=== PATIENT | female | born 1960 | race Two or more races ===

== ENCOUNTER → 2020-07-05 09:44 | Outpatient (BNVA) | payer OTHER, SELFPAY | PROVIDERS: PCP Internal Medicine; Referring Provider Internal Medicine; Visit Provider Physician Assistant | DX: Z76.89 Persons encountering health services in other specified circumstances (principal) ==

== ENCOUNTER 2020-07-11 12:25 | Outpatient (REF) | payer OTHER, SELFPAY ==
--- NOTE | 2020-07-11 | MM_ITS ---
EXAMINATION: MM SCREENING DIGITAL BREAST TOMOSYNTHESIS, BILATERAL CLINICAL INFORMATION: Screening. Asymptomatic. The lifetime risk of breast cancer based on the Tyrer-Cuzick Model is 5%. COMPARISON: Mammography: 07/06/2019, 06/22/2018, 11/20/2016 TECHNIQUE: Digital breast tomosynthesis is performed in both the craniocaudal and mediolateral oblique views along with computer-aided detection (CAD). Synthesized 2D images are generated from the tomosynthesis. FINDINGS: There are scattered areas of fibroglandular density (ACR BI-RADS breast composition Category b). There are no significant masses, abnormal calcifications, or other abnormalities. Parenchymal pattern is similar to prior studies. There is no developing density. The axilla and skin contours are unremarkable. MM/MM tomosynthesis screening BI IMPRESSION: No mammographic evidence of malignancy. ASSESSMENT: BI-RADS 1: Negative RECOMMENDATION: Routine annual mammography screening. This patient's information was entered into a reminder system with a target due date for their next mammogram.
== END 2020-07-11 12:26 | disposition home or self-care (01) ==
LOC: HO.MAMMO 12:25
PROVIDERS: PCP Internal Medicine; Visit Provider Internal Medicine
DX: Z12.31 Encounter for screening mammogram for malignant neoplasm of breast (principal)
CPT/HCPCS: 77063; 77067

== ENCOUNTER 2020-07-31 13:29 | Outpatient (REF) | payer OTHER, SELFPAY | END 2020-07-31 13:30 | disposition home or self-care (01) | LOC: HO.LAB 13:29 | PROVIDERS: PCP Internal Medicine; Visit Provider Internal Medicine | DX: Z20.828 Contact with and (suspected) exposure to other viral communicable diseases (principal) | CPT/HCPCS: C9803; U0003 ==

== ENCOUNTER 2020-09-18 15:49 | Emergency (ER) | payer OTHER, SELFPAY ==
[2020-09-18 17:25] VITALS: BP 134/63; PULSE 68; RESP 16; TEMP 36.4; O2SAT 98; BMI 28.0
[2020-09-18 18:18] VITALS: BP 148/81; PULSE 78; RESP 16; TEMP 37.1; O2SAT 100
--- NOTE | 2020-09-18 18:47 | XR_ITS ---
EXAMINATION: LEFT HAND CLINICAL INFORMATION: Pain in left middle finger COMPARISON: None TECHNIQUE: 3 views FINDINGS: No fracture. No dislocation. Bone and joint are normal. There is no soft tissue abnormality. XR/XR hand wrist LT IMPRESSION: No acute abnormality of the left hand.
--- NOTE | 2020-09-18 19:06 | ED_ITS ---
HPI - Extremity Problem General Chief complaint: Extremity Injury, Upper Stated complaint: Left hand numbness Time Seen by Provider: 09/18/20 18:18 Source: patient Mode of arrival: ambulatory Limitations: no limitations History of Present Illness HPI Narrative: Patient presents to ED for left middle finger pain and also numbness and tingling and dorsal aspect of hand. Patient states symptoms started since yesterday. Patient denies any recent trauma to the hand. Patient states no chest pain or shortness of breath. Patient denies any swelling or coldness sensation of hand. MD Complaint: extremity pain Related Data Home Medications Medication Instructions Recorded Confirmed alcohol swabs pad TOPICAL 08/22/20 08/22/20 blood sugar diagnostic #10 ea 08/22/20 08/22/20 Previous Rx's Medication Instructions Recorded bisacodyl 5 mg tablet,delayed 5 mg PO ONCE 1 Days #2 tab 07/05/20 release miralax See Rx Instructions PO ONCE #238 g 07/05/20 colloidal oatmeal 1 packet TOPICAL DAILY 8 Days #8 ea 07/18/20 clotrimazole-betamethasone 1 1 appl TOPICAL BID 14 Days #15 g 08/22/20 %-0.05 % topical cream hydroxyzine HCl 25 mg tablet 25 mg PO TID PRN 30 Days #90 tab 08/22/20 meclizine 25 mg tablet 25 mg PO DAILY PRN 30 Days #30 tab 08/22/20 metformin 1,000 mg tablet 1,000 mg PO BID #60 tab 08/22/20 trazodone 50 mg tablet 50 mg PO BEDTIME PRN 90 Days #90 08/22/20 tab Allergies Allergy/AdvReac Type Severity Reaction Status Date / Time atorvastatin Allergy Unknown stomach Verified 09/01/20 09:40 upset Review of Systems Constitutional: Constitutional: Reports as per HPI and Reports no additional constitutional complaints Eyes: Eyes: Reports as per HPI and Reports no additional eye complaints ENT: Reports system reviewed and no additional complaints, except as documented and Reports as per HPI Cardiovascular: Cardiovascular: Reports as per HPI and Reports no additional cardiovascular complaints Respiratory: Respiratory: Reports as per HPI and Reports no additional respiratory complaints Gastrointestinal: Gastrointestinal: Reports as per HPI and Reports no additional gastrointestinal complaints Genitourinary: Genitourinary: Reports no additional female genitourinary complaints and Reports as per HPI Musculoskeletal: Musculoskeletal: Reports no additional musculoskeletal complaints and Reports as per HPI Comments: Left middle finger pain and dorsal aspect of hand numbness/tingling Neurologic: Reports system reviewed and no additional complaints, except as documented and Reports as per HPI Psychiatric: Psychiatric: Reports no additional psychiatric complaints and Reports as per HPI [facility] Past Medical History Medical History (Updated 09/18/20 @ 21:00 by OSCAR Rucker) Diabetes High cholesterol Rash and nonspecific skin eruption Surgical History History of colonoscopy History of hysterectomy Family History Family History Father No problems noted. Mother History of diabetes mellitus, type I Social History Social History Alcohol intake: never Smoking Status: Never smoker Smoked in Last 30 Days: No Any prior treatment program specific to substance use: No Advance Directives: No Advance Directives Information Provided: Yes Physical Exam Vital Signs: Vital Signs: Last Vital Signs Temp 98.7 F 09/18/20 18:18 Pulse 78 09/18/20 18:18 Resp 16 09/18/20 18:18 BP 148/81 H 09/18/20 18:18 Pulse Ox 100 09/18/20 18:18 Body Mass Index 28.0 Const: General: cooperative, healthy appearing, comfortable, no acute distress, well developed, alert, awake and Physically active Orientation/consciousness: patient oriented x3 HENMT: Head: Yes normal to inspection, Yes No palpable skull fracture present, Yes normocephalic, Yes atraumatic, No abrasion, No Babin's sign, No contusion, No cranial bruits, No hematoma, No laceration, No occipital foramen tenderness, No palpable skull fracture, No raccoon eyes, No scalp tenderness, No Temporal artery tenderness present and No periorbital ecchymosis Eyes: General: appearance normal, both eyes and all related structures Neck: Neck: Yes normal visual inspection, Yes full ROM, Yes no lymphadenopathy, Yes no meningeal signs, Yes trachea midline, Yes supple and No tender Chest: Chest palpation & inspection: normal inspection of the chest and normal palpation of entire chest wall Resp: Effort & Inspection: normal respiratory effort and able to speak in complete sentences Auscultation: clear to auscultation bilaterally Cardio: Jugular venous distension: no JVD Heart sounds: S1 normal heart sound present and S2 normal heart sound present GI: Inspection: Yes normal to inspection Palpation (GI): Soft to palpation, not firm, nontender, no guarding and not rigid : General: No CVA tenderness and Yes no CVA tenderness Back/Spine/Pelvis: Back: no CVA tenderness, No CVA tenderness and No back tenderness Skin: General skin exam: no rashes or lesions noted and elasticity normal Neuro: Other: Negative for facial droop. Negative slurred speech. Negative pronator drift. All extremities strength are equal and intact. Normal gait. General: patient oriented x3, no meningeal signs and CN's II-XI intact bilaterally Cranial nerves: Yes Bilaterally intact EOM present Extrem: Other: Patient had sensation in both hands and all fingers. Both hands brachial pulses are intact. Left mid finger negative for any swelling or deformity. Refill of all fingers on both hands are normal. Both upper extremity negative for any swelling, redness, blue discoloration of fingers. General: Yes normal to inspection and Yes full ROM Psych: Appearance: grossly normal, well kempt and not disheveled Course Course Course Narrative: Patient have hand x-ray to rule out any arthritis or fracture. Due to patient stating left hand numbness since yesterday in age of 59 will do a DEC EKG 1 troponin make sure it is not cardiac event. Due to numbness patient will have head CT scan although very unlikely patient is having stroke. Negati ve for any neuro deficit Reevaluation(s) Reevaluation #1: Patient troponin negative. Patient EKG negative STEMI. Hand x-ray negative for any arthritis or fracture. Head CT negative for stroke. Electrolytes are normal in. Patient will follow-up with PCP for paresthesia Time: 20:53 MDM - Extremity (Nontraumatic) MDM Narrative Medical decision making narrative: Paresthesia Lab Data Result diagrams: 09/18/20 19:56 09/18/20 19:56 Labs: Lab Results 09/18/20 09/18/20 09/18/20 Range/Units 19:56 19:56 19:56 WBC 8.6 (4.8-10.8) X10*3/uL RBC 4.04 L (4.20-5.50) X10*6/uL Hgb 12.6 (12.0-16.0) g/dl Hct 37.5 (37-47) % MCV 92.8 (80-98) fL MCH 31.2 (27.0-33.0) pg MCHC 33.6 (31.0-35.0) g/dl RDW 12.6 (11.0-16.0) % Plt Count 281 (160-400) X10*3/uL MPV 9.3 L (9.4-12.3) fL Immature Gran % (Auto) 0.2 (0.0-0.4) % Neut % (Auto) 58.5 (45-73) % Lymph % (Auto) 31.9 (20-40) % Ogle % (Auto) 7.5 (2-11) % Eos % (Auto) 1.5 (0-4) % Baso % (Auto) 0.4 (0-2) % Lymph # (Auto) 2.7 (1.2-4.9) X10*3/uL Ogle # (Auto) 0.6 (0.1-1.2) X10*3/uL Eos # (Auto) 0.1 (0.0-0.4) X10*3/uL Baso # (Auto) 0.0 (0.0-0.2) X10*3/uL Abs Immat Gran (auto) 0.02 (0.00-0.03) X10*3/uL Absolute Neuts (auto) 5.0 (2.0-8.3) X10*3/uL Absolute Nucleated RBC 0.000 (0.0-0.012) X10*3/uL Nucleated RBC % (auto) 0.0 (0.0-0.2) /100WBC PT 12.0 (10.8-13.0) SEC INR 1.0 (0.9-1.1) APTT 35.6 (24.1-38.0) SEC Sodium 139 (135-145) mmol/L Potassium 3.9 (3.3-5.1) mmol/L Chloride 103 (96-108) mmol/L Carbon Dioxide 26 (22-29) mmol/L Anion Gap 14 (12-20) BUN 13 (9-16) mg/dL Creatinine 0.77 (0.5-1.4) mg/dL Estim Creat Clear Calc 71.7 Estimated GFR > 60 Random Glucose 118 H (60-115) mg/dL Calcium 8.9 (8.4-10.2) mg/dL Magnesium 1.9 (1.6-2.6) mg/dL Total Bilirubin 0.4 (0.0-1.0) mg/dL AST 15 (5-31) U/L ALT 10 (0-31) U/L Alkaline Phosphatase 77 (39-117) U/L Troponin I High Sens (<3.5-17.0) ng/L Total Protein 7.6 (6.5-8.0) g/dL Albumin 4.6 (3.5-5.0) g/dL 09/18/20 Range/Units 19:56 WBC (4.8-10.8) X10*3/uL RBC (4.20-5.50) X10*6/uL Hgb (12.0-16.0) g/dl Hct (37-47) % MCV (80-98) fL MCH (27.0-33.0) pg MCHC (31.0-35.0) g/dl RDW (11.0-16.0) % Plt Count (160-400) X10*3/uL MPV (9.4-12.3) fL Immature Gran % (Auto) (0.0-0.4) % Neut % (Auto) (45-73) % Lymph % (Auto) (20-40) % Ogle % (Auto) (2-11) % Eos % (Auto) (0-4) % Baso % (Auto) (0-2) % Lymph # (Auto) (1.2-4.9) X10*3/uL Ogle # (Auto) (0.1-1.2) X10*3/uL Eos # (Auto) (0.0-0.4) X10*3/uL Baso # (Auto) (0.0-0.2) X10*3/uL Abs Immat Gran (auto) (0.00-0.03) X10*3/uL Absolute Neuts (auto) (2.0-8.3) X10*3/uL Absolute Nucleated RBC (0.0-0.012) X10*3/uL Nucleated RBC % (auto) (0.0-0.2) /100WBC PT (10.8-13.0) SEC INR (0.9-1.1) APTT (24.1-38.0) SEC Sodium (135-145) mmol/L Potassium (3.3-5.1) mmol/L Chloride (96-108) mmol/L Carbon Dioxide (22-29) mmol/L Anion Gap (12-20) BUN (9-16) mg/dL Creatinine (0.5-1.4) mg/dL Estim Creat Clear Calc Estimated GFR Random Glucose (60-115) mg/dL Calcium (8.4-10.2) mg/dL Magnesium (1.6-2.6) mg/dL Total Bilirubin (0.0-1.0) mg/dL AST (5-31) U/L ALT (0-31) U/L Alkaline Phosphatase (39-117) U/L Troponin I High Sens < 3.5 (<3.5-17.0) ng/L Total Protein (6.5-8.0) g/dL Albumin (3.5-5.0) g/dL ECG Data Interpretation: Normal sinus rhythm. Ventricular rate 73. Pr interval 128. QTC 445. Negative STEMI Discharge Plan Discharge Clinical Impression: Paresthesia Patient Disposition: Home, Self-Care Instructions: Paresthesia (ED) Additional Instructions: Return to the ED immediately for paralysis of extremities, slurred speech, loss of vision, headache, dizziness, fever, chills, or any other concerning symptoms Prescriptions: No Action alcohol swabs Pads, Medicated topical RF: 0 (DME) FreeStyle Lite Strips Strip See Rx Instructions ea Not Applicable BID Qty: 10 RF: 0 metformin 1,000 mg tablet 1,000 mg PO BID Qty: 60 RF: 0 meclizine 25 mg tablet 25 mg PO DAILY PRN (Reason: dizziness) 30 Days Qty: 30 RF: 3 trazodone 50 mg tablet 50 mg PO BEDTIME PRN (Reason: insomnia) 90 Days Qty: 90 RF: 1 clotrimazole-betamethasone 1-0.05 % cream 1 appl topical BID 14 Days Qty: 15 RF: 3 hydroxyzine HCl 25 mg tablet 25 mg PO TID PRN (Reason: itching) 30 Days Qty: 90 RF: 3 Aveeno Soothing Bath Packet 1 packet topical DAILY 8 Days Qty: 8 RF: 0 bisacodyl [Dulcolax (bisacodyl)] 5 mg tablet,delayed release (DR/EC) 5 mg PO ONCE 1 Days Qty: 2 RF: 0 miralax See Rx Instructions PO ONCE Qty: 238 RF: 0 Referrals: Ai Garrett MD [Physician] - 2 days (Paresthesia of left hand) Delores Franco MD [Primary Care Provider] - 2 days (Left upper extremity paresthesia. Head CT scan came back negative for stroke. EKG negative for STEMI. Troponin negative. Hand x-ray negative for fracture.) Interventions: ED Discharge Assessment Last Done: 09/18/20 21:10 Discharge Date/Time: 09/18/20 21:11 Print Language: [place]ese
--- NOTE | 2020-09-18 19:08 | CT_ITS ---
EXAMINATION: CT HEAD WITHOUT CONTRAST CLINICAL INFORMATION: Hand numbness. COMPARISON: CT head 09/14/2015 TECHNIQUE: Contiguous axial imaging was performed from the skull base to vertex without intravenous administration of contrast. This CT examination was performed using dose optimization techniques as appropriate, variously including the following: *Automated exposure control *Adjustment of mA and/or kV according to patient size (this includes techniques or standardized protocols for targeted exams where dose is matched to indication/reason for exam; i.e. extremities or head) *Use of iterative reconstruction technique DLP: 618 mGy-cm FINDINGS: There is no evidence of acute intracranial hemorrhage or territorial infarction. No abnormal mass effect or midline shift is seen. Hudson to white matter differentiation is well preserved. No extra-axial fluid collections are identified. The ventricles are normal in size. There is no abnormal attenuation within the brain parenchyma. The osseous structures and soft tissues are normal. The mastoid air cells and visualized portions of the paranasal sinuses are well aerated. CT/CT head/brain wo con IMPRESSION: No acute intracranial pathology.
--- NOTE | 2020-09-18 19:08 | ECG_ITS ---
Test Reason : NUMBNESS Blood Pressure : / mmHG Vent. Rate : 073 BPM Atrial Rate : 073 BPM P-R Int : 128 ms QRS Dur : 084 ms QT Int : 408 ms P-R-T Axes : 031 018 022 degrees QTc Int : 449 ms Normal sinus rhythm Junctional ST depression, probably normal Borderline ECG When compared with ECG of 02-APR-2019 19:15, No significant change was found Referred By: Kalyan España Electronically Signed By:CEDRIC MOROCHO MD
[2020-09-18 20:01] LABS: Basophils Percent Auto 0.4 % (0-2); Eosinophils Absolute Auto 0.1 X10*3/uL (0.0-0.4); Eosinophils Percent Auto 1.5 % (0-4); Hematocrit 37.5 % (37-47); Hemoglobin 12.6 g/dl (12.0-16.0); Imm Gran Abs Auto 0.02 X10*3/uL (0.00-0.03); Imm Gran Pct Auto 0.2 % (0.0-0.4); Lymphocytes Absolute Auto 2.7 X10*3/uL (1.2-4.9); Lymphocytes Percent Auto 31.9 % (20-40); MANUAL DIFF FLAG NO; Mean Corpuscular HGB Conc 33.6 g/dl (31.0-35.0); Mean Corpuscular Hemoglobin 31.2 pg (27.0-33.0); Mean Corpuscular Volume 92.8 fL (80-98); Mean Platelet Volume 9.3 fL (9.4-12.3); Monocytes Absolute Auto 0.6 X10*3/uL (0.1-1.2); Monocytes Percent Auto 7.5 % (2-11); Neutrophils Percent Auto 58.5 % (45-73); Platelet Count 281 X10*3/uL (160-400); Red Blood Count 4.04 X10*6/uL (4.20-5.50); Red Cell Distribution Width 12.6 % (11.0-16.0); White Blood Count 8.6 X10*3/uL (4.8-10.8)
[2020-09-18 20:10] LABS: Partial Thromboplastin Time 35.6 SEC (24.1-38.0)
[2020-09-18 20:29] LABS: Alanine Aminotransferase 10 U/L (0-31); Albumin Level 4.6 g/dL (3.5-5.0); Alkaline Phosphatase 77 U/L (39-117); Anion Gap 14 (12-20); Aspartate Amino Transferase 15 U/L (5-31); Bilirubin Total 0.4 mg/dL (0.0-1.0); Blood Urea Nitrogen 13 mg/dL (9-16); Calcium 8.9 mg/dL (8.4-10.2); Carbon Dioxide 26 mmol/L (22-29); Chloride 103 mmol/L (96-108); Creatinine Clr Calc Pharmacy 71.7; Estimated Glomerular Filt Rate > 60; Glucose Random 118 mg/dL (60-115); Magnesium 1.9 mg/dL (1.6-2.6); Potassium 3.9 mmol/L (3.3-5.1); Sodium 139 mmol/L (135-145); Total Protein 7.6 g/dL (6.5-8.0)
[2020-09-18 20:34] LABS: Troponin-I High Sensitivity < 3.5 ng/L (<3.5-17.0)
== END 2020-09-18 21:11 | disposition home or self-care (01) ==
PROVIDERS: Physician Assistant; Emergency Provider Emergency Medicine Emergency Medical Services; PCP Internal Medicine
DX: R20.2 Paresthesia of skin (principal); E11.9 Type 2 diabetes mellitus without complications; E78.00 Pure hypercholesterolemia, unspecified; Z79.84 Long term (current) use of oral hypoglycemic drugs; Z79.899 Other long term (current) drug therapy
CPT/HCPCS: 36415; 70450; 73110; 73130; 80053; 83735; 84484; 85025; 85610; 85730; 93005; 99284

== ENCOUNTER 2020-10-16 08:51 | Outpatient (REF) | payer OTHER, SELFPAY | END 2020-10-16 08:52 | disposition home or self-care (01) | LOC: HO.LAB 08:51 | PROVIDERS: Visit Provider Internal Medicine | DX: Z20.822 Contact with and (suspected) exposure to COVID-19 (principal) | CPT/HCPCS: 36415; C9803; U0003; U0005 ==

== ENCOUNTER 2020-10-29 19:38 | Emergency (ER) | payer OTHER, SELFPAY ==
--- NOTE | ~2020-10-29 | XR_ITS ---
EXAMINATION: XR CHEST CLINICAL INFORMATION: Chest pain COMPARISON: Chest x-ray 04/02/2019 TECHNIQUE: Frontal view of the chest was obtained. 9:18 PM FINDINGS: No significant abnormality is noted involving the heart, lungs, mediastinum, bony thorax or soft tissues. XR/XR chest 1V IMPRESSION: Unremarkable examination.
--- NOTE | 2020-10-29 07:36 | ECG_ITS ---
Test Reason : CHEST PRESSURE Blood Pressure : / mmHG Vent. Rate : 094 BPM Atrial Rate : 094 BPM P-R Int : 166 ms QRS Dur : 086 ms QT Int : 364 ms P-R-T Axes : 051 035 037 degrees QTc Int : 455 ms Normal sinus rhythm Nonspecific ST and T wave abnormality Abnormal ECG When compared with ECG of 18-SEP-2020 20:02, No significant change was found Referred By: Kiah Jeff Electronically Signed By:CEDRIC MOROCHO MD
[2020-10-29 19:44] VITALS: BP 156/80; PULSE 91; RESP 20; TEMP 36.8; O2SAT 98; BMI 30.5
--- NOTE | 2020-10-29 21:04 | ECG_ITS ---
Test Reason : CHEST PAIN Blood Pressure : / mmHG Vent. Rate : 076 BPM Atrial Rate : 076 BPM P-R Int : 154 ms QRS Dur : 088 ms QT Int : 384 ms P-R-T Axes : 054 043 039 degrees QTc Int : 432 ms Normal sinus rhythm Nonspecific T wave abnormality Abnormal ECG When compared with ECG of 29-OCT-2020 18:45, No significant change was found Referred By: Kiah Jeff Electronically Signed By:CEDRIC MOROCHO MD
[2020-10-29 21:51] LABS: MANUAL DIFF FLAG NO
[2020-10-29 21:52] LABS: Basophils Percent Auto 0.5 % (0-2); Eosinophils Absolute Auto 0.5 X10*3/uL (0.0-0.4); Eosinophils Percent Auto 5.9 % (0-4); Hematocrit 36.3 % (37-47); Hemoglobin 12.2 g/dl (12.0-16.0); Imm Gran Abs Auto 0.02 X10*3/uL (0.00-0.03); Imm Gran Pct Auto 0.2 % (0.0-0.4); Lymphocytes Absolute Auto 2.7 X10*3/uL (1.2-4.9); Lymphocytes Percent Auto 30.8 % (20-40); Mean Corpuscular HGB Conc 33.6 g/dl (31.0-35.0); Mean Corpuscular Hemoglobin 31.4 pg (27.0-33.0); Mean Corpuscular Volume 93.3 fL (80-98); Mean Platelet Volume 9.4 fL (9.4-12.3); Monocytes Absolute Auto 0.9 X10*3/uL (0.1-1.2); Monocytes Percent Auto 9.6 % (2-11); Neutrophils Absolute Auto 4.7 X10*3/uL (2.0-8.3); Platelet Count 284 X10*3/uL (160-400); Red Blood Count 3.89 X10*6/uL (4.20-5.50); Red Cell Distribution Width 13.1 % (11.0-16.0); White Blood Count 8.8 X10*3/uL (4.8-10.8)
--- NOTE | 2020-10-29 21:52 | ED_ITS ---
HPI - General Adult General Chief complaint: Chest Pain Stated complaint: Chest pain Time Seen by Provider: 10/29/20 21:04 Source: patient Mode of arrival: ambulatory History of Present Illness HPI narrative: This is a 60-year-old female with history of diabetes who presents with 1 month of dry cough and has not followed up with a primary care provider and denies any associated fevers, chills, nausea, vomiting, diarrhea, urinary pain/burning/frequency. Patient states that when she coughs her chest wall hurts, but otherwise denies shortness of breath her cardiac like chest pain. Recent COVID-19 testing 2 weeks ago and denies any recent travel, recent visitors, or known COVID-19 exposure. Related Data Home Medications Medication Instructions Recorded Confirmed alcohol swabs pad TOPICAL 08/22/20 10/25/20 blood sugar diagnostic #10 ea 08/22/20 10/25/20 Previous Rx's Medication Instructions Recorded bisacodyl 5 mg tablet,delayed 5 mg PO ONCE 1 Days #2 tab 07/05/20 release miralax See Rx Instructions PO ONCE #238 g 07/05/20 colloidal oatmeal 1 packet TOPICAL DAILY 8 Days #8 ea 07/18/20 clotrimazole-betamethasone 1 1 appl TOPICAL BID 14 Days #15 g 08/22/20 %-0.05 % topical cream hydroxyzine HCl 25 mg tablet 25 mg PO TID PRN 30 Days #90 tab 08/22/20 meclizine 25 mg tablet 25 mg PO DAILY PRN 30 Days #30 tab 08/22/20 trazodone 50 mg tablet 50 mg PO BEDTIME PRN 90 Days #90 08/22/20 tab metformin 1,000 mg tablet 1,000 mg PO BID #60 tab 10/18/20 Allergies Allergy/AdvReac Type Severity Reaction Status Date / Time atorvastatin Allergy Mild stomach Verified 10/25/20 14:38 upset Review of Systems Review of Systems: Pertinent positives and negatives as stated in HPI 10 point review of systems is otherwise negative. [facility] Past Medical History Source: nursing notes reviewed Medical History Diabetes Hand numbness High cholesterol Left hand pain Rash and nonspecific skin eruption Thoracic spine pain Surgical History History of colonoscopy History of hysterectomy Family History Family History Father No problems noted. Mother History of diabetes mellitus, type I Social History Social History Alcohol intake: never Smoking Status: Never smoker Advance Directives: No Advance Directives Information Provided: No Physical Exam Vital Signs: Vital Signs: Last Vital Signs Temp 98.3 F 10/29/20 19:44 Pulse 91 10/29/20 19:44 Resp 20 10/29/20 19:44 BP 156/80 H 10/29/20 19:44 Pulse Ox 98 10/29/20 19:44 Body Mass Index 30.5 VITAL SIGNS: Reviewed. GENERAL: Well developed, well nourished, in no acute distress. HEAD: Normocephalic/atraumatic EYES: PERRLA, EOMI OROPHARYNX: no oral lesions noted, posterior pharynx clear, moist mucosa NECK: Supple, no adenopathy LUNGS: Normal breath sounds. No adventitious sounds or accessory muscle use. SpO2<98> CARDIOVASCULAR: Regular rate and rhythm without noted murmurs ABDOMEN: Soft, non-tender, non-distended with bowel sounds. NEUROLOGIC: Alert and oriented x 4. Course Course Course Narrative: This is a 60-year-old female with history and clinical pr esentation most consistent with pleurisy secondary to consistent cough but will rule out evidence of pneumonia the this is felt to be less likely as patient has had no fevers or chills or shortness of breath. In addition, will repeat COVID- 19 testing although patient is neither tachypneic nor hypoxic. Review of all investigation negative for any acute findings. Patient's history and presentation most consistent with pleurisy/costochondritis secondary to constant coughing. She will be discharged home with a prescription for Tessalon and encouraged to keep her appointment with her primary care provider on 11/02. Medical Decision Making Lab Data Result diagrams: 10/29/20 21:37 10/29/20 21:37 Labs: Lab Results 10/29/20 10/29/20 10/29/20 Range/Units 21:37 21:37 21:37 WBC 8.8 (4.8-10.8) X10*3/uL RBC 3.89 L (4.20-5.50) X10*6/uL Hgb 12.2 (12.0-16.0) g/dl Hct 36.3 L (37-47) % MCV 93.3 (80-98) fL MCH 31.4 (27.0-33.0) pg MCHC 33.6 (31.0-35.0) g/dl RDW 13.1 (11.0-16.0) % Plt Count 284 (160-400) X10*3/uL MPV 9.4 (9.4-12.3) fL Immature Gran % (Auto) 0.2 (0.0-0.4) % Neut % (Auto) 53.0 (45-73) % Lymph % (Auto) 30.8 (20-40) % [place] % (Auto) 9.6 (2-11) % Eos % (Auto) 5.9 H (0-4) % Baso % (Auto) 0.5 (0-2) % Lymph # (Auto) 2.7 (1.2-4.9) X10*3/uL [place] # (Auto) 0.9 (0.1-1.2) X10*3/uL Eos # (Auto) 0.5 H (0.0-0.4) X10*3/uL Baso # (Auto) 0.0 (0.0-0.2) X10*3/uL Abs Immat Gran (auto) 0.02 (0.00-0.03) X10*3/uL Absolute Neuts (auto) 4.7 (2.0-8.3) X10*3/uL Absolute Nucleated RBC 0.000 (0.0-0.012) X10*3/uL Nucleated RBC % (auto) 0.0 (0.0-0.2) /100WBC Sodium 140 (135-145) mmol/L Potassium 4.1 (3.3-5.1) mmol/L Chloride 105 (96-108) mmol/L Carbon Dioxide 26 (22-29) mmol/L Anion Gap 13 (12-20) BUN 15 (9-16) mg/dL Creatinine 0.81 (0.5-1.4) mg/dL Estim Creat Clear Calc 70.3 Estimated GFR > 60 Random Glucose 192 H D (60-115) mg/dL Calcium 8.9 (8.4-10.2) mg/dL Total Bilirubin 0.5 (0.0-1.0) mg/dL AST 19 (5-31) U/L ALT 19 (0-31) U/L Alkaline Phosphatase 80 (39-117) U/L Troponin I High Sens < 3.5 (<3.5-17.0) ng/L Total Protein 7.6 (6.5-8.0) g/dL Albumin 4.5 (3.5-5.0) g/dL Lipase (8-78) U/L Urine Color Urine Appearance Urine pH (5.0-8.0) Ur Specific [place] (1.005-1.025) Urine Protein (NEG-TRACE) MG/DL Urine Glucose (UA) (NEG) MG/DL Urine Ketones (NEG) MG/DL Urine Blood (NEG) Urine Nitrite (NEG) Ur Leukocyte Esterase (NEG) Urine RBC (0) /HPF Urine WBC (0-4) /HPF Ur Squamous Epith Cells /LPF Urine Bacteria /LPF Urine Mucus /LPF 10/29/20 10/29/20 Range/Units 21:37 22:50 WBC (4.8-10.8) X10*3/uL RBC (4.20-5.50) X10*6/uL Hgb (12.0-16.0) g/dl Hct (37-47) % MCV (80-98) fL MCH (27.0-33.0) pg MCHC (31.0-35.0) g/dl RDW (11.0-16.0) % Plt Count (160-400) X10*3/uL MPV (9.4-12.3) fL Immature Gran % (Auto) (0.0-0.4) % Neut % (Auto) (45-73) % Lymph % (Auto) (20-40) % [place] % (Auto) (2-11) % Eos % (Auto) (0-4) % Baso % (Auto) (0-2) % Lymph # (Auto) (1.2-4.9) X10*3/uL [place] # (Auto) (0.1-1.2) X10*3/uL Eos # (Auto) (0.0-0.4) X10*3/uL Baso # (Auto) (0.0-0.2) X10*3/uL Abs Immat Gran (auto) (0.00-0.03) X10*3/uL Absolute Neuts (auto) (2.0-8.3) X10*3/uL Absolute Nucleated RBC (0.0-0.012) X10*3/uL Nucleated RBC % (auto) (0.0-0.2) /100WBC Sodium (135-145) mmol/L Potassium (3.3-5.1) mmol/L Chloride (96-108) mmol/L Carbon Dioxide (22-29) mmol/L Anion Gap (12-20) BUN (9-16) mg/dL Creatinine (0.5-1.4) mg/dL Estim Creat Clear Calc Estimated GFR Random Glucose (60-115) mg/dL Calcium (8.4-10.2) mg/dL Total Bilirubin (0.0-1.0) mg/dL AST (5-31) U/L ALT (0-31) U/L Alkaline Phosphatase (39-117) U/L Troponin I High Sens (<3.5-17.0) ng/L Total Protein (6.5-8.0) g/dL Albumin (3.5-5.0) g/dL Lipase 22 (8-78) U/L Urine Color YELLOW Urine Appearance CLEAR Urine pH 5.5 (5.0-8.0) Ur Specific [place] >= 1.030 H (1.005-1.025) Urine Protein NEG (NEG-TRACE) MG/DL Urine Glucose (UA) NEG (NEG) MG/DL Urine Ketones NEG (NEG) MG/DL Urine Blood 2+ H (NEG) Urine Nitrite NEG (NEG) Ur Leukocyte Esterase NEG (NEG) Urine RBC 1-4 (0) /HPF Urine WBC 0 (0-4) /HPF Ur Squamous Epith Cells 1+ /LPF Urine Bacteria NONE /LPF Urine Mucus 2+ /LPF ECG Data Attestation: I personally reviewed and interpreted this ECG as follows: Prior ECG tracings: available for review (09/18/2020 no acute changes on comparison) Interpretation: Normal sinus rhythm, HR-76, no evidence of acute ischemia, WI/QRS/QTC are within normal limits. Discharge Plan Discharge Clinical Impression: Cough, Atypical chest pain Patient Disposition: Home, Self-Care Instructions: Benzonatate (By mouth), Chest Pain (ED), Chest Wall Pain (ED) Additional Instructions: 1. Recomiende el uso de Tylenol / ibuprofeno de venta isidra para el dolor julian se indica en el empaque exterior. 2. Nilam un seguimiento con milton proveedor de atenci?n primaria seg?n lo programado el . No dude en volver al servicio de urgencias por cualquier empeoramiento ana de eddie s?ntomas. Prescriptions: No Action metformin 1,000 mg tablet 1,000 mg PO BID Qty: 60 RF: 6 alcohol swabs Pads, Medicated topical RF: 0 (DME) FreeStyle Lite Strips Strip See Rx Instructions ea Not Applicable BID Qty: 10 RF: 0 meclizine 25 mg tablet 25 mg PO DAILY PRN (Reason: dizziness) 30 Days Qty: 30 RF: 3 trazodone 50 mg tablet 50 mg PO BEDTIME PRN (Reason: insomnia) 90 Days Qty: 90 RF: 1 clotrimazole-betamethasone 1-0.05 % cream 1 appl topical BID 14 Days Qty: 15 RF: 3 hydroxyzine HCl 25 mg tablet 25 mg PO TID PRN (Reason: itching) 30 Days Qty: 90 RF: 3 Aveeno Soothing Bath Packet 1 packet topical DAILY 8 Days Qty: 8 RF: 0 bisacodyl [Dulcolax (bisacodyl)] 5 mg tablet,delayed release (DR/EC) 5 mg PO ONCE 1 Days Qty: 2 RF: 0 miralax See Rx Instructions PO ONCE Qty: 238 RF: 0 Referrals: Delores Franco MD [Primary Care Provider] - 2 days (Re-evaluation and management for atypical chest pain most associated with cough.) Print Language: French
[2020-10-29 22:00] VITALS: RESP 16
[2020-10-29] MEDS: Benzonatate 100 MG CAPSULE 200 MG PO (22:13)
[2020-10-29 22:18] LABS: Lipase 22 U/L (8-78)
[2020-10-29 22:19] LABS: Alanine Aminotransferase 19 U/L (0-31); Albumin Level 4.5 g/dL (3.5-5.0); Alkaline Phosphatase 80 U/L (39-117); Anion Gap 13 (12-20); Aspartate Amino Transferase 19 U/L (5-31); Bilirubin Total 0.5 mg/dL (0.0-1.0); Blood Urea Nitrogen 15 mg/dL (9-16); Calcium 8.9 mg/dL (8.4-10.2); Carbon Dioxide 26 mmol/L (22-29); Chloride 105 mmol/L (96-108); Creatinine Clr Calc Pharmacy 70.3; Estimated Glomerular Filt Rate > 60; Glucose Random 192 mg/dL (60-115); Potassium 4.1 mmol/L (3.3-5.1); Sodium 140 mmol/L (135-145); Total Protein 7.6 g/dL (6.5-8.0)
[2020-10-29 22:22] LABS: Troponin-I High Sensitivity < 3.5 ng/L (<3.5-17.0)
[2020-10-29 23:04] LABS: Glucose Urine UA NEG (NEG); Leukocyte Esterase Urine NEG (NEG); Nitrite Urine NEG (NEG); PH 5.5 (5.0-8.0); Specific Gravity - Urine >= 1.030 (1.005-1.025); Urine Blood 2+ (NEG); Urine Ketones NEG (NEG); Urine Protein NEG (NEG-TRACE)
[2020-10-29 23:06] LABS: Appearance Urine CLEAR; Color Urine YELLOW
[2020-10-29 23:12] LABS: Mucus Urine 2+ /LPF; Squamous Epithelial Cell Urine 1+ /LPF; WBC Urine 0 /HPF (0-4)
== END 2020-10-29 23:57 | disposition home or self-care (01) ==
PROVIDERS: Emergency Provider Student in an Organized Health Care Education/Training Program; PCP Internal Medicine
DX: R07.89 Other chest pain (principal); R05 Cough; E11.9 Type 2 diabetes mellitus without complications
CPT/HCPCS: 36415; 71045; 80053; 81001; 81003; 83690; 84484; 85025; 93005; 99283; 99284

== ENCOUNTER 2020-11-01 08:58 | Outpatient (REF) | payer OTHER, SELFPAY ==
--- NOTE | ~2020-11-01 | XR_ITS ---
EXAMINATION: XR THORACOLUMBAR SPINE CLINICAL INFORMATION: Thoracic spine pain. COMPARISON: None. TECHNIQUE: 2 views. FINDINGS: There is maintained thoracic kyphosis. The vertebral heights, alignment and disc heights are normal. No visible acute fracture, dislocation seen. There is mild ventral spondylosis mid dorsal spine. The paravertebral soft tissues are normal. XR/XR thoracic spine 2V IMPRESSION: Mild spondylosis. No visible acute fracture or dislocation.
[2020-11-01 10:25] LABS: Alanine Aminotransferase 14 U/L (0-31); Albumin Level 4.5 g/dL (3.5-5.0); Alkaline Phosphatase 76 U/L (39-117); Anion Gap 12 (12-20); Aspartate Amino Transferase 15 U/L (5-31); Bilirubin Total 0.7 mg/dL (0.0-1.0); Blood Urea Nitrogen 16 mg/dL (9-16); Calcium 9.2 mg/dL (8.4-10.2); Carbon Dioxide 29 mmol/L (22-29); Chloride 103 mmol/L (96-108); Cholesterol 195 mg/dL; Estimated Glomerular Filt Rate > 60; Glucose Fasting 164 mg/dL (60-99); HDL Cholesterol 46 mg/dL; LDL Cholesterol Calculated 123 mg/dl; Potassium 4.2 mmol/L (3.3-5.1); Sodium 140 mmol/L (135-145); Total Protein 7.4 g/dL (6.5-8.0); Triglycerides 131 mg/dL
[2020-11-04 09:02] LABS: Vitamin D 25-OH, D2 <4 ng/mL; Vitamin D 25-OH, D3 32 ng/mL; Vitamin D 25-OH, Total 32 ng/mL (30-100)
== END 2020-11-01 08:59 | disposition home or self-care (01) ==
LOC: HO.LAB 08:58
PROVIDERS: PCP Internal Medicine; Visit Provider Internal Medicine
DX: M54.6 Pain in thoracic spine (principal); E11.9 Type 2 diabetes mellitus without complications; E78.5 Hyperlipidemia, unspecified; E55.9 Vitamin D deficiency, unspecified
CPT/HCPCS: 36415; 72070; 80053; 80061; 82306

== ENCOUNTER → 2020-11-14 12:15 | Outpatient (BNVA) | payer OTHER, SELFPAY | PROVIDERS: PCP Internal Medicine; Visit Provider Orthopaedic Surgery | DX: M65.341 Trigger finger, right ring finger (principal); R20.0 Anesthesia of skin; R20.2 Paresthesia of skin | CPT/HCPCS: 20550; 99202; J1100 ==

== ENCOUNTER 2020-11-30 12:42 | Outpatient (REF) | payer OTHER, SELFPAY ==
[2020-11-30 13:03] LABS: COVID-19 Test Negative (Negative); IDNOW Serial# 55D5AD1C
== END 2020-11-30 12:43 | disposition home or self-care (01) ==
LOC: HO.LAB 12:42
PROVIDERS: Visit Provider Internal Medicine
DX: Z20.822 Contact with and (suspected) exposure to COVID-19 (principal)
CPT/HCPCS: 36415; 87635; C9803

== ENCOUNTER 2020-12-13 09:56 | Outpatient (REF) | payer OTHER, SELFPAY ==
--- NOTE | 2020-12-13 10:00 | EMG_ITS ---
This is a 60-year-old woman with a 2-month history of tingling in the left hand. PHYSICAL EXAMINATION: On examination, she is alert and oriented with normal intellectual functions. Cranial nerves II through XII are normal. Muscle tone and strength are normal in all 4 extremities. No Tinel or Phalen sign. IMPRESSION: Rule out carpal tunnel syndrome. Rule out ulnar nerve entrapment. Nerve conduction EMG report attached. MD KELLI Honeycutt/DARIAN / [id number]
== END 2020-12-13 09:57 | disposition home or self-care (01) ==
LOC: HO.NEURO 09:56
PROVIDERS: Visit Provider Internal Medicine
DX: R20.0 Anesthesia of skin (principal)
CPT/HCPCS: 95885; 95910

== ENCOUNTER → 2021-01-09 15:33 | Outpatient (BNVA) | payer OTHER, SELFPAY | PROVIDERS: PCP Internal Medicine; Visit Provider Internal Medicine Pulmonary Disease | DX: R05 Cough (principal) | CPT/HCPCS: 99202 ==

== ENCOUNTER 2021-02-23 13:52 | Outpatient (REF) | payer OTHER, SELFPAY ==
--- NOTE | 2021-02-23 17:11 | PFT_ITS ---
INDICATION: Cough. SPIROMETRY: The FEV1 to FVC 86% with an FEV1 of 2.13 L, which is 91% predicted, and an FVC of 2.48 L, which is 84% predicted. No significant response to bronchodilators noted. Maximum voluntary ventilation 96% predicted. LUNG VOLUMES: Total lung capacity 63% predicted with expiratory reserve volume of 72% predicted. DIFFUSION CAPACITY: DLCO 82% predicted. COMPARISONS: None. INTERPRETATION: No obstructive ventilatory defect. No significant response to bronchodilators noted. No significant change in the maximum voluntary ventilation. Although, the patient does have a moderate restrictive ventilatory defect of an unclear etiology. interstitial lung conditions or neuromuscular conditions to be considered. Diffusing capacity is within normal limits. Clinical correlation warranted. Additionally, the patient could consider a pulmonary consultation. MD DES Hudson/DARIAN / [phone]
== END 2021-02-23 13:53 | disposition home or self-care (01) ==
LOC: HO.RESP 13:52
PROVIDERS: PCP Internal Medicine; Visit Provider Internal Medicine Pulmonary Disease
DX: R05 Cough (principal)
CPT/HCPCS: 94060; 94727; 94729

== ENCOUNTER 2021-06-16 11:54 | Emergency (ER) | payer OTHER, SELFPAY ==
--- NOTE | ~2021-06-16 | XR_ITS ---
EXAMINATION: XR LUMBOSACRAL SPINE CLINICAL INFORMATION: Pain COMPARISON: Previous x-ray February 2019 TECHNIQUE: Three views of the lumbosacral spine. FINDINGS: There is mild anterior subluxation of L4 with respect L5 measuring 2 to 3 mm. Bone alignment is otherwise normal. No fracture or dislocation is seen. There is degenerative disc disease at L4-L5 and L5-S1. There is lower lumbar spine facet arthritis. XR/XR lumbar spine 2-3V IMPRESSION: Degenerative changes.
[2021-06-16 12:22] VITALS: BP 108/75; PULSE 71; RESP 16; TEMP 36.9; O2SAT 97; BMI 34.0
--- NOTE | 2021-06-16 13:57 | ED.BACK ---
HPI - Back Pain/Injury General Chief Complaint: Back Pain/Injury Stated Complaint: BACK PAIN Time Seen by Provider: 06/16/21 13:56 Source: patient Mode of arrival: ambulatory Limitations: no limitations History of Present Illness MD elicited complaint: back pain Onset (ago): day(s) (2) Timing: constant Severity: moderate Similar Symptoms Previously: No Quality: aching Location: lumbar spine and right flank Radiation: right upper leg Exacerbating factors: movement and lifting Relieving factors: none Context: unknown Associated symptoms: denies other symptoms Work related injury: No Related Data Home Medications Medication Instructions Recorded Confirmed hydroxyzine HCl 25 mg tablet 25 mg PO TID PRN 12/22/20 Previous Rx's Medication Instructions Recorded bisacodyl 5 mg tablet,delayed 5 mg PO ONCE 1 Days #2 tab 07/05/20 release (Dulcolax (bisacodyl)) miralax See Rx Instructions PO ONCE #238 g 07/05/20 metformin 1,000 mg tablet 1,000 mg PO BID #60 tab 10/18/20 alcohol swabs 1 pad TOPICAL .once a day 90 Days 01/20/21 #100 ea blood sugar diagnostic (FreeStyle 1 strip MISCELLANEOUS BID 90 Days 01/20/21 Lite Strips) #100 strip meclizine 25 mg tablet 25 mg PO DAILY PRN 30 Days #30 tab 02/28/21 atorvastatin 10 mg tablet 10 mg PO BEDTIME 90 Days #90 tab 03/13/21 trazodone 50 mg tablet 50 mg PO BEDTIME PRN 90 Days #90 05/26/21 tab cyclobenzaprine 10 mg tablet 10 mg PO TID PRN #14 tab 06/16/21 lidocaine 5 % topical patch 1 patch TOPICAL DAILY PRN #15 ea 06/16/21 nitrofurantoin 100 mg PO BID 7 Days #14 cap 06/16/21 monohydrate/macrocrystals 100 mg capsule (Macrobid) ondansetron 4 mg disintegrating 4 mg PO Q8H PRN #20 tab 06/16/21 tablet Allergies Allergy/AdvReac Type Severity Reaction Status Date / Time atorvastatin Allergy Mild stomach Verified 01/09/21 15:38 upset Review of Systems Review of Systems: Constitutional : No Weight loss, No Fever, No Chills, ENT/Mouth : No Hearing loss, No Ear Pain, No Nasal Congestion, No Sinus Pain, No Hoarseness, No sore throat, No Rhinorrhea, No Swallowing Difficulty Cardiovascular : No Chest Pain, No SOB Respiratory : No Cough, No Dyspnea Gastrointestinal : No Nausea, No Vomiting, No Diarrhea, No abdominal Pain, No Hematochezia, No Melena Genitourinary : No Dysuria, No Urinary Frequency, No Hematuria, No Urinary Incontinence, Musculoskeletal : positive back pain Skin : No Skin Lesions, No rash Neuro : No Weakness, No Numbness, No Paresthesias, no loss of bowel or bladder incontinence, no saddle anesthesia [facility] Past Medical History Attestation statement: The following information was validated with the patient. Medical History Chronic cough Diabetes Dyslipidemia Hand numbness Insomnia Left hand pain Rash and nonspecific skin eruption Thoracic spine pain Surgical History History of colonoscopy History of hysterectomy Family History Family History Father No problems noted. Mother History of diabetes mellitus, type I Social History Social History Alcohol intake: current Alcohol intake frequency: holidays/special occasions only Alcohol type: beer Advance Directives: No Advance Directives Information Provided: No Patient : No Current occupational status: disabled Current occupation: rt handed Physical Exam Vital Signs: Vital Signs: Last Vital Signs Temp 98.4 F 06/16/21 12:22 Pulse 71 06/16/21 12:22 Resp 16 06/16/21 12:22 BP 108/75 06/16/21 12:22 Pulse Ox 97 06/16/21 12:22 Body Mass Index 34.0 Appearance: Alert. Oriented X3. No acute distress. Eyes: Pupils equal, round and reactive to light. ENT: Pharynx normal. Neck: Normal inspection. Neck supple. CVS: Normal heart rate and rhythm. Pulses normal. Respiratory: No respiratory distress. Breath sounds normal. Abdomen: Soft and nontender. Back: ttp along R lower lumbar area which reproduces pain Skin: Skin warm and dry. Normal skin color. Normal skin turgor. Extremities: No lower extremity edema. No calf ttp Neuro: Oriented X 3. No motor deficit. No sensory deficit. Course Course Course Narrative: arthritis and UA + for UTI but no clinical signs for pyelo MDM - Back Pain/Injury MDM Narrative Medical decision making narrative: 60 yo female with hx of HLD, DM, thoracic back pain comes in with lower R lumbar pain - no IVDA< no AC therapy, no b/b incontinence, no saddle anesthesia pain is reproduceable to palpation and movement seems mostly MSK in nature, xrays of lumbar spine and UA ordered. Lab Data Labs: Lab Results 06/16/21 Range/Units 14:13 Urine Color YELLOW Urine Appearance CLEAR Urine pH 7.0 (5.0-8.0) Ur Specific [place] 1.020 (1.005-1.025) Urine Protein NEG (NEG-TRACE) MG/DL Urine Glucose (UA) NEG (NEG) MG/DL Urine Ketones NEG (NEG) MG/DL Urine Blood TRACE (NEG) Urine Nitrite NEG (NEG) Ur Leukocyte Esterase 2+ H (NEG) Urine RBC 0-2 (0) /HPF Urine WBC 5-9 H (0-4) /HPF Ur Squamous Epith Cells 2+ /LPF Urine Bacteria 1+ /LPF Discharge Plan Discharge Clinical Impression: Lumbar strain Qualifiers: Encounter type: initial encounter Qualified Code(s): S39.012A - Strain of muscle, fascia and tendon of lower back, initial encounter UTI (urinary tract infection) Qualifiers: Urinary tract infection type: acute cystitis Hematuria presence: without hematuria Qualified Code(s): N30.00 - Acute cystitis without hematuria Patient Disposition: Home, Self-Care Instructions: Urinary Tract Infection in Women (ED), Acute Low Back Pain (ED) Additional Instructions: return to ED for any worsening symptoms or concerns Prescriptions: New ondansetron 4 mg tablet,disintegrating 4 mg PO Q8H PRN (Reason: nausea and vomiting) Qty: 20 RF: 0 cyclobenzaprine 10 mg tablet 10 mg PO TID PRN (Reason: muscle spasm) Qty: 14 RF: 0 lidocaine 5 % adhesive patch,medicated 1 patch topical DAILY PRN (Reason: pain) Qty: 15 RF: 0 nitrofurantoin monohyd/m-cryst [Macrobid] 100 mg capsule 100 mg PO BID 7 Days Qty: 14 RF: 0 No Action metformin 1,000 mg tablet 1,000 mg PO BID Qty: 60 RF: 6 hydroxyzine HCl 25 mg tablet 25 mg PO TID PRNRF: 0 blood sugar diagnostic [FreeStyle Lite Strips] Strip 1 strip miscellaneous BID 90 Days Qty: 100 RF: 3 alcohol swabs Pads, Medicated 1 pad topical .once a day 90 Days Qty: 100 RF: 3 meclizine 25 mg tablet 25 mg PO DAILY PRN (Reason: dizziness) 30 Days Qty: 30 RF: 3 atorvastatin 10 mg tablet 10 mg PO BEDTIME 90 Days Qty: 90 RF: 2 trazodone 50 mg tablet 50 mg PO BEDTIME PRN (Reason: insomnia) 90 Days Qty: 90 RF: 1 bisacodyl [Dulcolax (bisacodyl)] 5 mg tablet,delayed release (DR/EC) 5 mg PO ONCE 1 Days Qty: 2 RF: 0 miralax See Rx Instructions PO ONCE Qty: 238 RF: 0 Referrals: Delores Franco MD [Primary Care Provider] - 2 days (if not better) Stand Alone Forms: Work/School Release Print Language: Macedonian
[2021-06-16 14:22] LABS: Appearance Urine CLEAR; Color Urine YELLOW; Glucose Urine UA NEG (NEG); Leukocyte Esterase Urine 2+ (NEG); Nitrite Urine NEG (NEG); UACC Culture Trigger YES; Urine Blood TRACE (NEG); Urine Ketones NEG (NEG); Urine Protein NEG (NEG-TRACE)
[2021-06-16 14:35] LABS: Bacteria Urine 1+ /LPF; RBC Urine 0-2 /HPF (0); Squamous Epithelial Cell Urine 2+ /LPF
== END 2021-06-16 15:39 | disposition home or self-care (01) ==
PROVIDERS: Emergency Provider Emergency Medicine; PCP Internal Medicine
DX: M54.50 Low back pain, unspecified (principal); N30.00 Acute cystitis without hematuria; Z79.899 Other long term (current) drug therapy
CPT/HCPCS: 72100; 81001; 87086; 99283; 99284

== ENCOUNTER 2021-08-15 11:48 | Outpatient (REF) | payer OTHER, SELFPAY ==
[2021-08-15 15:00] LABS: COVID-19 Test Negative (Negative); IDNOW Serial# 16C4AD1C
== END 2021-08-15 11:49 | disposition home or self-care (01) ==
LOC: HO.LAB 11:48
PROVIDERS: Visit Provider Internal Medicine
DX: Z20.822 Contact with and (suspected) exposure to COVID-19 (principal)
CPT/HCPCS: 36415; 87635; C9803

== ENCOUNTER 2022-04-14 11:34 | Emergency (ER) | payer OTHER, SELFPAY ==
--- NOTE | ~2022-04-14 | XR_ITS ---
EXAMINATION: XR LUMBAR SPINE CLINICAL INFORMATION: Reason for Exam back pain COMPARISON: None TECHNIQUE: Frontal lateral and coned-down L5-S1 frontal lateral FINDINGS: Five [id number] lumbar vertebrae were identified maintaining normal height and alignments. Narrowing of intervertebral disc spaces suggest underlying degenerative disc disease. Paravertebral soft tissues are unremarkable. There are radiolucencies, most likely superimposed bowel gas.. No radiographic evidence of osteolytic or osteoblastic lesions. XR/XR lumbar spine 2-3V IMPRESSION: No fracture. Narrowing of intervertebral disc spaces suggest underlying degenerative disc disease.
--- NOTE | ~2022-04-14 | CT_ITS ---
EXAMINATION: CT ABDOMEN AND PELVIS WITHOUT CONTRAST CLINICAL INFORMATION: Severe right flank pain COMPARISON: Abdomen and pelvis CT 09/29/2015 TECHNIQUE: Multidetector volumetric imaging was performed from the superior aspect of the liver through the pubic symphysis. Sagittal and coronal reformatted images were obtained on the technologist's workstation. This CT examination was performed using dose optimization techniques as appropriate, variously including the following: *Automated exposure control *Adjustment of mA and/or kV according to patient size (this includes techniques or standardized protocols for targeted exams where dose is matched to indication/reason for exam; i.e. extremities or head) *Use of iterative reconstruction technique DLP: 622 mGy-cm FINDINGS: LUNG BASES: The visualized lung bases are unremarkable. LIVER, GALLBLADDER, AND BILIARY TREE: The liver is normal in size, shape, and attenuation. No focal hepatic lesion or biliary ductal dilatation is present. The gallbladder is unremarkable with no evidence of radiopaque gallstones, gallbladder wall thickening, or obvious pericholecystic inflammatory changes. PANCREAS: Pancreatic body and tail are absent, unchanged. No pancreatic lesion or peripancreatic inflammatory change. SPLEEN: Unremarkable. ADRENAL GLANDS: Unremarkable. KIDNEYS AND URETERS: No radiodense urinary tract calculi or hydronephrosis. There are multiple bilateral parapelvic renal cysts, slightly larger than on prior. A small 0.1 cm right upper pole exophytic renal cyst is also noted. No perinephric BLADDER: Stranding or collections. GASTROINTESTINAL TRACT: Sigmoid and descending colonic diverticulosis. No dilated bowel loops. No bowel wall thickening. The appendix is unremarkable. ABDOMINAL WALL: No significant hernia is appreciated. LYMPH NODES: No lymphadenopathy. VASCULAR: Normal caliber abdominal aorta. PELVIC VISCERA: Status post hysterectomy. No free pelvic fluid. OSSEOUS STRUCTURES: No acute fracture or suspicious osseous lesion. Minimal grade 1 anterolisthesis at L4-L5 secondary facet arthrosis. Mild multilevel degenerative disc disease. CT/CT abdomen pelvis wo con IMPRESSION: 1. No radiodense urinary tract calculi. No hydronephrosis. 2. Small bilateral parapelvic renal cysts, increase in size since prior and small right upper pole simple renal cyst. No further follow-up required. 3. No acute intra-abdominal process. 4. Mild descending and sigmoid colonic diverticulosis.
[2022-04-14 11:36] VITALS: BP 143/60; PULSE 70; RESP 15; TEMP 36.6; O2SAT 98; BMI 34.0
--- NOTE | 2022-04-14 13:43 | ED.BACK ---
HPI - Back Pain/Injury General Chief Complaint: Back Pain/Injury Stated Complaint: Back pain Time Seen by Provider: 04/14/22 13:28 Source: patient Mode of arrival: ambulatory Limitations: no limitations History of Present Illness HPI Narrative: Patient presents emergency department for evaluation of reported back pain. Pain was of sudden onset today while driving, described as severe and sharp. Patient points to her right flank as the most localized area of pain stating that the pain radiates down words and diffusely across her lower back. Denies pain to the midline middle or upper back. Denies any precipitating injury. States that the pain is made worse with movement, and she has some relief while resting. She denies any associated fevers, chills, abdominal pain, nausea, vomiting, urinary frequency/urgency/hesitancy, dysuria, hematuria, pelvic pain, abnormal vaginal discharge. Related Data Home Medications Medication Instructions Recorded Confirmed hydroxyzine HCl 25 mg tablet 25 mg PO TID PRN 12/22/20 07/04/21 Previous Rx's Medication Instructions Recorded bisacodyl 5 mg tablet,delayed 5 mg PO ONCE colonoscopy prep 1 07/05/20 release (Dulcolax (bisacodyl)) day #2 tabs miralax See Rx Instructions PO ONCE #238 07/05/20 grams alcohol swabs 1 pad topical .once a day 90 days 01/20/21 #100 ea blood sugar diagnostic (FreeStyle 1 strip miscellaneous BID 90 days 01/20/21 Lite Strips) #100 strips atorvastatin 10 mg tablet 10 mg PO BEDTIME 90 days #90 tabs 03/13/21 cyclobenzaprine 10 mg tablet 10 mg PO TID PRN muscle spasm #14 06/16/21 tabs lidocaine 5 % topical patch 1 patch topical DAILY PRN pain #15 06/16/21 ea meclizine 25 mg tablet 25 mg PO DAILY PRN dizziness 30 07/05/21 days #30 tabs trazodone 50 mg tablet 50 mg PO BEDTIME PRN insomnia 90 11/25/21 days #90 tabs metformin 1,000 mg tablet 1,000 mg PO BID #60 tabs 12/25/21 Allergies Allergy/AdvReac Type Severity Reaction Status Date / Time atorvastatin Allergy Mild stomach Verified 07/04/21 17:12 upset Review of Systems Review of Systems: Constitutional: No weight loss. No fever. No chills. No weakness. No fatigue. Skin: No rash. No itching. Cardiovascular: No chest pain. No chest pressure. No palpitations. No pedal edema. Respiratory: No shortness of breath. No cough. No sputum production. Gastrointestinal: No anorexia. No nausea. No vomiting. No diarrhea. No abdominal pain. No blood in stool. Genitourinary: No burning micturition. No urinary frequency. No incontinence. Neurologic: No headache. No dizziness. No numbness. No tingling. No change in bowel or bladder control. Musculoskeletal: No muscle pain. Positive back pain. No joint pain. No stiffness. Hematologic: No bleeding. No bruising. Lymphatics: No enlarged lymph nodes. Psychiatric:No depression. No anxiety. Endocrine: No polyuria. No polydipsia. Yes all other systems are reviewed and are negative PMFSH Past Medical History Attestation statement: The following information was validated with the patient. Source: old records reviewed Medical History Chronic cough Class 1 obesity with body mass index (BMI) of 33.0 to 33.9 in adult Diabetes Dyslipidemia Hand numbness Insomnia Left hand pain Rash and nonspecific skin eruption Thoracic spine pain Vertigo Surgical History History of colonoscopy History of hysterectomy Family History Family History Father No problems noted. Mother History of diabetes mellitus, type I Social History Social History Housing: Apartment Alcohol intake: current Alcohol intake frequency: holidays/special occasions only Alcohol type: beer Patient Tobacco Use Status: Never used Tobacco e-Cigarette/Vaping Use: Never Used Second Hand Smoke Exposure: No Advance Directives: No Advance Directives Information Provided: Yes service: No Current occupational status: unemployed and disabled Current occupation: rt handed Physical Exam Vital Signs: Vital Signs: Last Vital Signs Temp 98 F 04/14/22 11:36 Pulse 70 04/14/22 11:36 Resp 15 04/14/22 11:36 BP 143/60 H 04/14/22 11:36 Pulse Ox 98 04/14/22 11:36 O2 Del Method 04/14/22 11:36 BMI result Body Mass Index 34.0 Appearance: Alert.?Oriented to person, place and time. No acute distress.?Normal affect. Eyes: Pupils equal, round and reactive to light.? ENT: Pharynx normal.?? Neck: Normal inspection.? Neck supple.?? CVS: Heart sounds normal. Normal heart rate and rhythm.? Pulses normal.?? Respiratory: No respiratory distress.? Lung sounds clear to auscultation bilaterally?? Abdomen: Soft and non-tender. Normoactive bowel sounds. No pulsatile mass.??No CVA tenderness Back: No midline thoracic or lumbar spine tenderness, step-offs, deformities. No palpable paraspinal muscle tenderness Skin: Skin warm and dry.? Normal skin color.? Extremities: No lower extremity edema.? No calf ttp? Neuro: Moves all extremities spontaneously. Sensation intact bilaterally. No motor deficits Ambulates with normal steady gait. Course Course Course Narrative: Patient is a 61-year-old female with a past medical history of obesity, dyslipidemia, type 1 diabetes who presents emergency department for evaluation of back/right flank pain of sudden onset while driving a car today. She is overall well-appearing though does seem uncomfortable, vital signs are stable afebrile no tachycardia tachypnea or hypoxia. Pain is reproducible to movement. No overt CVA tenderness. No genitourinary symptoms. Discussed plan of care with patient, Will obtain CBC to evaluate for leukocytosis/ anemia, CMP to evaluate for abnormal electrolytes /abnormal renal function/ abnormal hepatic function, CT of the abdomen pelvis to exclude renal calculi, hydronephrosis, AAA, or additional intra-abdominal pathology, and Urinalysis. Reevaluation(s) Reevaluation #1: CBC and CMP are unremarkable. Urinalysis with small amount of leukocyte esterase, otherwise unremarkable for bacterial infection, and patient is without any genitourinary symptoms. Urinalysis also reveals presence of RBCs. The CT of the abdomen and pelvis reveals no calculi, no hydronephrosis, small bilateral parapelvic renal cysts, present and prior imaging, otherwise no acute intra-abdominal process. X-ray of the lumbar spine reveals no acute fracture subluxation, there is however narrowing of the intervertebral disc spaces suggestive of degenerative disc disease. At this time Pain is most consistent with muscular pain, although cannot completely exclude herniated disc. On neurological exam there are no deficits. Not consistent with spinal infection, epidural abscess, AAA, or dissection. No high risk past medical history including incontinence, fever, immunosuppression, recent surgery or lumbar puncture, coagulopathy, significant trauma, recent unintentional weight loss, pulsatile mass, history of cancer, history of TB, history of IV drug use that would warrant MRI or CT. Not consistent with ectopic , pyelonephritis, urinary tract infection, renal calculi, pelvic infection, appendicitis, diverticulitis. On exam no concern for cauda equina syndrome. Discussed all these findings with patient reviewed Plan for discharge home with instruction for gentle back stretches and exercise, new prescription for topical Lidoderm patch, and cyclobenzaprine, and advised outpatient follow-up with primary care provider for further evaluation and treatment, reviewed worrisome signs and symptoms to return back to the emergency department for, and patient agreed with plan. She is discharged home in stable condition, ambulatory out of the emergency department steady gait. Time: 15:28 MDM - Back Pain/Injury Medical Records Attestation: I reviewed the patient's medical records. Lab Data Attestation: I reviewed the patient's lab results. Result diagrams: 04/14/22 14:22 04/14/22 14:22 Labs: Lab Results 04/14/22 04/14/22 04/14/22 Range/Units 14:15 14:22 14:22 WBC 8.7 (4.8-10.8) X10*3/uL RBC 4.13 L (4.20-5.50) X10*6/uL Hgb 13.0 (12.0-16.0) g/dl Hct 37.5 (37.0-47.0) % MCV 90.8 (80.0-98.0) fL MCH 31.5 (27.0-33.0) pg MCHC 34.7 (31.0-35.0) g/dl RDW 12.7 (11.0-16.0) % Plt Count 277 (160-400) X10*3/uL MPV 9.5 (9.4-12.3) fL Immature Gran % (Auto) 0.2 (0.0-0.4) % Neut % (Auto) 65.3 (45-73) % Lymph % (Auto) 25.7 (20-40) % [place] % (Auto) 6.7 (2-11) % Eos % (Auto) 1.6 (0-4) % Baso % (Auto) 0.5 (0-2) % Lymph # (Auto) 2.2 (1.2-4.9) X10*3/uL [place] # (Auto) 0.6 (0.1-1.2) X10*3/uL Eos # (Auto) 0.1 (0.0-0.4) X10*3/uL Baso # (Auto) 0.0 (0.0-0.2) X10*3/uL Abs Immat Gran (auto) 0.02 (0.00-0.03) X10*3/uL Absolute Neuts (auto) 5.7 (2.0-8.3) x10*3/uL Absolute Nucleated RBC 0.000 (0.0-0.012) X10*3/uL Nucleated RBC % (auto) 0.0 (0.0-0.2) /100WBC Sodium 139 (135-145) mmol/L Potassium 4.4 (3.3-5.1) mmol/L Chloride 103 (96-108) mmol/L Carbon Dioxide 24 (22-29) mmol/L Anion Gap 16 (12-20) BUN 14 (9-16) mg/dL Creatinine 0.80 (0.5-1.4) mg/dL Estim Creat Clear Calc 74.4 Estimated GFR > 60 Random Glucose 157 H (60-115) mg/dL Calcium 9.0 (8.4-10.2) mg/dL Total Bilirubin 0.4 (0.0-1.0) mg/dL AST 17 (5-31) U/L ALT 13 (0-31) U/L Alkaline Phosphatase 90 (39-117) U/L Total Protein 7.6 (6.5-8.0) g/dL Albumin 4.2 (3.5-5.0) g/dL Urine Color Yellow Urine Appearance Clear Urine pH 8.5 H (5.0-8.0) Ur Specific [place] 1.015 (1.005-1.025) Urine Protein Negative (Neg-Trace) mg/dL Urine Glucose (UA) Negative (Negative) mg/dL Urine Ketones Negative (Negative) mg/dL Urine Blood Negative (Negative) Urine Nitrite Negative (Negative) Ur Leukocyte Esterase Small (1+) H (Negative) Urine RBC 3-5 H (0-2) /HPF Urine WBC 0-5 (0-5) /HPF Ur Squamous Epith Cells 0-2 (0-2) /HPF Urine Bacteria None Seen (None Seen) Hyaline Casts 0-2 (0-2) /LPF Imaging Data XR lumbar: Radiologist's impression: XR/XR lumbar spine 2-3V IMPRESSION: No fracture. ? Narrowing of intervertebral disc spaces suggest underlying degenerative disc disease.? CT scan - abdomen: Radiologist's impression: CT/CT abdomen pelvis wo con IMPRESSION: ? 1. No radiodense urinary tract calculi. No hydronephrosis. 2. Small bilateral parapelvic renal cysts, increase in size since prior and small right upper pole simple renal cyst. No further follow-up required. 3. No acute intra-abdominal process. 4. Mild descending and sigmoid colonic diverticulosis. Discharge Plan Discharge Clinical Impression: Lumbar strain Patient Disposition: Home, Self-Care Instructions: Low Back Strain (ED), Acute Low Back Pain (ED), Lower Back Exercises (ED) Additional Instructions: Please be sure to rest, apply ice or heat to this area, you have been given a new prescription for a Lidoderm patch to place to the area of most pain, in addition to a prescription for cyclobenzaprine. Cyclobenzaprine as a muscle relaxant, it may make you drowsy, he should not drive, go to work, operate machinery, or drink alcohol while taking this medication. Please contact your primary care provider to arrange for a follow-up visit for further evaluation and treatment. You may return to emergency department with any new or worsening symptoms or concerns. Prescriptions: No Action hydroxyzine HCl 25 mg tablet 25 mg PO TID PRN blood sugar diagnostic [FreeStyle Lite Strips] Strip 1 strip miscellaneous BID 90 Days Qty: 100 3RF alcohol swabs Pads, Medicated 1 pad topical .once a day 90 Days Qty: 100 3RF atorvastatin 10 mg tablet 10 mg PO BEDTIME 90 Days Qty: 90 2RF meclizine 25 mg tablet 25 mg PO DAILY PRN (Reason: dizziness) 30 Days Qty: 30 3RF trazodone 50 mg tablet 50 mg PO BEDTIME PRN (Reason: insomnia) 90 Days Qty: 90 1RF metformin 1,000 mg tablet 1,000 mg PO BID Qty: 60 6RF cyclobenzaprine 10 mg tablet 10 mg PO TID PRN (Reason: muscle spasm) Qty: 14 0RF lidocaine 5 % adhesive patch,medicated 1 patch topical DAILY PRN (Reason: pain) Qty: 15 0RF Rx Instructions: leave on most painful area for up to 12 hrs bisacodyl [Dulcolax (bisacodyl)] 5 mg tablet,delayed release (DR/EC) 5 mg PO ONCE 1 Days Qty: 2 0RF miralax See Rx Instructions PO ONCE Qty: 238 0RF Rx Instructions: 238 grams PO once; mixed with 64 oz gatorade or crystal light Print Language: [place]
[2022-04-14] MEDS: Ketorolac Tromethamine 30 MG/ML VIAL IM (14:00)
[2022-04-14 14:32] LABS: MANUAL DIFF FLAG NO
[2022-04-14 14:38] LABS: Basophils Percent Auto 0.5 % (0-2); Eosinophils Absolute Auto 0.1 X10*3/uL (0.0-0.4); Eosinophils Percent Auto 1.6 % (0-4); Hematocrit 37.5 % (37.0-47.0); Imm Gran Abs Auto 0.02 X10*3/uL (0.00-0.03); Imm Gran Pct Auto 0.2 % (0.0-0.4); Lymphocytes Absolute Auto 2.2 X10*3/uL (1.2-4.9); Lymphocytes Percent Auto 25.7 % (20-40); Mean Corpuscular HGB Conc 34.7 g/dl (31.0-35.0); Mean Corpuscular Hemoglobin 31.5 pg (27.0-33.0); Mean Corpuscular Volume 90.8 fL (80.0-98.0); Mean Platelet Volume 9.5 fL (9.4-12.3); Monocytes Absolute Auto 0.6 X10*3/uL (0.1-1.2); Monocytes Percent Auto 6.7 % (2-11); Neutrophils Absolute Auto 5.7 x10*3/uL (2.0-8.3); Neutrophils Percent Auto 65.3 % (45-73); Platelet Count 277 X10*3/uL (160-400); Red Blood Count 4.13 X10*6/uL (4.20-5.50); Red Cell Distribution Width 12.7 % (11.0-16.0); White Blood Count 8.7 X10*3/uL (4.8-10.8)
[2022-04-14 14:38] LABS: Appearance Urine Clear; Color Urine Yellow; Glucose Urine UA Negative (Negative); Leukocyte Esterase Urine Small (1+) (Negative); Nitrite Urine Negative (Negative); PH 8.5 (5.0-8.0); Specific Gravity - Urine 1.015 (1.005-1.025); Urine Blood Negative (Negative); Urine Ketones Negative (Negative); Urine Protein Negative (Neg-Trace)
[2022-04-14 14:51] LABS: Bacteria Urine None Seen (None Seen); Hyaline Casts Urine 0-2 /LPF (0-2); Squamous Epithelial Cell Urine 0-2 /HPF (0-2); UACC Culture Trigger YES; WBC Urine 0-5 /HPF (0-5)
[2022-04-14 14:54] LABS: Alanine Aminotransferase 13 U/L (0-31); Albumin Level 4.2 g/dL (3.5-5.0); Alkaline Phosphatase 90 U/L (39-117); Anion Gap 16 (12-20); Aspartate Amino Transferase 17 U/L (5-31); Bilirubin Total 0.4 mg/dL (0.0-1.0); Blood Urea Nitrogen 14 mg/dL (9-16); Carbon Dioxide 24 mmol/L (22-29); Chloride 103 mmol/L (96-108); Creatinine Clr Calc Pharmacy 74.4; Estimated Glomerular Filt Rate > 60; Glucose Random 157 mg/dL (60-115); Potassium 4.4 mmol/L (3.3-5.1); Sodium 139 mmol/L (135-145); Total Protein 7.6 g/dL (6.5-8.0)
== END 2022-04-14 15:47 | disposition home or self-care (01) ==
PROVIDERS: Nurse Practitioner Family; Emergency Provider Emergency Medicine; PCP Internal Medicine
DX: M54.50 Low back pain, unspecified (principal); E10.9 Type 1 diabetes mellitus without complications; R10.2 Pelvic and perineal pain; Z79.899 Other long term (current) drug therapy; Z79.84 Long term (current) use of oral hypoglycemic drugs
CPT/HCPCS: 36415; 72100; 74176; 80053; 81001; 85025; 87086; 96372; 99284; J1885

== ENCOUNTER 2022-10-24 13:28 | Outpatient (REF) | payer OTHER, SELFPAY ==
--- NOTE | ~2022-10-24 | MM_ITS ---
EXAMINATION: MM SCREENING DIGITAL BREAST TOMOSYNTHESIS, BILATERAL CLINICAL INFORMATION: Screening. Asymptomatic. The lifetime risk of breast cancer based on the Tyrer-Cuzick Model is 4%. COMPARISON: Mammography: 07/11/2020, 07/06/2019, 06/22/2018, outside exam 11/20/2016 ([facility]) TECHNIQUE: Digital breast tomosynthesis is performed in both the craniocaudal and mediolateral oblique views along with computer-aided detection (CAD). Synthesized 2D images are generated from the tomosynthesis. FINDINGS: There are scattered areas of fibroglandular density (ACR BI-RADS breast composition Category b). There are no significant masses, abnormal calcifications, or other abnormalities. Parenchymal pattern is similar to prior studies. There is no developing density or architectural abnormality. The axilla and skin contours are unremarkable. No significant changes. MM/MM tomosynthesis screening BI IMPRESSION: No mammographic evidence of malignancy. ASSESSMENT: BI-RADS 1: Negative RECOMMENDATION: Routine annual mammography screening. This patient's information was entered into a reminder system with a target due date for their next mammogram.
== END 2022-10-24 13:29 | disposition home or self-care (01) ==
LOC: HO.MAMMO 13:28
PROVIDERS: Visit Provider Internal Medicine
DX: Z12.31 Encounter for screening mammogram for malignant neoplasm of breast (principal)
CPT/HCPCS: 77063; 77067

== ENCOUNTER 2022-11-20 08:42 | Outpatient (REF) | payer OTHER, SELFPAY ==
[2022-11-20 10:28] LABS: Creatinine Urine 118.48 mg/dL; Microalbum/Creatinine Ratio Ur 9.2 ug/mg cr
[2022-11-20 10:42] LABS: Alanine Aminotransferase 9 U/L (0-31); Albumin Level 4.1 g/dL (3.5-5.0); Alkaline Phosphatase 67 U/L (39-117); Anion Gap 12 (12-20); Aspartate Amino Transferase 14 U/L (5-31); Bilirubin Total 0.7 mg/dL (0.0-1.0); Blood Urea Nitrogen 14 mg/dL (9-16); Carbon Dioxide 26 mmol/L (22-29); Chloride 106 mmol/L (96-108); Cholesterol 181 mg/dL; Estimated Glomerular Filt Rate > 60; Glucose Random 119 mg/dL (60-115); HDL Cholesterol 44 mg/dL; LDL Cholesterol Calculated 121 mg/dl; Potassium 4.2 mmol/L (3.3-5.1); Sodium 140 mmol/L (135-145); Total Protein 6.7 g/dL (6.5-8.0); Triglycerides 81 mg/dL
[2022-11-20 10:59] LABS: Folate 13.5 ng/mL (> or = 4.0); Vitamin B12 575 pg/mL (200-900); Vitamin D 25-OH Total 16.7 ng/mL (>30)
== END 2022-11-20 08:43 | disposition home or self-care (01) ==
LOC: HO.LAB 08:42
PROVIDERS: PCP Internal Medicine; Visit Provider Internal Medicine
DX: E66.9 Obesity, unspecified (principal); Z68.33 Body mass index [BMI] 33.0-33.9, adult; E55.9 Vitamin D deficiency, unspecified; E11.9 Type 2 diabetes mellitus without complications; E53.8 Deficiency of other specified B group vitamins; E78.5 Hyperlipidemia, unspecified
CPT/HCPCS: 36415; 80053; 80061; 82043; 82306; 82607; 82746; 84443

== ENCOUNTER → 2022-12-18 09:44 | Outpatient (BNVA) | payer OTHER, SELFPAY | PROVIDERS: PCP Internal Medicine; Visit Provider Orthopaedic Surgery | DX: Z01.818 Encounter for other preprocedural examination (principal); G56.02 Carpal tunnel syndrome, left upper limb; M65.332 Trigger finger, left middle finger | CPT/HCPCS: 99212 ==

== ENCOUNTER → 2023-01-17 09:26 | Outpatient (BNVA) | payer OTHER, SELFPAY | PROVIDERS: PCP Internal Medicine; Visit Provider Nurse Practitioner Family | DX: M47.816 Spondylosis without myelopathy or radiculopathy, lumbar region (principal); M51.36 Other intervertebral disc degeneration, lumbar region; M62.830 Muscle spasm of back; G56.02 Carpal tunnel syndrome, left upper limb | CPT/HCPCS: 99202 ==

== ENCOUNTER 2023-03-17 10:53 | Outpatient (AMB) | payer OTHER, SELFPAY ==
--- NOTE | 2023-03-17 11:00 | A.OFFVIS_ITS ---
Intake Vital Signs 03/17/23 11:04 Height 5 ft 2 in Weight 185 lb BMI 33.8 BP 122/78 Blood Pressure Location Rt brachial Position Sitting Pulse 82 Pulse Source Pulse Oximeter Pulse Oximetry (%) 98 Oxygen Delivery Method Room Air Intake Visit Reasons: NPV-Cognitive and Awareness Intake Note: Patient presents for equine dentist evaluation of cognitive awareness. Patient states when Im at the stores I forget where I am. Allergies atorvastatin Allergy (Mild, Verified 03/17/23 11:07) stomach upset Medication List - Last Reconciled 03/17/23 by Fátima Villalta MD acetaminophen ER (Mapap Arthritis Pain) 1,300 mg (2 x 650 mg) PO Q8H PRN 30 days dicyclomine 20 mg PO TID 30 days gabapentin 300 mg PO BEDTIME 30 days Grab bar As directed hydroxyzine HCl 25 mg PO TID PRN meclizine 25 mg PO DAILY PRN 30 days metformin 1,000 mg PO BID trazodone 50 mg PO BEDTIME PRN 90 days HPI HPI Comments History of Present Illness Details 62y/o female comes here for evaluation of memory issues. She started noticing memory issues for 1 year. For example she forgets where she parked her car in the parking lot, repeats questions, forgets conversations, misplaces things, when she is driving forgets directions etc. she also has issue sin the kitchen forgetting to turn off the stove.No issues with microwave , using the remote etc. No family h/o dementia, no h/o head injury etc. she has depression that is well controlled she has trouble falling asleep and staying asleep.she has loud snoring. she reports gasping arousals , excessive daytime fatigue sleepiness. she reports leg and hand discomfort at night. Usually moving or rubbing her feet helps . No leg jerks Education level-graduated [employer] in [place] - she went to school in [employer] since age 13 - was in Special Education - she does not speak Swedish , cannot read or write. [facility] Medical History (Updated 03/17/23 @ 11:58 by Fátima Villalta MD) Chronic cough Class 1 obesity with body mass index (BMI) of 33.0 to 33.9 in adult Diabetes Dyslipidemia Hand numbness Hypersomnia Insomnia Left hand pain Rash and nonspecific skin eruption Snoring Thoracic spine pain Vertigo Surgical History History of colonoscopy History of hysterectomy Family History Father No problems noted. Mother History of diabetes mellitus, type I Social History Housing: Apartment Alcohol intake: current Alcohol intake frequency: holidays/special occasions only Alcohol type: beer Patient Tobacco Use Status: Never used Tobacco e-Cigarette/Vaping Use: Never Used Second Hand Smoke Exposure: No service: No Current occupational status: unemployed and disabled Current occupation: rt handed Cognitive needs: No Hearing needs: No Vision needs: Yes Review of Systems Const All systems reviewed & are unremarkable except as noted in HPI and below Physical Exam Vital Signs: Last Vital Signs Pulse 82 03/17/23 11:04 BP 122/78 03/17/23 11:04 Pulse Ox 98 03/17/23 11:04 Oxygen Delivery Method Room Air 03/17/23 11:04 BMI result Body Mass Index 33.8 Const General: cooperative and healthy appearing Nutritional Appearance: overweight Orientation/consciousness: patient oriented x3 Neuro General: patient oriented x3, tone normal, moves all extremities and no focal motor deficits Cranial nerves: Yes Facial sensation intact/muscles of mastication intact, No Bilaterally intact EOM present, Yes Nystagmus not present, Yes Normal facial strength present, Yes Midline tongue present and Yes Symmetric palate elevation present Cognition (Neuro): normal cognition Gait exam (Neuro): Antalgic gait present Motor exam (neuro): 5/5 motor strength present throughout and Normal motor m uscle tone present throughout Deep tendon reflexes (DTR's): Right triceps reflex intensity grade: 1+, Left triceps reflex intensity grade: 1+, Rt Biceps (C5, C6): 1+, Left biceps reflex intensity grade: 1+, Right brachioradialis reflex intensity grade: 1+, Left brachioradialis reflex intensity grade: 1+, Right patellar reflex intensity grade: 1+ and Left patellar reflex intensity grade: 1+ Coordination: [id number] test normal Psych Appearance: grossly normal Orientation What is the (year) (season) (date) (day) (month)?: year, season and day Where are we (state) (county) (town or city) (hospital) (floor)?: state, town or city, hospital/clinic and floor Registration Name of 3 unrelated objects clearly and slowly, then ask patient to repeat all 3 of them. (1st repeat determines score. Make sure they can repeat all three): object 1, object 2 and object 3 Attention & Calculation (CHOOSE ONE) Spell WORLD backwards (DLROW): 5 letters Recall Ask patient to repeat the 3 items from question #3.: object 1, object 2 and object 3 Language Show patient a wristwatch & ask what it is. Repeat for pencil.: watch and pencil Ask the patient to repeat the phrase 'No ifs, ands, or buts' after you.: correct Ask the patient to 'take a piece of paper with their right hand' 'fold paper in half' 'place paper on floor': take paper in right hand and fold paper in half Print the sentence 'CLOSE YOUR EYES' on a piece. If patient actually closes eyes then score.: followed written direction Ask patient to copy figure of intersecting pentagons exactly. Score if all 10 angles & 2 intersects are included.: all 10 angles present & 2 are intersected Score Score: 25 Assessment & Plan Assessment & Plan (1) Cognitive impairment: Comment: Mild cognitive impairment ? sleep apnea Code(s): R41.89 - Other symptoms and signs involving cognitive functions and awareness (2) Snoring: Code(s): R06.83 - Snoring (3) Hypersomnia: Code(s): G47.10 - Hypersomnia, unspecified Plan I will evaluate her with MRI brain, Labs Vit B 12 TSH Vit D folic acid ESR SLeep study to r/o sleep apnea. Orders: Orders RT home sleep study Today G47.10 - Hypersomnia, unspecified, R06.83 - Snoring Vitamin B12 and Folate Today R41.89 - Other symptoms and signs involving cognitive functions and awareness TSH reflex Free T4 Today R41.89 - Other symptoms and signs involving cognitive functions and awareness Vitamin D 25-OH (D2 and D3) Today R41.89 - Other symptoms and signs involving cognitive functions and awareness Erythrocyte Sedimentation Rate Today R41.89 - Other symptoms and signs involving cognitive functions and awareness MR head/brain wo con Today R41.89 - Other symptoms and signs involving cognitive functions and awareness Coding Level of Care Code New Pt Level 4 (22048) Diagnoses Cognitive impairment R41.89 Snoring R06.83 Hypersomnia G47.10
[2023-03-17 11:04] VITALS: BP 122/78; PULSE 82; O2SAT 98; BMI 33.8
== END 2023-03-17 11:47 | disposition home or self-care (01) ==
PROVIDERS: Visit Provider Psychiatry & Neurology Neurology
DX: R41.89 Other symptoms and signs involving cognitive functions and awareness (principal); R06.83 Snoring; G47.10 Hypersomnia, unspecified
CPT/HCPCS: 99204

== ENCOUNTER → 2023-03-17 10:53 | Outpatient (BNVA) | payer OTHER, SELFPAY | PROVIDERS: Visit Provider Psychiatry & Neurology Neurology | DX: R41.89 Other symptoms and signs involving cognitive functions and awareness (principal); R06.83 Snoring; G47.10 Hypersomnia, unspecified | CPT/HCPCS: 99202 ==

== ENCOUNTER 2023-03-18 11:05 | Outpatient (REF) | payer OTHER, SELFPAY ==
[2023-03-18 12:28] LABS: Erythrocyte Sedimentation Rate 8 MM/HR (0-20)
[2023-03-18 12:54] LABS: TSH reflex Free T4 2.09 uIU/mL (0.32-4.0)
[2023-03-18 13:08] LABS: Folate 15.1 ng/mL (> or = 4.0); Vitamin B12 608 pg/mL (200-900)
[2023-03-22 14:19] LABS: Vitamin D 25-OH, D2 <4 ng/mL; Vitamin D 25-OH, D3 27 ng/mL; Vitamin D 25-OH, Total 27 ng/mL (30-100)
== END 2023-03-18 11:06 | disposition home or self-care (01) ==
LOC: HO.LAB 11:05
PROVIDERS: PCP Internal Medicine; Visit Provider Psychiatry & Neurology Neurology
DX: R41.89 Other symptoms and signs involving cognitive functions and awareness (principal)
CPT/HCPCS: 36415; 82306; 82607; 82746; 84443; 85652

== ENCOUNTER 2023-03-23 01:07 | Emergency (ER) | payer OTHER, SELFPAY ==
--- NOTE | ~2023-03-23 | CT_ITS ---
EXAMINATION: CT abdomen pelvis w IV con CLINICAL INFORMATION: Reason for Exam R flank pain, leukocytosis, uti COMPARISON: No prior CT available for comparison. TECHNIQUE: Multidetector volumetric imaging was performed from the superior aspect of the liver through the pubic symphysis 85 mL of Omnipaque 350 injected Sagittal and coronal reformatted images were obtained on the technologist's workstation. This CT examination was performed using dose optimization techniques as appropriate, variously including the following: *Automated exposure control *Adjustment of mA and/or kV according to patient size (this includes techniques or standardized protocols for targeted exams where dose is matched to indication/reason for exam; i.e. extremities or head) *Use of iterative reconstruction technique DLP: 597 mGy-cm FINDINGS: LOWER THORAX: Included lung bases are clear. HEPATOBILIARY: No focal hepatic lesions. No biliary ductal dilatation. GALLBLADDER: Gallbladder unremarkable. SPLEEN: Spleen is normal in size. PANCREAS: Pancreatic body and tail not visualized again. Pancreatic head is homogeneous. STOMACH AND GASTROINTESTINAL TRACT: Stomach is grossly unremarkable. There is no bowel distention or thickening. Diverticulosis of the sigmoid colon without evidence of diverticulitis. Appendix is unremarkable. ADRENALS: No adrenal nodules. KIDNEYS/URETERS: Redemonstration of bilateral peripelvic renal cysts. No kidney stones or hydronephrosis. Tiny hypodensities in the renal cortices too small to characterize commonly found to be evolving cysts, there is a simple cyst middle pole right kidney 1.5 cm, this is Bosniak class I almost certainly benign no follow-up required. URINARY BLADDER: Partially decompressed. PELVIC VISCERA: Excess amount of stool in the rectum. PERITONEUM: No free air or fluid. LYMPH NODES: No lymphadenopathy. VASCULAR:Abdominal aorta normal in size, no aneurysm found. BONES, ABDOMINAL WALL AND SOFT TISSUES: Age-appropriate changes of the spine and skeletal system, no destructive osteolytic or osteosclerotic bone lesion found CT/CT abdomen pelvis w IV con IMPRESSION: * No CT evidence of acute intra-abdominal process to explain patient's pain symptoms. * Diverticulosis without evidence of acute diverticulitis. * Excess amount of stool in the rectum. * Redemonstration of bilateral renal parapelvic cysts without evidence of kidney stones.
--- NOTE | ~2023-03-23 | XR_ITS ---
EXAMINATION: XR LUMBOSACRAL SPINE CLINICAL INFORMATION: Right lower back pain. COMPARISON: 04/06/[address] scan of the abdomen and pelvis dated 04/06/2022. TECHNIQUE: Three views of the lumbosacral spine. FINDINGS: Mild degenerative disc disease is seen at L4-L5 with mild grade 1 anterolisthesis. Mild bilateral facet arthropathy at L4-L5 and L5-S1. There is no acute fracture. The soft tissues are unremarkable. The soft tissues are unremarkable. XR/XR lumbar spine 2-3V IMPRESSION: 1. L4-L5 mild degenerative disc disease and grade 1 anterolisthesis without significant change. No acute abnormality.
[2023-03-23 01:59] VITALS: BP 143/80; PULSE 84; RESP 18; TEMP 36.3; O2SAT 96; BMI 35.1
[2023-03-23 06:56] VITALS: BP 140/71; PULSE 88; RESP 22; TEMP 36.4; O2SAT 98
[2023-03-23 07:38] LABS: MANUAL DIFF FLAG NO
[2023-03-23 07:40] LABS: Basophils Percent Auto 0.3 % (0-2); Eosinophils Percent Auto 0.2 % (0-4); Hematocrit 36.9 % (37.0-47.0); Hemoglobin 12.4 g/dl (12.0-16.0); Imm Gran Abs Auto 0.05 X10*3/uL (0.00-0.03); Imm Gran Pct Auto 0.4 % (0.0-0.4); Lymphocytes Absolute Auto 1.3 X10*3/uL (1.2-4.9); Lymphocytes Percent Auto 9.9 % (20-40); Mean Corpuscular HGB Conc 33.6 g/dl (31.0-35.0); Mean Corpuscular Hemoglobin 30.8 pg (27.0-33.0); Mean Corpuscular Volume 91.8 fL (80.0-98.0); Mean Platelet Volume 9.4 fL (9.4-12.3); Neutrophils Absolute Auto 10.4 x10*3/uL (2.0-8.3); Neutrophils Percent Auto 81.2 % (45-73); Platelet Count 249 X10*3/uL (160-400); Red Blood Count 4.02 X10*6/uL (4.20-5.50); Red Cell Distribution Width 13.2 % (11.0-16.0); White Blood Count 12.9 X10*3/uL (4.8-10.8)
[2023-03-23 07:52] LABS: Alanine Aminotransferase 14 U/L (0-31); Albumin Level 4.5 g/dL (3.5-5.0); Alkaline Phosphatase 86 U/L (39-117); Anion Gap 16 (12-20); Aspartate Amino Transferase 15 U/L (5-31); Bilirubin Total 0.5 mg/dL (0.0-1.0); Blood Urea Nitrogen 13 mg/dL (9-16); Calcium 9.3 mg/dL (8.4-10.2); Carbon Dioxide 20 mmol/L (22-29); Chloride 106 mmol/L (96-108); Creatinine Clr Calc Pharmacy 73.7; Estimated Glomerular Filt Rate > 60; Glucose Random 184 mg/dL (60-115); Sodium 138 mmol/L (135-145); Total Protein 7.9 g/dL (6.5-8.0)
[2023-03-23 08:02] VITALS: BP 136/66; PULSE 74; RESP 18; TEMP 36.4; O2SAT 100
--- NOTE | 2023-03-23 08:36 | ED_ITS ---
HPI - Back Pain/Injury General Chief Complaint: Back Pain/Injury Stated Complaint: Right flank pain Time Seen by Provider: 03/23/23 08:00 Source: patient Mode of arrival: ambulatory Limitations: no limitations History of Present Illness HPI Narrative: This is a 62-year-old female presenting to the emergency department with complaints of right lower back pain with some radiation into the right hip, she reports that yesterday evening she turned the wrong way and since then has been having right lower back pain, she tells me she was not lifting anything when she twisted the wrong way. Patient has taken Tylenol with little to no relief. She reports pain 8/10 constant in nature, worse with movement better at rest. Patient tells me she has had back pain before, feels similar however pain is worse. Denies blunt trauma to the area, numbness, tingling, urinary/bowel incontinence/retention, fevers, chills, history of IV drug abuse, history of malignancy, nausea, vomiting, abdominal pain, saddle paresthesias. Patient ambulatory into room without difficulty, slow steady gait Related Data Home Medications Medication Instructions Recorded Confirmed hydroxyzine HCl 25 mg tablet 25 mg PO TID PRN 12/22/20 03/17/23 Previous Rx's Medication Instructions Recorded dicyclomine 20 mg tablet 20 mg PO TID 30 days #90 tabs 05/23/22 meclizine 25 mg tablet 25 mg PO DAILY PRN dizziness 30 07/28/22 days #30 tabs acetaminophen 650 mg 1,300 mg PO Q8H PRN fever or pain 11/19/22 tablet,extended release (Mapap 30 days #180 tabs Arthritis Pain) trazodone 50 mg tablet 50 mg PO BEDTIME PRN insomnia 90 11/28/22 days #90 tabs Grab bar #1 ea 12/13/22 gabapentin 300 mg capsule 300 mg PO BEDTIME pain 30 days #30 01/17/23 caps metformin 1,000 mg tablet 1,000 mg PO BID #60 tabs 01/22/23 cefuroxime axetil 250 mg tablet 250 mg PO BID 7 days #14 tabs 03/23/23 docusate sodium 100 mg capsule 100 mg PO BID #20 caps 03/23/23 (Colace) ketorolac 10 mg tablet 10 mg PO TID PRN pain 5 days #15 03/23/23 tabs lidocaine 5 % topical patch 1 patch topical DAILY PRN pain #15 03/23/23 ea sennosides 8.6 mg tablet (senna) 8.6 mg PO BEDTIME #14 tabs 03/23/23 Allergies Allergy/AdvReac Type Severity Reaction Status Date / Time atorvastatin Allergy Mild stomach Verified 03/17/23 11:07 upset Review of Systems Review of Systems: Constitutional : No Weight loss, No Fever, No Chills, ENT/Mouth : No Hearing loss, No Ear Pain, No Nasal Congestion, No Sinus Pain, No Hoarseness, No sore throat, No Rhinorrhea, No Swallowing Difficulty Cardiovascular : No Chest Pain, No SOB Respiratory : No Cough, No Dyspnea Gastrointestinal : No Nausea, No Vomiting, No Diarrhea, No abdominal Pain, No Hematochezia, No Melena Genitourinary : No Dysuria, No Urinary Frequency, No Hematuria, No Urinary Incontinence, Musculoskeletal : positive back pain Skin : No Skin Lesions, No rash Neuro : No Weakness, No Numbness, No Paresthesias, no loss of bowel or bladder incontinence, no saddle anesthesia Yes all other systems are reviewed and are negative [facility] Past Medical History Attestation statement: The following information was validated with the patient. Source: old records reviewed and nursing notes reviewed Medical History Chronic cough Class 1 obesity with body mass index (BMI) of 33.0 to 33.9 in adult Diabetes Dyslipidemia Hand numbness Hypersomnia Insomnia Left hand pain Rash and nonspecific skin eruption Snoring Thoracic spine pain Vertigo Surgical History History of colonoscopy History of hysterectomy Family History Family History Father No problems noted. Mother History of diabetes mellitus, type I Social History Social History Housing: Apartment Alcohol intake: current Alcohol intake frequency: does not drink Alcohol type: beer Patient Tobacco Use Status: Never used Tobacco Smoked in Last 30 Days: No e-Cigarette/Vaping Use: Never Used Second Hand Smoke Exposure: No Use of substances other than those prescribed or required for medical reasons: No Advance Directives: No Advance Directives Information Provided: Yes service: No Current occupational status: unemployed and disabled Current occupation: rt handed Cognitive needs: No Hearing needs: No Vision needs: Yes Physical Exam Vital Signs: Vital Signs: Last Vital Signs Temp 98.5 F 03/23/23 10:31 Pulse 69 03/23/23 10:31 Resp 16 03/23/23 10:31 BP 117/62 03/23/23 10:31 Pulse Ox 99 03/23/23 10:31 O2 Del Method Room Air 03/23/23 10:31 BMI result Body Mass Index 35.1 Vital signs stable Appearance: Alert.? Oriented X3.? No acute distress.? Head: Normocephalic, atraumatic, no step-offs or deformities Eyes: Pupils equal, round and reactive to light.? CVS: Normal heart rate and rhythm.? Pulses normal.? Respiratory: No respiratory distress.? Breath sounds normal.? Abdomen: Soft and nontender.? Skin: Skin warm and dry.? Normal skin color.? Normal skin turgor.? Extremities: No lower extremity edema.? No calf ttp. 5/5 strength to bilateral upper and lower extremities Back: No midline tenderness, no C-spine tenderness, full range of motion, no CVA tenderness bilaterally + right-sided lumbar paraspinous muscle tenderness throughout, and in to right glue. No midline tenderness. No saddle paresthesias. Neuro: Oriented X 3.? No motor deficit.? No sensory deficit. CN 2-12 intact . Ambulating with steady gait normal coordination Course Reevaluation(s) Reevaluation #1: Patient's CBC with slight leukocytosis 12.9, I do not suspect acute infection at this time. Chemistry unremarkable. Urine pending, x-ray pending. Will re- evaluate patient at a later time. Time: 08:41 Reevaluation #2: Patient with elevated white blood cell count, urine with infection, CT abdomen pelvis with contrast will be obtained to rule out pyelonephritis as patient does have significant pain and discomfort. Time: 09:12 Reevaluation #3: CT abdomen and pelvis with no acute findings in the abdomen, diverticulosis without diverticulitis, excessive amount of stool in the rectum. Will give st ool softeners for home. Bilateral renal parapelvic cysts without evidence of kidney stones. Will discharge with Ceftin, Toradol, Lidoderm patches. Educated patient on diagnosis and treatment plan, answered all question, patient verbalizes understanding. At this time patient will be discharged home, advised to return with new or worsening symptoms. Educated on worrisome signs and symptoms and when to return. At this time I feel comfortable discharge home. At time of discharge patient states she is feeling much better Time: 12:17 Medications Administered Discontinued Medications Generic Name Dose Route Start Last Admin Trade Name Celso PRN Reason Stop Dose Admin Iohexol 85 ml 03/23/23 11:02 03/23/23 11:02 Iohexol 350 Mg/Ml 100 Ml Infus..Btl IV 03/23/23 11:03 85 ml ONCE ONE Administration Ketorolac Tromethamine 30 mg 03/23/23 08:35 03/23/23 08:45 Ketorolac Tromethamine 15 Mg/Ml Vial IM 03/23/23 08:36 30 mg ONCE ONE Administration Lidocaine 1 patch 03/23/23 08:35 03/23/23 08:45 Lidocaine 4 % Patch Adh..Patch TRANSDERMA 03/23/23 08:36 1 patch ONCE ONE Administration Protocol Medical Decision Making Medical Decision Making [facility] Narrative: 0830 62-year-old female presents with right-sided back pain status post twisting yesterday. No urinary symptoms. Physical exam significant for right-sided lumbar paraspinous muscle tenderness throughout, and in to right glue. No midline tenderness. No saddle paresthesias. This is likely lumbar radiculopathy versus sciatic versus lumbar paraspinous spasm. Unlikely fracture, dislocation, cauda equina, cord compression, epidural abscess. No urinary symptoms unlikely pyelo, obstructing uropathy, UTI or cystitis Plan x-ray and pain control Differential Diagnosis Differential Diagnoses: The differential diagnosis associated with the presentation includes This is likely lumbar radiculopathy versus sciatic versus lumbar paraspinous spasm. Unlikely fracture, dislocation, cauda equina, cord compression, epidural abscess. No urinary symptoms unlikely pyelo, obstructing uropathy, UTI or cystitis Admission/Observation Consideration of admission/observation: Escalation of care including admission/observation considered Unlikely Lab Data [facility] Lab Attestation statement: I reviewed the patient's lab results. 03/23/23 07:34 03/23/23 07:34 Labs: Lab Results 03/23/23 03/23/23 03/23/23 Range/Units 07:34 07:34 08:51 WBC 12.9 H (4.8-10.8) X10*3/uL RBC 4.02 L (4.20-5.50) X10*6/uL Hgb 12.4 (12.0-16.0) g/dl Hct 36.9 L (37.0-47.0) % MCV 91.8 (80.0-98.0) fL MCH 30.8 (27.0-33.0) pg MCHC 33.6 (31.0-35.0) g/dl RDW 13.2 (11.0-16.0) % Plt Count 249 (160-400) X10*3/uL MPV 9.4 (9.4-12.3) fL Immature Gran % (Auto) 0.4 (0.0-0.4) % Neut % (Auto) 81.2 H (45-73) % Lymph % (Auto) 9.9 L (20-40) % [place] % (Auto) 8.0 (2-11) % Eos % (Auto) 0.2 (0-4) % Baso % (Auto) 0.3 (0-2) % Lymph # (Auto) 1.3 (1.2-4.9) X10*3/uL [place] # (Auto) 1.0 (0.1-1.2) X10*3/uL Eos # (Auto) 0.0 (0.0-0.4) X10*3/uL Baso # (Auto) 0.0 (0.0-0.2) X10*3/uL Abs Immat Gran (auto) 0.05 H (0.00-0.03) X10*3/uL Absolute Neuts (auto) 10.4 H (2.0-8.3) x10*3/uL Absolute Nucleated RBC 0.000 (0.0-0.012) X10*3/uL Nucleated RBC % (auto) 0.0 (0.0-0.2) /100WBC Sodium 138 (135-145) mmol/L Potassium 4.0 (3.3-5.1) mmol/L Chloride 106 (96-108) mmol/L Carbon Dioxide 20 L (22-29) mmol/L Anion Gap 16 (12-20) BUN 13 (9-16) mg/dL Creatinine 0.78 (0.5-1.4) mg/dL Estim Creat Clear Calc 73.7 Estimated GFR > 60 Random Glucose 184 H (60-115) mg/dL Lactic Acid (0.5-2.0) mmol/L Calcium 9.3 (8.4-10.2) mg/dL Total Bilirubin 0.5 (0.0-1.0) mg/dL AST 15 (5-31) U/L ALT 14 (0-31) U/L Alkaline Phosphatase 86 (39-117) U/L Total Protein 7.9 (6.5-8.0) g/dL Albumin 4.5 (3.5-5.0) g/dL Urine Color Yellow Urine Appearance Clear Urine pH 5.5 (5.0-9.0) Ur Specific [place] 1.020 (1.005-1.025) Urine Protein Negative (Neg-Trace) mg/dL Urine Glucose (UA) 100 H (Negative) mg/dL Urine Ketones Negative (Negative) mg/dL Urine Blood Moderate (2+) H (Negative) Urine Nitrite Positive H (Negative) Ur Leukocyte Esterase Small (1+) H (Negative) Urine RBC 0-2 (0-2) /HPF Urine WBC 11-20 H (0-5) /HPF Ur Squamous Epith Cells 0-2 (0-2) /HPF Urine Bacteria 4+ (None Seen) Hyaline Casts 0-2 (0-2) /LPF Urine Test (NEGATIVE) 03/23/23 03/23/23 Range/Units 08:51 09:39 WBC (4.8-10.8) X10*3/uL RBC (4.20-5.50) X10*6/uL Hgb (12.0-16.0) g/dl Hct (37.0-47.0) % MCV (80.0-98.0) fL MCH (27.0-33.0) pg MCHC (31.0-35.0) g/dl RDW (11.0-16.0) % Plt Count (160-400) X10*3/uL MPV (9.4-12.3) fL Immature Gran % (Auto) (0.0-0.4) % Neut % (Auto) (45-73) % Lymph % (Auto) (20-40) % [place] % (Auto) (2-11) % Eos % (Auto) (0-4) % Baso % (Auto) (0-2) % Lymph # (Auto) (1.2-4.9) X10*3/uL [place] # (Auto) (0.1-1.2) X10*3/uL Eos # (Auto) (0.0-0.4) X10*3/uL Baso # (Auto) (0.0-0.2) X10*3/uL Abs Immat Gran (auto) (0.00-0.03) X10*3/uL Absolute Neuts (auto) (2.0-8.3) x10*3/uL Absolute Nucleated RBC (0.0-0.012) X10*3/uL Nucleated RBC % (auto) (0.0-0.2) /100WBC Sodium (135-145) mmol/L Potassium (3.3-5.1) mmol/L Chloride (96-108) mmol/L Carbon Dioxide (22-29) mmol/L Anion Gap (12-20) BUN (9-16) mg/dL Creatinine (0.5-1.4) mg/dL Estim Creat Clear Calc Estimated GFR Random Glucose (60-115) mg/dL Lactic Acid 2.0 (0.5-2.0) mmol/L Calcium (8.4-10.2) mg/dL Total Bilirubin (0.0-1.0) mg/dL AST (5-31) U/L ALT (0-31) U/L Alkaline Phosphatase (39-117) U/L Total Protein (6.5-8.0) g/dL Albumin (3.5-5.0) g/dL Urine Color Urine Appearance Urine pH (5.0-9.0) Ur Specific [place] (1.005-1.025) Urine Protein (Neg-Trace) mg/dL Urine Glucose (UA) (Negative) mg/dL Urine Ketones (Negative) mg/dL Urine Blood (Negative) Urine Nitrite (Negative) Ur Leukocyte Esterase (Negative) Urine RBC (0-2) /HPF Urine WBC (0-5) /HPF Ur Squamous Epith Cells (0-2) /HPF Urine Bacteria (None Seen) Hyaline Casts (0-2) /LPF Urine Test NEGATIVE (NEGATIVE) Independent Interpretation I performed an independent interpretation of an: Plain X-Ray (XR/XR lumbar spine 2-3V IMPRESSION: 1. L4-L5 mild degenerative disc disease and grade 1 anterolisthesis without significant change. No acute abnormality.) and CT Scan (CT/CT abdomen pelvis w IV con IMPRESSION: * No CT evidence of acute intra- abdominal process to explain patient's pain symptoms. * Diverticulosis without evidence of acute diverticulitis. * Excess amount of stool in the rectum. * Redemonstration of bilateral renal parapelvic cysts without) Radiology Impression Discussion of test interpretation with radiology: I have reviewed the radiologist's reading. Core Measures AMI core measures followed: Yes Measure exclusions: not indicated Critical Care Time Critical Care Time Critical Care Time: No Discharge Plan Discharge Clinical Impression: Acute lumbar back pain, UTI (urinary tract infection), Arthritis, lumbar spine, Constipation Patient Disposition: Home, Self-Care Instructions: Urinary Tract Infection in Women (DC), Acute Low Back Pain (ED), Back Pain (ED) Additional Instructions: Take your medications as prescribed. If you were prescribed antibiotics today, it is important that you take your medication to their entirety, do not skip any doses, do not finish them early. Follow-up with your primary care provider this week. Follow-up with [facility] if needed Return to the emergency department with new or worsening symptoms. Such as fevers, chills, chest pain, shortness of breath, nausea, vomiting, dizziness, headache, vision changes, lethargy In case of emergency call 911 Toradol has been sent to your pharmacy, you tolerated this well in the department. Please take this as prescribed do not take this with ibuprofen, or other NSAIDs, do not mix this with alcohol. Side effects of this medication including increased risk for bleeding and possible kidney injury. XR/XR lumbar spine 2-3V IMPRESSION: ? L4-L5 mild degenerative disc disease and grade 1 anterolisthesis without significant change. No acute abnormality. ?CT/CT abdomen pelvis w IV con IMPRESSION: ? *? No CT evidence of acute intra-abdominal process to explain patient's pain symptoms. ? *? Diverticulosis without evidence of acute diverticulitis. ? *? Excess amount of stool in the rectum. ? *? Redemonstration of bilateral renal parapelvic cysts without evidence of kidney stones. ? Prescriptions: New cefuroxime axetil 250 mg tablet 250 mg PO BID 7 Days Qty: 14 0RF ketorolac 10 mg tablet 10 mg PO TID PRN (Reason: pain) 5 Days Qty: 15 0RF lidocaine 5 % adhesive patch,medicated 1 patch topical DAILY PRN (Reason: pain) Qty: 15 0RF Rx Instructions: leave on most painful area for up to 12 hrs sennosides [senna] 8.6 mg tablet 8.6 mg PO BEDTIME Qty: 14 0RF docusate sodium [Colace] 100 mg capsule 100 mg PO BID Qty: 20 0RF No Action hydroxyzine HCl 25 mg tablet 25 mg PO TID PRN meclizine 25 mg tablet 25 mg PO DAILY PRN (Reason: dizziness) 30 Days Qty: 30 3RF trazodone 50 mg tablet 50 mg PO BEDTIME PRN (Reason: insomnia) 90 Days Qty: 90 1RF (DME) Grab [facility] See Rx Instructions .Route Qty: 1 0RF Rx Instructions: As directed metformin 1,000 mg tablet 1,000 mg PO BID Qty: 60 6RF dicyclomine 20 mg tablet 20 mg PO TID 30 Days Qty: 90 0RF acetaminophen [Mapap Arthritis Pain] 650 mg tablet extended release 1,300 mg PO Q8H PRN (Reason: fever or pain) 30 Days Qty: 180 1RF gabapentin 300 mg capsule 300 mg PO BEDTIME 30 Days Qty: 30 0RF Referrals: [facility] [place]Provider Group] - 1 day [facility] [Provider Group] - 2 days Delores Franco MD [Primary Care Provider] - 1 week Interventions: ED Discharge Assessment Last Done: 03/23/23 12:25 Discharge Date/Time: 03/23/23 12:25
[2023-03-23] MEDS: Ketorolac Tromethamine 15 MG/ML VIAL 30 MG IM (08:45)
[2023-03-23] MEDS: Lidocaine 4 % Patch ADH..PATCH 1 PATCH TRANSDERMA (08:45)
[2023-03-23 09:02] LABS: Appearance Urine Clear; Color Urine Yellow; Glucose Urine UA 100 mg/dL (Negative); Leukocyte Esterase Urine Small (1+) (Negative); Nitrite Urine Positive (Negative); PH 5.5 (5.0-9.0); UMIC TRIGGER UACC YES; Urine Blood Moderate (2+) (Negative); Urine Ketones Negative (Negative); Urine Protein Negative (Neg-Trace)
[2023-03-23 09:11] LABS: Bacteria Urine 4+ (None Seen); Hyaline Casts Urine 0-2 /LPF (0-2); RBC Urine 0-2 /HPF (0-2); Squamous Epithelial Cell Urine 0-2 /HPF (0-2); UACC Culture Trigger YES
[2023-03-23 09:21] LABS: UPreg QC Valid YES; Urine Pregnancy NEGATIVE (NEGATIVE)
[2023-03-23 10:31] VITALS: BP 117/62; PULSE 69; RESP 16; TEMP 36.9; O2SAT 99
[2023-03-23] MEDS: iohexoL 350 MG/ML 100 ML INFUS..BTL 85 ML IV (11:02)
== END 2023-03-23 12:25 | disposition home or self-care (01) ==
PROVIDERS: Physician Assistant; Emergency Provider Emergency Medicine; PCP Internal Medicine
DX: M54.50 Low back pain, unspecified (principal); N39.0 Urinary tract infection, site not specified; K59.00 Constipation, unspecified; Z79.899 Other long term (current) drug therapy
CPT/HCPCS: 36415; 72100; 74177; 80053; 81001; 81003; 81025; 83605; 85025; 87040; 87086; 87088; 87186; 96372; 99284; J1885; Q9967

== ENCOUNTER 2023-03-25 16:14 | Outpatient (AMB) | payer OTHER, SELFPAY ==
[2023-03-25 16:15] VITALS: BP 130/86; PULSE 66; O2SAT 99; BMI 34.8
--- NOTE | 2023-03-25 16:15 | MHC.PC.OV ---
Vital Signs 03/25/23 16:15 Height 5 ft 1 in Weight 184 lb BMI 34.8 BP 130/86 Blood Pressure Location Lt brachial Position Sitting Pulse 66 Pulse Source Pulse Oximeter Temp Source Skin Pulse Oximetry (%) 99 Oxygen Delivery Method Room Air Intake Visit Reasons: [facility], Right flank pain, 03/24 Intake Note: Patient is here to follow-up after a visit the emergency department at [facility] on 03/24/23 for right flank pain Executive Steward Required: No Allergies atorvastatin Allergy (Mild, Verified 03/25/23 16:42) stomach upset Medication List - Last Reconciled 03/25/23 by EUGENIA Norton acetaminophen ER (Mapap Arthritis Pain) 1,300 mg (2 x 650 mg) PO Q8H PRN 30 days cefuroxime axetil 250 mg PO BID 7 days dicyclomine 20 mg PO TID 30 days docusate sodium (Colace) 100 mg PO BID gabapentin 300 mg PO BEDTIME 30 days Grab bar As directed hydroxyzine HCl 25 mg PO TID PRN ketorolac 10 mg PO TID PRN 5 days lidocaine 5% 1 patch topical DAILY PRN meclizine 25 mg PO DAILY PRN 30 days metformin 1,000 mg PO BID saxagliptin 5 mg PO DAILY sennosides (senna) 8.6 mg PO BEDTIME trazodone 50 mg PO BEDTIME PRN 90 days Tobacco use date assessed: 03/25/23 Dental Screening Dental Screen Date: 03/25/23 Did you have a dental visit in the last 12 months?: Yes Did you have a dental problem in the last 6 months where you did not have access to dental care?: No HPI [facility], Right flank pain, 03/24 HPI Details Patient is a 62-year-old female who presents today to follow-up after [facility] visit 03/23/2023 due to back pain. Patient of Dr. Ku. Per ED notes: This is a 62-year-old female presenting to the emergency department with complaints of right lower back pain with some radiation into the right hip, she reports that yesterday evening she turned the wrong way and since then has been having right lower back pain, she tells me she was not lifting anything when she twisted the wrong way. Patient has taken Tylenol with little to no relief. She reports pain 8/10 constant in nature, worse with movement better at rest. Patient tells me she has had back pain before, feels similar however pain is worse. Denies blunt trauma to the area, numbness, tingling, urinary/bowel incontinence/retention, fevers, chills, history of IV drug abuse, history of malignancy, nausea, vomiting, abdominal pain, saddle paresthesias. Patient's CBC with slight leukocytosis 12.9, I do not suspect acute infection at this time. Chemistry unremarkable. Urine pending, x-ray pending. Will re-evaluate patient at a later time. Time: 08:41 Reevaluation #2: Patient with elevated white blood cell count, urine with infection, CT abdomen pelvis with contrast will be obtained to rule out pyelonephritis as patient does have significant pain and discomfort. Time: 09:12 Reevaluation #3: CT abdomen and pelvis with no acute findings in the abdomen, diverticulosis without diverticulitis, excessive amount of stool in the rectum. Will give stool softeners for home. Bilateral renal parapelvic cysts without evidence of kidney stones. Will discharge with Ceftin, Toradol, Lidoderm patches. Educated patient on diagnosis and treatment plan, answered all question, patient verbalizes understanding. At this time patient will be discharged home, advised to return with new or worsening symptoms. Educated on worrisome signs and symptoms and when to return. At this time I feel comfortable discharge home. At time of discharge patient states she is feeling much better. XR/XR lumbar spine 2-3V IMPRESSION: L4-L5 mild degenerative disc disease and grade 1 anterolisthesis without significant change. No acute abnormality. CT/CT abdomen pelvis w IV con IMPRESSION: * No CT evidence of acute intra-abdominal process to explain patient's pain symptoms. * Diverticulosis without evidence of acute diverticulitis. * Excess amount of stool in the rectum. * Redemonstration of bilateral renal parapelvic cysts without evidence of kidney stones. Today, patient reports that she takes all of her medications as prescribed. She reports that her back pain is better today. She reports pain is worse with activity and better with rest. Patient also is followed by pain management and she has a referral to physical therapy for her back pain, will follow-up on PT. patient reports normal bowel movement this morning. She denies any urinary symptoms. Patient is a Slovak-speaking and her daughter was helping with interpretation. [facility] Medical History Chronic cough Class 1 obesity with body mass index (BMI) of 33.0 to 33.9 in adult Diabetes Dyslipidemia Hand numbness Hypersomnia Insomnia Left hand pain Rash and nonspecific skin eruption Snoring Thoracic spine pain Vertigo Surgical History History of colonoscopy History of hysterectomy Family History Father No problems noted. Mother History of diabetes mellitus, type I Social History Housing: Apartment Alcohol intake: current Alcohol intake frequency: does not drink Alcohol type: beer Patient Tobacco Use Status: Never used Tobacco e-Cigarette/Vaping Use: Never Used Second Hand Smoke Exposure: No service: No Current occupational status: unemployed and disabled Current occupation: rt handed Cognitive needs: No Hearing needs: No Vision needs: Yes Questionnaire Thrive Questionnaire Date Thrive assessed: 10/16/22 AUDIT C Alcohol Use Questionnaire (AUDIT-C) 1. How often do you have a drink containing alcohol?: Monthly or less 2. How many drinks containing alcohol do you have on a typical day when you are drinking?: 1 or 2 3. How often do you have six or more drinks on one occasion?: Never Total Score: 1 Score Reviewed/Action Taken: No CHAVA-7 AMB Questionnaire CHAVA-7 Date CHAVA - 7 assessed: 10/16/22 Source: Developed by Drs. Jamie Zuniga, Kaylee Donahue, Chung Hirsch and colleagues, with an educational kavon from [email or web address]. Review of Systems Const Denies body aches, Denies chills, Denies fever(s) and Denies headache(s) Eyes Denies change in vision ENT Denies dizziness, Denies otalgia, Denies headache(s), Denies nasal discharge, Denies sinus pain and Denies sore throat Card Denies chest pain, Denies edema, Denies lightheadedness and Denies dyspnea Resp Denies cough, Denies dyspnea and Denies wheezing GI Denies abdominal pain, Denies constipation, Denies diarrhea, Denies nausea and Denies vomiting Denies hematuria, Denies dysuria and Denies flank pain Musc Reports back pain and Denies myalgias Skin/Breast Denies rash Neuro Denies dizziness and Denies headache(s) Aller/Immun Denies wheezing Physical exam (Primary Care) Vital Signs: Last Vital Signs Pulse 66 03/25/23 16:15 BP 130/86 03/25/23 16:15 Pulse Ox 99 03/25/23 16:15 Oxygen Delivery Method Room Air 03/25/23 16:15 BMI result Body Mass Index 34.8 Tobacco/Smoking Status: Tobacco use Status Tobacco use date assessed 03/25/23 03/25/23 16:17 Patient Tobacco Use Status Never used Tobacco 03/25/23 16:17 e-Cigarette/Vaping Use Never Used 03/25/23 16:17 Thrive Assessment: Date of Thrive Assessment Date Thrive assessed 10/16/22 03/25/23 16:17 Const General: cooperative and no acute distress Orientation/consciousness: patient oriented x3 HENMT Head: Yes normocephalic and Yes atraumatic Face and sinus: Yes sinuses nontender Mouth: oropharynx normal and moist mucous membranes Throat: Yes posterior oropharynx normal Eyes General: appearance normal, both eyes and all related structures Neck Neck: Yes normal visual inspection, Yes full ROM and Yes no lymphadenopathy Resp Effort & Inspection: normal respiratory effort and able to speak in complete sentences Auscultation: clear to auscultation bilaterally, no crackles, no rales, no rhonchi and no wheezes Cardio Rate: regular rate Rhythm: regular rhythm Heart sounds: S1 normal heart sound present and S2 normal heart sound present GI Palpation (GI): Soft to palpation, not firm, nontender, no guarding, not rigid and no hepatosplenomegaly Auscultation: normal bowel sounds General: No CVA tenderness Back/Spine/Pelvis Back: No CVA tenderness Thoracic/Lumbar Spine: thoracic and lumbar spine normal to inspection, pain with thoraco-lumbar ROM, No paraspinal muscle tenderness, No thoracic spinal tenderness and No lumbar spinal tenderness Skin General skin exam: no rashes or lesions noted Neuro General: patient oriented x3 Gait exam (Neuro): Normal gait present Extrem General: Yes full ROM and No edema Assessment and Plan Assessment & Plan (1) Bilateral renal cysts: Code(s): N28.1 - Cyst of kidney, acquired Plan: Will refer to Urology for an evaluation and treatment (2) UTI (urinary tract infection): Code(s): N39.0 - Urinary tract infection, site not specified Qualifiers: Hematuria presence: without hematuria Urinary tract infection type: acute cystitis Qualified Code(s): N30.00 - Acute cystitis without hematuria Plan: Finish full course of antibiotic as prescribed Increase water consumption Signs and symptoms reviewed when to notify provider go to the emergency department (3) Lumbar degenerative disc disease: Code(s): M51.36 - Other intervertebral disc degeneration, lumbar region Plan: Continue current treatment Patient reports that back pain is better today, she takes Toradol and lidocaine patch Will follow-up on PT referral Continue to follow-up with [facility] Orders: Referrals Urology Referral N28.1 - Cyst of kidney, acquired Coding Level of Care Code Est Pt Level 3 (33259) Diagnoses Bilateral renal cysts N28.1 UTI (urinary tract infection) N30.00 Hematuria presence: without hematuria Urinary tract infection type: acute cystitis Lumbar degenerative disc disease M51.36
== END 2023-03-25 17:07 | disposition home or self-care (01) ==
LOC: HO.HMGH 16:14
PROVIDERS: PCP Internal Medicine; Visit Provider Nurse Practitioner Family
DX: N28.1 Cyst of kidney, acquired (principal); N30.00 Acute cystitis without hematuria; M51.36 Other intervertebral disc degeneration, lumbar region
CPT/HCPCS: 99213

== ENCOUNTER → 2023-04-28 14:56 | Outpatient (REF) | payer OTHER, SELFPAY | LOC: HO.SL 14:56 | PROVIDERS: PCP Internal Medicine; Visit Provider Psychiatry & Neurology Neurology | DX: R06.83 Snoring (principal); G47.10 Hypersomnia, unspecified | CPT/HCPCS: 95806 ==

== ENCOUNTER → 2023-04-28 15:20 | Outpatient (BNV) | payer OTHER, SELFPAY | PROVIDERS: PCP Internal Medicine; Visit Provider Psychiatry & Neurology Neurology | DX: G47.33 Obstructive sleep apnea (adult) (pediatric) (principal) | CPT/HCPCS: 95806 ==

== ENCOUNTER 2023-05-08 13:53 | Outpatient (AMB) | payer OTHER, SELFPAY ==
--- NOTE | 2023-05-08 14:01 | A.OFFVIS_ITS ---
Intake Intake Visit Reasons: Cyst of kidney Intake Note: New Patient presents for initial visit cyst of kidney (imaging 03/23/23) Urology Medications: none Blood Thinner: none Watershed Tender Required: Yes Accompanied by: Daughter Allergies atorvastatin Allergy (Mild, Verified 05/08/23 14:52) stomach upset Medication List - Last Reconciled 05/08/23 by ISAÍAS Velez acetaminophen ER (Mapap Arthritis Pain) 1,300 mg (2 x 650 mg) PO Q8H PRN 30 days cholecalciferol (vitamin D3) 125 mcg PO DAILY dicyclomine 20 mg PO TID 30 days docusate sodium (Colace) 100 mg PO BID gabapentin 300 mg PO BEDTIME 30 days Grab bar As directed hydroxyzine HCl 25 mg PO TID PRN ketorolac 10 mg PO TID PRN 5 days lidocaine 5% 1 patch topical DAILY PRN meclizine 25 mg PO DAILY PRN 30 days metformin 1,000 mg PO BID saxagliptin (Onglyza) 5 mg PO DAILY 90 days sennosides (senna) 8.6 mg PO BEDTIME trazodone 50 mg PO BEDTIME PRN 90 days HPI HPI Comments History of Present Illness Details Amira is a very pleasant 62-year-old Hungarian-speaking female patient of Dr. Kings Mcgee who was accompanied by her daughter at today's visit. She has a past medical history of hypersomnia, vertigo, insomnia, dyslipidemia, and diabetes. She presents to the office today as a new patient for renal cyst. In discussion with the patient today she reports having gone to [facility] for back pain and right-sided flank pain at which time a CT was ordered and patient noted to have bilateral renal cysts. CT imaging results reviewed with the patient and her daughter today. Redemonstration of bilateral peripelvic renal cysts. No kidney stones or hydronephrosis. Tiny hypodensities in the renal cortices too small to characterize commonly found to be evolving cysts, there is a simple cyst middle pole right kidney 1.5 cm, this is Bosniak class I almost certainly benign no follow-up required per radiology report. When asked patient denies any bothersome urinary issues or concerns at this time. She reports back pain and right-sided flank pain she had been experiencing has since subsided. I n office urinalysis results reviewed with the patient today. When asked she denies urinary urgency, urinary frequency, incontinence, nocturia, hematuria, dysuria, foul smelling urine, changes to urinary stream, flank pain, fever, and or chills. She is happy with her current voiding parameters. [facility] Medical History Hypersomnia Snoring Vertigo Class 1 obesity with body mass index (BMI) of 33.0 to 33.9 in adult Insomnia Dyslipidemia Chronic cough Thoracic spine pain Hand numbness Left hand pain Rash and nonspecific skin eruption Diabetes Surgical History History of hysterectomy History of colonoscopy Family History Father No problems noted. Mother History of diabetes mellitus, type I Social History Housing: Apartment Alcohol intake: current Alcohol intake frequency: does not drink Alcohol type: beer Patient Tobacco Use Status: Never used Tobacco e-Cigarette/Vaping Use: Never Used Second Hand Smoke Exposure: No service: No Current occupational status: unemployed and disabled Current occupation: rt handed Cognitive needs: No Hearing needs: No Vision needs: Yes Review of Systems Const Reports as per HPI Eyes Reports no additional complaints ENT Reports as per HPI Card Reports no additional complaints Resp Reports no additional complaints GI Reports no additional complaints Reports as per HPI Musc Reports no additional complaints Neuro Reports no additional complaints Psych Reports no additional complaints Endo Reports no additional complaints Juan/Lymph Reports no additional complaints Aller/Immun Reports no additional complaints Physical Exam Const General: cooperative, healthy appearing, comfortable, no acute distress, well developed, alert and awake Orientation/consciousness: patient oriented x3 Limitations: no limitations HEENT Head: Yes normal to inspection, Yes normocephalic and Yes atraumatic Ears: hearing grossly normal bilaterally Eyes General: appearance normal, both eyes and all related structures Neck Neck: Yes normal visual inspection and Yes trachea midline Chest Chest palpation & inspection: normal inspection of the chest Resp Effort & Inspection: normal respiratory effort and able to speak in complete sentences Cardio Rate: regular rate GI Inspection: Yes normal to inspection General: Yes no CVA tenderness Back/Spine/Pelvis Back: no CVA tenderness Skin General skin exam: no rashes or lesions noted Neuro General: patient oriented x3 Extrem General: Yes normal to inspection Psych Appearance: grossly normal and well kempt Mental Status: mental status grossly normal Speech and movement: Normal speech and movement present and Clear speech present Affect: normal affect Attitude: cooperative Thought process: Normal thought process present Thought content: Normal thought content present Insight: Fair insight present (Psych) Judgement: Fair judgement present (Psych) Results AMB Urinalysis, Automated UA Leukoctes 0 Malka/uL Last Edit by Kulara Water on 05/08/23 14:43 UA Nitrite Positive Last Edit by Kulara Water on 05/08/23 14:43 UA Urobilinogen 0.2 mg/dL Last Edit by Kulara Water on 05/08/23 14:43 UA Protein 0 mg/dL Last Edit by Kulara Water on 05/08/23 14:43 UA pH 5.5 Last Edit by Kulara Water on 05/08/23 14:43 UA Blood 80 Mehul/uL Last Edit by Kulara Water on 05/08/23 14:43 UA Specific Polk 1.030 Last Edit by Kulara Water on 05/08/23 14:43 UA Ketone Negative Last Edit by Kulara Water on 05/08/23 14:43 UA Bilirubin 0 mg/dL Last Edit by Kulara Water on 05/08/23 14:43 UA Glucose 0 mg/dL Last Edit by Kulara Water on 05/08/23 14:43 Results Reviewed Results Reviewed: Laboratory Last Values Urine pH (Auto) 5.5 05/08/23 14:03 Specific Polk (Auto) 1.030 05/08/23 14:03 Urine Protein (Auto) 0 mg/dL 05/08/23 14:03 Glucose (UA)(Auto) 0 mg/dL 05/08/23 14:03 Urine Ketones (Auto) Negative 05/08/23 14:03 Urine Blood (Auto) 80 Mehul/uL 05/08/23 14:03 Urine Nitrite (Auto) Positive 05/08/23 14:03 Urine Bilirubin (Auto) 0 mg/dL 05/08/23 14:03 Urine Urobilinogen (Auto) 0.2 mg/dL 05/08/23 14:03 Leukocyte Esterase (Auto) 0 Malka/uL 05/08/23 14:03 Date of Service: 03/23/23 Procedure(s): CT abdomen pelvis w IV con FINDINGS: LOWER THORAX: Included lung bases are clear. HEPATOBILIARY: No focal hepatic lesions. No biliary ductal dilatation. GALLBLADDER: Gallbladder unremarkable. SPLEEN: Spleen is normal in size. PANCREAS: Pancreatic body and tail not visualized again. Pancreatic head is homogeneous. STOMACH AND GASTROINTESTINAL TRACT: Stomach is grossly unremarkable. There is no bowel distention or thickening. Diverticulosis of the sigmoid colon without evidence of diverticulitis. Appendix is unremarkable. ADRENALS: No adrenal nodules. KIDNEYS/URETERS: Redemonstration of bilateral peripelvic renal cysts. No kidney stones or hydronephrosis. Tiny hypodensities in the renal cortices too small to characterize commonly found to be evolving cysts, there is a simple cyst middle pole right kidney 1.5 cm, this is Bosniak class I almost certainly benign no follow-up required. URINARY BLADDER: Partially decompressed. PELVIC VISCERA: Excess amount of stool in the rectum. PERITONEUM: No free air or fluid. LYMPH NODES: No lymphadenopathy. VASCULAR:Abdominal aorta normal in size, no aneurysm found. BONES, ABDOMINAL WALL AND SOFT TISSUES: Age-appropriate changes of the spine and skeletal system, no destructive osteolytic or osteosclerotic bone lesion found IMPRESSION: * No CT evidence of acute intra-abdominal process to explain patient's pain symptoms. * Diverticulosis without evidence of acute diverticulitis. * Excess amount of stool in the rectum. * Redemonstration of bilateral renal parapelvic cysts without evidence of kidney stones. Assessment & Plan Assessment & Plan (1) Bilateral renal cysts: Code(s): N28.1 - Cyst of kidney, acquired Plan In office urinalysis results reviewed with the patient today; as noted above. Recent CT imaging results reviewed with the patient today; as noted above. Discussed at length potential causes for renal cysts. Discussed surveillance monitoring Patient denies any bothersome urinary issues or concerns at this time. She reports to be happy with current voiding parameters. Discussed, educated, encouraged on the importance of drinking plenty of water daily. Will obtain renal ultrasound in 6 months. Follow-up in 6 months with imaging to be completed prior; or sooner with any issues, concerns, and or questions. Orders: Orders US renal BI 6 Months N20.0 - Calculus of kidney AMB Urinalysis Automated Today Z13.9 - Encounter for screening, unspecified Patient Instructions: The patient had an opportunity to ask questions regarding the treatment plan. All questions were answered. Physical exam, labs, and imaging were discussed and reviewed in detail. As well as risks, benefits, and discussion of treatment choices. No major barriers to understanding were identified. The patient expressed understanding and agreement with the above treatment plan. The patient was made aware they should contact our office by phone for worsening of their current condition, the appearance of new symptoms, or with any quest ions or concerns. Compliance is encouraged with any medications and follow up testing that is ordered. It is a privilege to be allowed the opportunity to participate in? your urological care.? Again, if you have any questions or concerns If you have any questions or concerns please do not hesitate to contact me. The office is [phone]. This note is constructed using voice recognition software. While every effort has been made to ensure accuracy generation technician errors may have been included. Yours sincerely, ISAÍAS Velez Coding Level of Care Code New Pt Level 3 (05333) Diagnoses Bilateral renal cysts N28.1
== END 2023-05-08 14:52 | disposition home or self-care (01) ==
PROVIDERS: PCP Internal Medicine; Visit Provider Nurse Practitioner Family
DX: N28.1 Cyst of kidney, acquired (principal)
CPT/HCPCS: 99203

== ENCOUNTER → 2023-05-08 13:53 | Outpatient (BNVA) | payer OTHER, SELFPAY | PROVIDERS: PCP Internal Medicine; Visit Provider Nurse Practitioner Family | DX: N28.1 Cyst of kidney, acquired (principal) | CPT/HCPCS: 81003; 99202 ==

== ENCOUNTER 2023-06-11 09:37 | Outpatient (AMB) | payer OTHER, SELFPAY ==
--- NOTE | 2023-06-11 09:52 | A.OFFVIS_ITS ---
Intake Vital Signs 06/11/23 09:53 Height 5 ft 1 in Weight 184 lb BMI 34.8 Intake Visit Reasons: OV-Bilateral Hand Pain Intake Note: Amira 62 yr old female presents today for her follow up visit to sign surgery consent for her Left middle trigger finger release & Left carpal tunnel release. Allergies atorvastatin Allergy (Mild, Verified 06/11/23 09:53) stomach upset HPI OV-Bilateral Hand Pain HPI Details Amira is a 62 year old right hand dominant woman who returns to discuss treatment for her left middle trigger finger & carpal tunnel syndrome. It sounds like she canceled her surgery last time because she was scared. She is seen today with her daughter who reports that she is continuing to complain of numbness in of locking of the left middle finger. She complains of painful locking & catching of the left middle finger. She has left carpal tunnel syndrome. Her symptoms are intermittent, but daily, and tingling at night. She complains today primarily of numbness in her middle finger, less in her thumb and index fingers. She has a Hx of right ring trigger finger injection on 01/14/21, and she has no complaints of her finger locking today. She says she has a Hx of right carpal tunnel release in ~2010, at an outside location. She reports good sensation in her right hand and no issues with numbness or tingling. [facility] Medical History Hypersomnia Snoring Vertigo Class 1 obesity with body mass index (BMI) of 33.0 to 33.9 in adult Insomnia Dyslipidemia Chronic cough Thoracic spine pain Hand numbness Left hand pain Rash and nonspecific skin eruption Diabetes Surgical History History of hysterectomy History of colonoscopy Family History Father No problems noted. Mother History of diabetes mellitus, type I Social History Housing: Apartment Alcohol intake: current Alcohol intake frequency: does not drink Alcohol type: beer Patient Tobacco Use Status: Never used Tobacco e-Cigarette/Vaping Use: Never Used Second Hand Smoke Exposure: No service: No Current occupational status: unemployed and disabled Current occupation: rt handed Cognitive needs: No Hearing needs: No Vision needs: Yes Review of Systems Const All systems reviewed & are unremarkable except as noted in HPI and below Physical Exam Vital Signs: BMI result Body Mass Index 34.8 Const General: cooperative, healthy appearing and no acute distress Orientation/consciousness: patient oriented x3 HEENT Head: Yes normocephalic and Yes atraumatic Eyes EOM: EOMs intact bilaterally Resp Effort & Inspection: normal respiratory effort and able to speak in complete sentences Cardio Jugular venous distension: no JVD Skin General skin exam: turgor normal Rashes: no rashes Neuro General: patient oriented x3 Extrem Other: Evaluation of Left Upper Extremity: The patient is alert, oriented, and in no acute distress Neuro: Median, Ulnar, Radial nerves motor and sensory intact , with no complaints of numbness today No thenar or intrinsic wasting Good APB muscle belly firing and good finger cross Vascular: Cap refill brisk ROM: She can make a fist and extend all her digits Visible and palpable locking and catching of the left middle finger Tender over the A1 demond of the middle finger Nerve Conduction Study of left side: IMPRESSION Moderate-severe left carpal tunnel syndrome Dr. Barr 12/13/20 Psych Appearance: grossly normal Affect: normal affect Attitude: cooperative Assessment & Plan Assessment & Plan (1) Carpal tunnel syndrome of left wrist: Code(s): G56.02 - Carpal tunnel syndrome, left upper limb (2) Trigger finger, left middle finger: Code(s): M65.332 - Trigger finger, left middle finger Plan Assessment & Plan: 1. Left middle trigger finger 2. Left Carpal tunnel syndrome, moderate-severe Symptoms intermittent, but daily, worse at night I educated her about these conditions I discussed treatment options I recommend surgery, and she is in agreement The risks and benefits of operative treatment were discussed with the patient and the patient wishes to proceed with surgery. These risks include, but are not limited to risk of damage to blood vessels, nerves, tendons, infection, recurrence, incomplete relief of preoperative symptoms, persistent pain, possible need for further surgery and the risks associated with regional blocks and anesthesia. The plan is to take the patient to the operating room sometime in the next few weeks for the following procedures: 1. Left middle trigger finger release, under local 2. Left carpal tunnel release, under local All of the preoperative paperwork including the consent was filled out today. All the patient's questions were answered. The patient understands that they will be contacted by our [facility] soon to schedule this procedure. She is travelling from [place], and will need surgery after she returns. She denies blood thinners, asthma, heart, lung, kidney issues She is a Diabetic, her most recent Hemoglobin A1c was 7.7% on 10/16/22 3. Right Carpal tunnel syndrome, S/P release DOS: ~2010, at an outside clinic With good resolution of her symptoms 4. Right ring trigger finger, S/P injection Date of injection: 01/14/21 With good resolution of her symptoms Scribed for Laurita Dawson MD by Silver Abrams, medical staff services coordinator, on 12/18/22 at 11:00 AM, EST. I, Laurita Dawson MD, have personally reviewed and agreed with the information entered by the medical staff services coordinator. Coding Level of Care Code Est Pt Level 4 (54668) Diagnoses Carpal tunnel syndrome of left wrist G56.02 Trigger finger, left middle finger M65.332
[2023-06-11 09:53] VITALS: BMI 34.8
== END 2023-06-11 10:20 | disposition home or self-care (01) ==
PROVIDERS: PCP Internal Medicine; Visit Provider Orthopaedic Surgery
DX: G56.02 Carpal tunnel syndrome, left upper limb (principal); M65.332 Trigger finger, left middle finger
CPT/HCPCS: 99214

== ENCOUNTER → 2023-06-11 09:37 | Outpatient (BNVA) | payer OTHER, SELFPAY | PROVIDERS: PCP Internal Medicine; Visit Provider Orthopaedic Surgery | DX: G56.02 Carpal tunnel syndrome, left upper limb (principal); M65.332 Trigger finger, left middle finger | CPT/HCPCS: 99212 ==

== ENCOUNTER 2023-06-26 11:00 | Outpatient (REF) | payer OTHER, SELFPAY | END 2023-06-26 11:01 | disposition home or self-care (01) | LOC: HO.MRI 11:00 | PROVIDERS: PCP Internal Medicine; Visit Provider Psychiatry & Neurology Neurology | DX: Z13.89 Encounter for screening for other disorder (principal) ==

== ENCOUNTER 2023-09-19 08:08 | Inpatient (IN) | payer OTHER, SELFPAY ==
--- NOTE | ~2023-09-19 | CT_ITS ---
EXAMINATION: CT ABDOMEN AND PELVIS WITH CONTRAST CLINICAL INFORMATION: Lower abdominal pain. COMPARISON: 03/23/2023 TECHNIQUE: Multidetector volumetric images were obtained from the superior aspect of the liver through the pubic symphysis following administration 85 mL of Omnipaque 350 intravenous contrast. Sagittal and coronal reformatted images were obtained on the technologist's workstation. Oral contrast: No This CT examination was performed using dose optimization techniques as appropriate, variously including the following: *Automated exposure control *Adjustment of mA and/or kV according to patient size (this includes techniques or standardized protocols for targeted exams where dose is matched to indication/reason for exam; i.e. extremities or head) *Use of iterative reconstruction technique DLP: 838 mGy-cm FINDINGS: LUNG BASES: Small hiatal hernia. LIVER, GALLBLADDER, AND BILIARY TREE: The liver is normal in size and contour. No suspicious hepatic lesion or biliary ductal dilatation is present. The gallbladder is unremarkable with no evidence of radiopaque gallstones, gallbladder wall thickening, or obvious pericholecystic inflammatory changes. PANCREAS: Truncated. Possible fatty replacement of the body and tail. No ductal dilatation. SPLEEN: Not enlarged. ADRENAL GLANDS: No adrenal mass. KIDNEYS AND URETERS: The kidneys are symmetric in size and enhancement. 1.5 cm cyst upper to midpole right kidney. Bilateral parapelvic cysts. No further routine follow-up is needed. No perinephric stranding. No hydronephrosis. Delayed images demonstrate intact renal function. BLADDER: Underdistended. GASTROINTESTINAL TRACT: Wall thickening of the proximal sigmoid colon surrounding and inflamed diverticulum. There is pericolonic stranding. There is an intramural abscess measuring 4.2 x 1.9 x 0.9 cm. No extraluminal gas. No small bowel obstruction. Appendix is within normal limits. ABDOMINAL WALL: No significant hernia is appreciated. LYMPH NODES: No bulky abdominal or pelvic lymphadenopathy. VASCULAR: Normal caliber abdominal aorta. PELVIC VISCERA: Uterus is surgically absent. OSSEOUS STRUCTURES: No destructive bone lesions. CT/CT abdomen pelvis w IV con IMPRESSION: Acute diverticulitis of the sigmoid colon with intramural abscess measuring 4.2 x 1.9 x 0.9 cm. No extraluminal gas. Follow-up imaging after treatment is advised.
[2023-09-19 08:11] VITALS: BP 122/66; RESP 16; TEMP 36.6; O2SAT 97; BMI 32.6
--- NOTE | 2023-09-19 08:55 | ED_ITS ---
HPI - Abdominal Pain General Chief Complaint: Abdominal Pain Stated Complaint: abd pain Time Seen by Provider: 09/19/23 08:24 Source: patient, RN notes reviewed and old records reviewed Mode of arrival: ambulatory History of Present Illness HPI narrative: 62-year-old female with a past medical history of vertigo, obesity, HLD, diabetes, presenting to the ED complaining of left lower quadrant abdominal pain since yesterday with associated urinary frequency. Denies fever/chills, nausea/vomiting, diarrhea, dysuria, hematuria, vaginal bleeding/discharge. MD elicited complaint: abdominal pain Related Data Home Medications Medication Instructions Recorded Confirmed hydroxyzine HCl 25 mg tablet 25 mg PO TID PRN 12/22/20 03/25/23 Previous Rx's Medication Instructions Recorded dicyclomine 20 mg tablet 20 mg PO TID 30 days #90 tabs 05/23/22 meclizine 25 mg tablet 25 mg PO DAILY PRN dizziness 30 07/28/22 days #30 tabs acetaminophen 650 mg 1,300 mg (2 x 650 mg) PO Q8H PRN 11/19/22 tablet,extended release (Mapap fever or pain 30 days #180 tabs Arthritis Pain) trazodone 50 mg tablet 50 mg PO BEDTIME PRN insomnia 90 11/28/22 days #90 tabs Grab bar #1 ea 12/13/22 gabapentin 300 mg capsule 300 mg PO BEDTIME pain 30 days #30 01/17/23 caps docusate sodium 100 mg capsule 100 mg PO BID #20 caps 03/23/23 (Colace) ketorolac 10 mg tablet 10 mg PO TID PRN pain 5 days #15 03/23/23 tabs lidocaine 5 % topical patch 1 patch topical DAILY PRN pain #15 03/23/23 ea sennosides 8.6 mg tablet (senna) 8.6 mg PO BEDTIME #14 tabs 03/23/23 metformin 1,000 mg tablet 1,000 mg PO BID #60 tabs 04/16/23 saxagliptin 5 mg tablet (Onglyza) 5 mg PO DAILY 90 days #90 tabs 07/16/23 cholecalciferol (vitamin D3) 125 125 mcg PO DAILY #30 caps 08/29/23 mcg (5,000 unit) capsule Allergies Allergy/AdvReac Type Severity Reaction Status Date / Time atorvastatin Allergy Mild stomach Verified 06/11/23 09:53 upset Review of Systems Review of Systems Constitutional: No Fever, No Chills ENT/Mouth: No Ear Pain, No Nasal Congestion, No Sinus Pain, No Hoarseness, No sore throat, No Rhinorrhea, No Swallowing Difficulty Cardiovascular: No Chest Pain, No SOB Respiratory: No Cough, No Sputum, No Wheezing Gastrointestinal: No Nausea, No Vomiting, No Diarrhea, No Constipation, +Abdominal pain Genitourinary: No Dysuria, +Urinary Frequency, No Hematuria, No Urinary Incontinence/retention, No Urgency, No Flank Pain Musculoskeletal: No joint pain, No Myalgias, No Joint Swelling Skin: No Skin Lesions, No rash Neuro: No Weakness Yes all other systems are reviewed and are negative Constitutional: Reports as per [facility] Past Medical History Attestation statement: The following information was validated with the patient. Source: old records reviewed Medical History Hypersomnia Snoring Vertigo Class 1 obesity with body mass index (BMI) of 33.0 to 33.9 in adult Insomnia Dyslipidemia Chronic cough Thoracic spine pain Hand numbness Left hand pain Rash and nonspecific skin eruption Diabetes Surgical History History of hysterectomy History of colonoscopy Family History Family History Father No problems noted. Mother History of diabetes mellitus, type I Social History Social History Housing: Apartment Alcohol intake: current Alcohol intake frequency: does not drink Alcohol type: beer Patient Tobacco Use Status: Never used Tobacco e-Cigarette/Vaping Use: Never Used Second Hand Smoke Exposure: No Advance Directives: No service: No Current occupational status: unemployed and disabled Current occupation: rt handed Cognitive needs: No Hearing needs: No Vision needs: Yes Physical Exam ED Vital Signs: Vital Signs - 24 hr 09/19/23 08:11 Temperature 98 F Respiratory Rate 16 Blood Pressure 122/66 Pulse Oximetry 97 Oxygen Delivery Method Room Air BMI result Body Mass Index 32.6 Const General: cooperative, healthy appearing and no acute distress Orientation/consciousness: patient oriented x3 Limitations: no limitations HENMT Head: Yes normal to inspection and Yes atraumatic Ears: hearing grossly normal bilaterally General nose exam: Normal external nose present Face and sinus: Yes normal facial exam Eyes General: appearance normal, both eyes and all related structures EOM: EOMs intact bilaterally Neck Neck: Yes normal visual inspection and Yes no meningeal signs Resp Effort & Inspection: normal respiratory effort and no respiratory distress Auscultation: clear to auscultation bilaterally Cardio Rate: regular rate Heart sounds: S1 normal heart sound present and S2 normal heart sound present GI Inspection: Yes normal to inspection Palpation (GI): Soft to palpation, Tenderness to palpation present (GI) in the LLQ, in the RLQ and suprapubicly, no guarding and not rigid General: Yes no CVA tenderness Back/Spine/Pelvis Back: no CVA tenderness Skin Rashes: no rashes Wounds: no wounds Neuro General: patient oriented x3, tone normal and no meningeal signs Cranial nerves: Yes CN's II-XII intact bilaterally Gait exam (Neuro): Normal gait present Extrem General: Yes normal to inspection Course Course Course Narrative: -1109--leukocytosis of 11.8. Labs otherwise reassuring. UA with 6-10 wbc's, trace leuk esterase and blood CT abdomen pelvis w IV con IMPRESSION: Acute diverticulitis of the sigmoid colon with intramural abscess measuring 4.2 x 1.9 x 0.9 cm. No extraluminal gas. Follow-up imaging after treatment is advised. > will obtain lactic/blood cultures, give empiric Zosyn and consult General surgery Dr. Lin. Plan will be for admission >> Dr. Lin will admit Medical Decision Making Medical Decision Making MDM Narrative: 62-year-old female with a past medical history of vertigo, obesity, HLD, diabetes, presenting to the ED complaining of left lower quadrant abdominal pain since yesterday with associated urinary frequency. On exam vital signs stable, NAD, nontoxic appearing, physical exam as noted above with lower abdominal tenderness, no rebound or guarding, no CVAT. Concern for diverticulitis vs colitis vs appendicitis vs renal stone. Lower suspicion for ovarian torsion/cyst however on differential. Unlikely TOA, pancreatitis, cholecystitis/lithiasis Plan: Labs, UA, CT AP, IVF, pain control, re-evaluate Please refer to course for remaining clinical decision making, interpretation of labs/imaging results, and discussions with consultants and/or family members. Differential Diagnosis Differential Diagnoses: The differential diagnosis associated with the presentation includes As above Admission/Observation Consideration of admission/observation: Escalation of care including admission/observation considered Consult Healthcare Provider Management of the patient was discussed with: Grounds Supervisor (General surgery, Dr. Lin) Lab Data MDM Lab Attestation statement: I reviewed the patient's lab results. 09/19/23 08:57 09/19/23 08:57 Labs: Lab Results 09/19/23 09/19/23 09/19/23 Range/Units 08:57 08:58 08:58 WBC 11.8 H (4.8-10.8) X10*3/uL RBC 4.17 L (4.20-5.50) X10*6/uL Hgb 12.7 (12.0-16.0) g/dl Hct 37.6 (37.0-47.0) % MCV 90.2 (80.0-98.0) fL MCH 30.5 (27.0-33.0) pg MCHC 33.8 (31.0-35.0) g/dl RDW 12.7 (11.0-16.0) % Plt Count 253 (160-400) X10*3/uL MPV 9.5 (9.4-12.3) fL Immature Gran % (Auto) 0.3 (0.0-0.4) % Neut % (Auto) 79.5 H (45-73) % Lymph % (Auto) 10.9 L (20-40) % [place] % (Auto) 8.3 (2-11) % Eos % (Auto) 0.7 (0-4) % Baso % (Auto) 0.3 (0-2) % Lymph # (Auto) 1.3 (1.2-4.9) X10*3/uL [place] # (Auto) 1.0 (0.1-1.2) X10*3/uL Eos # (Auto) 0.1 (0.0-0.4) X10*3/uL Baso # (Auto) 0.0 (0.0-0.2) X10*3/uL Abs Immat Gran (auto) 0.03 (0.00-0.03) X10*3/uL Absolute Neuts (auto) 9.4 H (2.0-8.3) x10*3/uL Absolute Nucleated RBC 0.000 (0.0-0.012) X10*3/uL Nucleated RBC % (auto) 0.0 (0.0-0.2) /100WBC Sodium 138 (135-145) mmol/L Potassium 4.0 (3.3-5.1) mmol/L Chloride 103 (96-108) mmol/L Carbon Dioxide 25 (22-29) mmol/L Anion Gap 14 (12-20) BUN 10 (9-16) mg/dL Creatinine 0.72 (0.5-1.4) mg/dL Estim Creat Clear Calc 79.7 Estimated GFR > 60 Random Glucose 133 H (60-115) mg/dL Calcium 9.4 (8.4-10.2) mg/dL Magnesium 1.8 (1.6-2.6) mg/dL Total Bilirubin 0.8 (0.0-1.0) mg/dL Direct Bilirubin 0.3 (0.0-0.5) mg/dL AST 12 (5-31) U/L ALT 10 (0-31) U/L Alkaline Phosphatase 84 (39-117) U/L Total Protein 7.5 (6.5-8.0) g/dL Albumin 4.3 (3.5-5.0) g/dL Lipase 18 (8-78) U/L Urine Color Yellow Cancelled Urine Appearance Clear Urine pH (5.0-9.0) Ur Specific [place] (1.005-1.025) Urine Protein (Neg-Trace) mg/dL Urine Glucose (UA) (Negative) mg/dL Urine Ketones (Negative) mg/dL Urine Blood (Negative) Urine Nitrite (Negative) Ur Leukocyte Esterase (Negative) Urine RBC (0-2) /HPF Urine WBC (0-5) /HPF Urine WBC Clumps Ur Squamous Epith Cells (0-2) /HPF Ur Transition Epith Cell Ur Renal Epithelial Cell Calcium Oxalate Crystal Leucine Crystals Cystine Crystals Tyrosine Crystals Other Crystals Urine Bacteria (None Seen) Urine Parasites Bilirubin Casts Epithelial Casts Fatty Casts Hyaline Casts (0-2) /LPF Granular Casts Waxy Casts Broad Casts RBC Casts WBC Casts Other Casts Urine Trichomonas Urine Yeast 09/19/23 09/19/2309/19/24 Range/Units 08:58 08:58 08:58 WBC (4.8-10.8) X10*3/uL RBC (4.20-5.50) X10*6/uL Hgb (12.0-16.0) g/dl Hct (37.0-47.0) % MCV (80.0-98.0) fL MCH (27.0-33.0) pg MCHC (31.0-35.0) g/dl RDW (11.0-16.0) % Plt Count (160-400) X10*3/uL MPV (9.4-12.3) fL Immature Gran % (Auto) (0.0-0.4) % Neut % (Auto) (45-73) % Lymph % (Auto) (20-40) % [place] % (Auto) (2-11) % Eos % (Auto) (0-4) % Baso % (Auto) (0-2) % Lymph # (Auto) (1.2-4.9) X10*3/uL [place] # (Auto) (0.1-1.2) X10*3/uL Eos # (Auto) (0.0-0.4) X10*3/uL Baso # (Auto) (0.0-0.2) X10*3/uL Abs Immat Gran (auto) (0.00-0.03) X10*3/uL Absolute Neuts (auto) (2.0-8.3) x10*3/uL Absolute Nucleated RBC (0.0-0.012) X10*3/uL Nucleated RBC % (auto) (0.0-0.2) /100WBC Sodium (135-145) mmol/L Potassium (3.3-5.1) mmol/L Chloride (96-108) mmol/L Carbon Dioxide (22-29) mmol/L Anion Gap (12-20) BUN (9-16) mg/dL Creatinine (0.5-1.4) mg/dL Estim Creat Clear Calc Estimated GFR Random Glucose (60-115) mg/dL Calcium (8.4-10.2) mg/dL Magnesium (1.6-2.6) mg/dL Total Bilirubin (0.0-1.0) mg/dL Direct Bilirubin (0.0-0.5) mg/dL AST (5-31) U/L ALT (0-31) U/L Alkaline Phosphatase (39-117) U/L Total Protein (6.5-8.0) g/dL Albumin (3.5-5.0) g/dL Lipase (8-78) U/L Urine Color Urine Appearance Cancelled Urine pH 6.5 Cancelled (5.0-9.0) Ur Specific [place] 1.015 Cancelled (1.005-1.025) Urine Protein Negative (Neg-Trace) mg/dL Urine Glucose (UA) (Negative) mg/dL Urine Ketones (Negative) mg/dL Urine Blood (Negative) Urine Nitrite (Negative) Ur Leukocyte Esterase (Negative) Urine RBC (0-2) /HPF Urine WBC (0-5) /HPF Urine WBC Clumps Ur Squamous Epith Cells (0-2) /HPF Ur Transition Epith Cell Ur Renal Epithelial Cell Calcium Oxalate Crystal Leucine Crystals Cystine Crystals Tyrosine Crystals Other Crystals Urine Bacteria (None Seen) Urine Parasites Bilirubin Casts Epithelial Casts Fatty Casts Hyaline Casts (0-2) /LPF Granular Casts Waxy Casts Broad Casts RBC Casts WBC Casts Other Casts Urine Trichomonas Urine Yeast 09/19/23 09/19/23 09/19/23 Range/Units 08:58 08:58 08:58 WBC (4.8-10.8) X10*3/uL RBC (4.20-5.50) X10*6/uL Hgb (12.0-16.0) g/dl Hct (37.0-47.0) % MCV (80.0-98.0) fL MCH (27.0-33.0) pg MCHC (31.0-35.0) g/dl RDW (11.0-16.0) % Plt Count (160-400) X10*3/uL MPV (9.4-12.3) fL Immature Gran % (Auto) (0.0-0.4) % Neut % (Auto) (45-73) % Lymph % (Auto) (20-40) % [place] % (Auto) (2-11) % Eos % (Auto) (0-4) % Baso % (Auto) (0-2) % Lymph # (Auto) (1.2-4.9) X10*3/uL [place] # (Auto) (0.1-1.2) X10*3/uL Eos # (Auto) (0.0-0.4) X10*3/uL Baso # (Auto) (0.0-0.2) X10*3/uL Abs Immat Gran (auto) (0.00-0.03) X10*3/uL Absolute Neuts (auto) (2.0-8.3) x10*3/uL Absolute Nucleated RBC (0.0-0.012) X10*3/uL Nucleated RBC % (auto) (0.0-0.2) /100WBC Sodium (135-145) mmol/L Potassium (3.3-5.1) mmol/L Chloride (96-108) mmol/L Carbon Dioxide (22-29) mmol/L Anion Gap (12-20) BUN (9-16) mg/dL Creatinine (0.5-1.4) mg/dL Estim Creat Clear Calc Estimated GFR Random Glucose (60-115) mg/dL Calcium (8.4-10.2) mg/dL Magnesium (1.6-2.6) mg/dL Total Bilirubin (0.0-1.0) mg/dL Direct Bilirubin (0.0-0.5) mg/dL AST (5-31) U/L ALT (0-31) U/L Alkaline Phosphatase (39-117) U/L Total Protein (6.5-8.0) g/dL Albumin (3.5-5.0) g/dL Lipase (8-78) U/L Urine Color Urine Appearance Urine pH (5.0-9.0) Ur Specific [place] (1.005-1.025) Urine Protein Cancelled (Neg-Trace) mg/dL Urine Glucose (UA) Negative Cancelled (Negative) mg/dL Urine Ketones Negative Cancelled (Negative) mg/dL Urine Blood Trace H (Negative) Urine Nitrite (Negative) Ur Leukocyte Esterase (Negative) Urine RBC (0-2) /HPF Urine WBC (0-5) /HPF Urine WBC Clumps Ur Squamous Epith Cells (0-2) /HPF Ur Transition Epith Cell Ur Renal Epithelial Cell Calcium Oxalate Crystal Leucine Crystals Cystine Crystals Tyrosine Crystals Other Crystals Urine Bacteria (None Seen) Urine Parasites Bilirubin Casts Epithelial Casts Fatty Casts Hyaline Casts (0-2) /LPF Granular Casts Waxy Casts Broad Casts RBC Casts WBC Casts Other Casts Urine Trichomonas Urine Yeast 09/19/23 09/19/23 09/19/23 Range/Units 08:58 08:58 08:58 WBC (4.8-10.8) X10*3/uL RBC (4.20-5.50) X10*6/uL Hgb (12.0-16.0) g/dl Hct (37.0-47.0) % MCV (80.0-98.0) fL MCH (27.0-33.0) pg MCHC (31.0-35.0) g/dl RDW (11.0-16.0) % Plt Count (160-400) X10*3/uL MPV (9.4-12.3) fL Immature Gran % (Auto) (0.0-0.4) % Neut % (Auto) (45-73) % Lymph % (Auto) (20-40) % [place] % (Auto) (2-11) % Eos % (Auto) (0-4) % Baso % (Auto) (0-2) % Lymph # (Auto) (1.2-4.9) X10*3/uL [place] # (Auto) (0.1-1.2) X10*3/uL Eos # (Auto) (0.0-0.4) X10*3/uL Baso # (Auto) (0.0-0.2) X10*3/uL Abs Immat Gran (auto) (0.00-0.03) X10*3/uL Absolute Neuts (auto) (2.0-8.3) x10*3/uL Absolute Nucleated RBC (0.0-0.012) X10*3/uL Nucleated RBC % (auto) (0.0-0.2) /100WBC Sodium (135-145) mmol/L Potassium (3.3-5.1) mmol/L Chloride (96-108) mmol/L Carbon Dioxide (22-29) mmol/L Anion Gap (12-20) BUN (9-16) mg/dL Creatinine (0.5-1.4) mg/dL Estim Creat Clear Calc Estimated GFR Random Glucose (60-115) mg/dL Calcium (8.4-10.2) mg/dL Magnesium (1.6-2.6) mg/dL Total Bilirubin (0.0-1.0) mg/dL Direct Bilirubin (0.0-0.5) mg/dL AST (5-31) U/L ALT (0-31) U/L Alkaline Phosphatase (39-117) U/L Total Protein (6.5-8.0) g/dL Albumin (3.5-5.0) g/dL Lipase (8-78) U/L Urine Color Urine Appearance Urine pH (5.0-9.0) Ur Specific [place] (1.005-1.025) Urine Protein (Neg-Trace) mg/dL Urine Glucose (UA) (Negative) mg/dL Urine Ketones (Negative) mg/dL Urine Blood Cancelled (Negative) Urine Nitrite Negative Cancelled (Negative) Ur Leukocyte Esterase Trace H Cancelled (Negative) Urine RBC 0-2 (0-2) /HPF Urine WBC (0-5) /HPF Urine WBC Clumps Ur Squamous Epith Cells (0-2) /HPF Ur Transition Epith Cell Ur Renal Epithelial Cell Calcium Oxalate Crystal Leucine Crystals Cystine Crystals Tyrosine Crystals Other Crystals Urine Bacteria (None Seen) Urine Parasites Bilirubin Casts Epithelial Casts Fatty Casts Hyaline Casts (0-2) /LPF Granular Casts Waxy Casts Broad Casts RBC Casts WBC Casts Other Casts Urine Trichomonas Urine Yeast 09/19/23 09/19/23 09/19/23 Range/Units 08:58 08:58 08:58 WBC (4.8-10.8) X10*3/uL RBC (4.20-5.50) X10*6/uL Hgb (12.0-16.0) g/dl Hct (37.0-47.0) % MCV (80.0-98.0) fL MCH (27.0-33.0) pg MCHC (31.0-35.0) g/dl RDW (11.0-16.0) % Plt Count (160-400) X10*3/uL MPV (9.4-12.3) fL Immature Gran % (Auto) (0.0-0.4) % Neut % (Auto) (45-73) % Lymph % (Auto) (20-40) % [place] % (Auto) (2-11) % Eos % (Auto) (0-4) % Baso % (Auto) (0-2) % Lymph # (Auto) (1.2-4.9) X10*3/uL [place] # (Auto) (0.1-1.2) X10*3/uL Eos # (Auto) (0.0-0.4) X10*3/uL Baso # (Auto) (0.0-0.2) X10*3/uL Abs Immat Gran (auto) (0.00-0.03) X10*3/uL Absolute Neuts (auto) (2.0-8.3) x10*3/uL Absolute Nucleated RBC (0.0-0.012) X10*3/uL Nucleated RBC % (auto) (0.0-0.2) /100WBC Sodium (135-145) mmol/L Potassium (3.3-5.1) mmol/L Chloride (96-108) mmol/L Carbon Dioxide (22-29) mmol/L Anion Gap (12-20) BUN (9-16) mg/dL Creatinine (0.5-1.4) mg/dL Estim Creat Clear Calc Estimated GFR Random Glucose (60-115) mg/dL Calcium (8.4-10.2) mg/dL Magnesium (1.6-2.6) mg/dL Total Bilirubin (0.0-1.0) mg/dL Direct Bilirubin (0.0-0.5) mg/dL AST (5-31) U/L ALT (0-31) U/L Alkaline Phosphatase (39-117) U/L Total Protein (6.5-8.0) g/dL Albumin (3.5-5.0) g/dL Lipase (8-78) U/L Urine Color Urine Appearance Urine pH (5.0-9.0) Ur Specific [place] (1.005-1.025) Urine Protein (Neg-Trace) mg/dL Urine Glucose (UA) (Negative) mg/dL Urine Ketones (Negative) mg/dL Urine Blood (Negative) Urine Nitrite (Negative) Ur Leukocyte Esterase (Negative) Urine RBC Cancelled (0-2) /HPF Urine WBC 6-10 H Cancelled (0-5) /HPF Urine WBC Clumps Cancelled Ur Squamous Epith Cells 0-2 Cancelled (0-2) /HPF Ur Transition Epith Cell Cancelled Ur Renal Epithelial Cell Cancelled Calcium Oxalate Crystal Cancelled Leucine Crystals Cancelled Cystine Crystals Cancelled Tyrosine Crystals Cancelled Other Crystals Cancelled Urine Bacteria 1+ (None Seen) Urine Parasites Bilirubin Casts Epithelial Casts Fatty Casts Hyaline Casts (0-2) /LPF Granular Casts Waxy Casts Broad Casts RBC Casts WBC Casts Other Casts Urine Trichomonas Urine Yeast 09/19/23 09/19/23 Range/Units 08:58 08:58 WBC (4.8-10.8) X10*3/uL RBC (4.20-5.50) X10*6/uL Hgb (12.0-16.0) g/dl Hct (37.0-47.0) % MCV (80.0-98.0) fL MCH (27.0-33.0) pg MCHC (31.0-35.0) g/dl RDW (11.0-16.0) % Plt Count (160-400) X10*3/uL MPV (9.4-12.3) fL Immature Gran % (Auto) (0.0-0.4) % Neut % (Auto) (45-73) % Lymph % (Auto) (20-40) % [place] % (Auto) (2-11) % Eos % (Auto) (0-4) % Baso % (Auto) (0-2) % Lymph # (Auto) (1.2-4.9) X10*3/uL [place] # (Auto) (0.1-1.2) X10*3/uL Eos # (Auto) (0.0-0.4) X10*3/uL Baso # (Auto) (0.0-0.2) X10*3/uL Abs Immat Gran (auto) (0.00-0.03) X10*3/uL Absolute Neuts (auto) (2.0-8.3) x10*3/uL Absolute Nucleated RBC (0.0-0.012) X10*3/uL Nucleated RBC % (auto) (0.0-0.2) /100WBC Sodium (135-145) mmol/L Potassium (3.3-5.1) mmol/L Chloride (96-108) mmol/L Carbon Dioxide (22-29) mmol/L Anion Gap (12-20) BUN (9-16) mg/dL Creatinine (0.5-1.4) mg/dL Estim Creat Clear Calc Estimated GFR Random Glucose (60-115) mg/dL Calcium (8.4-10.2) mg/dL Magnesium (1.6-2.6) mg/dL Total Bilirubin (0.0-1.0) mg/dL Direct Bilirubin (0.0-0.5) mg/dL AST (5-31) U/L ALT (0-31) U/L Alkaline Phosphatase (39-117) U/L Total Protein (6.5-8.0) g/dL Albumin (3.5-5.0) g/dL Lipase (8-78) U/L Urine Color Urine Appearance Urine pH (5.0-9.0) Ur Specific [place] (1.005-1.025) Urine Protein (Neg-Trace) mg/dL Urine Glucose (UA) (Negative) mg/dL Urine Ketones (Negative) mg/dL Urine Blood (Negative) Urine Nitrite (Negative) Ur Leukocyte Esterase (Negative) Urine RBC (0-2) /HPF Urine WBC (0-5) /HPF Urine WBC Clumps Ur Squamous Epith Cells (0-2) /HPF Ur Transition Epith Cell Ur Renal Epithelial Cell Calcium Oxalate Crystal Leucine Crystals Cystine Crystals Tyrosine Crystals Other Crystals Urine Bacteria Cancelled (None Seen) Urine Parasites Cancelled Bilirubin Casts Cancelled Epithelial Casts Cancelled Fatty Casts Cancelled Hyaline Casts 0-2 Cancelled (0-2) /LPF Granular Casts Cancelled Waxy Casts Cancelled Broad Casts Cancelled RBC Casts Cancelled WBC Casts Cancelled Other Casts Cancelled Urine Trichomonas Cancelled Urine Yeast Cancelled Independent Interpretation I performed an independent interpretation of an: CT Scan Radiology Impression Discussion of test interpretation with radiology: I have reviewed the radiologist's reading. External Record Review External record reviewed: Inpatient record, Office record, Outpatient record, Prior outpatient labs, Prior outpatient radiology, Primary care record and Outside ED record Tests considered The following testing was considered but not selected: As above Prescription Management I considered prescription management with: Pain Medication Medications Administered Discontinued Medications Generic Name Dose Route Start Last Admin Trade Name Celso PRN Reason Stop Dose Admin Sodium Chloride 1,000 mls @ 999 mls/hr 09/19/23 08:45 09/19/23 10:18 Ns IV 09/19/23 09:45 Infused .Q1H1M MARCO Infusion Iohexol 100 ml 09/19/23 10:04 09/19/23 10:04 Iohexol 350 Mg/Ml 100 Ml Infus..Btl IV 09/19/23 10:05 85 ml ONCE ONE Administration Ketorolac Tromethamine 15 mg 09/19/23 08:40 09/19/23 09:13 Ketorolac Tromethamine 15 Mg/Ml Vial IVPUSH 09/19/23 08:41 15 mg ONCE ONE Administration Critical Care Time Critical Care Time Critical Care Time: Yes Total Critical Care Time: 35 Attestation: I have personally provided critical care time exclusive of time spent on separately billable procedures. Time includes review of lab data, radiology results, discussion with consultants, and monitoring for potential decompensation. Intervention performed as documented. Discharge Plan Discharge Clinical Impression: Diverticulitis of intestine with abscess Patient Disposition: Admitted As Inpatient
[2023-09-19 09:01] LABS: MANUAL DIFF FLAG NO
[2023-09-19 09:03] LABS: Basophils Percent Auto 0.3 % (0-2); Eosinophils Absolute Auto 0.1 X10*3/uL (0.0-0.4); Eosinophils Percent Auto 0.7 % (0-4); Hematocrit 37.6 % (37.0-47.0); Hemoglobin 12.7 g/dl (12.0-16.0); Imm Gran Abs Auto 0.03 X10*3/uL (0.00-0.03); Imm Gran Pct Auto 0.3 % (0.0-0.4); Lymphocytes Absolute Auto 1.3 X10*3/uL (1.2-4.9); Lymphocytes Percent Auto 10.9 % (20-40); Mean Corpuscular HGB Conc 33.8 g/dl (31.0-35.0); Mean Corpuscular Hemoglobin 30.5 pg (27.0-33.0); Mean Corpuscular Volume 90.2 fL (80.0-98.0); Mean Platelet Volume 9.5 fL (9.4-12.3); Monocytes Percent Auto 8.3 % (2-11); Neutrophils Absolute Auto 9.4 x10*3/uL (2.0-8.3); Neutrophils Percent Auto 79.5 % (45-73); Platelet Count 253 X10*3/uL (160-400); Red Blood Count 4.17 X10*6/uL (4.20-5.50); Red Cell Distribution Width 12.7 % (11.0-16.0); White Blood Count 11.8 X10*3/uL (4.8-10.8)
[2023-09-19 09:07] LABS: Appearance Urine Clear; Color Urine Yellow; Glucose Urine UA Negative (Negative); Leukocyte Esterase Urine Trace (Negative); Nitrite Urine Negative (Negative); PH 6.5 (5.0-9.0); Specific Gravity - Urine 1.015 (1.005-1.025); UMIC TRIGGER UACC YES; Urine Blood Trace (Negative); Urine Ketones Negative (Negative); Urine Protein Negative (Neg-Trace)
[2023-09-19 09:10] LABS: Bacteria Urine 1+ (None Seen); Hyaline Casts Urine 0-2 /LPF (0-2); RBC Urine 0-2 /HPF (0-2); Squamous Epithelial Cell Urine 0-2 /HPF (0-2); UACC Culture Trigger YES
[2023-09-19] MEDS: Ketorolac Tromethamine 15 MG/ML VIAL IVPUSH (09:13)
[2023-09-19] MEDS: 0.9 % Sodium Chloride 1,000 ML 999 ML IV (09:13)
[2023-09-19 09:20] LABS: Alanine Aminotransferase 10 U/L (0-31); Albumin Level 4.3 g/dL (3.5-5.0); Alkaline Phosphatase 84 U/L (39-117); Anion Gap 14 (12-20); Aspartate Amino Transferase 12 U/L (5-31); Bilirubin Direct 0.3 mg/dL (0.0-0.5); Bilirubin Total 0.8 mg/dL (0.0-1.0); Blood Urea Nitrogen 10 mg/dL (9-16); Calcium 9.4 mg/dL (8.4-10.2); Carbon Dioxide 25 mmol/L (22-29); Chloride 103 mmol/L (96-108); Creatinine Clr Calc Pharmacy 79.7; Estimated Glomerular Filt Rate > 60; Glucose Random 133 mg/dL (60-115); Lipase 18 U/L (8-78); Magnesium 1.8 mg/dL (1.6-2.6); Sodium 138 mmol/L (135-145); Total Protein 7.5 g/dL (6.5-8.0)
[2023-09-19] MEDS: iohexoL 350 MG/ML 100 ML INFUS..BTL IV (10:04)
[2023-09-19 11:37] LABS: Lactic Acid 1.3 mmol/L (0.5-2.0)
[2023-09-19] MEDS: Piperacillin Sodium/Tazobactam 3.375 GM in 0.9 % Sodium Chloride 50 ML IV ×2 (12:02→17:49)
--- NOTE | 2023-09-19 12:21 | PM.HPGS ---
History of Present Illness History of Present Illness Date of Service: 09/19/23 Chief complaint: abd pain Narrative: Amira Mccray is a 62 year old female presenting with a 24 hour history of abdominal pain located mainly in the left lower quadrant. She denies a previous history of similar pain. The pain was associated with nausea, anorexia, and constipation. She denies fever or chills. She presented to the emergency department for further evaluation was noted to be tender in the left lower quadrant. Laboratories revealed an elevated WBC and CT abdomen and pelvis revealed sigmoid diverticulitis with intramural abscess. She is admitted to the surgical service for further management of this acute sigmoid diverticulitis. Review of Systems Review of Systems: Yes all other systems are reviewed and are negative Constitutional: Constitutional: Denies chills, Denies fever(s), Denies headache(s), Reports poor appetite and Denies weakness ENT: Denies headache(s) Cardiovascular: Cardiovascular: Denies chest pain, Denies irregular heart rhythm, Denies palpitations and Denies dyspnea Respiratory: Respiratory: Denies cough, Denies excessive phlegm production and Denies dyspnea Gastrointestinal: Gastrointestinal: Reports abdominal pain, Reports bloating, Reports change in bowel habits, Reports constipation, Denies heartburn, Denies diarrhea, Reports nausea and Denies vomiting Genitourinary: Genitourinary: Denies urinary frequency Musculoskeletal: Musculoskeletal: Denies back pain, Denies muscle weakness and Denies numbness Integumentary/Breasts: Skin/Breast: Denies changing lesions and Denies unusual bruising Neurologic: Denies headache(s), Denies numbness, Denies paresthesias and Denies weakness Psychiatric: Psychiatric: Denies anxiety and Denies depression Endocrine: Endocrine: Denies palpitations Hematologic/Lymphatic: Hematologic/Lymphatic: Denies lymphadenopathy [facility] Past Medical History Medical History Hypersomnia Snoring Vertigo Class 1 obesity with body mass index (BMI) of 33.0 to 33.9 in adult Insomnia Dyslipidemia Chronic cough Thoracic spine pain Hand numbness Left hand pain Rash and nonspecific skin eruption Diabetes Family History Family History Father No problems noted. Mother History of diabetes mellitus, type I Surgical History Surgical History History of hysterectomy History of colonoscopy Social History Social History Housing: Apartment Alcohol intake: current Alcohol intake frequency: does not drink Alcohol type: beer Patient Tobacco Use Status: Never used Tobacco e-Cigarette/Vaping Use: Never Used Second Hand Smoke Exposure: No Advance Directives: No service: No Current occupational status: unemployed and disabled Current occupation: rt handed Cognitive needs: No Hearing needs: No Vision needs: Yes Meds Allergies Allergy/AdvReac Type Severity Reaction Status Date / Time atorvastatin Allergy Mild stomach Verified 06/11/23 09:53 upset Active Medications: Current Medications Dextrose (Dextrose 50 % 25 Gm/50 Ml Syringe) 25 gm IVPUSH Q15M PRN; Protocol PRN Reason: per Hypoglycemia Standing Ord. Enoxaparin Sodium (Enoxaparin Sodium 40 Mg/0.4 Ml Syringe) 40 mg SUBCUT Q24H [facility] Glucose (Glucose Gel 15 Gm Gel..Gram.) 15 gm PO Q15M PRN; Protocol PRN Reason: per Hypoglycemia Standing Ord. Hydromorphone HCl (Hydromorphone Hcl 0.5 Mg/0.5 Ml Syringe) 0.5 mg IVPUSH Q3H PRN; Protocol PRN Reason: Pain, Severe (Pain Scale 7-10) Acetaminophen (Ofirmev) 1,000 mg in 100 mls @ 400 mls/hr IV Q6H [facility] Stop: 09/20/23 06:29 Dextrose/Lactated Ringer's (D5lr) 1,000 mls @ 125 mls/hr IVCONT .Q8H [facility] Piperacillin Sod/Tazobactam (Sod 3.375 gm/ Sodium Chloride) 50 mls @ 100 mls/hr IV Q6H [facility] Insulin Human Lispro (Insulin Lispro 100 Unit/Ml 3 Ml Vial) 0 unit SUBCUT QIDACHS [facility]; Protocol Stop: 09/20/23 12:18 Ondansetron HCl (Ondansetron Hcl 4 Mg/2 Ml Vial) 4 mg IVPUSH QID PRN PRN Reason: Nausea Oxycodone HCl (Oxycodone Hcl Immed Release 5 Mg Tablet) 5 mg PO Q6H PRN PRN Reason: Pain, Moderate(Pain Scale 4-6) Sodium Chloride (0.9 % Sodium Chloride Flush 3 Ml Syringe) 3 ml IVFLUSH QSHIFT [facility] Zolpidem Tartrate (Zolpidem Tartrate 5 Mg Tablet) 5 mg PO BEDTIME PRN PRN Reason: Insomnia Home Medications Medication Instructions Recorded Confirmed Last Taken Type hydroxyzine HCl 25 mg tablet 25 mg PO TID PRN 12/22/20 03/25/23 Unknown History Physical Exam Vital Signs: Vital Signs: Last Vital Signs Temp 98 F 09/19/23 08:11 Resp 16 09/19/23 08:11 BP 122/66 09/19/23 08:11 Pulse Ox 97 09/19/23 08:11 O2 Del Method Room Air 09/19/23 08:11 BMI result Body Mass Index 32.6 Const: General: cooperative and no acute distress Nutritional Appearance: well nourished Orientation/consciousness: patient oriented x3 Limitations: no limitations HEENT: Head: Yes normocephalic and Yes atraumatic Ears: hearing grossly normal bilaterally Resp: Effort & Inspection: normal respiratory effort, no audible wheezes, no cough and no respiratory distress Cardio: Jugular venous distension: no JVD GI: Inspection: Yes normal to inspection Palpation (GI): Soft to palpation, Tenderness to palpation present (GI) in the LLQ; with no rebound tenderness, no guarding, not rigid and No hepatosplenomegaly present Percussion: Yes normal to percussion Auscultation: normal bowel sounds Rectal Exam - Female: deferred Skin: Other: Warm, dry, no rash Neuro: General: patient oriented x3 Extrem: General: Yes no clubbing, cyanosis or edema Results Results Labs: Short CBC 09/19/23 Range/Units 08:57 WBC 11.8 H (4.8-10.8) X10*3/uL Hgb 12.7 (12.0-16.0) g/dl Hct 37.6 (37.0-47.0) % Plt Count 253 (160-400) X10*3/uL BMP 09/19/23 08:57 Sodium 138 Potassium 4.0 Chloride 103 Carbon Dioxide 25 BUN 10 Creatinine 0.72 Calcium 9.4 Liver Function 09/19/23 Range/Units 08:57 Total Bilirubin 0.8 (0.0-1.0) mg/dL Direct Bilirubin 0.3 (0.0-0.5) mg/dL AST 12 (5-31) U/L ALT 10 (0-31) U/L Alkaline Phosphatase 84 (39-117) U/L Albumin 4.3 (3.5-5.0) g/dL Urine 09/19/23 09/19/23 09/19/23 Range/Units 08:58 08:58 08:58 Urine Color Yellow Cancelled Urine Appearance Clear Cancelled Urine pH 6.5 (5.0-9.0) Ur Specific [place] (1.005-1.025) Urine Protein (Neg-Trace) mg/dL Urine Glucose (UA) (Negative) mg/dL 09/19/23 09/19/23 09/19/23 Range/Units 08:58 08:58 08:58 Urine Color Urine Appearance Urine pH Cancelled (5.0-9.0) Ur Specific [place] 1.015 Cancelled (1.005-1.025) Urine Protein Negative Cancelled (Neg-Trace) mg/dL Urine Glucose (UA) Negative (Negative) mg/dL 09/19/23 Range/Units 08:58 Urine Color Urine Appearance Urine pH (5.0-9.0) Ur Specific [place] (1.005-1.025) Urine Protein (Neg-Trace) mg/dL Urine Glucose (UA) Cancelled (Negative) mg/dL Assessment and Plan (1) Diverticulitis of intestine with abscess: Qualifiers: Diverticulitis site: large intestine Diverticulitis bleeding: without bleeding Qualified Code(s): K57.20 - Diverticulitis of large intestine with perforation and abscess without bleeding Status: Acute Plan 62-year-old female patient presenting with a 1st episode of sigmoid diverticulitis with an intramural abscess. On examination the patient is tender in the left lower quadrant. Laboratories revealed a mildly elevated WBC. CT abdomen and pelvis confirms sigmoid diverticulitis with an intramural abscess. She will be admitted to the surgical service with hospitalist consultation. She will be started on Zosyn and may require 1-2 days of IV antibiotics before conversion to oral antibiotics. The patient breast understanding and agrees with the plan. Quality Stroke Does the patient have a stroke diagnosis?: No VTE Prior VTE?: No VTE Risk Level:: Surgical - moderate VTE Device Contraindication: N/A - Device Ordered VTE Drug Contraindication: N/A - Med Ordered Procedures Date of Service Date of Service: 09/19/23
--- NOTE | 2023-09-19 12:38 | PHA.MEDREC ---
Pharmacy Consult ? Medication Reconciliation Pharmacy has completed the medication reconciliation. Spoke to patient and confirmed medication list.
--- NOTE | 2023-09-19 13:13 | P.CONHOSP_ITS ---
History of Present Illness Data of Consult Service Date: 09/19/23 Primary Care Provider: Delores Mcgee MD [facility] Reason for consult: Medical management Patient is a 62-year-old female with a PMH significant for non-insulin dependent diabetes type 2 who was admitted to the hospital under General Surgery for sigmoid diverticulitis with intramural abscess. Patient currently is NPO and being managed with IV antibiotics. Medical consult for routine medical management. Patient complains of intermittent lower left abdominal pain. Denies any other acute medical complaint at this time. No fever, chills, nausea, vomiting. Denies chest pain/pressure, palpitations. No shortness of breath. Denies headache. Pt denies any other chronic medical condition than diabetes. Review of Systems 2 Review of Systems: Intermittent left lower abdominal pain No fever, chills, nausea vomiting Denies shortness of breath No chest pain/pressure, palpitations PMFSH Medical History Hypersomnia Snoring Vertigo Class 1 obesity with body mass index (BMI) of 33.0 to 33.9 in adult Insomnia Dyslipidemia Chronic cough Thoracic spine pain Hand numbness Left hand pain Rash and nonspecific skin eruption Diabetes Family History Father No problems noted. Mother History of diabetes mellitus, type I Surgical History History of hysterectomy History of colonoscopy Social History Housing: Apartment Alcohol intake: current Alcohol intake frequency: does not drink Alcohol type: beer Patient Tobacco Use Status: Never used Tobacco e-Cigarette/Vaping Use: Never Used Second Hand Smoke Exposure: No Advance Directives: No Nutrition Risks: No Nutritional Risk service: No Current occupational status: unemployed and disabled Current occupation: rt handed Cognitive needs: No Hearing needs: No Vision needs: Yes Meds Allergies Allergy/AdvReac Type Severity Reaction Status Date / Time atorvastatin Allergy Mild stomach Verified 06/11/23 09:53 upset Active Medications: Current Medications Dextrose (Dextrose 50 % 25 Gm/50 Ml Syringe) 25 gm IVPUSH Q15M PRN; Protocol PRN Reason: per Hypoglycemia Standing Ord. Enoxaparin Sodium (Enoxaparin Sodium 40 Mg/0.4 Ml Syringe) 40 mg SUBCUT Q24H [facility] Glucose (Glucose Gel 15 Gm Gel..Gram.) 15 gm PO Q15M PRN; Protocol PRN Reason: per Hypoglycemia Standing Ord. Hydromorphone HCl (Hydromorphone Hcl 0.5 Mg/0.5 Ml Syringe) 0.5 mg IVPUSH Q3H PRN; Protocol PRN Reason: Pain, Severe (Pain Scale 7-10) Acetaminophen (Ofirmev) 1,000 mg in 100 mls @ 400 mls/hr IV Q6H [facility] Stop: 09/20/23 06:29 Dextrose/Lactated Ringer's (D5lr) 1,000 mls @ 125 mls/hr IVCONT .Q8H [facility] Piperacillin Sod/Tazobactam (Sod 3.375 gm/ Sodium Chloride) 50 mls @ 100 mls/hr IV Q6H [facility] Insulin Human Lispro (Insulin Lispro 100 Unit/Ml 3 Ml Vial) 0 unit SUBCUT QIDACHS [facility]; Protocol Stop: 09/20/23 12:18 Ondansetron HCl (Ondansetron Hcl 4 Mg/2 Ml Vial) 4 mg IVPUSH QID PRN PRN Reason: Nausea Oxycodone HCl (Oxycodone Hcl Immed Release 5 Mg Tablet) 5 mg PO Q6H PRN PRN Reason: Pain, Moderate(Pain Scale 4-6) Sodium Chloride (0.9 % Sodium Chloride Flush 3 Ml Syringe) 3 ml IVFLUSH QSHIFT [facility] Trazodone HCl (Trazodone Hcl 50 Mg Tablet) 50 mg PO BEDTIME PRN PRN Reason: insomnia Zolpidem Tartrate (Zolpidem Tartrate 5 Mg Tablet) 5 mg PO BEDTIME PRN PRN Reason: Insomnia Physical Exam 2 Vital Signs and Narrative: Vital Signs: Last Vital Signs Temp 98 F 09/19/23 08:11 Resp 16 09/19/23 08:11 BP 122/66 09/19/23 08:11 Pulse Ox 97 09/19/23 08:11 O2 Del Method Room Air 09/19/23 08:11 BMI result Body Mass Index 32.6 General: AOx3, no acute distress Resp: CTA bilaterally CVS: S1, S2, RRR GI: +BS, no distention, tenderness primarily in left lower quadrant Skin: Warm, dry Neuro: Cranial nerves II-XII grossly intact bilaterally. Motor grossly intact bilaterally Extremities: No edema Psych: Appropriate affect Results Labs 09/19/23 08:57 09/19/23 08:57 Labs: Laboratory Results - last 24 hr 09/19/23 09/19/23 09/19/23 08:57 08:58 08:58 MCV 90.2 MCH 30.5 MCHC 33.8 RDW 12.7 Plt Count 253 MPV 9.5 Immature Gran % (Auto) 0.3 Neut % (Auto) 79.5 H Lymph % (Auto) 10.9 L [place] % (Auto) 8.3 Eos % (Auto) 0.7 Baso % (Auto) 0.3 Lymph # (Auto) 1.3 [place] # (Auto) 1.0 Eos # (Auto) 0.1 Baso # (Auto) 0.0 Abs Immat Gran (auto) 0.03 Absolute Neuts (auto) 9.4 H Absolute Nucleated RBC 0.000 Nucleated RBC % (auto) 0.0 Anion Gap 14 Estim Creat Clear Calc 79.7 Estimated GFR > 60 Random Glucose 133 H Lactic Acid Calcium 9.4 Magnesium 1.8 Total Bilirubin 0.8 Direct Bilirubin 0.3 AST 12 ALT 10 Alkaline Phosphatase 84 Total Protein 7.5 Albumin 4.3 Lipase 18 Urine Color Yellow Cancelled Urine Appearance Clear Urine pH Ur Specific [place] Urine Protein Urine Glucose (UA) Urine Ketones Urine Blood Urine Nitrite Ur Leukocyte Esterase Urine RBC Urine WBC Urine WBC Clumps Ur Squamous Epith Cells Ur Transition Epith Cell Ur Renal Epithelial Cell Calcium Oxalate Crystal Leucine Crystals Cystine Crystals Tyrosine Crystals Other Crystals Urine Bacteria Urine Parasites Bilirubin Casts Epithelial Casts Fatty Casts Hyaline Casts Granular Casts Waxy Casts Broad Casts RBC Casts WBC Casts Other Casts Urine Trichomonas Urine Yeast 09/19/23 09/19/23 09/19/23 08:58 08:58 08:58 MCV MCH MCHC RDW Plt Count MPV Immature Gran % (Auto) Neut % (Auto) Lymph % (Auto) [place] % (Auto) Eos % (Auto) Baso % (Auto) Lymph # (Auto) [place] # (Auto) Eos # (Auto) Baso # (Auto) Abs Immat Gran (auto) Absolute Neuts (auto) Absolute Nucleated RBC Nucleated RBC % (auto) Anion Gap Estim Creat Clear Calc Estimated GFR Random Glucose Lactic Acid Calcium Magnesium Total Bilirubin Direct Bilirubin AST ALT Alkaline Phosphatase Total Protein Albumin Lipase Urine Color Urine Appearance Cancelled Urine pH 6.5 Cancelled Ur Specific [place] 1.015 Cancelled Urine Protein Negative Urine Glucose (UA) Urine Ketones Urine Blood Urine Nitrite Ur Leukocyte Esterase Urine RBC Urine WBC Urine WBC Clumps Ur Squamous Epith Cells Ur Transition Epith Cell Ur Renal Epithelial Cell Calcium Oxalate Crystal Leucine Crystals Cystine Crystals Tyrosine Crystals Other Crystals Urine Bacteria Urine Parasites Bilirubin Casts Epithelial Casts Fatty Casts Hyaline Casts Granular Casts Waxy Casts Broad Casts RBC Casts WBC Casts Other Casts Urine Trichomonas Urine Yeast 09/19/23 09/19/23 09/19/23 08:58 08:58 08:58 MCV MCH MCHC RDW Plt Count MPV Immature Gran % (Auto) Neut % (Auto) Lymph % (Auto) [place] % (Auto) Eos % (Auto) Baso % (Auto) Lymph # (Auto) [place] # (Auto) Eos # (Auto) Baso # (Auto) Abs Immat Gran (auto) Absolute Neuts (auto) Absolute Nucleated RBC Nucleated RBC % (auto) Anion Gap Estim Creat Clear Calc Estimated GFR Random Glucose Lactic Acid Calcium Magnesium Total Bilirubin Direct Bilirubin AST ALT Alkaline Phosphatase Total Protein Albumin Lipase Urine Color Urine Appearance Urine pH Ur Specific [place] Urine Protein Cancelled Urine Glucose (UA) Negative Cancelled Urine Ketones Negative Cancelled Urine Blood Trace H Urine Nitrite Ur Leukocyte Esterase Urine RBC Urine WBC Urine WBC Clumps Ur Squamous Epith Cells Ur Transition Epith Cell Ur Renal Epithelial Cell Calcium Oxalate Crystal Leucine Crystals Cystine Crystals Tyrosine Crystals Other Crystals Urine Bacteria Urine Parasites Bilirubin Casts Epithelial Casts Fatty Casts Hyaline Casts Granular Casts Waxy Casts Broad Casts RBC Casts WBC Casts Other Casts Urine Trichomonas Urine Yeast 09/19/23 09/19/23 09/19/23 08:58 08:58 08:58 MCV MCH MCHC RDW Plt Count MPV Immature Gran % (Auto) Neut % (Auto) Lymph % (Auto) [place] % (Auto) Eos % (Auto) Baso % (Auto) Lymph # (Auto) [place] # (Auto) Eos # (Auto) Baso # (Auto) Abs Immat Gran (auto) Absolute Neuts (auto) Absolute Nucleated RBC Nucleated RBC % (auto) Anion Gap Estim Creat Clear Calc Estimated GFR Random Glucose Lactic Acid Calcium Magnesium Total Bilirubin Direct Bilirubin AST ALT Alkaline Phosphatase Total Protein Albumin Lipase Urine Color Urine Appearance Urine pH Ur Specific [place] Urine Protein Urine Glucose (UA) Urine Ketones Urine Blood Cancelled Urine Nitrite Negative Cancelled Ur Leukocyte Esterase Trace H Cancelled Urine RBC 0-2 Urine WBC Urine WBC Clumps Ur Squamous Epith Cells Ur Transition Epith Cell Ur Renal Epithelial Cell Calcium Oxalate Crystal Leucine Crystals Cystine Crystals Tyrosine Crystals Other Crystals Urine Bacteria Urine Parasites Bilirubin Casts Epithelial Casts Fatty Casts Hyaline Casts Granular Casts Waxy Casts Broad Casts RBC Casts WBC Casts Other Casts Urine Trichomonas Urine Yeast 09/19/23 09/19/23 09/19/23 08:58 08:58 08:58 MCV MCH MCHC RDW Plt Count MPV Immature Gran % (Auto) Neut % (Auto) Lymph % (Auto) [place] % (Auto) Eos % (Auto) Baso % (Auto) Lymph # (Auto) [place] # (Auto) Eos # (Auto) Baso # (Auto) Abs Immat Gran (auto) Absolute Neuts (auto) Absolute Nucleated RBC Nucleated RBC % (auto) Anion Gap Estim Creat Clear Calc Estimated GFR Random Glucose Lactic Acid Calcium Magnesium Total Bilirubin Direct Bilirubin AST ALT Alkaline Phosphatase Total Protein Albumin Lipase Urine Color Urine Appearance Urine pH Ur Specific [place] Urine Protein Urine Glucose (UA) Urine Ketones Urine Blood Urine Nitrite Ur Leukocyte Esterase Urine RBC Cancelled Urine WBC 6-10 H Cancelled Urine WBC Clumps Cancelled Ur Squamous Epith Cells 0-2 Cancelled Ur Transition Epith Cell Cancelled Ur Renal Epithelial Cell Cancelled Calcium Oxalate Crystal Cancelled Leucine Crystals Cancelled Cystine Crystals Cancelled Tyrosine Crystals Cancelled Other Crystals Cancelled Urine Bacteria 1+ Urine Parasites Bilirubin Casts Epithelial Casts Fatty Casts Hyaline Casts Granular Casts Waxy Casts Broad Casts RBC Casts WBC Casts Other Casts Urine Trichomonas Urine Yeast 09/19/23 09/19/23 09/19/23 08:58 08:58 11:23 MCV MCH MCHC RDW Plt Count MPV Immature Gran % (Auto) Neut % (Auto) Lymph % (Auto) [place] % (Auto) Eos % (Auto) Baso % (Auto) Lymph # (Auto) [place] # (Auto) Eos # (Auto) Baso # (Auto) Abs Immat Gran (auto) Absolute Neuts (auto) Absolute Nucleated RBC Nucleated RBC % (auto) Anion Gap Estim Creat Clear Calc Estimated GFR Random Glucose Lactic Acid 1.3 Calcium Magnesium Total Bilirubin Direct Bilirubin AST ALT Alkaline Phosphatase Total Protein Albumin Lipase Urine Color Urine Appearance Urine pH Ur Specific [place] Urine Protein Urine Glucose (UA) Urine Ketones Urine Blood Urine Nitrite Ur Leukocyte Esterase Urine RBC Urine WBC Urine WBC Clumps Ur Squamous Epith Cells Ur Transition Epith Cell Ur Renal Epithelial Cell Calcium Oxalate Crystal Leucine Crystals Cystine Crystals Tyrosine Crystals Other Crystals Urine Bacteria Cancelled Urine Parasites Cancelled Bilirubin Casts Cancelled Epithelial Casts Cancelled Fatty Casts Cancelled Hyaline Casts 0-2 Cancelled Granular Casts Cancelled Waxy Casts Cancelled Broad Casts Cancelled RBC Casts Cancelled WBC Casts Cancelled Other Casts Cancelled Urine Trichomonas Cancelled Urine Yeast Cancelled Imaging Radiologist's Impressions: Impressions Abdomen/Pelvis CT 09/19/23 10:02 IMPRESSION: Acute diverticulitis of the sigmoid colon with intramural abscess measuring 4.2 x 1.9 x 0.9 cm. No extraluminal gas. Follow-up imaging after treatment is advised. Assessment and Plan (1) Diverticulitis of intestine with abscess: Qualifiers: Diverticulitis bleeding: without bleeding Diverticulitis site: large intestine Qualified Code(s): K57.20 - Diverticulitis of large intestine with perforation and abscess without bleeding Status: Acute Plan Patient is a 62-year-old female with a PMH significant for non-insulin dependent diabetes type 2 who was admitted to the hospital under General Surgery for sigmoid diverticulitis with intramural abscess. Patient currently is NPO and being managed with IV antibiotics. Medical consult for routine medical management. Sigmoid diverticulitis with intramural abscess Plan as per General surgery [id number] diabetes type 2 Will hold metformin, saxagliptin Place on sliding scale insulin Currently NPO, place on diabetic diet when advanced Insomnia Continue trazodone prn Thank you for allowing us to participate in the care of this patient. Pt appears stable clinically and without significant comorbidities. Signing off at this time. Please re-consult if any acute complaints or issues arise.
[2023-09-19] MEDS: Acetaminophen 1,000 MG/100 ML PIGGYBACK 400 MG IV ×2 (13:37→18:20)
[2023-09-19] MEDS: Dextrose 5 % and Lactated Ring 1,000 ML 125 ML IVCONT ×2 (13:45→21:25)
[2023-09-19 13:50] VITALS: BP 136/65; PULSE 77; RESP 18; TEMP 36.9; O2SAT 99
[2023-09-19] MEDS: 0.9 % Sodium Chloride Flush 3 ML SYRINGE IVFLUSH (16:08)
--- NOTE | 2023-09-19 17:50 | PC.NURSE ---
2 lines inserted, 20g right and left ac. second dose of zosyn infusing per MAR.
[2023-09-19 19:00] VITALS: BP 137/74; PULSE 67; RESP 16; TEMP 36.8; O2SAT 98
[2023-09-19 19:08] LABS: Glucose, Whole Blood 151 mg/dL (60-115)
--- NOTE | 2023-09-19 19:34 | PC.NURSE ---
assumed care of pt at 1900 - pt ambulates to and from bathroom with a steady gait, pt offers no current complaints, pain down to 2/10. ED admission report complete, pt to go to room 364 pending transport. D5/LR running at 125ml/hr.
[2023-09-19 20:21] VITALS: BP 153/77; PULSE 70; RESP 18; TEMP 36.6; O2SAT 97
[2023-09-19 20:35] VITALS: BMI 33.3
[2023-09-19] MEDS: oxyCODONE HCl Immed Release 5 MG TABLET PO (20:40)
[2023-09-19 20:50] LABS: Glucose, Whole Blood 138 mg/dL (60-115)
[2023-09-20] MEDS: Acetaminophen 1,000 MG/100 ML PIGGYBACK 400 MG IV ×2 (00:25→06:00)
[2023-09-20] MEDS: Piperacillin Sodium/Tazobactam 3.375 GM in 0.9 % Sodium Chloride 50 ML IV ×4 (00:25→17:25)
[2023-09-20 02:59] VITALS: BP 125/58; PULSE 76; RESP 18; TEMP 36.4; O2SAT 97
[2023-09-20] MEDS: Dextrose 5 % and Lactated Ring 1,000 ML 125 ML IVCONT (05:59)
[2023-09-20 06:27] LABS: MANUAL DIFF FLAG NO
[2023-09-20 06:48] LABS: Anion Gap 11 (12-20); Blood Urea Nitrogen 7 mg/dL (9-16); Calcium 8.9 mg/dL (8.4-10.2); Carbon Dioxide 26 mmol/L (22-29); Chloride 107 mmol/L (96-108); Creatinine Clr Calc Pharmacy 82.9; Estimated Glomerular Filt Rate > 60; Glucose Random 148 mg/dL (60-115); Potassium 3.7 mmol/L (3.3-5.1); Sodium 140 mmol/L (135-145)
[2023-09-20 07:01] LABS: Basophils Percent Auto 0.5 % (0-2); Eosinophils Absolute Auto 0.2 X10*3/uL (0.0-0.4); Eosinophils Percent Auto 2.2 % (0-4); Hematocrit 34.8 % (37.0-47.0); Hemoglobin 11.8 g/dl (12.0-16.0); Imm Gran Abs Auto 0.01 X10*3/uL (0.00-0.03); Imm Gran Pct Auto 0.1 % (0.0-0.4); Lymphocytes Absolute Auto 1.9 X10*3/uL (1.2-4.9); Lymphocytes Percent Auto 25.9 % (20-40); Mean Corpuscular HGB Conc 33.9 g/dl (31.0-35.0); Mean Corpuscular Volume 91.3 fL (80.0-98.0); Monocytes Absolute Auto 0.8 X10*3/uL (0.1-1.2); Monocytes Percent Auto 10.3 % (2-11); Neutrophils Absolute Auto 4.5 x10*3/uL (2.0-8.3); Platelet Count 241 X10*3/uL (160-400); Red Blood Count 3.81 X10*6/uL (4.20-5.50); Red Cell Distribution Width 12.7 % (11.0-16.0); White Blood Count 7.4 X10*3/uL (4.8-10.8)
[2023-09-20 07:43] LABS: Glucose, Whole Blood 153 mg/dL (60-115)
[2023-09-20 08:00] VITALS: BP 125/63; PULSE 73; RESP 17; TEMP 36.2; O2SAT 96
--- NOTE | 2023-09-20 08:49 | P.PNGS_ITS ---
Subjective Subjective Date of Service: 09/20/23 Interval history: Patient feels markedly improved today with a dramatic decrease in the abdominal pain in the left lower quadrant. She denies any fever or chills. She reports being hungry. Physical Exam 2 Vital Signs: Vital Signs: Last Vital Signs Temp 97.1 F 09/20/23 08:00 Pulse 73 09/20/23 08:00 Resp 17 09/20/23 08:00 BP 125/63 09/20/23 08:00 Pulse Ox 96 09/20/23 08:00 O2 Del Method Room Air 09/20/23 08:00 BMI result Body Mass Index 33.3 Const: General: comfortable Nutritional Appearance: well nourished O rientation/consciousness: patient oriented x3 Limitations: no limitations Resp: Other: Breathing comfortably on room air, no respiratory distress GI: Other: Soft, nondistended, minimally tender in the left lower quadrant without rebound, guarding or rigidity. No masses appreciated. Skin: Other: Warm, dry, no rash Neuro: General: patient oriented x3 Extrem: Other: No edema Objective Data Active Medications Dextrose (Dextrose 50 % 25 Gm/50 Ml Syringe) 25 gm IVPUSH Q15M PRN; Protocol PRN Reason: per Hypoglycemia Standing Ord. Enoxaparin Sodium (Enoxaparin Sodium 40 Mg/0.4 Ml Syringe) 40 mg SUBCUT Q24H [place] Glucose (Glucose Gel 15 Gm Gel..Gram.) 15 gm PO Q15M PRN; Protocol PRN Reason: per Hypoglycemia Standing Ord. Hydromorphone HCl (Hydromorphone Hcl 0.5 Mg/0.5 Ml Syringe) 0.5 mg IVPUSH Q3H PRN; Protocol PRN Reason: Pain, Severe (Pain Scale 7-10) Dextrose/Lactated Ringer's (D5lr) 1,000 mls @ 125 mls/hr IVCONT .Q8H [facility] Last Admin: 09/20/23 05:59 Dose: 125 mls/hr Documented By: KINGS Piperacillin Sod/Tazobactam (Sod 3.375 gm/ Sodium Chloride) 50 mls @ 100 mls/hr IV Q6H [facility] Last Infusion: 09/20/23 06:49 Dose: Infused Documented By: KINGS Insulin Human Lispro (Insulin Lispro 100 Unit/Ml 3 Ml Vial) 0 unit SUBCUT QIDACHS [facility]; Protocol Stop: 09/20/23 12:18 Last Admin: 09/20/23 07:22 Dose: Not Given Documented By: WENCESLAO Non-Admin Reason: NPO Ondansetron HCl (Ondansetron Hcl 4 Mg/2 Ml Vial) 4 mg IVPUSH QID PRN PRN Reason: Nausea Oxycodone HCl (Oxycodone Hcl Immed Release 5 Mg Tablet) 5 mg PO Q6H PRN PRN Reason: Pain, Moderate(Pain Scale 4-6) Last Admin: 09/19/23 20:40 Dose: 5 mg Documented By: KATHY Sodium Chloride (0.9 % Sodium Chloride Flush 3 Ml Syringe) 3 ml IVFLUSH [facility] Last Admin: 09/20/23 07:23 Dose: Not Given Documented By: WENCESLAO Non-Admin Reason: IV Running Trazodone HCl (Trazodone Hcl 50 Mg Tablet) 50 mg PO BEDTIME PRN PRN Reason: insomnia Zolpidem Tartrate (Zolpidem Tartrate 5 Mg Tablet) 5 mg PO BEDTIME PRN PRN Reason: Insomnia Labs 09/20/23 05:53 09/20/23 05:53 Labs: Laboratory Results - last 24 hr 09/19/23 09/19/23 09/19/23 08:57 08:58 08:58 MCV 90.2 MCH 30.5 MCHC 33.8 RDW 12.7 Plt Count 253 MPV 9.5 Immature Gran % (Auto) 0.3 Neut % (Auto) 79.5 H Lymph % (Auto) 10.9 L [place] % (Auto) 8.3 Eos % (Auto) 0.7 Baso % (Auto) 0.3 Lymph # (Auto) 1.3 [place] # (Auto) 1.0 Eos # (Auto) 0.1 Baso # (Auto) 0.0 Abs Immat Gran (auto) 0.03 Absolute Neuts (auto) 9.4 H Absolute Nucleated RBC 0.000 Nucleated RBC % (auto) 0.0 Anion Gap 14 Estim Creat Clear Calc 79.7 Estimated GFR > 60 POC Glucose Random Glucose 133 H Lactic Acid Calcium 9.4 Magnesium 1.8 Total Bilirubin 0.8 Direct Bilirubin 0.3 AST 12 ALT 10 Alkaline Phosphatase 84 Total Protein 7.5 Albumin 4.3 Lipase 18 Urine Color Yellow Cancelled Urine Appearance Clear Urine pH Ur Specific [place] Urine Protein Urine Glucose (UA) Urine Ketones Urine Blood Urine Nitrite Ur Leukocyte Esterase Urine RBC Urine WBC Urine WBC Clumps Ur Squamous Epith Cells Ur Transition Epith Cell Ur Renal Epithelial Cell Calcium Oxalate Crystal Leucine Crystals Cystine Crystals Tyrosine Crystals Other Crystals Urine Bacteria Urine Parasites Bilirubin Casts Epithelial Casts Fatty Casts Hyaline Casts Granular Casts Waxy Casts Broad Casts RBC Casts WBC Casts Other Casts Urine Trichomonas Urine Yeast 09/19/23 09/19/23 09/19/23 08:58 08:58 08:58 MCV MCH MCHC RDW Plt Count MPV Immature Gran % (Auto) Neut % (Auto) Lymph % (Auto) [place] % (Auto) Eos % (Auto) Baso % (Auto) Lymph # (Auto) [place] # (Auto) Eos # (Auto) Baso # (Auto) Abs Immat Gran (auto) Absolute Neuts (auto) Absolute Nucleated RBC Nucleated RBC % (auto) Anion Gap Estim Creat Clear Calc Estimated GFR POC Glucose Random Glucose Lactic Acid Calcium Magnesium Total Bilirubin Direct Bilirubin AST ALT Alkaline Phosphatase Total Protein Albumin Lipase Urine Color Urine Appearance Cancelled Urine pH 6.5 Cancelled Ur Specific [place] 1.015 Cancelled Urine Protein Negative Urine Glucose (UA) Urine Ketones Urine Blood Urine Nitrite Ur Leukocyte Esterase Urine RBC Urine WBC Urine WBC Clumps Ur Squamous Epith Cells Ur Transition Epith Cell Ur Renal Epithelial Cell Calcium Oxalate Crystal Leucine Crystals Cystine Crystals Tyrosine Crystals Other Crystals Urine Bacteria Urine Parasites Bilirubin Casts Epithelial Casts Fatty Casts Hyaline Casts Granular Casts Waxy Casts Broad Casts RBC Casts WBC Casts Other Casts Urine Trichomonas Urine Yeast 09/19/23 09/19/23 09/19/23 08:58 08:58 08:58 MCV MCH MCHC RDW Plt Count MPV Immature Gran % (Auto) Neut % (Auto) Lymph % (Auto) [place] % (Auto) Eos % (Auto) Baso % (Auto) Lymph # (Auto) [place] # (Auto) Eos # (Auto) Baso # (Auto) Abs Immat Gran (auto) Absolute Neuts (auto) Absolute Nucleated RBC Nucleated RBC % (auto) Anion Gap Estim Creat Clear Calc Estimated GFR POC Glucose Random Glucose Lactic Acid Calcium Magnesium Total Bilirubin Direct Bilirubin AST ALT Alkaline Phosphatase Total Protein Albumin Lipase Urine Color Urine Appearance Urine pH Ur Specific [place] Urine Protein Cancelled Urine Glucose (UA) Negative Cancelled Urine Ketones Negative Cancelled Urine Blood Trace H Urine Nitrite Ur Leukocyte Esterase Urine RBC Urine WBC Urine WBC Clumps Ur Squamous Epith Cells Ur Transition Epith Cell Ur Renal Epithelial Cell Calcium Oxalate Crystal Leucine Crystals Cystine Crystals Tyrosine Crystals Other Crystals Urine Bacteria Urine Parasites Bilirubin Casts Epithelial Casts Fatty Casts Hyaline Casts Granular Casts Waxy Casts Broad Casts RBC Casts WBC Casts Other Casts Urine Trichomonas Urine Yeast 09/19/23 09/19/23 09/19/23 08:58 08:58 08:58 MCV MCH MCHC RDW Plt Count MPV Immature Gran % (Auto) Neut % (Auto) Lymph % (Auto) [place] % (Auto) Eos % (Auto) Baso % (Auto) Lymph # (Auto) [place] # (Auto) Eos # (Auto) Baso # (Auto) Abs Immat Gran (auto) Absolute Neuts (auto) Absolute Nucleated RBC Nucleated RBC % (auto) Anion Gap Estim Creat Clear Calc Estimated GFR POC Glucose Random Glucose Lactic Acid Calcium Magnesium Total Bilirubin Direct Bilirubin AST ALT Alkaline Phosphatase Total Protein Albumin Lipase Urine Color Urine Appearance Urine pH Ur Specific [place] Urine Protein Urine Glucose (UA) Urine Ketones Urine Blood Cancelled Urine Nitrite Negative Cancelled Ur Leukocyte Esterase Trace H Cancelled Urine RBC 0-2 Urine WBC Urine WBC Clumps Ur Squamous Epith Cells Ur Transition Epith Cell Ur Renal Epithelial Cell Calcium Oxalate Crystal Leucine Crystals Cystine Crystals Tyrosine Crystals Other Crystals Urine Bacteria Urine Parasites Bilirubin Casts Epithelial Casts Fatty Casts Hyaline Casts Granular Casts Waxy Casts Broad Casts RBC Casts WBC Casts Other Casts Urine Trichomonas Urine Yeast 09/19/23 09/19/23 09/19/23 08:58 08:58 08:58 MCV MCH MCHC RDW Plt Count MPV Immature Gran % (Auto) Neut % (Auto) Lymph % (Auto) [place] % (Auto) Eos % (Auto) Baso % (Auto) Lymph # (Auto) [place] # (Auto) Eos # (Auto) Baso # (Auto) Abs Immat Gran (auto) Absolute Neuts (auto) Absolute Nucleated RBC Nucleated RBC % (auto) Anion Gap Estim Creat Clear Calc Estimated GFR POC Glucose Random Glucose Lactic Acid Calcium Magnesium Total Bilirubin Direct Bilirubin AST ALT Alkaline Phosphatase Total Protein Albumin Lipase Urine Color Urine Appearance Urine pH Ur Specific [place] Urine Protein Urine Glucose (UA) Urine Ketones Urine Blood Urine Nitrite Ur Leukocyte Esterase Urine RBC Cancelled Urine WBC 6-10 H Cancelled Urine WBC Clumps Cancelled Ur Squamous Epith Cells 0-2 Cancelled Ur Transition Epith Cell Cancelled Ur Renal Epithelial Cell Cancelled Calcium Oxalate Crystal Cancelled Leucine Crystals Cancelled Cystine Crystals Cancelled Tyrosine Crystals Cancelled Other Crystals Cancelled Urine Bacteria 1+ Urine Parasites Bilirubin Casts Epithelial Casts Fatty Casts Hyaline Casts Granular Casts Waxy Casts Broad Casts RBC Casts WBC Casts Other Casts Urine Trichomonas Urine Yeast 09/19/23 09/19/23 09/19/23 08:58 08:58 11:23 MCV MCH MCHC RDW Plt Count MPV Immature Gran % (Auto) Neut % (Auto) Lymph % (Auto) [place] % (Auto) Eos % (Auto) Baso % (Auto) Lymph # (Auto) [place] # (Auto) Eos # (Auto) Baso # (Auto) Abs Immat Gran (auto) Absolute Neuts (auto) Absolute Nucleated RBC Nucleated RBC % (auto) Anion Gap Estim Creat Clear Calc Estimated GFR POC Glucose Random Glucose Lactic Acid 1.3 Calcium Magnesium Total Bilirubin Direct Bilirubin AST ALT Alkaline Phosphatase Total Protein Albumin Lipase Urine Color Urine Appearance Urine pH Ur Specific [place] Urine Protein Urine Glucose (UA) Urine Ketones Urine Blood Urine Nitrite Ur Leukocyte Esterase Urine RBC Urine WBC Urine WBC Clumps Ur Squamous Epith Cells Ur Transition Epith Cell Ur Renal Epithelial Cell Calcium Oxalate Crystal Leucine Crystals Cystine Crystals Tyrosine Crystals Other Crystals Urine Bacteria Cancelled Urine Parasites Cancelled Bilirubin Casts Cancelled Epithelial Casts Cancelled Fatty Casts Cancelled Hyaline Casts 0-2 Cancelled Granular Casts Cancelled Waxy Casts Cancelled Broad Casts Cancelled RBC Casts Cancelled WBC Casts Cancelled Other Casts Cancelled Urine Trichomonas Cancelled Urine Yeast Cancelled 09/19/23 09/19/23 09/20/23 19:03 20:44 05:53 MCV 91.3 MCH 31.0 MCHC 33.9 RDW 12.7 Plt Count 241 MPV 10.0 Immature Gran % (Auto) 0.1 Neut % (Auto) 61.0 Lymph % (Auto) 25.9 [place] % (Auto) 10.3 Eos % (Auto) 2.2 Baso % (Auto) 0.5 Lymph # (Auto) 1.9 [place] # (Auto) 0.8 Eos # (Auto) 0.2 Baso # (Auto) 0.0 Abs Immat Gran (auto) 0.01 Absolute Neuts (auto) 4.5 Absolute Nucleated RBC 0.000 Nucleated RBC % (auto) 0.0 Anion Gap 11 L Estim Creat Clear Calc 82.9 Estimated GFR > 60 POC Glucose 151 H 138 H Random Glucose 148 H Lactic Acid Calcium 8.9 Magnesium Total Bilirubin Direct Bilirubin AST ALT Alkaline Phosphatase Total Protein Albumin Lipase Urine Color Urine Appearance Urine pH Ur Specific [place] Urine Protein Urine Glucose (UA) Urine Ketones Urine Blood Urine Nitrite Ur Leukocyte Esterase Urine RBC Urine WBC Urine WBC Clumps Ur Squamous Epith Cells Ur Transition Epith Cell Ur Renal Epithelial Cell Calcium Oxalate Crystal Leucine Crystals Cystine Crystals Tyrosine Crystals Other Crystals Urine Bacteria Urine Parasites Bilirubin Casts Epithelial Casts Fatty Casts Hyaline Casts Granular Casts Waxy Casts Broad Casts RBC Casts WBC Casts Other Casts Urine Trichomonas Urine Yeast 09/20/23 07:38 MCV MCH MCHC RDW Plt Count MPV Immature Gran % (Auto) Neut % (Auto) Lymph % (Auto) [place] % (Auto) Eos % (Auto) Baso % (Auto) Lymph # (Auto) [place] # (Auto) Eos # (Auto) Baso # (Auto) Abs Immat Gran (auto) Absolute Neuts (auto) Absolute Nucleated RBC Nucleated RBC % (auto) Anion Gap Estim Creat Clear Calc Estimated GFR POC Glucose 153 H Random Glucose Lactic Acid Calcium Magnesium Total Bilirubin Direct Bilirubin AST ALT Alkaline Phosphatase Total Protein Albumin Lipase Urine Color Urine Appearance Urine pH Ur Specific [place] Urine Protein Urine Glucose (UA) Urine Ketones Urine Blood Urine Nitrite Ur Leukocyte Esterase Urine RBC Urine WBC Urine WBC Clumps Ur Squamous Epith Cells Ur Transition Epith Cell Ur Renal Epithelial Cell Calcium Oxalate Crystal Leucine Crystals Cystine Crystals Tyrosine Crystals Other Crystals Urine Bacteria Urine Parasites Bilirubin Casts Epithelial Casts Fatty Casts Hyaline Casts Granular Casts Waxy Casts Broad Casts RBC Casts WBC Casts Other Casts Urine Trichomonas Urine Yeast Procedures Date of Service Date of Service: 09/20/23 Progress Note: A&P Assessment and plan (1) Diverticulitis of intestine with abscess: Status: Acute Plan 62-year-old female patient admitted on 09/19/2023 with complaints of abdominal pain in the left lower quadrant found to have an elevated WBC and CT findings consistent with sigmoid diverticulitis with a mural abscess. She was admitted for IV antibiotics in this morning markedly improved. Laboratories reveal a returned to normal WBC. Examination reveals minimal tenderness in the left lower quadrant to deep palpation. I recommended the patient continue with IV antibiotics for another 24 hours after which she will be converted to oral antibiotics if her symptoms continue to improve. She will be started on a regular diet today in anticipation of discharge for tomorrow. She expressed understanding and agrees with the plan. Time Spent With Patient Time: Total time managing care of this patient today ____ minutes. Quality Stroke Does the patient have a stroke diagnosis?: No VTE Prior VTE?: No VTE Risk Level:: Surgical - moderate VTE Device Contraindication: N/A - Device Ordered VTE Drug Contraindication: N/A - Med Ordered
[2023-09-20 11:40] LABS: Glucose, Whole Blood 169 mg/dL (60-115)
[2023-09-20] MEDS: Enoxaparin Sodium 40 MG/0.4 ML SYRINGE SUBCUT (12:36)
[2023-09-20] MEDS: Insulin Lispro 100 UNIT/ML 3 ML VIAL SUBCUT (12:36)
[2023-09-20] MEDS: oxyCODONE HCl Immed Release 5 MG TABLET PO (12:37)
[2023-09-20 15:26] VITALS: BP 129/75; PULSE 74; RESP 18; TEMP 36.8; O2SAT 97
[2023-09-20 16:20] LABS: Glucose, Whole Blood 116 mg/dL (60-115)
[2023-09-20] MEDS: 0.9 % Sodium Chloride Flush 3 ML SYRINGE IVFLUSH (17:25)
[2023-09-20 19:04] VITALS: BP 132/62; PULSE 83; RESP 18; TEMP 36.9; O2SAT 96
[2023-09-20 20:35] LABS: Glucose, Whole Blood 177 mg/dL (60-115)
[2023-09-21] MEDS: Piperacillin Sodium/Tazobactam 3.375 GM in 0.9 % Sodium Chloride 50 ML IV ×2 (00:32→06:54)
[2023-09-21] MEDS: Acetaminophen 325 MG TABLET 650 MG PO (00:52)
[2023-09-21] MEDS: 0.9 % Sodium Chloride Flush 3 ML SYRINGE IVFLUSH (00:55)
[2023-09-21 03:13] VITALS: BP 116/58; PULSE 62; RESP 18; TEMP 36.4; O2SAT 96
--- NOTE | 2023-09-21 06:57 | P.PNGS_ITS ---
Subjective Subjective Date of Service: 09/21/23 Interval history: Patient feels much improved with no further abdominal pain. She tolerated the regular diet without nausea or vomiting. She is passing flatus but no bowel movement yet. She feels ready for discharge to home. Physical Exam 2 Vital Signs: Vital Signs: Last Vital Signs Temp 97.5 F 09/21/23 03:13 Pulse 62 09/21/23 03:13 Resp 18 09/21/23 03:13 BP 116/58 L 09/21/23 03:13 Pulse Ox 96 09/21/23 03:13 O2 Del Method Room Air 09/21/23 03:13 BMI result Body Mass Index 33.3 Const: General: no acute distress Nutritional Appearance: well nourished Orientation/consciousness: patient oriented x3 Limitations: no limitations Resp: Effort & Inspection: normal respiratory effort, no audible wheezes, no cough and no respiratory distress GI: Inspection: Yes normal to inspection Palpation (GI): Soft to palpation, nontender, no guarding, not rigid and no masses Percussion: Yes normal to percussion Auscultation: normal bowel sounds Neuro: General: patient oriented x3 Extrem: General: No edema Objective Data Active Medications Acetaminophen (Acetaminophen 325 Mg Tablet) 650 mg PO Q4H PRN PRN Reason: Pain, Mild (Pain Scale 1-3) Last Admin: 09/21/23 00:52 Dose: 650 mg Documented By: SKYLER Dextrose (Dextrose 50 % 25 Gm/50 Ml Syringe) 25 gm IVPUSH Q15M PRN; Protocol PRN Reason: per Hypoglycemia Standing Ord. Enoxaparin Sodium (Enoxaparin Sodium 40 Mg/0.4 Ml Syringe) 40 mg SUBCUT Q24H [facility] Last Admin: 09/20/23 12:36 Dose: 40 mg Documented By: WENCESLAO Glucose (Glucose Gel 15 Gm Gel..Gram.) 15 gm PO Q15M PRN; Protocol PRN Reason: per Hypoglycemia Standing Ord. Hydromorphone HCl (Hydromorphone Hcl 0.5 Mg/0.5 Ml Syringe) 0.5 mg IVPUSH Q3H PRN; Protocol PRN Reason: Pain, Severe (Pain Scale 7-10) Piperacillin Sod/Tazobactam (Sod 3.375 gm/ Sodium Chloride) 50 mls @ 100 mls/hr IV Q6H [facility] Last Admin: 09/21/23 06:54 Dose: 100 mls/hr Documented By: SKYLER Ondansetron HCl (Ondansetron Hcl 4 Mg/2 Ml Vial) 4 mg IVPUSH QID PRN PRN Reason: Nausea Oxycodone HCl (Oxycodone Hcl Immed Release 5 Mg Tablet) 5 mg PO Q6H PRN PRN Reason: Pain, Moderate(Pain Scale 4-6) Last Admin: 09/20/23 12:37 Dose: 5 mg Documented By: WENCESLAO Sodium Chloride (0.9 % Sodium Chloride Flush 3 Ml Syringe) 3 ml IVFLUSH QSHIFT [facility] Last Admin: 09/21/23 00:55 Dose: 3 ml Documented By: SKYLER Trazodone HCl (Trazodone Hcl 50 Mg Tablet) 50 mg PO BEDTIME PRN PRN Reason: insomnia Zolpidem Tartrate (Zolpidem Tartrate 5 Mg Tablet) 5 mg PO BEDTIME PRN PRN Reason: Insomnia Labs 09/20/23 05:53 09/20/23 05:53 Labs: Laboratory Results - last 24 hr 09/20/23 09/20/23 09/20/23 05:53 07:38 11:20 MCV 91.3 MCH 31.0 MCHC 33.9 RDW 12.7 Plt Count 241 MPV 10.0 Immature Gran % (Auto) 0.1 Neut % (Auto) 61.0 Lymph % (Auto) 25.9 [place] % (Auto) 10.3 Eos % (Auto) 2.2 Baso % (Auto) 0.5 Lymph # (Auto) 1.9 [place] # (Auto) 0.8 Eos # (Auto) 0.2 Baso # (Auto) 0.0 Abs Immat Gran (auto) 0.01 Absolute Neuts (auto) 4.5 Absolute Nucleated RBC 0.000 Nucleated RBC % (auto) 0.0 POC Glucose 153 H 169 H 09/20/23 09/20/23 16:17 20:30 MCV MCH MCHC RDW Plt Count MPV Immature Gran % (Auto) Neut % (Auto) Lymph % (Auto) [place] % (Auto) Eos % (Auto) Baso % (Auto) Lymph # (Auto) [place] # (Auto) Eos # (Auto) Baso # (Auto) Abs Immat Gran (auto) Absolute Neuts (auto) Absolute Nucleated RBC Nucleated RBC % (auto) POC Glucose 116 H 177 H Microbiology Microbiology Results: Microbiology 09/19/23 11:36 Blood Culture - Preliminary Blood - Venous No growth after 24 hours. 09/19/23 11:34 Blood Culture - Preliminary Blood - Venous No growth after 24 hours. 09/19/23 Unknown Urine Culture - Preliminary Urine clean catch - Urine garcia top Gram negative vernon Procedures Date of Service Date of Service: 09/21/23 Progress Note: A&P Assessment and plan (1) Diverticulitis of intestine with abscess: Status: Acute Plan 62-year-old female patient admitted on 09/19/2023 with complaints of abdominal pain in the left lower quadrant found to have an elevated WBC and CT findings consistent with sigmoid diverticulitis with a mural abscess. She was admitted for IV antibiotics. Her WBC returned to normal. She feels much improved with no further abdominal pain. She is tolerating regular diet without increased abdominal pain. She will be discharged to home on oral antibiotics for the next 10 days. She should follow up in our office in approximately 1 week. She is welcome to call sooner for any new concerns. Time Spent With Patient Time: Total time managing care of this patient today ____ minutes. Quality Stroke Does the patient have a stroke diagnosis?: No VTE Prior VTE?: No VTE Risk Level:: Surgical - moderate VTE Device Contraindication: N/A - Device Ordered VTE Drug Contraindication: N/A - Med Ordered
[2023-09-21 07:38] LABS: Glucose, Whole Blood 135 mg/dL (60-115)
--- NOTE | 2023-09-23 11:58 | PM.DS ---
DS: Providers Provider Date of Service: 09/21/23 Date of admission: 09/19/23 12:17 Date of discharge: 09/21/23 Primary care physician: Delores Mcgee MD Attending physician on admission: Rahul Lin Consults: 09/19/23 12:16 Consult to Hospitalist Routine Comment: Consulting Provider: Hospitalist Reason For Exam: Sigmoid diverticulitis, diabetes, med management Attending physician on discharge: Rahul Lin DS: Diagnosis Discharge Diagnosis (1) Diverticulitis of intestine with abscess: Status: Acute DS: Summary Hospital Course Hospital Course: HPI AT ADMISSION: Amira Mccray is a 62 year old female presenting with a 24 hour history of abdominal pain located mainly in the left lower quadrant. She denies a previous history of similar pain. The pain was associated with nausea, anorexia, and constipation. She denies fever or chills. She presented to the emergency department for further evaluation was noted to be tender in the left lower quadrant. Laboratories revealed an elevated WBC and CT abdomen and pelvis revealed sigmoid diverticulitis with intramural abscess. HOSPITAL COURSE: She was admitted to the surgical service with hospitalist consultation. Nonoperative measures were recommended. She was started on Zosyn. She had an uncomplicated hospital course. She had significant improvement in her abdominal pain and tenderness and was advanced to clear liquids and then low residue diet. Her WBC count downtrended and normalized. On HD #3, she was tolerating a solid diet without any abdominal pain, nausea or vomiting. Her abdomen was benign without any tenderness. She felt ready for discharge to home. She was discharged to home on 09/21/23 in stable condition. She was discharged on a course of PO Augmentin. She is to follow up in the office in 1 week. Status at Discharge Functional status at discharge: independent ambulation Overall status at discharge: patient is back to baseline Time Attestation Discharge coordination time: Less than 30 minutes Quality: Safe Use of Opioids Does Pt have an Active Cancer Diagnosis on the Problem List?: No Quality: Stroke Does the patient have a stroke diagnosis?: No Physical Exam Vital Signs: Vital Signs: Last Vital Signs Temp 97.5 F 09/21/23 03:13 Pulse 62 09/21/23 03:13 Resp 18 09/21/23 03:13 BP 116/58 L 09/21/23 03:13 Pulse Ox 96 09/21/23 03:13 O2 Del Method Room Air 09/21/23 03:13 BMI result Body Mass Index 33.3 Const: General: comfortable, no acute distress and alert GI: Inspection: No distended Palpation (GI): Soft to palpation and nontender Skin: General skin exam: no rashes or lesions noted DS: Data Data Completed and Pending Labs on day of discharge: Preliminary micro results at discharge 09/19/23 11:36 Blood Culture - Preliminary Blood - Venous No growth after 48 hours. 09/19/23 11:34 Blood Culture - Preliminary Blood - Venous No growth after 48 hours. Discharge Plan Discharge Anticipated Discharge Date/Time: 09/21/23 07:13 Patient Disposition: Home, Self-Care Discharge Diagnosis: Sigmoid diverticulitis Referrals: Rahul Lin MD [Physician] - 1 Week Delores Franco MD [Primary Care Provider] - 1 Week Discharge Medications: New amoxicillin-pot clavulanate [Augmentin] 500-125 mg tablet 1 tab PO Q8H Qty: 30 0RF Continued trazodone 50 mg tablet 50 mg PO BEDTIME PRN (Reason: insomnia) 90 Days Qty: 90 1RF (DME) Grab bar Misc See Rx Instructions .Route Qty: 1 0RF Rx Instructions: As directed metformin 1,000 mg tablet 1,000 mg PO BID Qty: 60 6RF Onglyza 5 mg tablet 5 mg PO DAILY 90 Days Qty: 90 1RF cholecalciferol (vitamin D3) 125 mcg (5,000 unit) capsule 125 mcg PO DAILY Qty: 30 3RF Discharge Orders: Discharge Order (Routine); Ordered 09/21/23 Ordered By: Rahul Lin Diet: Low fiber diet Activity on Discharge: As tolerated Stand Alone Forms: Patient Portal Discharge page Print Language: [place] Islander Activity Restrictions/Additional Instructions: Call Your Doctor If: -Your temperature exceeds 101.5? F -You experience excessive pain or swelling -You have an unexpected reaction to medication -You have excessive bleeding -You experience continued vomiting/nausea Care Plan Goals: Return to normal diet and activity Health Concerns: Abdominal pain in the left lower abdomen Plan of Treatment: Antibiotic treatment of diverticulitis Assessment: Acute sigmoid diverticulitis Patient Instructions: Diverticulitis (GEN), Diverticulitis Diet (GEN) Discharge Date/Time: 09/21/23 08:14
== END 2023-09-21 08:14 | disposition home or self-care (01) | DRG 244 ==
LOC: HO.ED 11:11 → HO.EDOVER 12:38 → HO.S3 19:07
PROVIDERS: Physician Assistant; Admitting Provider Surgery; Emergency Provider Emergency Medicine Emergency Medical Services; PCP Internal Medicine; Visit Provider Surgery
DX: K57.20 Diverticulitis of large intestine with perforation and abscess without bleeding (principal); E11.9 Type 2 diabetes mellitus without complications; G47.00 Insomnia, unspecified; Z79.84 Long term (current) use of oral hypoglycemic drugs; Z79.899 Other long term (current) drug therapy
CPT/HCPCS: 36415; 74177; 80048; 80076; 81001; 82947; 83605; 83690; 83735; 85025; 87040; 87086; 87088; 87186; 99285; J0131; J1650; J1885; J2543; Q9967

== ENCOUNTER → 2023-09-19 08:24 | Outpatient (BNV) | payer OTHER, SELFPAY | PROVIDERS: Emergency Provider Emergency Medicine Emergency Medical Services; PCP Internal Medicine; Visit Provider Surgery | DX: K57.20 Diverticulitis of large intestine with perforation and abscess without bleeding (principal) | CPT/HCPCS: 99024; 99222; 99232 ==

== ENCOUNTER → 2023-09-19 12:17 | Outpatient (BNV) | payer OTHER, SELFPAY | PROVIDERS: Admitting Provider Surgery; Emergency Provider Emergency Medicine Emergency Medical Services; PCP Internal Medicine; Visit Provider Student in an Organized Health Care Education/Training Program | DX: K57.20 Diverticulitis of large intestine with perforation and abscess without bleeding (principal) | CPT/HCPCS: 99222 ==

== ENCOUNTER 2023-10-07 10:16 | Outpatient (AMB) | payer OTHER, SELFPAY ==
--- NOTE | 2023-10-07 10:26 | A.OFFVIS_ITS ---
Intake Vital Signs 10/07/23 10:34 Weight 180 lb BP 138/62 Blood Pressure Location Rt brachial Position Sitting Pulse 62 Intake Visit Reasons: Acute diverticulitis with intramural abscess Intake Note: This patient presents for [facility] [place] department for acute diverticulitis with intramural abscess. Patient c/o; reports no abdominal pain or cramping, reports no bowel habit changes,reports no loss of appetite. 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 She was admitted on 09/19/2023 and discharged on 09/21/2023 on oral antibiotics. She denies a previous history of diverticulitis. She completed her oral antibiotics and today feels much improved with no abdominal pain, nausea, vomiting, diarrhea or constipation. She is eating well without increased pain. She is scheduled to see GI tomorrow for colonoscopy evaluation. [facility] Medical History Hypersomnia Snoring Vertigo Class 1 obesity with body mass index (BMI) of 33.0 to 33.9 in adult Insomnia Dyslipidemia Chronic cough Thoracic spine pain Hand numbness Left hand pain Rash and nonspecific skin eruption Diabetes Surgical History History of hysterectomy History of colonoscopy Family History Father No problems noted. Mother History of diabetes mellitus, type I Social History Household Members: None Housing: Apartment Do you presently have visiting nurse or other home services: Yes Alcohol intake: current Alcohol intake frequency: does not drink Alcohol type: beer Patient Tobacco Use Status: Never used Tobacco e-Cigarette/Vaping Use: Never Used Second Hand Smoke Exposure: No service: No Current occupational status: unemployed and disabled Current occupation: rt handed Cognitive needs: No Hearing needs: No Vision needs: Yes Review of Systems Const All systems reviewed & are unremarkable except as noted in HPI and below Physical Exam Vital Signs: Last Vital Signs Temp 97.5 F 02/04/24 03:13 Pulse 62 09/21/23 03:13 Resp 18 09/21/23 03:13 BP 116/58 L 09/21/23 03:13 Pulse Ox 96 09/21/23 03:13 O2 Del Method Room Air 09/21/23 03:13 BMI result Body Mass Index 33.3 Const General: no acute distress Nutritional Appearance: well nourished Orientation/consciousness: patient oriented x3 Limitations: no limitations Resp Effort & Inspection: normal respiratory effort, no audible wheezes, no cough and no respiratory distress GI Inspection: Yes normal to inspection Palpation (GI): Soft to palpation, nontender, no guarding, not rigid and no masses Percussion: Yes normal to percussion Neuro General: patient oriented x3 Extrem General: No edema Assessment & Plan Assessment & Plan (1) Diverticulitis of intestine with abscess: Code(s): K57.80 - Diverticulitis of intestine, part unspecified, with perforation and abscess without bleeding Qualifiers: Diverticulitis bleeding: without bleeding Diverticulitis site: large intestine Qualified Code(s): K57.20 - Diverticulitis of large intestine with perforation and abscess without bleeding Plan 63-year-old female patient with a recent history of sigmoid diverticulitis with a mural abscess. Her symptoms have now resolved and she is completed her antibiotic treatment. She should follow up as needed. I encouraged her to call should her symptoms return to restart antibiotics. She will be seeing TERRY desai to discuss colonoscopy. Coding Level of Care Code Est Pt Level 3 (36291) Diagnoses Diverticulitis of large intestine with abscess without bleeding K57.20 Diverticulitis bleeding: without bleeding Diverticulitis site: large intestine
[2023-10-07 10:34] VITALS: BP 138/62; PULSE 62
== END 2023-10-07 10:36 | disposition home or self-care (01) ==
PROVIDERS: PCP Internal Medicine; Visit Provider Surgery
DX: K57.20 Diverticulitis of large intestine with perforation and abscess without bleeding (principal)
CPT/HCPCS: 99213

== ENCOUNTER → 2023-10-07 10:16 | Outpatient (BNVA) | payer OTHER, SELFPAY | PROVIDERS: PCP Internal Medicine; Visit Provider Surgery | DX: K57.20 Diverticulitis of large intestine with perforation and abscess without bleeding (principal) | CPT/HCPCS: 99212 ==

== ENCOUNTER 2023-10-08 14:17 | Outpatient (AMB) | payer OTHER, SELFPAY ==
--- NOTE | 2023-10-08 14:23 | MHC.OFFVIS ---
Intake Vital Signs 10/08/23 14:25 Height 5 ft 2 in Weight 180 lb BMI 32.9 BP 132/63 Blood Pressure Location Lt brachial Position Sitting Pulse 70 Intake Visit Reasons: pre colonoscopy screening Intake Note: Patient new consult for pre colonoscopy screening. Patient denies any GI issues. Airline Pilot Required: No Accompanied by: Daughter Allergies atorvastatin Allergy (Mild, Verified 10/08/23 14:22) stomach upset Medication List - Last Reconciled 10/08/23 by Milena Griffin PA-C cholecalciferol (vitamin D3) 125 mcg PO DAILY Grab bar As directed metformin 1,000 mg PO BID saxagliptin (Onglyza) 5 mg PO DAILY 90 days trazodone 50 mg PO BEDTIME PRN 90 days HPI HPI Comments History of Present Illness Details 63-year-old female recent history of sigmoid diverticulitis with a mural abscess. Symptoms have now resolved and she is completed her antibiotic treatment. She was evaluated by surgery, she was encouraged to call should her symptoms return to restart antibiotics. She is here today to discuss colonoscopy. She was last seen by us in 2019 in which time she was scheduled for screening colonoscopy-however she has not follow through. She did have a colonoscopy about 10 years ago at [facility] She feels well- Appetite very good-she has been advancing without any issues Bowels are normal-no abdominal pain no rectal bleeding no nausea, vomiting fever or chills NEHEMIAS- she does not use CPAP-she denies any issues Her adult daughter is present, interprets for her very supportive [facility]LY [facility] Medical History Hypersomnia Snoring Vertigo Class 1 obesity with body mass index (BMI) of 33.0 to 33.9 in adult Insomnia Dyslipidemia Chronic cough Thoracic spine pain Hand numbness Left hand pain Rash and nonspecific skin eruption Diabetes Surgical History History of hysterectomy History of colonoscopy Family History Father No problems noted. Mother History of diabetes mellitus, type I Social History Household Members: None Housing: Apartment Do you presently have visiting nurse or other home services: Yes Alcohol intake: current Alcohol intake frequency: does not drink Alcohol type: beer Patient Tobacco Use Status: Never used Tobacco e-Cigarette/Vaping Use: Never Used Second Hand Smoke Exposure: No service: No Current occupational status: unemployed and disabled Current occupation: rt handed Cognitive needs: No Hearing needs: No Vision needs: Yes Review of Systems Const All systems reviewed & are unremarkable except as noted in HPI and below Denies chills, Denies fever(s) and Denies night sweats Card Denies chest pain and Denies dyspnea Resp Denies dyspnea GI Denies abdominal pain, Denies hematochezia, Denies change in bowel habits, Denies constipation, Denies heartburn, Denies diarrhea, Denies nausea and Denies vomiting Physical Exam Vital Signs: Last Vital Signs Pulse 70 10/08/23 14:25 BP 132/63 10/08/23 14:25 BMI result Body Mass Index 32.9 Const General: cooperative, healthy appearing, comfortable and no acute distress Orientation/consciousness: patient oriented x3 Limitations: language barrier Eyes Sclerae: sclerae normal Resp Effort & Inspection: normal respiratory effort and able to speak in complete sentences Auscultation: clear to auscultation bilaterally, no rales, no rhonchi and no wheezes Cardio Rate: regular rate Rhythm: regular rhythm Heart sounds: S1 normal heart sound present and S2 normal heart sound present GI Palpation (GI): Soft to palpation, nontender and no guarding Auscultation: normal bowel sounds Skin General skin exam: no rashes or lesions noted Neuro General: patient oriented x3 Extrem General: Yes full ROM Psych Appearance: grossly normal and well kempt Mental Status: mental status grossly normal Speech and movement: Normal speech and movement present and Clear speech present Affect: normal affect Attitude: cooperative Thought process: Normal thought process present Thought content: Normal thought content present Insight: Good insight present (Psych) Judgement: Good judgement present (Psych) Results Reviewed Results Reviewed: 09/19/23 CT/CT abdomen pelvis w IV con IMPRESSION: Acute diverticulitis of the sigmoid colon with intramural abscess measuring 4.2 x 1.9 x 0.9 cm. No extraluminal gas. Follow-up imaging after treatment is advised. Assessment & Plan Assessment & Plan (1) Diverticulitis of intestine with abscess: Comment: Admitted 09/19/2023-IV antibiotics, discharge p.o. antibiotics-completed course-symptoms completely resolved Code(s): K57.80 - Diverticulitis of intestine, part unspecified, with perforation and abscess without bleeding Qualifiers: Diverticulitis bleeding: without bleeding Diverticulitis site: large intestine Qualified Code(s): K57.20 - Diverticulitis of large intestine with perforation and abscess without bleeding Plan: colonoscopy (2) Screen for colon cancer: Code(s): Z12.11 - Encounter for screening for malignant neoplasm of colon Plan: Screening colonoscopy-must be scheduled -appropriately at least 6 weeks out MiraLax Gatorade prep Orders: Orders Colonoscopy - GI Use Only Today K57.80 - Diverticulitis of intestine, part unspecified, with perforation and abscess without bleeding, Z12.11 - Encounter for screening for malignant neoplasm of colon Medications: New bisacodyl (Dulcolax (bisacodyl)) Day before procedure @ 12 noon Take 4 tablets by mouth followed by large glass of water 20 mg (4 x 5 mg) PO ONCE 1 day PRN 4 tabs 0RF colonoscopy prep Z12.11 - Encounter for screening for malignant neoplasm of colon polyethylene glycol 3350 (Miralax) Take as directed by mouth the day before your procedure. 238 grams PO ONCE 1 day PRN 238 grams 0RF laxative effect Patient Instructions: Very pleasant 63-year-old female follows up after 1st episode of diverticulitis Discussed diverticulosis/diverticulitis ER protocol Once diet is advanced fully, maintain high-fiber diet avoid constipation She will be scheduled for screening colonoscopy, we discussed the importance of follow through. Discussed procedure, rare risks need for escorted due to anesthesia MiraLax Gatorade prep, reviewed-literature Encouraged to call questions or concerns Coding Level of Care Code New Pt Level 3 (67014) Diagnoses Diverticulitis of large intestine with abscess without bleeding K57.20 Diverticulitis bleeding: without bleeding Diverticulitis site: large intestine Screen for colon cancer Z12.11 Time Spent (min) 25
[2023-10-08 14:25] VITALS: BP 132/63; PULSE 70; BMI 32.9
== END 2023-10-08 14:47 | disposition home or self-care (01) ==
PROVIDERS: PCP Internal Medicine; Visit Provider Physician Assistant
DX: K57.20 Diverticulitis of large intestine with perforation and abscess without bleeding (principal); Z12.11 Encounter for screening for malignant neoplasm of colon
CPT/HCPCS: 99203

== ENCOUNTER → 2023-10-08 14:17 | Outpatient (BNVA) | payer OTHER, SELFPAY | PROVIDERS: PCP Internal Medicine; Visit Provider Physician Assistant | DX: Z12.11 Encounter for screening for malignant neoplasm of colon (principal); K57.20 Diverticulitis of large intestine with perforation and abscess without bleeding | CPT/HCPCS: 99202 ==

== ENCOUNTER 2023-10-22 12:41 | Outpatient (AMB) | payer OTHER, SELFPAY ==
--- NOTE | 2023-10-22 12:54 | MHC.PC.OV ---
Vital Signs 10/22/23 12:56 Height 5 ft 2 in Weight 175 lb BMI 32.0 BP 130/70 Blood Pressure Location Lt brachial Position Sitting Intake Visit Reasons: PE Intake Note: Patient here for a physical exam Receiving Associate Required: No Accompanied by: Daughter Allergies atorvastatin Allergy (Mild, Verified 10/22/23 13:11) stomach upset Medication List - Last Reconciled 10/22/23 by Delores Mcgee MD bisacodyl (Dulcolax (bisacodyl)) 20 mg (4 x 5 mg) PO ONCE PRN 1 day cholecalciferol (vitamin D3) 125 mcg PO DAILY Grab bar As directed metformin 1,000 mg PO BID polyethylene glycol 3350 (Miralax) 238 grams PO ONCE PRN 1 day saxagliptin (Onglyza) 5 mg PO DAILY 90 days trazodone 50 mg PO BEDTIME PRN 90 days Tobacco use date assessed: 10/22/23 Dental Screening Dental Screen Date: 10/22/23 Did you have a dental visit in the last 12 months?: No Did you have a dental problem in the last 6 months where you did not have access to dental care?: No Was dental information given to patient?: Patient has dentist HPI HPI Comments History of Present Illness Details This is a 63-year-old female with diabetes mellitus type 2 that comes accompanied by daughter for her physical exam. A1c within goal. Mammogram scheduled for next week. Colonoscopy scheduled for next month. No need for Pap smear due to hysterectomy. No chest pain or shortness of breath. [facility]LY [facility] Medical History Hypersomnia Snoring Vertigo Class 1 obesity with body mass index (BMI) of 33.0 to 33.9 in adult Insomnia Dyslipidemia Chronic cough Thoracic spine pain Hand numbness Left hand pain Rash and nonspecific skin eruption Diabetes Surgical History History of hysterectomy History of colonoscopy Family History Father No problems noted. Mother History of diabetes mellitus, type I Social History (Updated 10/22/23 @ 13:15 by Delores Mcgee MD) Household Members: None Housing: Apartment Do you presently have visiting nurse or other home services: Yes Alcohol intake: current Alcohol intake frequency: does not drink Alcohol type: beer Patient Tobacco Use Status: Never used Tobacco e-Cigarette/Vaping Use: Never Used Second Hand Smoke Exposure: No service: No Current occupational status: unemployed and disabled Current occupation: rt handed Cognitive needs: No Hearing needs: No Vision needs: Yes Questionnaire PHQ-9 Over the last 2 weeks, how often have you been bothered by any of the following problems? 1. Little interest or pleasure in doing things: not at all 2. Feeling down, depressed, or hopeless: not at all 3. Trouble falling or staying asleep, or sleeping too much: not at all 4. Feeling tired or having little energy: not at all 5. Poor appetite or overeating: not at all 6. Feeling bad about yourself - or that you are a failure or have let yourself or your family down: not at all 7. Trouble concentrating on things, such as reading the newspaper or watching television: not at all 8. Moving or speaking so slowly that other people could have noticed. Or the opposite - being so fidgety or restless that you have been moving around a lot more than usual: not at all 9. Thoughts that you would be better off or of hurting yourself in some way: not at all Total score: 0 Depression Screening Interpretation: Negative Depression Screening Done: Yes 71452 - PHQ-9 Billing: Yes Source: Developed by Drs. Jamie Zuniga, Kaylee Donahue, Chung Hirsch and colleagues, with an educational kavon from [employer]. Thrive Questionnaire Date Thrive assessed: 10/22/23 I am a: Patient What is your living situation today?: I have a steady place to live Within the past 12 months, did the food you bought not last and you didn't have the money to get more?: Never true Within the past 12 months, did you worry whether your food would run out before you got money to buy more?: Never true Do you have trouble paying for medicines?: No Do you have trouble getting transportation to medical appointments?: No Do you have trouble paying your heating and electricity bill?: No Do you have trouble taking care of your child, family member or friend?: No Do you have trouble with day-to-day activities such as bathing, preparing meals, shopping, managing finances, etc.?: No Are you currently unemployed and looking for a job?: No Are you interested in more education?: No Please select the resources that you would like help with: None Currently or been in a relationship where the following occur: no concerns reported THRIVE Score: 0 AUDIT C Alcohol Use Questionnaire (AUDIT-C) 1. How often do you have a drink containing alcohol?: Monthly or less 2. How many drinks containing alcohol do you have on a typical day when you are drinking?: 1 or 2 3. How often do you have six or more drinks on one occasion?: Never Total Score: 1 Score Reviewed/Action Taken: No CHAVA-7 AMB Questionnaire CHAVA-7 Date CHAVA - 7 assessed: 10/22/23 Feeling nervous, anxious, or on edge: 0 = Not at all Not being able to stop or control worryin = Not at all Worrying too much about different things: 0 = Not at all Trouble relaxin = Not at all Being so restless that it is hard to sit still: 0 = Not at all Becoming easily annoyed or irritable: 0 = Not at all Feeling afraid as if something awful might happen: 0 = Not at all Total CHAVA-7 score (0-4 normal; 5-9 mild; 10-14 moderate; 15-21 severe): 0 Source: Developed by Drs. Jamie Zuniga, Kaylee Donahue, Chung Hirsch and colleagues, with an educational kavon from [employer]. CHAVA-7 Assessment Billing CHAVA-7 Assessment Tool: CHAVA-7 Assessment 41015 Review of Systems Const All systems reviewed & are unremarkable except as noted in HPI and below Eyes Reports no additional complaints, Denies change in vision and Denies other visual disturbances Card Denies chest pain at rest, Denies chest pain with activity, Denies edema, Denies irregular heart rhythm, Denies claudication, Denies dyspnea, Denies dyspnea on exertion, Denies orthopnea, Denies paroxysmal nocturnal dyspnea and Denies slow heart rate Resp Denies cough, Denies dyspnea and Denies dyspnea on exertion GI Denies abdominal pain, Denies change in bowel habits, Denies excessive flatus, Denies nausea and Denies vomiting Denies urinary incontinence, Denies urinary hesitancy and Denies urinary urgency Musc Denies abnormal gait, Denies atrophy, Denies deformity and Denies limited range of motion Skin/Breast Denies bleeding lesions, Denies changing lesions and Denies rash Neuro Denies abnormal gait and Denies lack of coordination Physical exam (Primary Care) Vital Signs: Last Vital Signs BP 130/70 10/22/23 12:56 BMI result Body Mass Index 32.0 Tobacco/Smoking Status: Tobacco use Status Tobacco use date assessed 10/22/23 10/22/23 13:01 Patient Tobacco Use Status Never used Tobacco 10/22/23 12:55 e-Cigarette/Vaping Use Never Used 10/22/23 12:55 PHQ-9: PHQ-9 Score PHQ-9: Total score 0 10/22/23 13:01 Depression Screening Interpretation: Negative Thrive Assessment: Date of Thrive Assessment Date Thrive assessed 10/22/23 10/22/23 13:01 Currently or been in a relationship where the following occur: no concerns reported Const Orientation/consciousness: patient oriented x3 HENMN Head: Yes normal to inspection, Yes normocephalic and Yes atraumatic Ears: external ears normal Eyes General: appearance normal, both eyes and all related structures Eyelids: Yes eyelids normal Conjunctivae: conjunctivae normal Neck Neck: Yes normal visual inspection and Yes supple Resp Effort & Inspection: normal respiratory effort Auscultation: clear to auscultation bilaterally Cardio Jugular venous distension: no JVD Rate: regular rate Rhythm: regular rhythm Heart sounds: S1 normal heart sound present and S2 normal heart sound present GI Inspection: Yes normal to inspection Palpation (GI): Soft to palpation and nontender Auscultation: normal bowel sounds Skin General skin exam: no rashes or lesions noted Neuro General: patient oriented x3 and no focal motor deficits Extrem General: Yes full ROM Psych Appearance: grossly normal Results AMB Hemoglobin A1c AMB Hemoglobin A1c 7.0 % Last Edit by SALLY Cintron on 10/22/23 13:03 Results Reviewed Results Reviewed: Laboratory Last Values Hgb A1c (Clinic) 7.0 % (4.0-6.0) H 10/22/23 13:01 Assessment and Plan Assessment & Plan (1) Physical exam: Code(s): Z00.00 - Encounter for general adult medical examination without abnormal findings Plan: Repeat in a year. (2) Diabetes: Comment: NIDDM Code(s): E11.9 - Type 2 diabetes mellitus without complications Qualifiers: Diabetes mellitus type: type 2 Diabetes mellitus senior living insulin use: without senior living use Diabetes mellitus complication status: without complication Qualified Code(s): E11.9 - Type 2 diabetes mellitus without complications Plan: Continue metformin and Onglyza. A1c goal is equal or less than 7%. Orders: Orders Lipid Panel 4 Months E78.5 - Hyperlipidemia, unspecified Microalbumin, Random (w Creat) 4 Months E11.9 - Type 2 diabetes mellitus without complications IRON PROFILE 4 Months D64.9 - Anemia, unspecified Vitamin D 25-OH Total 4 Months E55.9 - Vitamin D deficiency, unspecified Comprehensive [place]. Panel Fast 4 Months E11.9 - Type 2 diabetes mellitus without complications AMB Hemoglobin A1c Today E11.9 - Type 2 diabetes mellitus without complications Complete Blood Count Auto Diff 4 Months D64.9 - Anemia, unspecified Coding Level of Care Code Est Pt Prev Care 40-64y(94875) Diagnoses Physical exam Z00.00 Type 2 diabetes mellitus without complication, without long-term current use of insulin E11.9 Diabetes mellitus type: type 2 Diabetes mellitus senior living insulin use: without senior living use Diabetes mellitus complication status: without complication Additional Codes CHAVA-7 Assessment Billing - CHAVA-7 Assessment Tool: CHAVA-7 Assessment [id number] ([id number]) Time Spent (min) 33
[2023-10-22 12:56] VITALS: BP 130/70; BMI 32.0
== END 2023-10-22 13:22 | disposition home or self-care (01) ==
PROVIDERS: Visit Provider Internal Medicine
DX: Z00.00 Encounter for general adult medical examination without abnormal findings (principal); E11.9 Type 2 diabetes mellitus without complications
CPT/HCPCS: 83036; 99396

== ENCOUNTER 2023-10-28 09:13 | Outpatient (REF) | payer OTHER, SELFPAY ==
--- NOTE | ~2023-10-28 | US_ITS ---
EXAMINATION: US RETROPERITONEAL LIMITED (RENAL ONLY) CLINICAL INFORMATION: Calculus of kidney. COMPARISON: CT abdomen and pelvis 09/19/2023. Ultrasound abdomen 05/20/2013. TECHNIQUE: Real-time imaging of the kidneys. FINDINGS: RIGHT KIDNEY: 11.3 x 5.3 x 4.5 cm (SAG x AP x TRV). The kidney is normal in size, contour, and echogenicity. Renal cortical thickness is normal. No renal calculi or hydronephrosis. Multiple right renal cystic foci are noted the largest in the lower pole measuring up to 2.3 cm, simple appearing, not requiring follow-up. Right extrarenal pelvis. LEFT KIDNEY: 11.1 x 5.7 x 4.3 cm (SAG x AP x TRV). The kidney is normal in size, contour, and echogenicity. Renal cortical thickness is normal. No renal calculi or hydronephrosis. Multiple left renal cystic foci are noted the largest in the lower pole measuring 2.0 cm, simple appearing, not requiring follow-up. Left extrarenal pelvis. US/US renal BI IMPRESSION: 1. No nephrolithiasis or hydronephrosis. 2. Bilateral simple appearing renal cystic foci the largest measuring up to 2.3 cm, which do not require follow-up.
== END 2023-10-28 09:14 | disposition home or self-care (01) ==
LOC: HO.US 09:13
PROVIDERS: PCP Internal Medicine; Visit Provider Nurse Practitioner Family
DX: N20.0 Calculus of kidney (principal)
CPT/HCPCS: 76775

== ENCOUNTER 2023-10-30 12:42 | Outpatient (REF) | payer OTHER, SELFPAY ==
--- NOTE | ~2023-10-30 | MM_ITS ---
EXAMINATION: MM SCREENING DIGITAL BREAST TOMOSYNTHESIS, BILATERAL CLINICAL INFORMATION: Screening. Asymptomatic. COMPARISON: Mammography: 10/24/2022, 07/11/2020, 07/06/2019, 06/22/2018, outside exam 11/20/2016 ([facility]) TECHNIQUE: Digital breast tomosynthesis is performed in both the craniocaudal and mediolateral oblique views along with computer-aided detection (CAD). Synthesized 2D images are generated from the tomosynthesis. An added MLO view was provided. FINDINGS: There are scattered areas of fibroglandular density (ACR BI-RADS breast composition Category b). Breast tissue borders on heterogeneously dense. There are no suspicious masses, suspicious grouped calcifications, or areas of architectural distortion in either breast. Stable intramammary lymph nodes in the low axillary regions bilaterally. The parenchymal pattern is stable from prior exams. MM/MM tomosynthesis screening BI IMPRESSION: No mammographic evidence of malignancy. ASSESSMENT: BI-RADS BI-RADS 2 - Benign Findings RECOMMENDATION: Routine annual mammography screening. 1 year F/U This examination should not preclude the clinical evaluation of a suspicious palpable abnormality. This patient's information was entered into a reminder system with a target due date for their next mammogram.
== END 2023-10-30 12:43 | disposition home or self-care (01) ==
LOC: HO.MAMMO 12:42
PROVIDERS: PCP Internal Medicine; Visit Provider Internal Medicine
DX: Z12.31 Encounter for screening mammogram for malignant neoplasm of breast (principal)
CPT/HCPCS: 77063; 77067

== ENCOUNTER → 2023-10-30 13:00 | Outpatient (BNV) | payer OTHER, SELFPAY | PROVIDERS: PCP Internal Medicine; Visit Provider Radiology Diagnostic Radiology | DX: Z12.31 Encounter for screening mammogram for malignant neoplasm of breast (principal) | CPT/HCPCS: 77063; 77067 ==

== ENCOUNTER → 2023-11-05 08:38 | Outpatient (BNVA) | payer OTHER, SELFPAY | PROVIDERS: PCP Internal Medicine; Visit Provider Nurse Practitioner Family ==

== ENCOUNTER 2023-12-26 08:11 | Emergency (ER) | payer OTHER, SELFPAY ==
--- NOTE | ~2023-12-26 | XR_ITS ---
EXAMINATION: XR LUMBOSACRAL SPINE CLINICAL INFORMATION: Pain. COMPARISON: CT abdomen/pelvis 09/19/2023. TECHNIQUE: Three views of the lumbosacral spine. FINDINGS: Stable grade 1 anterolisthesis of L4 on L5. No evidence of acute compression deformity or traumatic subluxation. Moderate intervertebral disc height loss from L3 through S1. Moderate to severe facet arthropathy from L4 through S1 leading to neural foraminal encroachment. Symmetric SI joints. No significant paraspinal soft tissue abnormality. XR/XR lumbar spine 2-3V IMPRESSION: 1. No acute compression deformity or traumatic subluxation. 2. Moderate to severe lumbar spondylosis, more prominent in the lower lumbar spine as above.
[2023-12-26 08:16] VITALS: BP 135/82; PULSE 76; RESP 16; TEMP 36.9; O2SAT 98; BMI 33.3
--- NOTE | 2023-12-26 09:08 | ED.BACK ---
HPI - Back Pain/Injury General Chief Complaint: Back Pain/Injury Stated Complaint: back pain Time Seen by Provider: 12/26/23 09:08 Source: patient Mode of arrival: ambulatory Limitations: no limitations History of Present Illness HPI Narrative: Patient is a 63-year-old female who presents emergency department for evaluation of bilateral lower back pain. Reports onset 4 days ago. Has a history of similar pain in the past. States she has been seen here for this, at times has had a urinary infection, other times she states it is too to her muscles. She does admit to having urinary frequency but denies dysuria, hematuria. currently she has Lidoderm patches in place which have provided minimal improvement. She trialed ibuprofen once yesterday morning without improvement. Denies any additional pain management medications. Denies recent precipitating injury, fevers, chills, bladder or bowel dysfunction, numbness or tingling of the perineum or bilateral legs. Denies any recent surgical procedures, any known immune compromising conditions, personal history of cancer, or IV drug usage. MD elicited complaint: back pain Related Data Previous Rx's ?Medication ?Instructions ?Recorded Grab bar #1 ea 12/13/22 bisacodyl 5 mg tablet,delayed 20 mg (4 x 5 mg) PO ONCE PRN 10/08/23 release (Dulcolax (bisacodyl)) colonoscopy prep 1 day #4 tabs polyethylene glycol 3350 17 238 g PO ONCE PRN laxative effect 10/08/23 gram/dose oral powder (Miralax) 1 day #238 grams omeprazole 20 mg capsule,delayed 20 mg PO DAILY PRN heartburn 90 10/22/23 release days #90 caps cholecalciferol (vitamin D3) 125 125 mcg PO DAILY #30 caps 11/27/23 mcg (5,000 unit) capsule metformin 1,000 mg tablet 1,000 mg PO BID 90 days #180 tabs 12/05/23 glimepiride 2 mg tablet 2 mg PO DAILY 90 days #90 tabs 12/08/23 trazodone 50 mg tablet 50 mg PO BEDTIME PRN sleep 30 days 12/09/23 #30 tabs cyclobenzaprine 5 mg tablet 5 mg PO TID PRN muscle spasm #20 12/26/23 tabs Allergies Allergy/AdvReac Type Severity Reaction Status Date / Time atorvastatin Allergy Mild stomach Verified 12/26/23 08:19 upset Review of Systems Review of Systems: Yes all other systems are reviewed and are negative [facility] Past Medical History Attestation statement: The following information was validated with the patient. Source: old records reviewed Medical History Hypersomnia Snoring Vertigo Class 1 obesity with body mass index (BMI) of 33.0 to 33.9 in adult Insomnia Dyslipidemia Chronic cough Thoracic spine pain Hand numbness Left hand pain Rash and nonspecific skin eruption Diabetes Surgical History History of hysterectomy History of colonoscopy Family History Family History Father No problems noted. Mother History of diabetes mellitus, type I Social History Social History (Updated 10/22/23 @ 13:15 by Delores Mcgee MD) Household Members: None Housing: Apartment Do you presently have visiting nurse or other home services: Yes Alcohol intake: current Alcohol intake frequency: does not drink Alcohol type: beer Patient Tobacco Use Status: Never used Tobacco Smoked in Last 30 Days: No e-Cigarette/Vaping Use: Never Used Second Hand Smoke Exposure: No Use of substances other than those prescribed or required for medical reasons: No Advance Directives: No Advance Directives Information Provided: No Patient : No service: No Current occupational status: unemployed and disabled Current occupation: rt handed Cognitive needs: No Hearing needs: No Vision needs: Yes Physical Exam Vital Signs: Vital Signs: Last Vital Signs Temp 98.5 F 12/26/23 08:16 Pulse 76 12/26/23 08:16 Resp 16 12/26/23 08:16 BP 135/82 12/26/23 08:16 Pulse Ox 98 12/26/23 08:16 O2 Del Method Room Air 12/26/23 08:16 BMI result Body Mass Index 33.3 Appearance: Alert.?Oriented to person, place and time. No acute distress.?Normal affect. Eyes: Pupils equal, round and reactive to light.? ENT: Pharynx normal.?? Neck: Normal inspection.? Neck supple.?? CVS: Heart sounds normal. Normal heart rate and rhythm.? Pulses normal; bilateral radial pulses 2+, bilateral posterior tibial/dorsalis pedis pulses 2+.? Respiratory: No respiratory distress.? Lung sounds clear to auscultation bilaterally?? Abdomen: Soft and non-tender. Normoactive bowel sounds. No pulsatile mass.?? Skin: Skin warm and dry.? Normal skin color.? Normal skin turgor.?? Extremities: No lower extremity edema.? No calf ttp? Back: + Moderate bilateralparaspinal muscular tenderness from lumbar region to coccyx. No CVA tenderness. No midline spinal tenderness, step-off's, or deformity. Full ROM intact in bilateral lower extremities. Straight leg test positive on right; Straight leg test positive on left. No rashes, lesions, areas of induration or fluctuance, or signs of infection noted., Neuro: Moves all extremities spontaneously. 5/5 strength in hip extension/flexion, abduction, adduction. Sensation to light touch intact bilaterally. Patellar and Achilles reflex 2+ bilaterally. No ataxia, gait normal and steady.. No focal neuro deficits. Medications Administered Discontinued Medications Generic Name Dose Route Start Last Admin Trade Name Freq PRN Reason Stop Dose Admin Cyclobenzaprine HCl 5 mg 12/26/23 09:15 12/26/23 09:29 Cyclobenzaprine Hcl 5 Mg Tablet PO 12/26/23 09:16 5 mg ONCE ONE Administration Ketorolac Tromethamine 30 mg 12/26/23 09:15 12/26/23 09:28 Ketorolac Tromethamine 30 Mg/Ml Vial IM 12/26/23 09:16 30 mg ONCE ONE Administration Medical Decision Making Medical Decision Making MDM Narrative: patient is a 63-year-old female who presents emergency department for evaluation of lower back pain with history of similar pain in the past. history and physical examination suggest pain is most consistent with muscular pain, although cannot completely exclude herniated disc. On neurological exam there are no deficits. Not consistent with spinal fracture, spinal infection, epidural abscess, AAA, epidural abscess, or dissection. No high risk past medical history including incontinence, fever, immunosuppression, recent surgery or lumbar puncture, coagulopathy, significant trauma, recent unintentional weight loss, pulsatile mass, history of cancer, history of TB, history of IV drug use that would warrant MRI or CT. Not consistent with pyelonephritis, urinary tract infection, renal calculi, pelvic infection, appendicitis, diverticulitis. On exam no concern for cauda equina syndrome. urinalysis without evidence of infection , has trace microscopic hematuria, exam at this time is less consistent with renal colic, lower suspicion for ureteral calculi.. XR of the lumbar spine reveals DJD and facet arthropathy. No additional imaging is currently indicated at this time. Plan for discharge home with prescription for cyclobenzaprine, provided with referral to spinal neurosurgeon; Dr. Mosqueda, and follow-up with primary care provider, and patient agreed with plan. Differential Diagnosis Differential Diagnoses: The differential diagnosis associated with the presentation includes ( see narrative above) Admission/Observation Consideration of admission/observation: Escalation of care including admission/observation considered ( see narrative above) Lab Data MDM Lab Attestation statement: I reviewed the patient's lab results. ( see narrative above) Labs: Lab Results 12/26/23 Range/Units 09:32 Urine Color Yellow Urine Appearance Clear Urine pH 5.5 (5.0-9.0) Ur Specific [place] 1.020 (1.005-1.025) Urine Protein Negative (Neg-Trace) mg/dL Urine Glucose (UA) Negative (Negative) mg/dL Urine Ketones Negative (Negative) mg/dL Urine Blood Trace H (Negative) Urine Nitrite Negative (Negative) Ur Leukocyte Esterase Small (1+) H (Negative) Urine RBC 0-2 (0-2) /HPF Urine WBC 0-5 (0-5) /HPF Ur Squamous Epith Cells 0-2 (0-2) /HPF Urine Bacteria None Seen (None Seen) Hyaline Casts 0-2 (0-2) /LPF Independent Interpretation I performed an independent interpretation of an: Plain X-Ray ( no acute fracture/ subluxation) Radiology Impression Discussion of test interpretation with radiology: I have reviewed the radiologist's reading. Radiologist Impression: FINDINGS: Stable grade 1 anterolisthesis of L4 on L5. No evidence of acute compression deformity or traumatic subluxation. Moderate intervertebral disc height loss from L3 through S1. Moderate to severe facet arthropathy from L4 through S1 leading to neural foraminal encroachment. Symmetric SI joints. No significant paraspinal soft tissue abnormality. External Record Review External record reviewed: Outpatient record Tests considered The following testing was considered but not selected: see narrative above Prescription Management I considered prescription management with: Pain Medication Discharge Plan Discharge Clinical Impression: Arthropathy of lumbar facet joint Instructions: Degenerative Disc Disease (ED), Lower Back Exercises (ED) Additional Instructions: You can take ibuprofen 200 mg, 3 tablets (600mg) every 6-8 hours as needed for pain, in addition to Tylenol 500 mg, 2 tablets (1,000mg) every 4-6 hours as needed for pain, but not to exceed 3 doses daily (3,000mg).? prescription for the muscle relaxer; cyclobenzaprine / Flexeril was sent to your pharmacy to use for pain unrelieved by acetaminophen / ibuprofen. Please contact your primary care provider to arrange for a follow-up visit. I have also provided contact information for the care specialist associated with our hospital, you may contact them at your discretion for further evaluation And treatment. Your x-ray today does show degenerative disc disease and facet arthropathy, this is a painful arthritis condition. Prescriptions: New cyclobenzaprine 5 mg tablet 5 mg PO TID PRN (Reason: muscle spasm) Qty: 20 0RF No Action (DME) Grab bar Misc See Rx Instructions .Route Qty: 1 0RF Rx Instructions: As directed cholecalciferol (vitamin D3) 125 mcg (5,000 unit) capsule 125 mcg PO DAILY Qty: 30 1RF metformin 1,000 mg tablet 1,000 mg PO BID 90 Days Qty: 180 1RF glimepiride 2 mg tablet 2 mg PO DAILY 90 Days Qty: 90 1RF trazodone 50 mg tablet 50 mg PO BEDTIME PRN (Reason: sleep) 30 Days Qty: 30 0RF omeprazole 20 mg capsule,delayed release(DR/EC) 20 mg PO DAILY PRN (Reason: heartburn) 90 Days Qty: 90 1RF bisacodyl [Dulcolax (bisacodyl)] 5 mg tablet,delayed release (DR/EC) 20 mg PO ONCE PRN (Reason: colonoscopy prep) 1 Days Qty: 4 0RF Rx Instructions: Day before procedure @ 12 noon Take 4 tablets by mouth followed by large glass of water polyethylene glycol 3350 [Miralax] 17 gram/dose powder 238 g PO ONCE PRN (Reason: laxative effect) 1 Days Qty: 238 0RF Rx Instructions: Take as directed by mouth the day before your procedure. Referrals: Cortes Leigh MD, PhD [Physician] - Delores Franco MD [Primary Care Provider] - Print Language: Chadian
[2023-12-26] MEDS: Ketorolac Tromethamine 30 MG/ML VIAL IM (09:28)
[2023-12-26] MEDS: Cyclobenzaprine HCl 5 MG TABLET PO (09:29)
[2023-12-26 09:39] LABS: Appearance Urine Clear; Color Urine Yellow; Glucose Urine UA Negative (Negative); Leukocyte Esterase Urine Small (1+) (Negative); Nitrite Urine Negative (Negative); PH 5.5 (5.0-9.0); UMIC TRIGGER UACC YES; Urine Blood Trace (Negative); Urine Ketones Negative (Negative); Urine Protein Negative (Neg-Trace)
[2023-12-26 09:54] LABS: Bacteria Urine None Seen (None Seen); Hyaline Casts Urine 0-2 /LPF (0-2); RBC Urine 0-2 /HPF (0-2); Squamous Epithelial Cell Urine 0-2 /HPF (0-2); UACC Culture Trigger YES; WBC Urine 0-5 /HPF (0-5)
--- NOTE | 2023-12-26 10:10 | PC.NURSE ---
Pt eval by PA, medicated per MAR for lower back pain, pt reports positive relief. Urine sample obtained, pending results. Awaiting results and MD reeval, aware of plan of care.
[2023-12-26 11:13] VITALS: BP 135/82; PULSE 76; RESP 18; TEMP 36.9; O2SAT 98
== END 2023-12-26 11:14 | disposition home or self-care (01) ==
PROVIDERS: Nurse Practitioner Family; Emergency Provider Student in an Organized Health Care Education/Training Program; PCP Internal Medicine
DX: M47.816 Spondylosis without myelopathy or radiculopathy, lumbar region (principal); M54.50 Low back pain, unspecified; Z79.899 Other long term (current) drug therapy
CPT/HCPCS: 72100; 81001; 87086; 96372; 99284; J1885

== ENCOUNTER 2024-01-05 10:40 | Outpatient (AMB) | payer OTHER, SELFPAY ==
--- NOTE | 2024-01-05 10:40 | A.OFFVIS_ITS ---
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 Accompanied by: Daughter Allergies atorvastatin Allergy (Mild, Verified 01/05/24 11:07) stomach upset Medication List - Last Reconciled 01/05/24 by ISAÍAS Velez bisacodyl (Dulcolax (bisacodyl)) 20 mg (4 x 5 mg) PO ONCE PRN 1 day cholecalciferol (vitamin D3) 125 mcg PO DAILY cyclobenzaprine 5 mg PO TID PRN glimepiride 2 mg PO DAILY 90 days Grab bar As directed metformin 1,000 mg PO BID 90 days omeprazole 20 mg PO DAILY PRN 90 days polyethylene glycol 3350 (Miralax) 238 grams PO ONCE PRN 1 day trazodone 50 mg PO BEDTIME PRN 30 days HPI Comments Details: Amira is a very pleasant 63-year-old Bahraini-speaking female patient of Dr. Kings Mcgee who was accompanied by her daughter at today's telehealth visit. She has a past medical history of hypersomnia, vertigo, insomnia, dyslipidemia, and diabetes. She is being followed up on today for her bilateral renal cysts. Most recent renal imaging results reviewed with the patient and her daughter today. Bilateral kidneys with no nephrolithiasis or hydronephrosis. Bilateral benign simple appearing renal cysts. No follow-up imaging recommended per radiology report. In discussion with the patient today she reports to be doing and feeling well. She reports at times noting herself to have concentrated urine and feels it smells however denies a foul odor. She otherwise denies urinary urgency, urinary frequency, incontinence, nocturia, hematuria, dysuria, foul smelling urine, changes to urinary stream, flank pain, fever, and or chills. She is happy with her current voiding parameters. She otherwise offers no other issues or concerns at this time. [facility] Medical History Hypersomnia Snoring Vertigo Class 1 obesity with body mass index (BMI) of 33.0 to 33.9 in adult Insomnia Dyslipidemia Chronic cough Thoracic spine pain Hand numbness Left hand pain Rash and nonspecific skin eruption Diabetes Surgical History History of hysterectomy History of colonoscopy Family History Father No problems noted. Mother History of diabetes mellitus, type I Social History Household Members: None Housing: Apartment Do you presently have visiting nurse or other home services: Yes Alcohol intake: current Alcohol intake frequency: does not drink Alcohol type: beer Patient Tobacco Use Status: Never used Tobacco e-Cigarette/Vaping Use: Never Used Second Hand Smoke Exposure: No service: No Current occupational status: unemployed and disabled Current occupation: rt handed Cognitive needs: No Hearing needs: No Vision needs: Yes Review of Systems Const Reports as per HPI Eyes Reports no additional complaints ENT Reports as per HPI Card Reports no additional complaints Resp Reports no additional complaints GI Reports no additional complaints Reports as per HPI Musc Reports no additional complaints Neuro Reports no additional complaints Psych Reports no additional complaints Endo Reports no additional complaints Juan/Lymph Reports no additional complaints Aller/Immun Reports no additional complaints Physical Exam Const General: cooperative, healthy appearing, comfortable, no acute distress, well developed, alert and awake Orientation/consciousness: patient oriented x3 Resp Effort & Inspection: normal respiratory effort and able to speak in complete sentences Neuro General: patient oriented x3 Psych Appearance: grossly normal and well kempt Mental Status: mental status grossly normal Speech and movement: Normal speech and movement present and Clear speech present Affect: normal affect Attitude: cooperative Thought process: Normal thought process present Thought content: Normal thought content present Insight: Fair insight present (Psych) Judgement: Fair judgement present (Psych) Telehealth Telehealth Telehealth Platform: [facility] Location of provider rendering services: practice address Location of patient: address on file Patient Identification confirmed using: Name, : Yes Telehealth method: video Patient verbally consented to treatment: Yes Patient verbally consented to billing insurance company: Yes Patient informed of any privacy concerns related to visit: Yes Minutes spent on Phone/Video with Pt.: 15 Results Reviewed Results Reviewed: Date of Service: 10/28/23 Procedure(s): US renal BI FINDINGS: RIGHT KIDNEY: 11.3 x 5.3 x 4.5 cm (SAG x AP x TRV). The kidney is normal in size, contour, and echogenicity. Renal cortical thickness is normal. No renal calculi or hydronephrosis. Multiple right renal cystic foci are noted the largest in the lower pole measuring up to 2.3 cm, simple appearing, not requiring follow-up. Right extrarenal pelvis. LEFT KIDNEY: 11.1 x 5.7 x 4.3 cm (SAG x AP x TRV). The kidney is normal in size, contour, and echogenicity. Renal cortical thickness is normal. No renal calculi or hydronephrosis. Multiple left renal cystic foci are noted the largest in the lower pole measuring 2.0 cm, simple appearing, not requiring follow-up. Left extrarenal pelvis. IMPRESSION: 1. No nephrolithiasis or hydronephrosis. 2. Bilateral simple appearing renal cystic foci the largest measuring up to 2.3 cm, which do not require follow-up. Assessment & Plan Assessment & Plan (1) Bilateral renal cysts: Code(s): N28.1 - Cyst of kidney, acquired Category: Medical Plan Recent renal imaging results reviewed with the patient today; as noted above. Discussed, stressed, and educated on the importance of drinking plenty of water daily. Discussed potential causes of renal cysts and further treatment options; will continue with surveillance monitoring at this time. Discussed and stressed the importance of managing diabetes for overall health and well-being. Follow-up in 3 months with [facility]; or sooner with any issues, concerns, and or questions. Patient Instructions: The patient had an opportunity to ask questions regarding the treatment plan. All questions were answered. Physical exam, labs, and imaging were discussed and reviewed in detail. As well as risks, benefits, and discussion of treatment choices. No major barriers to understanding were identified. The patient expressed understanding and agreement with the above treatment plan. The patient was made aware they should contact our office by phone for worsening of their current condition, the appearance of new symptoms, or with any questions or concerns. Compliance is encouraged with any medications and follow up testing that is ordered. It is a privilege to be allowed the opportunity to participate in? your urological care.? Again, if you have any questions or concerns If you have any questions or concerns please do not hesitate to contact me. The office is [phone]. This note is constructed using voice recognition software. While every effort has been made to ensure accuracy tactical debriefer officer errors may have been included. Yours sincerely, Arabella Levine, [employer] Coding Level of Care Code Tele Est Pt Level 3 (73165) Diagnoses Bilateral renal cysts N28.1
== END 2024-01-05 11:10 | disposition home or self-care (01) ==
LOC: HO.HUSH 10:40
PROVIDERS: PCP Internal Medicine; Visit Provider Nurse Practitioner Family
DX: N28.1 Cyst of kidney, acquired (principal)
CPT/HCPCS: 99213

== ENCOUNTER → 2024-01-05 10:40 | Outpatient (BNVA) | payer OTHER, SELFPAY | PROVIDERS: PCP Internal Medicine; Visit Provider Nurse Practitioner Family ==

== ENCOUNTER 2024-02-18 09:22 | Outpatient (REF) | payer OTHER, SELFPAY ==
[2024-02-18 09:46] LABS: MANUAL DIFF FLAG NO
[2024-02-18 10:40] LABS: Basophils Absolute Auto 0.1 X10*3/uL (0.0-0.2); Basophils Percent Auto 0.9 % (0-2); Eosinophils Absolute Auto 0.2 X10*3/uL (0.0-0.4); Eosinophils Percent Auto 3.3 % (0-4); Hematocrit 37.9 % (37.0-47.0); Hemoglobin 12.7 g/dl (12.0-16.0); Imm Gran Abs Auto 0.02 X10*3/uL (0.00-0.03); Imm Gran Pct Auto 0.4 % (0.0-0.4); Lymphocytes Absolute Auto 1.5 X10*3/uL (1.2-4.9); Lymphocytes Percent Auto 27.3 % (20-40); Mean Corpuscular HGB Conc 33.5 g/dl (31.0-35.0); Mean Corpuscular Hemoglobin 30.8 pg (27.0-33.0); Mean Platelet Volume 9.9 fL (9.4-12.3); Monocytes Absolute Auto 0.6 X10*3/uL (0.1-1.2); Monocytes Percent Auto 10.4 % (2-11); Neutrophils Absolute Auto 3.2 x10*3/uL (2.0-8.3); Neutrophils Percent Auto 57.7 % (45-73); Platelet Count 266 X10*3/uL (160-400); Red Blood Count 4.12 X10*6/uL (4.20-5.50); Red Cell Distribution Width 13.1 % (11.0-16.0); White Blood Count 5.5 X10*3/uL (4.8-10.8)
[2024-02-18 11:13] LABS: Alanine Aminotransferase 11 U/L (0-31); Alkaline Phosphatase 76 U/L (39-117); Anion Gap 12 (12-20); Aspartate Amino Transferase 18 U/L (5-31); Bilirubin Total 0.5 mg/dL (0.0-1.0); Blood Urea Nitrogen 14 mg/dL (9-16); Calcium 9.4 mg/dL (8.4-10.2); Carbon Dioxide 24 mmol/L (22-29); Chloride 107 mmol/L (96-108); Cholesterol 195 mg/dL (<200); Estimated Glomerular Filt Rate > 60; Glucose Fasting 131 mg/dL (60-99); HDL Cholesterol 44 mg/dL (>40); Iron 118 mcg/dL (30-160); LDL Cholesterol Calculated 127 mg/dL (<100); Percent Iron Saturation 46 % (15-50); Potassium 4.4 mmol/L (3.3-5.1); Sodium 139 mmol/L (135-145); Total Iron Binding Capacity 259 mcg/dL (228-428); Total Protein 7.3 g/dL (6.5-8.0); Triglycerides 120 mg/dL (<150); Unsaturated Iron Binding 141 ug/dL
[2024-02-18 11:17] LABS: Vitamin D 25-OH Total 55.1 ng/mL (>30)
[2024-02-18 11:18] LABS: Creatinine Urine 135.14 mg/dL
== END 2024-02-18 09:23 | disposition home or self-care (01) ==
LOC: HO.LAB 09:22
PROVIDERS: PCP Internal Medicine; Visit Provider Internal Medicine
DX: E78.5 Hyperlipidemia, unspecified (principal); E11.9 Type 2 diabetes mellitus without complications; E55.9 Vitamin D deficiency, unspecified; D64.9 Anemia, unspecified
CPT/HCPCS: 36415; 80053; 80061; 82043; 82306; 82570; 83540; 85025

== ENCOUNTER 2024-02-26 09:42 | Outpatient (AMB) | payer OTHER, SELFPAY ==
--- NOTE | 2024-02-26 09:51 | MHC.PC.OV ---
Vital Signs 02/26/24 09:57 Height 5 ft 2 in Weight 179 lb 2 oz BMI 32.8 BP 118/70 Blood Pressure Location Lt brachial Position Sitting Pulse 66 Pulse Source Pulse Oximeter Pulse Oximetry (%) 96 Oxygen Delivery Method Room Air Intake Visit Reasons: dm Logistics Administrator Required: No Accompanied by: Self / Same As Patient Allergies atorvastatin Allergy (Mild, Verified 02/26/24 09:58) stomach upset Medication List - Last Reconciled 02/26/24 by Delores Mcgee MD bisacodyl (Dulcolax (bisacodyl)) 20 mg (4 x 5 mg) PO ONCE PRN 1 day cholecalciferol (vitamin D3) 125 mcg PO DAILY cyclobenzaprine 5 mg PO TID PRN glimepiride 2 mg PO DAILY 90 days Grab bar As directed metformin 1,000 mg PO BID 90 days omeprazole 20 mg PO DAILY PRN 90 days polyethylene glycol 3350 (Miralax) 238 grams PO ONCE PRN 1 day trazodone 50 mg PO BEDTIME PRN 30 days Tobacco use date assessed: 10/22/23 Dental Screening Dental Screen Date: 10/22/23 HPI HPI Comments History of Present Illness Details This is a 63-year-old female with diabetes mellitus type 2, hyperlipidemia, chronic GERD and lumbar degenerative disc disease that comes today for follow-up on her conditions. A1c within goal. LDL not on goal and I will start her on rosuvastatin. GERD has been stable with PPIs. X-ray shows moderate to severe lumbar degenerative disc disease and I will refer her to pain management because she still has back pain. She complains of dysuria and urinalysis was done in office. [facility] Medical History Hypersomnia Snoring Vertigo Class 1 obesity with body mass index (BMI) of 33.0 to 33.9 in adult Insomnia Dyslipidemia Chronic cough Thoracic spine pain Hand numbness Left hand pain Rash and nonspecific skin eruption Diabetes Surgical History History of hysterectomy History of colonoscopy Family History Father No problems noted. Mother History of diabetes mellitus, type I Social History (Updated 02/26/24 @ 10:01 by Delores Mcgee MD) Household Members: None Housing: Apartment Do you presently have visiting nurse or other home services: Yes Alcohol intake: current Alcohol intake frequency: holidays/special occasions only Alcohol type: beer Patient Tobacco Use Status: Never used Tobacco e-Cigarette/Vaping Use: Never Used Second Hand Smoke Exposure: No service: No Current occupational status: unemployed and disabled Current occupation: rt handed Cognitive needs: No Hearing needs: No Vision needs: Yes Questionnaire Thrive Questionnaire Date Thrive assessed: 10/22/23 CHAVA-7 AMB Questionnaire CHAVA-7 Date CHAVA - 7 assessed: 10/22/23 Source: Developed by Drs. Jamie Zuniga, Kaylee Donahue, Chung Hirsch and colleagues, with an educational kavon from [employer]. Review of Systems Const All systems reviewed & are unremarkable except as noted in HPI and below Card Denies chest pain at rest, Denies chest pain with activity, Denies edema, Denies irregular heart rhythm, Denies claudication, Denies dyspnea, Denies dyspnea on exertion, Denies orthopnea, Denies paroxysmal nocturnal dyspnea and Denies slow heart rate Resp Denies cough, Denies dyspnea and Denies dyspnea on exertion GI Denies abdominal pain, Denies change in bowel habits, Denies excessive flatus, Denies nausea and Denies vomiting Reports urinary urgency Musc Reports back pain Physical exam (Primary Care) Vital Signs: Last Vital Signs Pulse 66 02/26/24 09:57 BP 118/70 02/26/24 09:57 Pulse Ox 96 02/26/24 09:57 Oxygen Delivery Method Room Air 02/26/24 09:57 BMI result Body Mass Index 32.8 Tobacco/Smoking Status: Tobacco use Status Tobacco use date assessed 10/22/23 02/26/24 09:52 Patient Tobacco Use Status Never used Tobacco 02/26/24 10:01 e-Cigarette/Vaping Use Never Used 02/26/24 10:01 Thrive Assessment: Date of Thrive Assessment Date Thrive assessed 10/22/23 02/26/24 09:52 Resp Effort & Inspection: normal respiratory effort Auscultation: clear to auscultation bilaterally Cardio Jugular venous distension: no JVD Rate: regular rate Rhythm: regular rhythm Heart sounds: S1 normal heart sound present and S2 normal heart sound present Extrem General: Yes full ROM Results AMB Hemoglobin A1c AMB Hemoglobin A1c 6.8 % Last Edit by DREW Robles on 02/26/24 10:08 AMB Urinalysis, Automated UA Leukoctes 70 [place]alka/uL Last Edit by DREW Robles on 02/26/24 10:26 UA Nitrite Negative Last Edit by DREW Robles on 02/26/24 10:26 UA Urobilinogen 0 mg/dL Last Edit by DREW Robles on 02/26/24 10:26 UA Protein 0 mg/dL Last Edit by DREW Robles on 02/26/24 10:26 UA pH 6.0 Last Edit by DREW Robles on 02/26/24 10:26 UA Blood 25 Mehul/uL Last Edit by DREW Robles on 02/26/24 10:26 UA Specific [place] 1.025 Last Edit by DREW Robles on 02/26/24 10:26 UA Ketone Negative Last Edit by DREW Robles on 02/26/24 10:26 UA Bilirubin 0 mg/dL Last Edit by DREW Robles on 02/26/24 10:26 UA Glucose 0 mg/dL Last Edit by DREW Robles on 02/26/24 10:26 Results Reviewed Results Reviewed: Laboratory Last Values Hgb A1c (Clinic) 6.8 % (4.0-6.0) H 02/26/24 09:45 Urine pH (Auto) 6.0 02/26/24 10:09 Specific [place] (Auto) 1.025 02/26/24 10:09 Urine Protein (Auto) 0 mg/dL 02/26/24 10:09 Glucose (UA)(Auto) 0 mg/dL 02/26/24 10:09 Urine Ketones (Auto) Negative 02/26/24 10:09 Urine Blood (Auto) 25 Mehul/uL 02/26/24 10:09 Urine Nitrite (Auto) Negative 02/26/24 10:09 Urine Bilirubin (Auto) 0 mg/dL 02/26/24 10:09 Urine Urobilinogen (Auto) 0 mg/dL 02/26/24 10:09 Leukocyte Esterase (Auto) 70 [place]/uL 02/26/24 10:09 Assessment and Plan Assessment & Plan (1) Diabetes mellitus, without long-term current use of insulin: Code(s): E11.9 - Type 2 diabetes mellitus without complications Qualifiers: Diabetes mellitus complication status: without complication Diabetes mellitus type: type 2 Qualified Code(s): E11.9 - Type 2 diabetes mellitus without complications Plan: Continue metformin and glimepiride. A1c goal is equal or less than 7%. (2) Hyperlipidemia LDL goal <70: Code(s): E78.5 - Hyperlipidemia, unspecified Plan: Start rosuvastatin at bedtime. LDL goal is less than 70. (3) Chronic GERD: Code(s): K21.9 - Gastro-esophageal reflux disease without esophagitis Plan: Continue PPIs. (4) Lumbar degenerative disc disease: Code(s): M51.36 - Other intervertebral disc degeneration, lumbar region Plan: Referred to pain management. Orders: Orders Comprehensive [place]. Panel Fast 4 Months E11.9 - Type 2 diabetes mellitus without complications Urine Culture Today R30.0 - Dysuria AMB Hemoglobin A1c Today E11.9 - Type 2 diabetes mellitus without complications Lipid Panel 4 Months E78.5 - Hyperlipidemia, unspecified Microalbumin, Random (w Creat) 4 Months E11.9 - Type 2 diabetes mellitus without complications AMB Urinalysis Automated Today R30.0 - Dysuria Referrals Pain Management Referral M51.36 - Other intervertebral disc degeneration, lumbar region Medications: New rosuvastatin 20 mg PO DAILY 90 tabs 1RF 90 days E78.5 - Hyperlipidemia, unspecified nitrofurantoin macrocrystal must administer with a meal/food 100 mg PO BID 10 caps 0RF 5 days Coding Level of Care Code Est Pt Level 4 (06062) Complex EM visit Add On G2211 Diagnoses Type 2 diabetes mellitus without complication, without long-term current use of insulin E11.9 Diabetes mellitus complication status: without complication Diabetes mellitus type: type 2 Hyperlipidemia LDL goal <70 E78.5 Chronic GERD K21.9 Lumbar degenerative disc disease M51.36 Time Spent (min) 22
[2024-02-26 09:57] VITALS: BP 118/70; PULSE 66; O2SAT 96; BMI 32.8
== END 2024-02-26 10:13 | disposition home or self-care (01) ==
PROVIDERS: PCP Internal Medicine; Visit Provider Internal Medicine
DX: E11.69 Type 2 diabetes mellitus with other specified complication (principal); E78.5 Hyperlipidemia, unspecified; K21.9 Gastro-esophageal reflux disease without esophagitis; M51.36 Other intervertebral disc degeneration, lumbar region; R30.0 Dysuria
CPT/HCPCS: 81003; 83036; 99214; G2211

== ENCOUNTER 2024-02-26 10:20 | Outpatient (REF) | payer OTHER, SELFPAY | END 2024-02-26 10:21 | disposition home or self-care (01) | LOC: HO.LAB 10:20 | PROVIDERS: Visit Provider Internal Medicine | DX: R30.0 Dysuria (principal) | CPT/HCPCS: 87086 ==

== ENCOUNTER 2024-07-06 01:43 | Emergency (ER) | payer OTHER, SELFPAY ==
--- NOTE | ~2024-07-06 | CT_ITS ---
EXAMINATION: CT ABDOMEN AND PELVIS WITH CONTRAST CLINICAL INFORMATION: Left lower quadrant pain. History of diverticulitis. COMPARISON: CT abdomen pelvis 09/19/2023. TECHNIQUE: Multidetector volumetric images were obtained from the superior aspect of the liver through the pubic symphysis following administration 85 mL of Omnipaque 350 intravenous contrast. Sagittal and coronal reformatted images were obtained on the technologist's workstation. Oral contrast: No This CT examination was performed using dose optimization techniques as appropriate, variously including the following: *Automated exposure control *Adjustment of mA and/or kV according to patient size (this includes techniques or standardized protocols for targeted exams where dose is matched to indication/reason for exam; i.e. extremities or head) *Use of iterative reconstruction technique DLP: 617 mGy-cm FINDINGS: LUNG BASES: The visualized lung bases are unremarkable. LIVER, GALLBLADDER, AND BILIARY TREE: The liver is normal in size, shape, and attenuation. No focal hepatic lesion or biliary ductal dilatation is present. The gallbladder is unremarkable with no evidence of radiopaque gallstones, gallbladder wall thickening, or obvious pericholecystic inflammatory changes. PANCREAS: Atrophy/dysplasia of the distal body of the pancreas is noted. SPLEEN: Unremarkable. ADRENAL GLANDS: Unremarkable. KIDNEYS AND URETERS: Multiple parapelvic and parenchymal benign-appearing rounded low-density foci consistent with simple cysts are present and more no additional imaging follow-up on the basis of this exam. BLADDER: Unremarkable. GASTROINTESTINAL TRACT: Moderate sigmoid diverticulosis is present. Focal inflammatory changes are present in the middle segment of the sigmoid colon and extending into the adjacent sigmoid mesentery. No free intraperitoneal fluid or gas collections are identified. Normal appearance of the appendix. No intestinal dilatation visualized. Normal appearance of the stomach and duodenum. ABDOMINAL WALL: No significant hernia is appreciated. LYMPH NODES: Normal. VASCULAR: Mild scattered calcific atherosclerosis. PELVIC VISCERA: The uterus is either hypoplastic or surgically absent with sparing of the cervix. No adnexal lesions noted. OSSEOUS STRUCTURES: No suspicious skeletal lesions noted. CT/CT abdomen pelvis w IV con IMPRESSION: *Acute uncomplicated diverticulitis. Moderate sigmoid diverticulosis and focal inflammatory changes of the middle segment of the sigmoid colon consistent with diverticulitis. No evidence of perforation. No free intraperitoneal fluid or gas collections. Electronically signed by: Cristobal Billingsley MD 07/06/2024 07:24 AM EST RP
[2024-07-06 02:14] VITALS: BP 137/62; PULSE 72; RESP 16; TEMP 36.7; O2SAT 96; BMI 26.9
--- NOTE | 2024-07-06 02:31 | MHC.EDTECH ---
Patient brought into triage area,labs and urine obtained and sent to lab
[2024-07-06 02:40] LABS: Basophils Percent Auto 0.4 % (0-2); Eosinophils Absolute Auto 0.2 X10*3/uL (0.0-0.4); Eosinophils Percent Auto 1.8 % (0-4); Hematocrit 34.9 % (37.0-47.0); Hemoglobin 12.1 g/dl (12.0-16.0); Imm Gran Abs Auto 0.04 X10*3/uL (0.00-0.03); Imm Gran Pct Auto 0.4 % (0.0-0.4); Lymphocytes Absolute Auto 2.9 X10*3/uL (1.2-4.9); Lymphocytes Percent Auto 27.8 % (20-40); MANUAL DIFF FLAG NO; Mean Corpuscular HGB Conc 34.7 g/dl (31.0-35.0); Mean Corpuscular Hemoglobin 31.5 pg (27.0-33.0); Mean Corpuscular Volume 90.9 fL (80.0-98.0); Mean Platelet Volume 9.5 fL (9.4-12.3); Monocytes Percent Auto 9.2 % (2-11); Neutrophils Absolute Auto 6.2 x10*3/uL (2.0-8.3); Neutrophils Percent Auto 60.4 % (45-73); Platelet Count 236 X10*3/uL (160-400); Red Blood Count 3.84 X10*6/uL (4.20-5.50); Red Cell Distribution Width 12.7 % (11.0-16.0); White Blood Count 10.3 X10*3/uL (4.8-10.8)
[2024-07-06 02:42] LABS: Appearance Urine Clear; Color Urine Yellow; Glucose Urine UA Negative (Negative); Leukocyte Esterase Urine Trace (Negative); Nitrite Urine Negative (Negative); PH 5.5 (5.0-9.0); Specific Gravity - Urine 1.015 (1.005-1.025); UMIC TRIGGER UACC YES; Urine Blood Small (1+) (Negative); Urine Ketones Negative (Negative); Urine Protein Negative (Neg-Trace)
[2024-07-06 02:44] LABS: UPreg QC Valid YES; Urine Pregnancy NEGATIVE (NEGATIVE)
[2024-07-06 02:53] LABS: Alanine Aminotransferase 14 U/L (0-31); Albumin Level 4.1 g/dL (3.5-5.0); Alkaline Phosphatase 76 U/L (39-117); Anion Gap 14 (12-20); Aspartate Amino Transferase 20 U/L (5-31); Bilirubin Total 0.6 mg/dL (0.0-1.0); Blood Urea Nitrogen 17 mg/dL (9-16); Calcium 9.3 mg/dL (8.4-10.2); Carbon Dioxide 23 mmol/L (22-29); Chloride 107 mmol/L (96-108); Creatinine Clr Calc Pharmacy 66.1; Estimated Glomerular Filt Rate > 60; Glucose Random 122 mg/dL (60-115); Potassium 3.7 mmol/L (3.3-5.1); Sodium 140 mmol/L (135-145)
[2024-07-06 03:12] LABS: Bacteria Urine None Seen (None Seen); Hyaline Casts Urine 0-2 /LPF (0-2); RBC Urine 0-2 /HPF (0-2); Squamous Epithelial Cell Urine 0-2 /HPF (0-2); WBC Urine 0-5 /HPF (0-5)
--- NOTE | 2024-07-06 04:46 | ED.ABDPAIN ---
HPI - Abdominal Pain General Chief Complaint: Abdominal Pain Stated Complaint: abd and back pain Time Seen by Provider: 07/06/24 04:46 Source: patient Mode of arrival: ambulatory Limitations: no limitations History of Present Illness ED Provider: stephen ABBASI narrative: Patient's history of diverticulitis with abscess in 09/2023 comes here with left lower quadrant pain for last 2 days getting worse on ambulation does not feel hungry no fever no chills no blood in his stool Related Data Previous Rx's ?Medication ?Instructions ?Recorded Grab bar #1 ea 12/13/22 bisacodyl 5 mg tablet,delayed 20 mg (4 x 5 mg) PO ONCE PRN 10/08/23 release (Dulcolax (bisacodyl)) colonoscopy prep 1 day #4 tabs polyethylene glycol 3350 17 238 g PO ONCE PRN laxative effect 10/08/23 gram/dose oral powder (Miralax) 1 day #238 grams omeprazole 20 mg capsule,delayed 20 mg PO DAILY PRN heartburn 90 10/22/23 release days #90 caps cholecalciferol (vitamin D3) 125 125 mcg PO DAILY #30 caps 11/27/23 mcg (5,000 unit) capsule metformin 1,000 mg tablet 1,000 mg PO BID 90 days #180 tabs 12/05/23 glimepiride 2 mg tablet 2 mg PO DAILY 90 days #90 tabs 12/08/23 cyclobenzaprine 5 mg tablet 5 mg PO TID PRN muscle spasm #20 12/26/23 tabs trazodone 50 mg tablet 50 mg PO BEDTIME PRN sleep 30 days 01/06/24 #30 tabs nitrofurantoin macrocrystal 100 mg 100 mg PO BID 5 days #10 caps 02/26/24 capsule ezetimibe 10 mg tablet 10 mg PO DAILY 90 days #90 tabs 06/05/24 ciprofloxacin HCl 500 mg tablet 500 mg PO BID #20 tabs 07/06/24 (Cipro) metronidazole 500 mg tablet 500 mg PO TID #30 tabs 07/06/24 oxycodone 5 mg tablet 5 mg PO Q6H PRN pain #20 tabs 07/06/24 Allergies Allergy/AdvReac Type Severity Reaction Status Date / Time atorvastatin Allergy Mild stomach Verified 07/06/24 02:15 upset PMFSH Past Medical History Medical History Hypersomnia Snoring Vertigo Class 1 obesity with body mass index (BMI) of 33.0 to 33.9 in adult Insomnia Dyslipidemia Chronic cough Thoracic spine pain Hand numbness Left hand pain Rash and nonspecific skin eruption Diabetes Surgical History History of hysterectomy History of colonoscopy Family History Family History Father No problems noted. Mother History of diabetes mellitus, type I Social History Social History (Updated 02/26/24 @ 10:01 by Delores Mcgee MD) Household Members: None Housing: Apartment Do you presently have visiting nurse or other home services: Yes Alcohol intake: current Alcohol intake frequency: holidays/special occasions only Alcohol type: beer Patient Tobacco Use Status: Never used Tobacco Smoked in Last 30 Days: No e-Cigarette/Vaping Use: Never Used Second Hand Smoke Exposure: No Use of substances other than those prescribed or required for medical reasons: No Advance Directives: No Advance Directives Information Provided: Yes Patient : No service: No Current occupational status: unemployed and disabled Current occupation: rt handed Cognitive needs: No Hearing needs: No Vision needs: Yes Physical Exam ED Vital Signs: Vital Signs - 24 hr 07/06/24 02:14 Temperature 98.0 F Pulse Rate 72 Respiratory Rate 16 Blood Pressure 137/62 Pulse Oximetry 96 Oxygen Delivery Method Room Air BMI result Body Mass Index 26.9 Medical Decision Making Medical Decision Making [facility] Narrative: Patient with uncomplicated acute diverticulitis without any abscess or free air CT scan report is pending will give IV Zosyn patient feeling much better at this time plan to discharge home on Cipro and Flagyl pending CT scan report CT scan report with uncomplicated diverticulitis patient feeling much better will discharge patient home on Cipro and Flagyl Differential Diagnosis Differential Diagnoses: The differential diagnosis associated with the presentation includes Diverticulitis/abscess Admission/Observation Consideration of admission/observation: Escalation of care including admission/observation considered Lab Data [facility] Lab Attestation statement: I reviewed the patient's lab results. 07/06/24 02:30 07/06/24 02:30 Labs: Lab Results 07/06/24 Range/Units 02:30 WBC 10.3 (4.8-10.8) X10*3/uL RBC 3.84 L (4.20-5.50) X10*6/uL Hgb 12.1 (12.0-16.0) g/dl Hct 34.9 L (37.0-47.0) % MCV 90.9 (80.0-98.0) fL MCH 31.5 (27.0-33.0) pg MCHC 34.7 (31.0-35.0) g/dl RDW 12.7 (11.0-16.0) % Plt Count 236 (160-400) X10*3/uL MPV 9.5 (9.4-12.3) fL Immature Gran % (Auto) 0.4 (0.0-0.4) % Neut % (Auto) 60.4 (45-73) % Lymph % (Auto) 27.8 (20-40) % [place] % (Auto) 9.2 (2-11) % Eos % (Auto) 1.8 (0-4) % Baso % (Auto) 0.4 (0-2) % Lymph # (Auto) 2.9 (1.2-4.9) X10*3/uL [place] # (Auto) 1.0 (0.1-1.2) X10*3/uL Eos # (Auto) 0.2 (0.0-0.4) X10*3/uL Baso # (Auto) 0.0 (0.0-0.2) X10*3/uL Abs Immat Gran (auto) 0.04 H (0.00-0.03) X10*3/uL Absolute Neuts (auto) 6.2 (2.0-8.3) x10*3/uL Absolute Nucleated RBC 0.000 (0.0-0.012) X10*3/uL Nucleated RBC % (auto) 0.0 (0.0-0.2) /100WBC Sodium 140 (135-145) mmol/L Potassium 3.7 (3.3-5.1) mmol/L Chloride 107 (96-108) mmol/L Carbon Dioxide 23 (22-29) mmol/L Anion Gap 14 (12-20) BUN 17 H (9-16) mg/dL Creatinine 0.78 (0.5-1.4) mg/dL Estim Creat Clear Calc 66.1 Estimated GFR > 60 Random Glucose 122 H (60-115) mg/dL Calcium 9.3 (8.4-10.2) mg/dL Total Bilirubin 0.6 (0.0-1.0) mg/dL AST 20 (5-31) U/L ALT 14 (0-31) U/L Alkaline Phosphatase 76 (39-117) U/L Total Protein 7.0 (6.5-8.0) g/dL Albumin 4.1 (3.5-5.0) g/dL Urine Color Yellow Urine Appearance Clear Urine pH 5.5 (5.0-9.0) Ur Specific [place] 1.015 (1.005-1.025) Urine Protein Negative (Neg-Trace) mg/dL Urine Glucose (UA) Negative (Negative) mg/dL Urine Ketones Negative (Negative) mg/dL Urine Blood Small (1+) H (Negative) Urine Nitrite Negative (Negative) Ur Leukocyte Esterase Trace H (Negative) Urine RBC 0-2 (0-2) /HPF Urine WBC 0-5 (0-5) /HPF Ur Squamous Epith Cells 0-2 (0-2) /HPF Urine Bacteria None Seen (None Seen) Hyaline Casts 0-2 (0-2) /LPF Urine Test NEGATIVE (NEGATIVE) Radiology Impression Discussion of test interpretation with radiology: I have reviewed the radiologist's reading. Radiologist Impression: CT/CT abdomen pelvis w IV con IMPRESSION: *Acute uncomplicated diverticulitis. Moderate sigmoid diverticulosis and focal inflammatory changes of the middle segment of the sigmoid colon consistent with diverticulitis. No evidence of perforation. No free intraperitoneal fluid or gas collections. Electronically signed by: Cristobal Billingsley MD 07/06/2024 07:24 AM [facility] [place] Medications Administered Discontinued Medications Generic Name Dose Route Start Last Admin Trade Name Freq PRN Reason Stop Dose Admin Sodium Chloride 1,000 mls @ 999 mls/hr 07/06/24 04:47 07/06/24 06:07 Ns IV 07/06/24 05:47 Infused .Q1H1M ONE Infusion Iohexol 85 ml 07/06/24 05:28 07/06/24 05:28 Iohexol 350 Mg/Ml 100 Ml Infus..Btl IV 07/06/24 05:29 85 ml ONCE ONE Administration Discharge Plan Discharge Clinical Impression: Acute diverticulitis Patient Disposition: Home, Self-Care Instructions: Diverticulitis (ED) Additional Instructions: Take antibiotic as prescribed Pain medication as prescribed Clear liquids advanced slowly as tolerated Report to the ER if worsening of the abdominal pain Prescriptions: New ciprofloxacin HCl [Cipro] 500 mg tablet 500 mg PO BID Qty: 20 0RF metronidazole 500 mg tablet 500 mg PO TID Qty: 30 0RF oxycodone 5 mg tablet 5 mg PO Q6H PRN (Reason: pain) Qty: 20 0RF Rx Instructions: Partial Fill upon patient request. No Action (DME) Grab demetris Misc See Rx Instructions .Route Qty: 1 0RF Rx Instructions: As directed cholecalciferol (vitamin D3) 125 mcg (5,000 unit) capsule 125 mcg PO DAILY Qty: 30 1RF metformin 1,000 mg tablet 1,000 mg PO BID 90 Days Qty: 180 1RF glimepiride 2 mg tablet 2 mg PO DAILY 90 Days Qty: 90 1RF trazodone 50 mg tablet 50 mg PO BEDTIME PRN (Reason: sleep) 30 Days Qty: 30 0RF ezetimibe 10 mg tablet 10 mg PO DAILY 90 Days Qty: 90 0RF cyclobenzaprine 5 mg tablet 5 mg PO TID PRN (Reason: muscle spasm) Qty: 20 0RF omeprazole 20 mg capsule,delayed release(DR/EC) 20 mg PO DAILY PRN (Reason: heartburn) 90 Days Qty: 90 1RF nitrofurantoin macrocrystal 100 mg capsule 100 mg PO BID 5 Days Qty: 10 0RF Rx Instructions: must administer with a meal/food bisacodyl [Dulcolax (bisacodyl)] 5 mg tablet,delayed release (DR/EC) 20 mg PO ONCE PRN (Reason: colonoscopy prep) 1 Days Qty: 4 0RF Rx Instructions: Day before procedure @ 12 noon Take 4 tablets by mouth followed by large glass of water polyethylene glycol 3350 [Miralax] 17 gram/dose powder 238 g PO ONCE PRN (Reason: laxative effect) 1 Days Qty: 238 0RF Rx Instructions: Take as directed by mouth the day before your procedure. Print Language: Faroese
[2024-07-06] MEDS: 0.9 % Sodium Chloride 1,000 ML 999 ML IV (05:13)
--- NOTE | 2024-07-06 05:15 | PC.NURSE ---
pt from home, a&ox4, respirations even and unlabored. pt reporting sudden onset of lower left sided abdominal pain, 05/27 starting today. pt denies n/v/d. pt reports normal bowel movements and denies any blood in stool. pt reports she has been recently been diagnosed with an infection of her bowels. 20G placed in right ac, fluids administered per oct.
[2024-07-06] MEDS: iohexoL 350 MG/ML 100 ML INFUS..BTL 85 ML IV (05:28)
--- NOTE | 2024-07-06 06:25 | PC.NURSE ---
pt ambulatory to bathroom with steady gait, no acute distress noted.
[2024-07-06] MEDS: Piperacillin Sodium/Tazobactam 3.375 GM in 0.9 % Sodium Chloride 50 ML IV (07:47)
[2024-07-06] MEDS: ondansetron HCL 4 MG/2 ML VIAL IVPUSH (07:47)
[2024-07-06] MEDS: Morphine Sulfate 4 MG/ML CARTRIDGE IVPUSH (07:47)
[2024-07-06 09:06] VITALS: BP 144/71; PULSE 76; RESP 15; TEMP 36.6; O2SAT 98
[2024-07-06 09:07] VITALS: BP 144/71; PULSE 76; RESP 15; TEMP 36.6; O2SAT 98
== END 2024-07-06 09:07 | disposition home or self-care (01) ==
PROVIDERS: Emergency Provider Internal Medicine; PCP Internal Medicine
DX: K57.32 Diverticulitis of large intestine without perforation or abscess without bleeding (principal); R10.32 Left lower quadrant pain; E11.9 Type 2 diabetes mellitus without complications; E78.5 Hyperlipidemia, unspecified; Z79.899 Other long term (current) drug therapy
CPT/HCPCS: 36415; 74177; 80053; 81001; 81025; 85025; 96361; 96374; 96375; 99284; J2270; J2405; J2543; Q9967

== ENCOUNTER 2024-08-12 06:06 | Emergency (ER) | payer OTHER, SELFPAY ==
[2024-08-12 06:12] VITALS: BP 144/67; PULSE 94; RESP 18; TEMP 37; O2SAT 97; BMI 32.3
--- NOTE | 2024-08-12 06:26 | PC.NURSE ---
warm pack given to pt and applied to upper back neck area. Pt is in tears, hotel staff member at bedside.
--- NOTE | 2024-08-12 06:57 | ECG_ITS ---
Test Reason : NECK PAIN RAD TO CHEST Blood Pressure : / mmHG Vent. Rate : 063 BPM Atrial Rate : 063 BPM P-R Int : 148 ms QRS Dur : 084 ms QT Int : 406 ms P-R-T Axes : 033 010 019 degrees QTc Int : 415 ms Normal sinus rhythm Normal ECG When compared with ECG of 29-OCT-2020 20:19, No significant change was found Referred By: Rukhsana Malone Electronically Signed By:Desmond Killian
[2024-08-12] MEDS: diazePAM 5 MG TABLET PO (07:03)
[2024-08-12] MEDS: Lidocaine 4 % Patch ADH..PATCH 1 PATCH TRANSDERMA (07:05)
--- NOTE | 2024-08-12 07:15 | ED.BACK ---
HPI - Back Pain/Injury General Chief Complaint: Back Pain/Injury Stated Complaint: back pain & goes up to back of head Time Seen by Provider: 08/12/24 06:31 Source: patient, RN notes reviewed and old records reviewed Mode of arrival: ambulatory History of Present Illness ED Provider: Rukhsana Malone PA-C HPI Narrative: 63-year-old female with a past medical history vertigo, HLD, diabetes, presenting to the ED complaining of atraumatic neck/upper back/shoulder pain x 4 days. Admits pain is intermittent. Denies known injury/trauma or fall. Admits took oxycodone at home without relief. Denies headache, lightheadedness/dizziness, vision change or loss, numbness, tingling, weakness, chest pain/shortness of breath Related Data Previous Rx's ?Medication ?Instructions ?Recorded Grab bar #1 ea 12/13/22 bisacodyl 5 mg tablet,delayed 20 mg (4 x 5 mg) PO ONCE PRN 10/08/23 release (Dulcolax (bisacodyl)) colonoscopy prep 1 day #4 tabs polyethylene glycol 3350 17 238 g PO ONCE PRN laxative effect 10/08/23 gram/dose oral powder (Miralax) 1 day #238 grams omeprazole 20 mg capsule,delayed 20 mg PO DAILY PRN heartburn 90 10/22/23 release days #90 caps cholecalciferol (vitamin D3) 125 125 mcg PO DAILY #30 caps 11/27/23 mcg (5,000 unit) capsule metformin 1,000 mg tablet 1,000 mg PO BID 90 days #180 tabs 12/05/23 glimepiride 2 mg tablet 2 mg PO DAILY 90 days #90 tabs 12/08/23 cyclobenzaprine 5 mg tablet 5 mg PO TID PRN muscle spasm #20 12/26/23 tabs trazodone 50 mg tablet 50 mg PO BEDTIME PRN sleep 30 days 01/06/24 #30 tabs nitrofurantoin macrocrystal 100 mg 100 mg PO BID 5 days #10 caps 02/26/24 capsule ezetimibe 10 mg tablet 10 mg PO DAILY 90 days #90 tabs 06/05/24 ciprofloxacin HCl 500 mg tablet 500 mg PO BID #20 tabs 07/06/24 (Cipro) metronidazole 500 mg tablet 500 mg PO TID #30 tabs 07/06/24 oxycodone 5 mg tablet 5 mg PO Q6H PRN pain #20 tabs 07/06/24 acetaminophen 500 mg tablet 500 mg PO Q6H PRN fever or pain 08/12/24 (Tylenol Extra Strength) #14 tabs cyclobenzaprine 5 mg tablet 5 mg PO Q8H PRN pain (scale score 08/12/24 7-10) 5 days #14 tabs lidocaine 5 % topical patch 1 patch topical DAILY PRN pain #30 08/12/24 (Lidoderm) ea naproxen 500 mg tablet 500 mg PO BID PRN pain 10 days #20 08/12/24 tabs Allergies Allergy/AdvReac Type Severity Reaction Status Date / Time atorvastatin Allergy Mild stomach Verified 08/12/24 06:15 upset Review of Systems Review of Systems: Yes all other systems are reviewed and are negative Constitutional: Constitutional: Reports as per HPI Neurologic: Denies Abnormal speech present [facility] Past Medical History Attestation statement: The following information was validated with the patient. Source: old records reviewed Medical History Hypersomnia Snoring Vertigo Class 1 obesity with body mass index (BMI) of 33.0 to 33.9 in adult Insomnia Dyslipidemia Chronic cough Thoracic spine pain Hand numbness Left hand pain Rash and nonspecific skin eruption Diabetes Surgical History History of hysterectomy History of colonoscopy Family History Family History Father No problems noted. Mother History of diabetes mellitus, type I Social History Social History Household Members: None Housing: Apartment Do you presently have visiting nurse or other home services: Yes Alcohol intake: never Patient Tobacco Use Status: Never used Tobacco Smoked in Last 30 Days: No e-Cigarette/Vaping Use: Never Used Second Hand Smoke Exposure: No Use of substances other than those prescribed or required for medical reasons: No Advance Directives: No Advance Directives Information Provided: Yes Do you have a plan to hurt others: No Plan Patient : No service: No Current occupational status: unemployed and disabled Current occupation: rt handed Cognitive needs: No Hearing needs: No Vision needs: Yes Physical Exam Vital Signs: Vital Signs: Last Vital Signs Temp 98.6 F 08/12/24 10:22 Pulse 94 08/12/24 10:22 Resp 18 08/12/24 10:22 BP 144/67 H 08/12/24 10:22 Pulse Ox 97 08/12/24 10:22 O2 Del Method Room Air 08/12/24 10:22 BMI result Body Mass Index 32.3 Const: Other: Tearful General: cooperative and no acute distress Orientation/consciousness: patient oriented x3 Limitations: no limitations HEENT: Head: Yes normal to inspection and Yes atraumatic Ears: hearing grossly normal bilaterally General nose exam: Normal external nose present Face and sinus: Yes normal facial exam Mouth: Normal oral and palatal mucosa present and no drooling Throat: Yes posterior oropharynx normal, Yes tonsils normal, Yes uvula midline, No peritonsillar mass and No uvular edema Eyes: General: appearance normal, both eyes and all related structures Pupils: Equal, round and reactive pupils present EOM: EOMs intact bilaterally Neck: Other: + right-sided cervical paraspinal and trapezius muscle reproducible tenderness. Limited ROM of neck secondary to pain. No meningeal signs Neck: Yes normal visual inspection, Yes no meningeal signs, Yes trachea midline and No anterior neck swelling Resp: Effort & Inspection: normal respiratory effort and no respiratory distress Auscultation: clear to auscultation bilaterally Cardio: Rate: regular rate Heart sounds: S1 normal heart sound present and S2 normal heart sound present GI: Inspection: Yes normal to inspection Palpation (GI): Soft to palpation, nontender, no guarding and not rigid : General: Yes no CVA tenderness Back/Spine/Pelvis: Other: No midline cervical/thoracic/lumbar spinous tenderness/step-off or deformity Back: no CVA tenderness Skin: Rashes: no rashes Wounds: no wounds Neuro: General: patient oriented x3, gait normal, tone normal, moves all extremities, no meningeal signs, no focal motor deficits and CN's II-XI intact bilaterally Cranial nerves: Yes CN's II-XII intact bilaterally, Yes Equal, round and reactive pupils present and Yes Bilaterally intact EOM present Cognition (Neuro): normal cognition Speech: No Abnormal speech present Gait exam (Neuro): Normal gait present Motor exam (neuro): 5/5 motor strength present throughout Extrem: General: Yes normal to inspection Course Course Course Narrative: -1010--on re-evaluation patient reports symptomatic improvement. Appears more comfortable. Feels safe for discharge home at this time Results discussed with patient including worrisome signs and symptoms and strict return precautions, and when to return to the emergency department. They verbalized understanding and feel safe for discharge at this time. Medications Administered Discontinued Medications Generic Name Dose Route Start Last Admin Trade Name Celso PRN Reason Stop Dose Admin Diazepam 5 mg 08/12/24 06:57 08/12/24 07:03 Diazepam 5 Mg Tablet PO 08/12/24 06:58 5 mg ONCE ONE Administration Ketorolac Tromethamine 30 mg 08/12/24 08:56 08/12/24 09:15 Ketorolac Tromethamine 30 Mg/Ml Vial IM 08/12/24 08:57 30 mg ONCE ONE Administration Lidocaine 1 patch 08/12/24 06:57 08/12/24 07:05 Lidocaine 4 % Patch Adh..Patch TRANSDERMA 08/12/24 06:58 1 patch ONCE ONE Administration Protocol Medical Decision Making Medical Decision Making [facility] Narrative: 63-year-old female with a past medical history vertigo, HLD, diabetes, presenting to the ED complaining of atraumatic neck/upper back/shoulder pain x 4 days. On exam vital signs stable, NAD, appears uncomfortable, tearful, physical exam as noted above with reproducible right-sided paraspinal tenderness and trapezius muscle tenderness. No focal neuro deficits. Concern for MSK pain/strain. Lower suspicion for fracture, CVAT, cervical artery dissection or ACS. Plan: EKG, pain control, re-evaluate Please refer to course for remaining clinical decision making, interpretation of labs/imaging results, and discussions with consultants and/or family members. Differential Diagnosis Differential Diagnoses: The differential diagnosis associated with the presentation includes As above Admission/Observation Consideration of admission/observation: Escalation of care including admission/observation considered Lab Data [facility] Lab Attestation statement: I reviewed the patient's lab results. Radiology Impression Discussion of test interpretation with radiology: I have reviewed the radiologist's reading. External Record Review External record reviewed: Inpatient record, Office record, Outpatient record, Prior outpatient labs, Prior outpatient radiology, Primary care record and Outside ED record Tests considered The following testing was considered but not selected: As above Prescription Management I considered prescription management with: Pain Medication Chronic Conditions Patient?s care impacted by: Diabetes and Other Social Determinants Patient?s care significantly limited by Social Determinants of Health including: Other Social Determinant of Health Discharge Plan Discharge Clinical Impression: Neck pain Patient Disposition: Home, Self-Care Instructions: Neck Pain (ED) Additional Instructions: Your pain is likely musculoskeletal Flexeril is a muscle relaxer, take at night as it makes you drowsy, do not drive, drink alcohol, or operate machinery while taking it Naproxen as an anti-inflammatory / pain medication, take with food Lidoderm patches are numbing patches, apply to painful area In addition take Tylenol at home If symptoms persist or worsen, pain becomes unbearable, you developed urinary retention or incontinence, or weakness return to the ED Prescriptions: New acetaminophen [Tylenol Extra Strength] 500 mg tablet 500 mg PO Q6H PRN (Reason: fever or pain) Qty: 14 0RF lidocaine [Lidoderm] 5 % adhesive patch,medicated 1 patch topical DAILY MDD remove after 12 hours PRN (Reason: pain) Qty: 30 0RF Rx Instructions: leave on most painful area for up to 12 hrs naproxen 500 mg tablet 500 mg PO BID PRN (Reason: pain) 10 Days Qty: 20 0RF cyclobenzaprine 5 mg tablet 5 mg PO Q8H PRN (Reason: pain (scale score 7-10)) 5 Days Qty: 14 0RF No Action (DME) Grab bar Misc See Rx Instructions .Route Qty: 1 0RF Rx Instructions: As directed cholecalciferol (vitamin D3) 125 mcg (5,000 unit) capsule 125 mcg PO DAILY Qty: 30 1RF metformin 1,000 mg tablet 1,000 mg PO BID 90 Days Qty: 180 1RF glimepiride 2 mg tablet 2 mg PO DAILY 90 Days Qty: 90 1RF trazodone 50 mg tablet 50 mg PO BEDTIME PRN (Reason: sleep) 30 Days Qty: 30 0RF ezetimibe 10 mg tablet 10 mg PO DAILY 90 Days Qty: 90 0RF cyclobenzaprine 5 mg tablet 5 mg PO TID PRN (Reason: muscle spasm) Qty: 20 0RF ciprofloxacin HCl [Cipro] 500 mg tablet 500 mg PO BID Qty: 20 0RF metronidazole 500 mg tablet 500 mg PO TID Qty: 30 0RF oxycodone 5 mg tablet 5 mg PO Q6H PRN (Reason: pain) Qty: 20 0RF Rx Instructions: Partial Fill upon patient request. omeprazole 20 mg capsule,delayed release(DR/EC) 20 mg PO DAILY PRN (Reason: heartburn) 90 Days Qty: 90 1RF nitrofurantoin macrocrystal 100 mg capsule 100 mg PO BID 5 Days Qty: 10 0RF Rx Instructions: must administer with a meal/food bisacodyl [Dulcolax (bisacodyl)] 5 mg tablet,delayed release (DR/EC) 20 mg PO ONCE PRN (Reason: colonoscopy prep) 1 Days Qty: 4 0RF Rx Instructions: Day before procedure @ 12 noon Take 4 tablets by mouth followed by large glass of water polyethylene glycol 3350 [Miralax] 17 gram/dose powder 238 g PO ONCE PRN (Reason: laxative effect) 1 Days Qty: 238 0RF Rx Instructions: Take as directed by mouth the day before your procedure. Referrals: Physician,Unknown J [Primary Care Provider] - 3 days Interventions: ED Discharge Assessment Last Done: 08/12/24 10:22 Discharge Date/Time: 08/12/24 10:27 Print Language: German
[2024-08-12] MEDS: Ketorolac Tromethamine 30 MG/ML VIAL IM (09:15)
[2024-08-12 10:22] VITALS: BP 144/67; PULSE 94; RESP 18; TEMP 37; O2SAT 97
== END 2024-08-12 10:27 | disposition home or self-care (01) ==
PROVIDERS: Emergency Provider Emergency Medicine
DX: M54.2 Cervicalgia (principal); M51.369 Other intervertebral disc degeneration, lumbar region without mention of lumbar back pain or lower extremity pain; M47.816 Spondylosis without myelopathy or radiculopathy, lumbar region
CPT/HCPCS: 93005; 96372; 99284; 99285; J1885

== ENCOUNTER → 2024-08-12 06:57 | Outpatient (BNV) | payer OTHER, SELFPAY | PROVIDERS: Emergency Provider Emergency Medicine; Visit Provider Internal Medicine Cardiovascular Disease | DX: R00.1 Bradycardia, unspecified (principal) | CPT/HCPCS: 93010 ==

== ENCOUNTER 2024-08-14 10:29 | Emergency (ER) | payer OTHER, SELFPAY ==
--- NOTE | ~2024-08-14 | CT_ITS ---
CLINICAL HISTORY: neck pain, difficulty moving neck CT cervical spine without contrast Comparison: None Findings: Normal vertebral body alignment. Multilevel degenerative disc disease. Mild central canal stenosis at C4-C5 and C5-C6. No acute fractures or dislocations. Visualized intracranial contents are unremarkable. The thyroid gland is enlarged and there are nodules within the bilateral thyroid lobes measuring up to approximately 2.3 cm in size. Lung apices are clear. IMPRESSION: 1. No acute abnormality of the cervical spine. Moderate degenerative changes. 2. There are bilateral thyroid nodules. Recommend further evaluation with ultrasound when clinically appropriate. This document has been electronically signed by: Annie Rios MD on 08/14/2024 17:18:12
[2024-08-14 10:36] VITALS: BP 152/56; PULSE 82; RESP 20; TEMP 36.3; O2SAT 98; BMI 32.9
--- NOTE | 2024-08-14 12:32 | ED.GENADULT ---
HPI - General Adult General Chief complaint: Back Pain/Injury Stated complaint: back pain Time Seen by Provider: 08/14/24 12:31 Source: patient and environmental manager (all interactions with this patient were facilitated with an [facility] video news editor) Mode of arrival: ambulatory Limitations: language barrier (all interactions with this patient were facilitated with an [facility] video news editor) History of Present Illness ED Provider: Ruthy Kaiser PA-C HPI narrative: Patient is a 63 year old assigned female at with a history of DM, GLD, GERD, and DDD presenting to the emergency department today with continued neck pain that radiates into the back. Patient states that over the last 5 days she has had neck pain that radiates into her shoulders and spine. Patient states that she was seen here the other day and given medication but the medication at home is not working. Patient denies any dizziness, lightheadedness, abdominal pain, nausea, vomiting, fever, chills, blurry vision, double vision, loss of vision, chest pain, difficulty breathing, shortness of breath, night sweats, pain with urination, increased urinary frequency, increased urinary urgency, blood in her urine or stool, syncope or a near syncopal episode, bowel incontinence, bladder incontinence, or any other complaints at this time. Onset (ago): day(s) (5) Location: neck Radiation: back Relieving factors: none Exacerbating factors: movement Associated symptoms: denies other symptoms Treatments prior to arrival: other (ER visit on 08/12/2024) Related Data Previous Rx's ?Medication ?Instructions ?Recorded Grab bar #1 ea 12/13/22 bisacodyl 5 mg tablet,delayed 20 mg (4 x 5 mg) PO ONCE PRN 10/08/23 release (Dulcolax (bisacodyl)) colonoscopy prep 1 day #4 tabs polyethylene glycol 3350 17 238 g PO ONCE PRN laxative effect 10/08/23 gram/dose oral powder (Miralax) 1 day #238 grams omeprazole 20 mg capsule,delayed 20 mg PO DAILY PRN heartburn 90 10/22/23 release days #90 caps cholecalciferol (vitamin D3) 125 125 mcg PO DAILY #30 caps 11/27/23 mcg (5,000 unit) capsule metformin 1,000 mg tablet 1,000 mg PO BID 90 days #180 tabs 12/05/23 glimepiride 2 mg tablet 2 mg PO DAILY 90 days #90 tabs 12/08/23 cyclobenzaprine 5 mg tablet 5 mg PO TID PRN muscle spasm #20 12/26/23 tabs trazodone 50 mg tablet 50 mg PO BEDTIME PRN sleep 30 days 01/06/24 #30 tabs nitrofurantoin macrocrystal 100 mg 100 mg PO BID 5 days #10 caps 02/26/24 capsule ezetimibe 10 mg tablet 10 mg PO DAILY 90 days #90 tabs 06/05/24 ciprofloxacin HCl 500 mg tablet 500 mg PO BID #20 tabs 07/06/24 (Cipro) metronidazole 500 mg tablet 500 mg PO TID #30 tabs 07/06/24 oxycodone 5 mg tablet 5 mg PO Q6H PRN pain #20 tabs 07/06/24 acetaminophen 500 mg tablet 500 mg PO Q6H PRN fever or pain 08/12/24 (Tylenol Extra Strength) #14 tabs cyclobenzaprine 5 mg tablet 5 mg PO Q8H PRN pain (scale score 08/12/24 7-10) 5 days #14 tabs lidocaine 5 % topical patch 1 patch topical DAILY PRN pain #30 08/12/24 (Lidoderm) ea naproxen 500 mg tablet 500 mg PO BID PRN pain 10 days #20 08/12/24 tabs prednisone 20 mg tablet 20 mg PO DAILY 7 days #7 tabs 08/14/24 Allergies Allergy/AdvReac Type Severity Reaction Status Date / Time atorvastatin Allergy Mild stomach Verified 08/14/24 10:39 upset Review of Systems Constitutional: Constitutional: Reports no additional constitutional complaints, Denies chills, Denies fever(s) and Denies night sweats Eyes: Eyes: Reports no additional eye complaints, Denies blurry vision, Denies change in vision, Denies diplopia, Denies eye discharge, Denies loss of vision and Denies eye pain ENT: Denies dizziness and Reports neck pain Cardiovascular: Cardiovascular: Reports no additional cardiovascular complaints, Denies chest pain, Denies lightheadedness, Denies Loss of Consciousness and Denies dyspnea Respiratory: Respiratory: Reports no additional respiratory complaints and Denies dyspnea Gastrointestinal: Gastrointestinal: Reports no additional gastrointestinal complaints, Denies abdominal pain, Denies melena, Denies hematochezia, Denies change in bowel habits and Denies change in stool character Genitourinary: Genitourinary: Denies hematuria, Denies urinary frequency, Denies dysuria, Denies urinary incontinence, Denies urinary hesitancy and Denies urinary urgency Musculoskeletal: Musculoskeletal: Reports no additional musculoskeletal complaints, Reports neck pain, Denies numbness and Denies tingling Neurologic: Denies dizziness, Denies loss of vision, Denies numbness and Denies tingling Psychiatric: Psychiatric: Reports no additional psychiatric complaints Endocrine: Endocrine: Reports no additional endocrine complaints Hematologic/Lymphatic: Hematologic/Lymphatic: Reports no additional hematologic/lymphatic complaints Allergic/Immunologic: Allergic/Immunologic: Reports no additional allergic/immunologic complaints PMFSH Past Medical History Attestation statement: The following information was validated with the patient. Source: old records reviewed and nursing notes reviewed Medical History Hypersomnia Snoring Vertigo Class 1 obesity with body mass index (BMI) of 33.0 to 33.9 in adult Insomnia Dyslipidemia Chronic cough Thoracic spine pain Hand numbness Left hand pain Rash and nonspecific skin eruption Diabetes Surgical History History of hysterectomy History of colonoscopy Family History Family History Father No problems noted. Mother History of diabetes mellitus, type I Social History Social History Household Members: None Housing: Apartment Do you presently have visiting nurse or other home services: Yes Alcohol intake: never Patient Tobacco Use Status: Never used Tobacco e-Cigarette/Vaping Use: Never Used Second Hand Smoke Exposure: No Advance Directives: No Advance Directives Information Provided: Yes Do you have a plan to hurt others: No Plan service: No Current occupational status: unemployed and disabled Current occupation: rt handed Cognitive needs: No Hearing needs: No Vision needs: Yes Physical Exam ED Vital Signs: Vital Signs - 24 hr 08/14/24 10:36 08/14/24 12:41 08/14/24 14:33 Temperature 97.3 F Pulse Rate 82 88 59 Respiratory Rate 20 18 16 Blood Pressure 152/56 H 147/65 H 147/75 H Pulse Oximetry 98 97 98 Oxygen Delivery Method Room Air Room Air Room Air 08/14/24 16:06 08/14/24 17:41 Temperature 98.2 F 98.2 F Pulse Rate 77 77 Respiratory Rate 16 18 Blood Pressure 155/82 H 155/82 H Pulse Oximetry 92 92 Oxygen Delivery Method Room Air Room Air BMI result Body Mass Index 32.9 Const General: cooperative, no acute distress, alert and awake Nutritional Appearance: well nourished Orientation/consciousness: patient oriented x3 Limitations: no limitations HENMT Head: Yes normal to inspection and Yes atraumatic Ears: hearing grossly normal bilaterally and external ears normal General nose exam: Normal external nose present, no nasal discharge noted and no epistaxis Face and sinus: Yes normal facial exam, No abrasion and No laceration Mouth: Normal oral and palatal mucosa present, no drooling and no muffled voice Eyes General: appearance normal, both eyes and all related structures Periorbital: periorbital findings normal Eyelids: Yes eyelids normal Conjunctivae: conjunctivae normal Pupils: Equal, round and reactive pupils present EOM: EOMs intact bilaterally Neck Other: pain with neck ROM Neck: Yes normal visual inspection, Yes full ROM and Yes no lymphadenopathy Chest Chest palpation & inspection: normal inspection of the chest Resp Effort & Inspection: normal respiratory effort and able to speak in complete sentences GI Inspection: Yes normal to inspection Neuro General: patient oriented x3 and moves all extremities Cranial nerves: Yes Equal, round and reactive pupils present Cognition (Neuro): normal cognition Extrem General: Yes normal to inspection, Yes full ROM and Yes capillary refill normal Psych Appearance: grossly normal Mental Status: mental status grossly normal Affect: normal affect Attitude: cooperative Thought process: Normal thought process present Thought content: Normal thought content present Insight: Good insight present (Psych) Medications Administered Discontinued Medications Generic Name Dose Route Start Last Admin Trade Name Freq PRN Reason Stop Dose Admin Diazepam 2.5 mg 08/14/24 12:50 08/14/24 13:13 Diazepam 10 Mg/2 Ml Cartridge IVPUSH 08/14/24 12:51 2.5 mg STAT STA Administration Diazepam 2.5 mg 08/14/24 16:55 08/14/24 17:22 Diazepam 10 Mg/2 Ml Cartridge IVPUSH 08/14/24 16:56 2.5 mg STAT STA Administration Hydromorphone HCl 1 mg 08/14/24 12:50 08/14/24 13:08 Hydromorphone Hcl 1 Mg/Ml Syringe IVPUSH 08/14/24 12:51 1 mg ONCE ONE Administration Protocol Hydromorphone HCl 1 mg 08/14/24 16:55 08/14/24 17:21 Hydromorphone Hcl 1 Mg/Ml Syringe IVPUSH 08/14/24 16:56 1 mg ONCE ONE Administration Protocol Ketorolac Tromethamine 15 mg 08/14/24 12:57 08/14/24 13:07 Ketorolac Tromethamine 15 Mg/Ml Vial IVPUSH 08/14/24 12:58 15 mg ONCE ONE Administration Methylprednisolone Sodium Succinate 60 mg 08/14/24 13:00 08/14/24 13:07 Methylprednisolone Sod Succ 125 Mg/2 Ml Vial IVPUSH 08/14/24 13:01 60 mg ONCE ONE Administration Medical Decision Making Medical Decision Making MDM Narrative: Patient is a 63 year old assigned female at with a history of DM, GLD, GERD, and DDD presenting to the emergency department today with continued neck pain that radiates into the back. Patient's physical exam was as noted in the physical exam portion of this note. Patient's blood work was unremarkable. Patient's EKG was unremarkable. Patient's c-spine CT showed no acute process. I explained my physical exam findings as well as all test results to the patient. I answered all questions asked by the patient. Patient received IV dilaudid and valium x2 which, upon re-evaluation, she stated it helped her symptoms significantly. I stressed the importance of the patient taking her medication as directed (either prescribed or as the over the counter packaging recommends). I stressed the importance of the patient following up with her primary care provider and a business analysis specialist. I stressed the importance of the patient returning to the emergency department immediately if her symptoms were to worsen or if she were to develop any dizziness, shortness of breath, difficulty breathing, chest pain, blurry vision, loss of vision, nausea, vomiting, abdominal pain, fever, chills, back pain, or any other complaints. Patient verbalized agreement and understanding with this treatment plan and discharge. Differential Diagnosis Differential Diagnoses: The differential diagnosis associated with the presentation includes Cervical spasm Cervical radiculopathy NSTEMI STEMI Admission/Observation Consideration of admission/observation: Escalation of care including admission/observation considered Patient would have been admitted to the hospital had her work up had any findings where hospital admission was appropriate and her clinical presentation warranted hospital admission. Lab Data [facility] Lab Attestation statement: I reviewed the patient's lab results. My interpretation of these results are in the [facility] Rationale portion of this note. 08/14/24 13:05 08/14/24 13:05 Labs: Lab Results 08/14/24 Range/Units 13:05 WBC 8.3 (4.8-10.8) X10*3/uL RBC 3.95 L (4.20-5.50) X10*6/uL Hgb 12.3 (12.0-16.0) g/dl Hct 35.8 L (37.0-47.0) % MCV 90.6 (80.0-98.0) fL MCH 31.1 (27.0-33.0) pg MCHC 34.4 (31.0-35.0) g/dl RDW 12.5 (11.0-16.0) % Plt Count 235 (160-400) X10*3/uL MPV 9.3 L (9.4-12.3) fL Immature Gran % (Auto) 0.1 (0.0-0.4) % Neut % (Auto) 69.3 (45-73) % Lymph % (Auto) 21.6 (20-40) % Gates % (Auto) 7.2 (2-11) % Eos % (Auto) 1.2 (0-4) % Baso % (Auto) 0.6 (0-2) % Lymph # (Auto) 1.8 (1.2-4.9) X10*3/uL Gates # (Auto) 0.6 (0.1-1.2) X10*3/uL Eos # (Auto) 0.1 (0.0-0.4) X10*3/uL Baso # (Auto) 0.1 (0.0-0.2) X10*3/uL Abs Immat Gran (auto) 0.01 (0.00-0.03) X10*3/uL Absolute Neuts (auto) 5.8 (2.0-8.3) x10*3/uL Absolute Nucleated RBC 0.000 (0.0-0.012) X10*3/uL Nucleated RBC % (auto) 0.0 (0.0-0.2) /100WBC Sodium 140 (135-145) mmol/L Potassium 3.9 (3.3-5.1) mmol/L Chloride 107 (96-108) mmol/L Carbon Dioxide 27 (22-29) mmol/L Anion Gap 10 L (12-20) BUN 13 (9-16) mg/dL Creatinine 0.76 (0.5-1.4) mg/dL Estim Creat Clear Calc 75.0 Estimated GFR > 60 Random Glucose 104 (60-115) mg/dL Calcium 9.2 (8.4-10.2) mg/dL Magnesium 1.9 (1.6-2.6) mg/dL Total Bilirubin 0.4 (0.0-1.0) mg/dL AST 18 (5-31) U/L ALT 12 (0-31) U/L Alkaline Phosphatase 76 (39-117) U/L Troponin I High Sens < 2.7 (<3.5-17.0) ng/L Total Protein 7.3 (6.5-8.0) g/dL Albumin 4.1 (3.5-5.0) g/dL Independent Interpretation I performed an independent interpretation of an: EKG and CT Scan Interpretation: My interpretation is in agreement with the radiologist's impression of this imaging study. CLINICAL HISTORY: neck pain, difficulty moving neck CT cervical spine without contrast Comparison: None Findings: Normal vertebral body alignment. Multilevel degenerative disc disease. Mild central canal stenosis at C4-C5 and C5-C6. No acute fractures or dislocations. Visualized intracranial contents are unremarkable. The thyroid gland is enlarged and there are nodules within the bilateral thyroid lobes measuring up to approximately 2.3 cm in size. Lung apices are clear. IMPRESSION: 1. No acute abnormality of the cervical spine. Moderate degenerative changes. 2. There are bilateral thyroid nodules. Recommend further evaluation with ultrasound when clinically appropriate. This document has been electronically signed by: Annie Rios MD on 08/14/2024 17:18:12 Dictated By: Annie Rios MD Signed By: Electronically signed by Annie Rios MD 08/14/24 0631 Radiology Impression Discussion of test interpretation with radiology: I have reviewed the radiologist's reading. Chronic Conditions Patient?s care impacted by: Diabetes Discharge Plan Discharge Clinical Impression: Spasm of cervical paraspinous muscle Patient Disposition: Home, Self-Care Instructions: Muscle Spasm (ED) Additional Instructions: Follow up with your primary care provider and a business analysis specialist. Return to the emergency department immediately if your symptoms worsen or if you develop any dizziness, shortness of breath, difficulty breathing, chest pain, blurry vision, loss of vision, nausea, vomiting, abdominal pain, fever, chills, back pain, or any other complaints. Acuda a delgadillo m?dico de cabecera y a un especialista en [place] vertebral. Vuelva al servicio de urgencias inmediatamente si eddie s?ntomas empeoran o si presenta mareos, falta de aliento, dificultad para respirar, dolor tor?cico, visi?n borrosa, p?rdida de visi?n, n?useas, v?mitos, dolor abdominal, fiebre, escalofr?os, dolor de espalda o cualquier otra molestia. Your CT scan showed evidence of thyroid nodules - this is likely a benign finding but should be followed up on by your PCP of whom I forwarded this note to for review. Delgadillo tomograf?a computarizada mostr? evidencia de n?dulos tiroideos - esto es probable que un hallazgo damian, elvis debe ser seguido por delgadillo PCP de los cuales le envi? esta nota para delgadillo revisi?n. Prescriptions: New prednisone 20 mg tablet 20 mg PO DAILY 7 Days Qty: 7 0RF No Action (DME) Grab bar Misc See Rx Instructions .Route Qty: 1 0RF Rx Instructions: As directed cholecalciferol (vitamin D3) 125 mcg (5,000 unit) capsule 125 mcg PO DAILY Qty: 30 1RF metformin 1,000 mg tablet 1,000 mg PO BID 90 Days Qty: 180 1RF glimepiride 2 mg tablet 2 mg PO DAILY 90 Days Qty: 90 1RF trazodone 50 mg tablet 50 mg PO BEDTIME PRN (Reason: sleep) 30 Days Qty: 30 0RF ezetimibe 10 mg tablet 10 mg PO DAILY 90 Days Qty: 90 0RF cyclobenzaprine 5 mg tablet 5 mg PO TID PRN (Reason: muscle spasm) Qty: 20 0RF ciprofloxacin HCl [Cipro] 500 mg tablet 500 mg PO BID Qty: 20 0RF metronidazole 500 mg tablet 500 mg PO TID Qty: 30 0RF oxycodone 5 mg tablet 5 mg PO Q6H PRN (Reason: pain) Qty: 20 0RF Rx Instructions: Partial Fill upon patient request. acetaminophen [Tylenol Extra Strength] 500 mg tablet 500 mg PO Q6H PRN (Reason: fever or pain) Qty: 14 0RF lidocaine [Lidoderm] 5 % adhesive patch,medicated 1 patch topical DAILY MDD remove after 12 hours PRN (Reason: pain) Qty: 30 0RF Rx Instructions: leave on most painful area for up to 12 hrs naproxen 500 mg tablet 500 mg PO BID PRN (Reason: pain) 10 Days Qty: 20 0RF cyclobenzaprine 5 mg tablet 5 mg PO Q8H PRN (Reason: pain (scale score 7-10)) 5 Days Qty: 14 0RF omeprazole 20 mg capsule,delayed release(DR/EC) 20 mg PO DAILY PRN (Reason: heartburn) 90 Days Qty: 90 1RF nitrofurantoin macrocrystal 100 mg capsule 100 mg PO BID 5 Days Qty: 10 0RF Rx Instructions: must administer with a meal/food bisacodyl [Dulcolax (bisacodyl)] 5 mg tablet,delayed release (DR/EC) 20 mg PO ONCE PRN (Reason: colonoscopy prep) 1 Days Qty: 4 0RF Rx Instructions: Day before procedure @ 12 noon Take 4 tablets by mouth followed by large glass of water polyethylene glycol 3350 [Miralax] 17 gram/dose powder 238 g PO ONCE PRN (Reason: laxative effect) 1 Days Qty: 238 0RF Rx Instructions: Take as directed by mouth the day before your procedure. Referrals: [facility] [Provider Group] (Call to establish and follow up with a business analysis specialist. Llame para establecer y realizar un seguimiento con un especialista en [place] vertebral.) [facility] [Provider Group] (Call to establish and follow up with a business analysis specialist. Llame para establecer y realizar un seguimiento con un especialista en [place] vertebral.) Delores Franco MD [Primary Care Provider] - Interventions: ED Discharge Assessment Last Done: 08/14/24 17:41 Discharge Date/Time: 08/14/24 17:42 Print Language: Bengali
[2024-08-14 12:41] VITALS: BP 147/65; PULSE 88; RESP 18; O2SAT 97
--- NOTE | 2024-08-14 12:59 | ECG_ITS ---
Test Reason : neck pain Blood Pressure : / mmHG Vent. Rate : 059 BPM Atrial Rate : 059 BPM P-R Int : 154 ms QRS Dur : 086 ms QT Int : 418 ms P-R-T Axes : 045 006 007 degrees QTc Int : 413 ms Sinus bradycardia Nonspecific T wave abnormality Abnormal ECG When compared with ECG of 12-AUG-2024 07:14, No significant change was found Referred By: Ruthy Kaiser Electronically Signed By:Desmond Killian
[2024-08-14] MEDS: Ketorolac Tromethamine 15 MG/ML VIAL IVPUSH (13:07)
[2024-08-14] MEDS: methylPREDNISolone Sod Succ 125 MG/2 ML VIAL 60 MG IVPUSH (13:07)
[2024-08-14] MEDS: HYDROmorphone HCl 1 MG/ML SYRINGE IVPUSH ×2 (13:08→17:21)
[2024-08-14] MEDS: diazePAM 10 MG/2 ML CARTRIDGE 2.5 MG IVPUSH ×2 (13:13→17:22)
[2024-08-14 13:18] LABS: MANUAL DIFF FLAG NO
[2024-08-14 13:19] LABS: Basophils Absolute Auto 0.1 X10*3/uL (0.0-0.2); Basophils Percent Auto 0.6 % (0-2); Eosinophils Absolute Auto 0.1 X10*3/uL (0.0-0.4); Eosinophils Percent Auto 1.2 % (0-4); Hematocrit 35.8 % (37.0-47.0); Hemoglobin 12.3 g/dl (12.0-16.0); Imm Gran Abs Auto 0.01 X10*3/uL (0.00-0.03); Imm Gran Pct Auto 0.1 % (0.0-0.4); Lymphocytes Absolute Auto 1.8 X10*3/uL (1.2-4.9); Lymphocytes Percent Auto 21.6 % (20-40); Mean Corpuscular HGB Conc 34.4 g/dl (31.0-35.0); Mean Corpuscular Hemoglobin 31.1 pg (27.0-33.0); Mean Corpuscular Volume 90.6 fL (80.0-98.0); Mean Platelet Volume 9.3 fL (9.4-12.3); Monocytes Absolute Auto 0.6 X10*3/uL (0.1-1.2); Monocytes Percent Auto 7.2 % (2-11); Neutrophils Absolute Auto 5.8 x10*3/uL (2.0-8.3); Neutrophils Percent Auto 69.3 % (45-73); Platelet Count 235 X10*3/uL (160-400); Red Blood Count 3.95 X10*6/uL (4.20-5.50); Red Cell Distribution Width 12.5 % (11.0-16.0); White Blood Count 8.3 X10*3/uL (4.8-10.8)
[2024-08-14 13:36] LABS: Alanine Aminotransferase 12 U/L (0-31); Albumin Level 4.1 g/dL (3.5-5.0); Anion Gap 10 (12-20); Aspartate Amino Transferase 18 U/L (5-31); Bilirubin Total 0.4 mg/dL (0.0-1.0); Blood Urea Nitrogen 13 mg/dL (9-16); Calcium 9.2 mg/dL (8.4-10.2); Carbon Dioxide 27 mmol/L (22-29); Chloride 107 mmol/L (96-108); Estimated Glomerular Filt Rate > 60; Glucose Random 104 mg/dL (60-115); Magnesium 1.9 mg/dL (1.6-2.6); Potassium 3.9 mmol/L (3.3-5.1); Sodium 140 mmol/L (135-145); Total Protein 7.3 g/dL (6.5-8.0)
[2024-08-14 13:57] LABS: Alkaline Phosphatase 76 U/L (39-117); Troponin-I High Sensitivity < 2.7 ng/L (<3.5-17.0)
[2024-08-14 14:33] VITALS: BP 147/75; PULSE 59; RESP 16; O2SAT 98
[2024-08-14 16:06] VITALS: BP 155/82; PULSE 77; RESP 16; TEMP 36.8; O2SAT 92
[2024-08-14 17:41] VITALS: BP 155/82; PULSE 77; RESP 18; TEMP 36.8; O2SAT 92
== END 2024-08-14 17:42 | disposition home or self-care (01) ==
PROVIDERS: Physician Assistant Medical; Emergency Provider Emergency Medicine; PCP Internal Medicine
DX: M62.838 Other muscle spasm (principal); M54.2 Cervicalgia; E11.9 Type 2 diabetes mellitus without complications; E78.5 Hyperlipidemia, unspecified; Z79.84 Long term (current) use of oral hypoglycemic drugs; Z79.899 Other long term (current) drug therapy
CPT/HCPCS: 36415; 72125; 80053; 83735; 84484; 85025; 93005; 96374; 96375; 96376; 99284; J1171; J1885; J2919; J3360

== ENCOUNTER → 2024-08-14 12:59 | Outpatient (BNV) | payer OTHER, SELFPAY | PROVIDERS: Emergency Provider Emergency Medicine; PCP Internal Medicine; Visit Provider Radiology Diagnostic Radiology | DX: M54.12 Radiculopathy, cervical region (principal) | CPT/HCPCS: 72125 ==

== ENCOUNTER → 2024-08-14 12:59 | Outpatient (BNV) | payer OTHER, SELFPAY | PROVIDERS: Emergency Provider Emergency Medicine; PCP Internal Medicine; Visit Provider Internal Medicine Cardiovascular Disease | DX: R00.1 Bradycardia, unspecified (principal) | CPT/HCPCS: 93010 ==

== ENCOUNTER 2024-08-20 12:45 | Outpatient (AMB) | payer OTHER, SELFPAY ==
[2024-08-20 12:58] VITALS: BP 126/72; PULSE 78; O2SAT 99; BMI 33.1
--- NOTE | 2024-08-20 12:58 | MHC.PC.OV ---
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 Accompanied by: Friend Allergies atorvastatin Allergy (Mild, Verified 08/20/24 13:06) stomach upset Medication List - Last Reconciled 08/20/24 by Delores Mcgee MD acetaminophen (Tylenol Extra Strength) 500 mg PO Q6H PRN bisacodyl (Dulcolax (bisacodyl)) 20 mg (4 x 5 mg) PO ONCE PRN 1 day cholecalciferol (vitamin D3) 125 mcg PO DAILY cyclobenzaprine 5 mg PO TID PRN cyclobenzaprine 5 mg PO Q8H PRN 5 days ezetimibe 10 mg PO DAILY 90 days glimepiride 2 mg PO DAILY 90 days Grab bar As directed lidocaine 5% (Lidoderm) 1 patch topical DAILY PRN MDD remove after 12 hours metformin 1,000 mg PO BID 90 days naproxen 500 mg PO BID PRN 10 days nitrofurantoin macrocrystal 100 mg PO BID 5 days omeprazole 20 mg PO DAILY PRN 90 days oxycodone 5 mg PO Q6H PRN polyethylene glycol 3350 (Miralax) 238 grams PO ONCE PRN 1 day prednisone 20 mg PO DAILY 7 days trazodone 50 mg PO BEDTIME PRN 30 days Tobacco use date assessed: 10/22/23 Dental Screening Dental Screen Date: 10/22/23 HPI HPI Comments History of Present Illness Details The patient is a 63-year-old female presenting with cervical pain. She reported two visits to the emergency department; the first in June for abdominal issues leading to a CT of the abdomen, and subsequently on August 14 for cervical pain. Currently, she experiences improvement in neck mobility with medication management. She notes a history of an allergy to atorvastatin, which causes gastrointestinal discomfort. Her blood glucose levels have been well controlled, and blood pressure is stable on the current regimen. [facility] Medical History (Updated 08/20/24 @ 16:21 by Delores Mcgee MD) Hypersomnia Snoring Vertigo Class 1 obesity with body mass index (BMI) of 33.0 to 33.9 in adult Insomnia Dyslipidemia Chronic cough Thoracic spine pain Hand numbness Left hand pain Rash and nonspecific skin eruption Diabetes Surgical History History of hysterectomy History of colonoscopy Family History Father No problems noted. Mother History of diabetes mellitus, type I Social History Household Members: None Housing: Apartment Do you presently have visiting nurse or other home services: Yes Alcohol intake: never Patient Tobacco Use Status: Never used Tobacco e-Cigarette/Vaping Use: Never Used Second Hand Smoke Exposure: No service: No Current occupational status: unemployed and disabled Current occupation: rt handed Cognitive needs: No Hearing needs: No Vision needs: Yes Questionnaire Thrive Questionnaire Date Thrive assessed: 10/22/23 CHAVA-7 AMB Questionnaire CHAVA-7 Date CHAVA - 7 assessed: 10/22/23 Source: Developed by Drs. Jamie Zuniga, Kaylee Donahue, Chung Hirsch and colleagues, with an educational kavon from [employer]. Review of Systems Const Details: - Musculoskeletal: Reports improved neck mobility. - Endocrine: Reports stable blood glucose levels. - Cardiovascular: Denies hypertension issues. Physical exam (Primary Care) Vital Signs: Last Vital Signs Pulse 78 08/20/24 12:58 BP 126/72 08/20/24 12:58 Pulse Ox 99 08/20/24 12:58 Oxygen Delivery Method Room Air 08/20/24 12:58 BMI result Body Mass Index 33.1 BMI Assessment/Plan discussion: High BMI High, discussed plan: lifestyle, weight reduction, dietary and physical activity Tobacco/Smoking Status: Tobacco use Status Tobacco use date assessed 10/22/23 08/20/24 12:59 Patient Tobacco Use Status Never used Tobacco 08/20/24 12:59 e-Cigarette/Vaping Use Never Used 08/20/24 12:59 Thrive Assessment: Date of Thrive Assessment Date Thrive assessed 10/22/23 08/20/24 12:59 Const Other: General: No confusion Neck: Normal visual inspection and Yes supple, patient reports feeling a little better with medication and can move the neck Respiratory: Normal respiratory effort, clear to auscultation bilaterally Cardiovascular: No jugular venous distension, regular rate, regular rhythm, S1 normal heart sound present and S2 normal heart sound present Extremities: Full ROM Office Procedures Flu Questionnaire Does the patient have a severe egg allergy?: No Results AMB Hemoglobin A1c AMB Hemoglobin A1c 6.5 % Last Edit by DREW Robles on 08/20/24 13:16 Immunizations Fluarix Triv [id number] (PF) 45 mcg (15 mcg x 3)/0.5 mL IM syringe Performing Provider: Delores Mcgee MD [facility] Documented (not given) by: DREW Robles on 08/20/24 12:59 Reason Not Given: Patient Refused Results Reviewed Results Reviewed: Laboratory Last Values Hgb A1c (Clinic) 6.5 % (4.0-6.0) H 08/20/24 12:47 Coding Level of Care Code Est Pt Level 4 (29982) Complex EM visit Add On G2211 Diagnoses Type 2 diabetes mellitus without complication, without long-term current use of insulin E11.9 Diabetes mellitus type: type 2 Diabetes mellitus complication status: without complication Cervical radiculopathy M54.12 Chronic GERD K21.9 Hyperlipidemia LDL goal <70 E78.5 Time Spent (min) 22 Assessment & Plan Assessment & Plan (1) Diabetes mellitus, without long-term current use of insulin: Code(s): E11.9 - Type 2 diabetes mellitus without complications Category: Medical Qualifiers: Diabetes mellitus type: type 2 Diabetes mellitus complication status: without complication Qualified Code(s): E11.9 - Type 2 diabetes mellitus without complications (2) Cervical radiculopathy: Code(s): M54.12 - Radiculopathy, cervical region Category: Medical (3) Chronic GERD: Code(s): K21.9 - Gastro-esophageal reflux disease without esophagitis Category: Medical (4) Hyperlipidemia LDL goal <70: Code(s): E78.5 - Hyperlipidemia, unspecified Category: Medical Plan - Continue current medication regimen for cervical pain management, including the use of plexeril. - Monitor cervical pain and continue physical therapy if previously initiated. - Reassess cholesterol management due to atorvastatin allergy, consider alternative medications. - Continued diabetes management with stable A1c levels. Patient was informed and verbally consented to the use of an ambient scribe for clinic note documentation during this visit. During the visit, we discussed the management of cervical pain with ongoing use of medications and potential continuation of physical interventions if applicable. The patient has been advised about the alternatives to atorvastatin due to her known allergy. Blood glucose control was acknowledged, and we will continue the current regimen. The necessity for potential follow-up with a specialist for pain management, if required, was highlighted but not scheduled at this time. Orders: Orders AMB Hemoglobin A1c Today E11.9 - Type 2 diabetes mellitus without complications Influenza [id number] Immunization Today Z23 - Encounter for immunization Medications: Refilled metformin 1,000 mg PO BID 180 tabs 1RF 90 days glimepiride 2 mg PO DAILY 90 tabs 1RF 90 days Patient Instructions: - Continue with current medications for neck pain. - Avoid atorvastatin due to previous allergic reactions. - Maintain blood glucose monitoring and follow dietary advice. - Attend scheduled follow-up appointments and contact the office if symptoms worsen or new symptoms appear. - Use smaller plates for portion control as discussed.
== END 2024-08-20 13:18 | disposition home or self-care (01) ==
PROVIDERS: PCP Internal Medicine; Visit Provider Internal Medicine
DX: E11.9 Type 2 diabetes mellitus without complications (principal); M54.12 Radiculopathy, cervical region; K21.9 Gastro-esophageal reflux disease without esophagitis; E78.5 Hyperlipidemia, unspecified; Z23 Encounter for immunization

== ENCOUNTER → 2024-08-20 12:45 | Outpatient (BNVA) | payer OTHER, SELFPAY | PROVIDERS: PCP Internal Medicine; Visit Provider Internal Medicine | DX: E11.9 Type 2 diabetes mellitus without complications (principal); M54.12 Radiculopathy, cervical region; K21.9 Gastro-esophageal reflux disease without esophagitis; E78.5 Hyperlipidemia, unspecified; Z28.21 Immunization not carried out because of patient refusal | CPT/HCPCS: 83036; 90471; 99212 ==

== ENCOUNTER 2024-11-04 12:38 | Outpatient (REF) | payer OTHER, SELFPAY | END 2024-11-04 12:39 | disposition home or self-care (01) | LOC: HO.MAMMO 12:38 | PROVIDERS: PCP Internal Medicine; Visit Provider Internal Medicine | DX: Z12.31 Encounter for screening mammogram for malignant neoplasm of breast (principal) | CPT/HCPCS: 77063; 77067 ==

== ENCOUNTER → 2024-11-04 13:00 | Outpatient (BNV) | payer OTHER, SELFPAY | PROVIDERS: PCP Internal Medicine; Visit Provider Internal Medicine | DX: Z12.31 Encounter for screening mammogram for malignant neoplasm of breast (principal) | CPT/HCPCS: 77063; 77067 ==

== ENCOUNTER 2024-12-10 09:31 | Emergency (ER) | payer OTHER, SELFPAY ==
[2024-12-10 09:39] VITALS: BP 135/53; PULSE 72; RESP 18; TEMP 37.1; O2SAT 98; BMI 30.8
[2024-12-10 10:02] LABS: Appearance Urine Clear; Color Urine Yellow; Glucose Urine UA Negative (Negative); Leukocyte Esterase Urine Negative (Negative); Nitrite Urine Negative (Negative); PH 5.5 (5.0-9.0); Specific Gravity - Urine 1.025 (1.005-1.025); UMIC TRIGGER UACC YES; Urine Blood Small (1+) (Negative); Urine Ketones Negative (Negative); Urine Protein Negative (Neg-Trace)
[2024-12-10 10:16] LABS: Bacteria Urine None Seen (None Seen); Hyaline Casts Urine 0-2 /LPF (0-2); Squamous Epithelial Cell Urine 0-2 /HPF (0-2); WBC Urine 0-5 /HPF (0-5)
--- NOTE | 2024-12-10 10:16 | ED_ITS ---
HPI - Abdominal Pain General Chief Complaint: Abdominal Pain Stated Complaint: R Side Pain Time Seen by Provider: 12/10/24 10:13 Source: patient, RN notes reviewed and old records reviewed Mode of arrival: ambulatory History of Present Illness ED Provider: Rukhsana Malone PA-C HPI narrative: 64-year-old female with a past medical history of vertigo, HLD, diabetes, presenting to the ED complaining of right-sided lower back pain radiating to right hip x 1 week. Admits to similar symptoms in the past. Denies known injury, trauma, fall, numbness, tingling, weakness, incontinence, retention, abdominal pain, difficulty or inability to ambulate. Denies dysuria/hematuria Related Data Previous Rx's ?Medication ?Instructions ?Recorded Grab bar #1 ea 12/13/22 bisacodyl 5 mg tablet,delayed 20 mg (4 x 5 mg) PO ONCE PRN 10/08/23 release (Dulcolax (bisacodyl)) colonoscopy prep 1 day #4 tabs polyethylene glycol 3350 17 238 g PO ONCE PRN laxative effect 10/08/23 gram/dose oral powder (Miralax) 1 day #238 grams omeprazole 20 mg capsule,delayed 20 mg PO DAILY PRN heartburn 90 10/22/23 release days #90 caps cholecalciferol (vitamin D3) 125 125 mcg PO DAILY #30 caps 11/27/23 mcg (5,000 unit) capsule cyclobenzaprine 5 mg tablet 5 mg PO TID PRN muscle spasm #20 12/26/23 tabs trazodone 50 mg tablet 50 mg PO BEDTIME PRN sleep 30 days 01/06/24 #30 tabs nitrofurantoin macrocrystal 100 mg 100 mg PO BID 5 days #10 caps 02/26/24 capsule ezetimibe 10 mg tablet 10 mg PO DAILY 90 days #90 tabs 06/05/24 oxycodone 5 mg tablet 5 mg PO Q6H PRN pain #20 tabs 07/06/24 acetaminophen 500 mg tablet 500 mg PO Q6H PRN fever or pain 08/12/24 (Tylenol Extra Strength) #14 tabs cyclobenzaprine 5 mg tablet 5 mg PO Q8H PRN pain (scale score 08/12/24 7-10) 5 days #14 tabs lidocaine 5 % topical patch 1 patch topical DAILY PRN pain #30 08/12/24 (Lidoderm) ea naproxen 500 mg tablet 500 mg PO BID PRN pain 10 days #20 08/12/24 tabs prednisone 20 mg tablet 20 mg PO DAILY 7 days #7 tabs 08/14/24 glimepiride 2 mg tablet 2 mg PO DAILY 90 days #90 tabs 08/20/24 metformin 1,000 mg tablet 1,000 mg PO BID 90 days #180 tabs 08/20/24 acetaminophen 500 mg tablet 500 mg PO Q6H PRN fever or pain 12/10/24 (Tylenol Extra Strength) #14 tabs cyclobenzaprine 5 mg tablet 5 mg PO Q8H PRN pain (scale score 12/10/24 7-10) 5 days #14 tabs lidocaine 5 % topical patch 1 patch topical DAILY PRN pain #30 12/10/24 (Lidoderm) ea naproxen 500 mg tablet 500 mg PO BID PRN pain 10 days #20 12/10/24 tabs Allergies Allergy/AdvReac Type Severity Reaction Status Date / Time atorvastatin Allergy Mild stomach Verified 12/10/24 09:42 upset Review of Systems Review of Systems Yes all other systems are reviewed and are negative Constitutional: Reports as per HPI Denies Sensory deficit (Neuro) PMFSH Past Medical History Attestation statement: The following information was validated with the patient. Source: old records reviewed Medical History Hypersomnia Snoring Vertigo Class 1 obesity with body mass index (BMI) of 33.0 to 33.9 in adult Insomnia Dyslipidemia Chronic cough Thoracic spine pain Hand numbness Left hand pain Rash and nonspecific skin eruption Diabetes Surgical History History of hysterectomy History of colonoscopy Family History Family History Father No problems noted. Mother History of diabetes mellitus, type I Social History Social History Household Members: None Housing: Apartment Do you presently have visiting nurse or other home services: Yes Alcohol intake: never Patient Tobacco Use Status: Never used Tobacco e-Cigarette/Vaping Use: Never Used Second Hand Smoke Exposure: No Advance Directives: Yes Advance Directives on File: No service: No Current occupational status: unemployed and disabled Current occupation: rt handed Cognitive needs: No Hearing needs: No Vision needs: Yes Physical Exam ED Vital Signs: Vital Signs - 24 hr 12/10/24 09:39 12/10/24 10:39 12/10/24 12:07 Temperature 98.8 F 97.9 F 97.9 F Pulse Rate 72 60 64 Respiratory Rate 18 18 16 Blood Pressure 135/53 L 119/62 135/64 Pulse Oximetry 98 98 97 Oxygen Delivery Method Room Air Room Air Room Air 12/10/24 12:10 Temperature 97.9 F Pulse Rate 64 Respiratory Rate 16 Blood Pressure 135/64 Pulse Oximetry 97 Oxygen Delivery Method Room Air BMI result Body Mass Index 30.8 Const General: cooperative, healthy appearing and no acute distress Orientation/consciousness: patient oriented x3 Limitations: no limitations HENMT Head: Yes normal to inspection and Yes atraumatic Ears: hearing grossly normal bilaterally General nose exam: Normal external nose present Face and sinus: Yes normal facial exam Eyes General: appearance normal, both eyes and all related structures EOM: EOMs intact bilaterally Neck Neck: Yes normal visual inspection and Yes no meningeal signs Resp Effort & Inspection: normal respiratory effort and no respiratory distress Auscultation: clear to auscultation bilaterally Cardio Rate: regular rate Heart sounds: S1 normal heart sound present and S2 normal heart sound present GI Inspection: Yes normal to inspection Palpation (GI): Soft to palpation, nontender, no guarding and not rigid General: Yes no CVA tenderness Back/Spine/Pelvis Other: No midline cervical/thoracic/lumbar spinous tenderness/step-off or deformity. + mild right-sided lumbar MSK reproducible tenderness. No erythema, warmth, rash or ecchymosis. Back: no CVA tenderness Skin Rashes: no rashes Wounds: no wounds Neuro Other: Strength intact throughout. No saddle anesthesia. Sensation intact to light touch. Neurovascular intact distally General: patient oriented x3, gait normal, tone normal, moves all extremities, no meningeal signs and no focal motor deficits Cranial nerves: Yes CN's II-XII intact bilaterally Gait exam (Neuro): Normal gait present Motor exam (neuro): 5/5 motor strength present throughout Sensory Exam: No Sensory deficit (Neuro) Extrem General: Yes normal to inspection Course Course Course Narrative: 1030--UA with small blood, chronically, 3-5 RBCs > continued low suspicion for renal stone -1148-on re-evaluation patient reports symptomatic improvement. Sitting comfortably in stretcher. Safe for discharge home at this time Results discussed with patient including worrisome signs and symptoms and strict return precautions, and when to return to the emergency department. They verbalized understanding and feel safe for discharge at this time. Medical Decision Making Medical Decision Making [facility] Narrative: 64-year-old female with a past medical history of vertigo, HLD, diabetes, presenting to the ED complaining of right-sided lower back pain radiating to right hip x 1 week. On exam vital signs stable, NAD, nontoxic appearing, abdomen soft and nontender, no midline spinous tenderness throughout. No red flag symptoms. Mild reproducible right lumbar MSK tenderness. No CVAT. Concern for MSK pain/strain vs sciatica. Low suspicion for renal stones/pyelo, UTI, appendicitis/diverticulitis or cauda equina/cord compression at this time Plan: Pain control, UA, re-evaluate Please refer to course for remaining clinical decision making, interpretation of labs/imaging results, and discussions with consultants and/or family members. Differential Diagnosis Differential Diagnoses: The differential diagnosis associated with the presentation includes As above Admission/Observation Consideration of admission/observation: Escalation of care including admission/observation considered Lab Data [facility] Lab Attestation statement: I reviewed the patient's lab results. Labs: Lab Results 12/10/24 Range/Units 09:52 Urine Color Yellow Urine Appearance Clear Urine pH 5.5 (5.0-9.0) Ur Specific [place] 1.025 (1.005-1.025) Urine Protein Negative (Neg-Trace) mg/dL Urine Glucose (UA) Negative (Negative) mg/dL Urine Ketones Negative (Negative) mg/dL Urine Blood Small (1+) H (Negative) Urine Nitrite Negative (Negative) Ur Leukocyte Esterase Negative (Negative) Urine RBC 3-5 H (0-2) /HPF Urine WBC 0-5 (0-5) /HPF Ur Squamous Epith Cells 0-2 (0-2) /HPF Urine Bacteria None Seen (None Seen) Hyaline Casts 0-2 (0-2) /LPF Radiology Impression Discussion of test interpretation with radiology: I have reviewed the radiologist's reading. External Record Review External record reviewed: Inpatient record, Office record, Outpatient record, Prior outpatient labs, Prior outpatient radiology, Primary care record and Outside ED record Tests considered The following testing was considered but not selected: As above Prescription Management I considered prescription management with: Pain Medication Chronic Conditions Patient?s care impacted by: Diabetes and Other Social Determinants Patient?s care significantly limited by Social Determinants of Health including: Other Social Determinant of Health Medications Administered Discontinued Medications Generic Name Dose Route Start Last Admin Trade Name Freq PRN Reason Stop Dose Admin Cyclobenzaprine HCl 10 mg 12/10/24 10:12/10/24 10:38 Cyclobenzaprine Hcl 10 Mg Tablet PO 12/10/24 10:26 10 mg ONCE ONE Administration Ketorolac Tromethamine 30 mg 12/10/24 10:12/10/24 10:38 Ketorolac Tromethamine 30 Mg/Ml Vial IM 12/10/24 10:26 30 mg ONCE ONE Administration Lidocaine 1 patch 12/10/24 10:12/10/24 10:37 Lidocaine 4 % Patch Adh..Patch TRANSDERMA 12/10/24 10:26 1 patch ONCE ONE Administration Protocol Discharge Plan Discharge Clinical Impression: Back pain Patient Disposition: Home, Self-Care Instructions: Acute Low Back Pain (ED) Additional Instructions: Your pain is likely musculoskeletal Flexeril is a muscle relaxer, take at night as it makes you drowsy, do not drive, drink alcohol, or operate machinery while taking it Naproxen as an anti-inflammatory / pain medication, take with food Lidoderm patches are numbing patches, apply to painful area In addition take Tylenol at home If symptoms persist or worsen, pain becomes unbearable, you developed urinary retention or incontinence, or weakness return to the ED Prescriptions: New acetaminophen [Tylenol Extra Strength] 500 mg tablet 500 mg PO Q6H PRN (Reason: fever or pain) Qty: 14 0RF lidocaine [Lidoderm] 5 % adhesive patch,medicated 1 patch topical DAILY MDD remove after 12 hours PRN (Reason: pain) Qty: 30 0RF Rx Instructions: leave on most painful area for up to 12 hrs naproxen 500 mg tablet 500 mg PO BID PRN (Reason: pain) 10 Days Qty: 20 0RF cyclobenzaprine 5 mg tablet 5 mg PO Q8H PRN (Reason: pain (scale score 7-10)) 5 Days Qty: 14 0RF No Action (DME) Meagan willson Mis See Rx Instructions .Route Qty: 1 0RF Rx Instructions: As directed cholecalciferol (vitamin D3) 125 mcg (5,000 unit) capsule 125 mcg PO DAILY Qty: 30 1RF trazodone 50 mg tablet 50 mg PO BEDTIME PRN (Reason: sleep) 30 Days Qty: 30 0RF ezetimibe 10 mg tablet 10 mg PO DAILY 90 Days Qty: 90 0RF cyclobenzaprine 5 mg tablet 5 mg PO TID PRN (Reason: muscle spasm) Qty: 20 0RF oxycodone 5 mg tablet 5 mg PO Q6H PRN (Reason: pain) Qty: 20 0RF Rx Instructions: Partial Fill upon patient request. acetaminophen [Tylenol Extra Strength] 500 mg tablet 500 mg PO Q6H PRN (Reason: fever or pain) Qty: 14 0RF lidocaine [Lidoderm] 5 % adhesive patch,medicated 1 patch topical DAILY MDD remove after 12 hours PRN (Reason: pain) Qty: 30 0RF Rx Instructions: leave on most painful area for up to 12 hrs naproxen 500 mg tablet 500 mg PO BID PRN (Reason: pain) 10 Days Qty: 20 0RF cyclobenzaprine 5 mg tablet 5 mg PO Q8H PRN (Reason: pain (scale score 7-10)) 5 Days Qty: 14 0RF prednisone 20 mg tablet 20 mg PO DAILY 7 Days Qty: 7 0RF omeprazole 20 mg capsule,delayed release(DR/EC) 20 mg PO DAILY PRN (Reason: heartburn) 90 Days Qty: 90 1RF nitrofurantoin macrocrystal 100 mg capsule 100 mg PO BID 5 Days Qty: 10 0RF Rx Instructions: must administer with a meal/food metformin 1,000 mg tablet 1,000 mg PO BID 90 Days Qty: 180 1RF glimepiride 2 mg tablet 2 mg PO DAILY 90 Days Qty: 90 1RF bisacodyl [Dulcolax (bisacodyl)] 5 mg tablet,delayed release (DR/EC) 20 mg PO ONCE PRN (Reason: colonoscopy prep) 1 Days Qty: 4 0RF Rx Instructions: Day before procedure @ 12 noon Take 4 tablets by mouth followed by large glass of water polyethylene glycol 3350 [Miralax] 17 gram/dose powder 238 g PO ONCE PRN (Reason: laxative effect) 1 Days Qty: 238 0RF Rx Instructions: Take as directed by mouth the day before your procedure. Referrals: Delores Franco MD [Primary Care Provider] - 1 week Interventions: ED Discharge Assessment Last Done: 12/10/24 12:10 Discharge Date/Time: 12/10/24 12:10 Print Language: British
[2024-12-10] MEDS: Lidocaine 4 % Patch ADH..PATCH 1 PATCH TRANSDERMA (10:37)
[2024-12-10] MEDS: Ketorolac Tromethamine 30 MG/ML VIAL IM (10:38)
[2024-12-10] MEDS: Cyclobenzaprine HCl 10 MG TABLET PO (10:38)
[2024-12-10 10:39] VITALS: BP 119/62; PULSE 60; RESP 18; TEMP 36.6; O2SAT 98
[2024-12-10 12:07] VITALS: BP 135/64; PULSE 64; RESP 16; TEMP 36.6; O2SAT 97
[2024-12-10 12:10] VITALS: BP 135/64; PULSE 64; RESP 16; TEMP 36.6; O2SAT 97
== END 2024-12-10 12:10 | disposition home or self-care (01) ==
PROVIDERS: Emergency Provider Emergency Medicine; PCP Internal Medicine
DX: M54.50 Low back pain, unspecified (principal)
CPT/HCPCS: 81001; 96372; 99284; J1885

== ENCOUNTER 2025-01-05 08:34 | Outpatient (REF) | payer OTHER, SELFPAY ==
[2025-01-05 11:04] LABS: Microalbum/Creatinine Ratio Ur 4.2 ug/mg cr (<30)
[2025-01-05 12:21] LABS: Alanine Aminotransferase 15 U/L (0-31); Albumin Level 4.1 g/dL (3.5-5.0); Alkaline Phosphatase 81 U/L (39-117); Anion Gap 11 (12-20); Aspartate Amino Transferase 18 U/L (5-31); Bilirubin Total 0.8 mg/dL (0.0-1.0); Blood Urea Nitrogen 17 mg/dL (9-16); Calcium 8.8 mg/dL (8.4-10.2); Carbon Dioxide 28 mmol/L (22-29); Chloride 106 mmol/L (96-108); Cholesterol 202 mg/dL (<200); Estimated Glomerular Filt Rate > 60; Glucose Fasting 140 mg/dL (60-99); HDL Cholesterol 48 mg/dL (>40); LDL Cholesterol Calculated 139 mg/dL (<100); Potassium 4.1 mmol/L (3.3-5.1); Sodium 141 mmol/L (135-145); Total Protein 7.1 g/dL (6.5-8.0); Triglycerides 79 mg/dL (<150)
== END 2025-01-05 08:35 | disposition home or self-care (01) ==
LOC: HO.LAB 08:34
PROVIDERS: PCP Internal Medicine; Visit Provider Internal Medicine
DX: E11.9 Type 2 diabetes mellitus without complications (principal); E78.5 Hyperlipidemia, unspecified
CPT/HCPCS: 36415; 80053; 80061; 82043; 82570

== ENCOUNTER 2025-03-03 10:22 | Emergency (ER) | payer OTHER, SELFPAY ==
[2025-03-03 10:48] VITALS: BP 103/62; PULSE 67; RESP 20; TEMP 36.8; O2SAT 98; BMI 32.8
[2025-03-03 11:07] LABS: MANUAL DIFF FLAG NO
[2025-03-03 11:08] LABS: Hematocrit 37.4 % (37.0-47.0); Hemoglobin 13.0 g/dl (12.0-16.0); Imm Gran Abs Auto 0.02 X10*3/uL (0.00-0.03); Imm Gran Pct Auto 0.3 % (0.0-0.4); Lymphocytes Absolute Auto 1.8 X10*3/uL (1.2-4.9); Mean Corpuscular HGB Conc 34.8 g/dl (31.0-35.0); Mean Corpuscular Hemoglobin 31.3 pg (27.0-33.0); Mean Corpuscular Volume 89.9 fL (80.0-98.0); NRBC Abs Auto 0.000 X10*3/uL (0.0-0.012); NRBC Pct Auto 0.0 /100WBC (0.0-0.2); Platelet Count 260 X10*3/uL (160-400); Red Blood Count 4.16 X10*6/uL (4.20-5.50); White Blood Count 7.7 X10*3/uL (4.8-10.8)
[2025-03-03 11:10] LABS: Appearance Urine Clear; Glucose Urine UA Negative (Negative); PH 6.5 (5.0-9.0); Specific Gravity - Urine 1.025 (1.005-1.025); UMIC TRIGGER UACC YES
[2025-03-03 11:23] LABS: Alanine Aminotransferase 18 U/L (0-31); Albumin Level 4.3 g/dL (3.5-5.0); Alkaline Phosphatase 87 U/L (39-117); Anion Gap 12 (12-20); Aspartate Amino Transferase 21 U/L (5-31); Blood Urea Nitrogen 18 mg/dL (9-16); Calcium 9.1 mg/dL (8.4-10.2); Carbon Dioxide 26 mmol/L (22-29); Chloride 107 mmol/L (96-108); Creatinine Clr Calc Pharmacy 72.8; Estimated Glomerular Filt Rate > 60; Potassium 4.1 mmol/L (3.3-5.1); Sodium 141 mmol/L (135-145); Total Protein 7.1 g/dL (6.5-8.0)
[2025-03-03 11:24] LABS: UACC Culture Trigger YES
== END 2025-03-03 17:56 | disposition left against medical advice (07) ==
PROVIDERS: Emergency Provider Emergency Medicine; PCP Internal Medicine
DX: M54.50 Low back pain, unspecified (principal); R11.0 Nausea; Z79.899 Other long term (current) drug therapy
CPT/HCPCS: 36415; 80053; 81001; 85025; 87086; 99281; 99282

== ENCOUNTER 2025-03-11 06:46 | Emergency (ER) | payer OTHER, SELFPAY ==
--- NOTE | ~2025-03-11 | CT_ITS ---
EXAMINATION: CT ABDOMEN PELVIS WITHOUT IV CONTRAST HISTORY: low back pain radiating up flanks COMPARISON: Comparison is made with the prior examinations dated 07/06/2024 and 09/19/2023. TECHNIQUE: CT scan of the abdomen and pelvis was performed without contrast using standard departmental protocol. Coronal and sagittal reformatted images were generated and reviewed. Oral contrast material was not administered per department protocol. This CT exam was performed with one or more of the following dose reduction techniques: automated exposure control, adjustment of the mA and/or kV according to patient size, use of iterative reconstruction technique. DLP: 511 mGy-cm FINDINGS: LOWER CHEST: The visualized lung bases are clear. There is no pleural effusion. CARDIOVASCULATURE: The heart is normal in size. There is no pericardial effusion. LIVER: The liver is normal in size and contour. The liver has an unremarkable unenhanced appearance. GALLBLADDER / BILE DUCTS: The gallbladder is unremarkable. There is no intra or extrahepatic biliary ductal dilatation. SPLEEN: The spleen is normal in size and has an unremarkable unenhanced appearance. PANCREAS: The pancreatic head and neck have an unremarkable unenhanced appearance. The pancreatic body and tail are either markedly atrophic or surgically absent. ADRENAL GLANDS: Unremarkable. KIDNEYS/RETROPERITONEUM: There is a 1.2 cm cyst at the upper pole of the right kidney. Again seen are multiple bilateral renal parapelvic cysts. No renal or ureteral calculi are identified. There is no hydroureteronephrosis. LYMPH NODES: No retroperitoneal lymphadenopathy is identified in the abdomen or pelvis. VASCULATURE: The abdominal aorta is normal in caliber. MESENTERY/PERITONEUM: No free fluid. No masses. There is no free intraperitoneal gas. STOMACH: The stomach is collapsed, limiting evaluation. SMALL BOWEL: The small bowel is normal in caliber. COLON: There is diverticulosis of the descending and sigmoid colon, without evidence of diverticulitis. APPENDIX: Normal. URINARY BLADDER/PELVIC ORGANS: The urinary bladder is unremarkable. The patient is status post hysterectomy. BONES / SOFT TISSUES: There is osteoarthritis of the lower lumbar facet joints. CT/CT abdomen pelvis wo IV con IMPRESSION: No evidence of nephrolithiasis or ureteral obstruction. No acute abnormality is identified. Incidental findings as discussed above. Electronically signed by: Jamie Heredia MD 03/11/2025 10:42 AM EDT RP
[2025-03-11 06:50] VITALS: BP 146/57; PULSE 75; RESP 16; TEMP 36.8; O2SAT 98; BMI 32.9
--- NOTE | 2025-03-11 06:55 | ECG_ITS ---
Test Reason : back pain/chest pain Blood Pressure : */* mmHG Vent. Rate : 70 BPM Atrial Rate : 70 BPM P-R Int : 158 ms QRS Dur : 84 ms QT Int : 390 ms P-R-T Axes : 47 13 16 degrees QTcB Int : 421 ms Normal sinus rhythm Normal ECG When compared with ECG of 14-Aug-2024 13:36, Nonspecific T wave abnormality, improved in Anterior leads Referred By: Generic ED Physician Electronically Signed By: Desmond Killian
[2025-03-11 07:46] LABS: Appearance Urine Clear; Glucose Urine UA Negative (Negative); PH 5.5 (5.0-9.0); Specific Gravity - Urine 1.025 (1.005-1.025); UMIC TRIGGER UACC YES
[2025-03-11 08:14] LABS: UACC Culture Trigger YES
[2025-03-11 08:32] VITALS: BP 132/49; PULSE 60; RESP 18; TEMP 37; O2SAT 97
[2025-03-11 09:01] LABS: MANUAL DIFF FLAG NO
[2025-03-11 09:02] LABS: Hematocrit 36.5 % (37.0-47.0); Hemoglobin 12.6 g/dl (12.0-16.0); Imm Gran Abs Auto 0.02 X10*3/uL (0.00-0.03); Imm Gran Pct Auto 0.3 % (0.0-0.4); Lymphocytes Absolute Auto 1.8 X10*3/uL (1.2-4.9); Mean Corpuscular HGB Conc 34.5 g/dl (31.0-35.0); Mean Corpuscular Hemoglobin 31.5 pg (27.0-33.0); Mean Corpuscular Volume 91.3 fL (80.0-98.0); NRBC Abs Auto 0.000 X10*3/uL (0.0-0.012); NRBC Pct Auto 0.0 /100WBC (0.0-0.2); Platelet Count 235 X10*3/uL (160-400); Red Blood Count 4.00 X10*6/uL (4.20-5.50); White Blood Count 6.3 X10*3/uL (4.8-10.8)
[2025-03-11 09:15] LABS: Anion Gap 10 (12-20); Blood Urea Nitrogen 17 mg/dL (9-16); Calcium 8.9 mg/dL (8.4-10.2); Carbon Dioxide 26 mmol/L (22-29); Chloride 108 mmol/L (96-108); Creatinine Clr Calc Pharmacy 82.7; Estimated Glomerular Filt Rate > 60; Potassium 4.1 mmol/L (3.3-5.1); Sodium 140 mmol/L (135-145)
[2025-03-11 09:24] LABS: Troponin-I High Sensitivity < 2.7 ng/L (<3.5-17.0)
--- NOTE | 2025-03-11 09:54 | ED.GENADULT ---
HPI - General Adult General Chief complaint: Back Pain/Injury Stated complaint: lower back pain Time Seen by Provider: 03/11/25 09:16 Source: patient Mode of arrival: ambulatory Limitations: no limitations History of Present Illness ED Provider: Kalyan España HPI narrative: 64 yold female with pmh of high cholesterol and lumbar radiculopathy presents to the ED for low back radiating up bilateral flanks and bilateral legs. Patient also states foul smelling urine. Patient denies any chest pain, shortness of breath, pleurisy, leg swelling, pitting edema, recent long travle, recent surgery, urinary/bowel incontinence, numbness, tingling, or pmh DVT/PE. Related Data Previous Rx's ?Medication ?Instructions ?Recorded Grab bar #1 ea 12/13/22 bisacodyl 5 mg tablet,delayed 20 mg (4 x 5 mg) PO ONCE PRN 10/08/23 release (Dulcolax (bisacodyl)) colonoscopy prep 1 day #4 tabs polyethylene glycol 3350 17 238 g PO ONCE PRN laxative effect 10/08/23 gram/dose oral powder (Miralax) 1 day #238 grams omeprazole 20 mg capsule,delayed 20 mg PO DAILY PRN heartburn 90 10/22/23 release days #90 caps cholecalciferol (vitamin D3) 125 125 mcg PO DAILY #30 caps 11/27/23 mcg (5,000 unit) capsule cyclobenzaprine 5 mg tablet 5 mg PO TID PRN muscle spasm #20 12/26/23 tabs trazodone 50 mg tablet 50 mg PO BEDTIME PRN sleep 30 days 01/06/24 #30 tabs nitrofurantoin macrocrystal 100 mg 100 mg PO BID 5 days #10 caps 02/26/24 capsule ezetimibe 10 mg tablet 10 mg PO DAILY 90 days #90 tabs 06/05/24 oxycodone 5 mg tablet 5 mg PO Q6H PRN pain #20 tabs 07/06/24 acetaminophen 500 mg tablet 500 mg PO Q6H PRN fever or pain 08/12/24 (Tylenol Extra Strength) #14 tabs cyclobenzaprine 5 mg tablet 5 mg PO Q8H PRN pain (scale score 08/12/24 7-10) 5 days #14 tabs lidocaine 5 % topical patch 1 patch topical DAILY PRN pain #30 08/12/24 (Lidoderm) ea naproxen 500 mg tablet 500 mg PO BID PRN pain 10 days #20 08/12/24 tabs prednisone 20 mg tablet 20 mg PO DAILY 7 days #7 tabs 08/14/24 glimepiride 2 mg tablet 2 mg PO DAILY 90 days #90 tabs 08/20/24 metformin 1,000 mg tablet 1,000 mg PO BID 90 days #180 tabs 08/20/24 acetaminophen 500 mg tablet 500 mg PO Q6H PRN fever or pain 12/10/24 (Tylenol Extra Strength) #14 tabs cyclobenzaprine 5 mg tablet 5 mg PO Q8H PRN pain (scale score 12/10/24 7-10) 5 days #14 tabs lidocaine 5 % topical patch 1 patch topical DAILY PRN pain #30 12/10/24 (Lidoderm) ea naproxen 500 mg tablet 500 mg PO BID PRN pain 10 days #20 12/10/24 tabs cefuroxime axetil 250 mg tablet 250 mg PO Q12H #14 tabs 03/11/25 cyclobenzaprine 10 mg tablet 10 mg PO TID PRN muscle spasm #21 03/11/25 tabs ketorolac 10 mg tablet 10 mg PO QID #20 tabs 03/11/25 Allergies Allergy/AdvReac Type Severity Reaction Status Date / Time atorvastatin Allergy Mild stomach Verified 03/11/25 06:53 upset Review of Systems Review of Systems: low back pain radiating up bilateral flanks Yes all other systems are reviewed and are negative [facility] Past Medical History Medical History Hypersomnia Snoring Vertigo Class 1 obesity with body mass index (BMI) of 33.0 to 33.9 in adult Insomnia Dyslipidemia Chronic cough Thoracic spine pain Hand numbness Left hand pain Rash and nonspecific skin eruption Diabetes Surgical History History of hysterectomy History of colonoscopy Family History Family History Father No problems noted. Mother History of diabetes mellitus, type I Social History Social History Household Members: None Housing: Apartment Do you presently have visiting nurse or other home services: Yes Alcohol intake: never Patient Tobacco Use Status: Never used Tobacco e-Cigarette/Vaping Use: Never Used Second Hand Smoke Exposure: No service: No Current occupational status: unemployed and disabled Current occupation: rt handed Cognitive needs: No Hearing needs: No Vision needs: Yes Physical Exam ED Vital Signs: Vital Signs - 24 hr 03/11/25 06:50 03/11/25 08:32 03/11/25 10:22 Temperature 98.3 F 98.6 F 98.3 F Pulse Rate 75 60 61 Respiratory Rate 16 18 18 Blood Pressure 146/57 H 132/49 L 130/60 Pulse Oximetry 98 97 98 Oxygen Delivery Method Room Air Room Air Room Air 03/11/25 12:00 Temperature 98.3 F Pulse Rate 66 Respiratory Rate 18 Blood Pressure 128/69 Pulse Oximetry 96 Oxygen Delivery Method Room Air BMI result Body Mass Index 32.9 Const General: cooperative, healthy appearing, comfortable, no acute distress, well developed, alert, awake and Physically active Orientation/consciousness: patient oriented x3 HENMT Head: Yes normal to inspection, Yes No palpable skull fracture present, Yes normocephalic and Yes atraumatic Eyes General: appearance normal, both eyes and all related structures Neck Neck: Yes normal visual inspection, Yes full ROM, Yes no lymphadenopathy, Yes no meningeal signs, Yes trachea midline, Yes supple, No anterior neck swelling and No tender Chest Chest palpation & inspection: normal inspection of the chest and normal palpation of entire chest wall Resp Effort & Inspection: normal respiratory effort and able to speak in complete sentences Auscultation: clear to auscultation bilaterally Cardio Jugular venous distension: no JVD Heart sounds: S1 normal heart sound present and S2 normal heart sound present GI Inspection: Yes normal to inspection Palpation (GI): Soft to palpation, not firm, nontender, no guarding and not rigid General: Yes CVA tenderness (bilateral) Back/Spine/Pelvis Back: CVA tenderness (bilateral) and back tenderness (umbar spine tenderness) Back/spine/pelvis image:  1. Positive for lumbar spine tenderness on palpation radiating to flank which is also tender on palpation. Negative for erythema, ecchymosis, deformity, or crepitus. Negative for rash. 2. Positive for lumbar spine tenderness on palpation radiating to flank which is also tender on palpation. Negative for erythema, ecchymosis, deformity, or crepitus. Negative for rash. Skin General skin exam: no rashes or lesions noted, elasticity normal and turgor normal Neuro General: patient oriented x3, gait normal, tone normal, moves all extremities, Normal light touch and pain sensation, no meningeal signs, no focal motor deficits, CN's II-XI intact bilaterally and normal sensation to monofilament Extrem General: Yes normal to inspection, Yes full ROM and Yes capillary refill normal Psych Appearance: grossly normal, well kempt and not disheveled Medications Administered Discontinued Medications Generic Name Dose Route Start Last Admin Trade Name Freq PRN Reason Stop Dose Admin Ketorolac Tromethamine 30 mg 03/11/25 09:46 03/11/25 10:21 Ketorolac Tromethamine 30 Mg/Ml Vial IM 03/11/25 09:47 30 mg ONCE ONE Administration Medical Decision Making Medical Decision Making MDM Narrative: 64-year-old female history of lumbar radiculopathy presents to ED for low back pain radiating radiating up flanks and going down both legs. Patient states also foul smelling urine. Patient denies any chest pain, shortness of breath, pleurisy, coughing up blood, flank pain, fever, or chills. Patient denies any history of IV drug use or urinary/bowel incontinence. Patient denies any history of immunocompromise diseases. 11:36m: Went back to re-evaluate patient with plane tender and once again patient states she never had any chest pain, pleurisy, or shortness of breath. Patient states to lower back radiating up to her flanks and going down to legs. Patient states pain improved with Toradol. Patient agreeable to plan to follow up with spinal surgeon. Not suspecting PE, hemothorax, pneumothorax, cardiac tamponade, NV, CHF exacerbation, cauda equinus, epidural abscess or any other life-threatening etiology. No need for chest x-ray or chest CTA. Patient denies any recent trauma not suspecting any traumatic life-threatening injury. Patient explained worrisome signs and informed to return to the ED immediately. UA showed dirty catch versus possible UTI we will discharge antibiotics Differential Diagnosis Differential Diagnoses: The differential diagnosis associated with the presentation includes (Back pain lumbar radiculopathy, kidney stones, pyelonephritis, UTI) Admission/Observation Consideration of admission/observation: Escalation of care including admission/observation considered Lab Data MDM Lab Attestation statement: I reviewed the patient's lab results. 03/11/25 08:57 03/11/25 08:57 Labs: Lab Results 03/11/25 03/11/25 Range/Units 07:39 08:57 WBC 6.3 (4.8-10.8) X10*3/uL RBC 4.00 L (4.20-5.50) X10*6/uL Hgb 12.6 (12.0-16.0) g/dl Hct 36.5 L (37.0-47.0) % MCV 91.3 (80.0-98.0) fL MCH 31.5 (27.0-33.0) pg MCHC 34.5 (31.0-35.0) g/dl RDW 13.1 (11.0-16.0) % Plt Count 235 (160-400) X10*3/uL MPV 9.0 L (9.4-12.3) fL Immature Gran % (Auto) 0.3 (0.0-0.4) % Neut % (Auto) 57.2 (45-73) % Lymph % (Auto) 28.3 (20-40) % [place] % (Auto) 11.5 H (2-11) % Eos % (Auto) 1.9 (0-4) % Baso % (Auto) 0.8 (0-2) % Lymph # (Auto) 1.8 (1.2-4.9) X10*3/uL [place] # (Auto) 0.7 (0.1-1.2) X10*3/uL Eos # (Auto) 0.1 (0.0-0.4) X10*3/uL Baso # (Auto) 0.1 (0.0-0.2) X10*3/uL Abs Immat Gran (auto) 0.02 (0.00-0.03) X10*3/uL Absolute Neuts (auto) 3.6 (2.0-8.3) x10*3/uL Absolute Nucleated RBC 0.000 (0.0-0.012) X10*3/uL Nucleated RBC % (auto) 0.0 (0.0-0.2) /100WBC Sodium 140 (135-145) mmol/L Potassium 4.1 (3.3-5.1) mmol/L Chloride 108 (96-108) mmol/L Carbon Dioxide 26 (22-29) mmol/L Anion Gap 10 L (12-20) BUN 17 H (9-16) mg/dL Creatinine 0.68 (0.5-1.4) mg/dL Estim Creat Clear Calc 82.7 Estimated GFR > 60 Random Glucose 128 H (60-115) mg/dL Calcium 8.9 (8.4-10.2) mg/dL Troponin I High Sens < 2.7 (<3.5-17.0) ng/L Urine Color Yellow Urine Appearance Clear Urine pH 5.5 (5.0-9.0) Ur Specific [place] 1.025 (1.005-1.025) Urine Protein Negative (Neg-Trace) mg/dL Urine Glucose (UA) Negative (Negative) mg/dL Urine Ketones Negative (Negative) mg/dL Urine Blood Small (1+) H (Negative) Urine Nitrite Negative (Negative) Ur Leukocyte Esterase Moderate (2+) H (Negative) Urine RBC 3-5 H (0-2) /HPF Urine WBC 6-10 (0-5) /HPF Ur Squamous Epith Cells 3-5 (0-2) /HPF Urine Bacteria Trace (None Seen) Hyaline Casts 0-2 (0-2) /LPF Independent Interpretation I performed an independent interpretation of an: CT Scan Radiology Impression Discussion of test interpretation with radiology: I have reviewed the radiologist's reading. Independent Historian Clinical information obtained from an independent historian. History obtained from or confirmed by: Other (patient) Discharge Plan Discharge Clinical Impression: Lumbar radiculopathy, UTI (urinary tract infection) Patient Disposition: Home, Self-Care Instructions: Urinary Tract Infection in Women (DC), Lumbar Radiculopathy (ED) Additional Instructions: You will need follow-up with spinal surgeon. Urine shows possible infection you will be discharged antibiotics. You will be discharged with pain medication and muscle relaxer. Also follow up with her PCP. Return to the ED immediately for any worsening back pain, urinary/bowel incontinence, inability to walk, numbness of genital area, chest pain, shortness of breath, chest pain on inspiration, coughing up blood, flank pain, fever, chills, increased urinary frequency, blood in urine, leg swelling, calf pain or any other concerning symptoms. Do not take any other NSAIDs such as motrin, naproxen, alleve, ibuprofen, or any other NSAIDS. EXAMINATION: CT ABDOMEN PELVIS WITHOUT IV CONTRAST HISTORY: low back pain radiating up flanks COMPARISON: Comparison is made with the prior examinations dated 07/06/2024 and 09/19/2023. TECHNIQUE: CT scan of the abdomen and pelvis was performed without contrast using standard departmental protocol. Coronal and sagittal reformatted images were generated and reviewed. Oral contrast material was not administered per department protocol. This CT exam was performed with one or more of the following dose reduction techniques: automated exposure control, adjustment of the mA and/or kV according to patient size, use of iterative reconstruction technique. DLP: 511 mGy-cm FINDINGS: LOWER CHEST: The visualized lung bases are clear. There is no pleural effusion. CARDIOVASCULATURE: The heart is normal in size. There is no pericardial effusion. LIVER: The liver is normal in size and contour. The liver has an unremarkable unenhanced appearance. GALLBLADDER / BILE DUCTS: The gallbladder is unremarkable. There is no intra or extrahepatic biliary ductal dilatation. SPLEEN: The spleen is normal in size and has an unremarkable unenhanced appearance. PANCREAS: The pancreatic head and neck have an unremarkable unenhanced appearance. The pancreatic body and tail are either markedly atrophic or surgically absent. ADRENAL GLANDS: Unremarkable. KIDNEYS/RETROPERITONEUM: There is a 1.2 cm cyst at the upper pole of the right kidney. Again seen are multiple bilateral renal parapelvic cysts. No renal or ureteral calculi are identified. There is no hydroureteronephrosis. LYMPH NODES: No retroperitoneal lymphadenopathy is identified in the abdomen or pelvis. VASCULATURE: The abdominal aorta is normal in caliber. MESENTERY/PERITONEUM: No free fluid. No masses. There is no free intraperitoneal gas. STOMACH: The stomach is collapsed, limiting evaluation. SMALL BOWEL: The small bowel is normal in caliber. COLON: There is diverticulosis of the descending and sigmoid colon, without evidence of diverticulitis. APPENDIX: Normal. URINARY BLADDER/PELVIC ORGANS: The urinary bladder is unremarkable. The patient is status post hysterectomy. BONES / SOFT TISSUES: There is osteoarthritis of the lower lumbar facet joints. CT/CT abdomen pelvis wo IV con IMPRESSION: No evidence of nephrolithiasis or ureteral obstruction. No acute abnormality is identified. Incidental findings as discussed above. Electronically signed by: Jamie Heredia MD 03/11/2025 10:42 AM EDT RP Prescriptions: New cyclobenzaprine 10 mg tablet 10 mg PO TID PRN (Reason: muscle spasm) Qty: 21 0RF Rx Instructions: Side effects of drowsiness. Do not take at work or while driving ketorolac 10 mg tablet 10 mg PO QID Qty: 20 0RF Rx Instructions: Received Toradol 30 mg IM cefuroxime axetil 250 mg tablet 250 mg PO Q12H Qty: 14 0RF No Action (DME) Grab bar Misc See Rx Instructions .Route Qty: 1 0RF Rx Instructions: As directed cholecalciferol (vitamin D3) 125 mcg (5,000 unit) capsule 125 mcg PO DAILY Qty: 30 1RF trazodone 50 mg tablet 50 mg PO BEDTIME PRN (Reason: sleep) 30 Days Qty: 30 0RF ezetimibe 10 mg tablet 10 mg PO DAILY 90 Days Qty: 90 0RF cyclobenzaprine 5 mg tablet 5 mg PO TID PRN (Reason: muscle spasm) Qty: 20 0RF oxycodone 5 mg tablet 5 mg PO Q6H PRN (Reason: pain) Qty: 20 0RF Rx Instructions: Partial Fill upon patient request. acetaminophen [Tylenol Extra Strength] 500 mg tablet 500 mg PO Q6H PRN (Reason: fever or pain) Qty: 14 0RF lidocaine [Lidoderm] 5 % adhesive patch,medicated 1 patch topical DAILY MDD remove after 12 hours PRN (Reason: pain) Qty: 30 0RF Rx Instructions: leave on most painful area for up to 12 hrs naproxen 500 mg tablet 500 mg PO BID PRN (Reason: pain) 10 Days Qty: 20 0RF cyclobenzaprine 5 mg tablet 5 mg PO Q8H PRN (Reason: pain (scale score 7-10)) 5 Days Qty: 14 0RF prednisone 20 mg tablet 20 mg PO DAILY 7 Days Qty: 7 0RF acetaminophen [Tylenol Extra Strength] 500 mg tablet 500 mg PO Q6H PRN (Reason: fever or pain) Qty: 14 0RF lidocaine [Lidoderm] 5 % adhesive patch,medicated 1 patch topical DAILY MDD remove after 12 hours PRN (Reason: pain) Qty: 30 0RF Rx Instructions: leave on most painful area for up to 12 hrs naproxen 500 mg tablet 500 mg PO BID PRN (Reason: pain) 10 Days Qty: 20 0RF cyclobenzaprine 5 mg tablet 5 mg PO Q8H PRN (Reason: pain (scale score 7-10)) 5 Days Qty: 14 0RF omeprazole 20 mg capsule,delayed release(DR/EC) 20 mg PO DAILY PRN (Reason: heartburn) 90 Days Qty: 90 1RF nitrofurantoin macrocrystal 100 mg capsule 100 mg PO BID 5 Days Qty: 10 0RF Rx Instructions: must administer with a meal/food metformin 1,000 mg tablet 1,000 mg PO BID 90 Days Qty: 180 1RF glimepiride 2 mg tablet 2 mg PO DAILY 90 Days Qty: 90 1RF bisacodyl [Dulcolax (bisacodyl)] 5 mg tablet,delayed release (DR/EC) 20 mg PO ONCE PRN (Reason: colonoscopy prep) 1 Days Qty: 4 0RF Rx Instructions: Day before procedure @ 12 noon Take 4 tablets by mouth followed by large glass of water polyethylene glycol 3350 [Miralax] 17 gram/dose powder 238 g PO ONCE PRN (Reason: laxative effect) 1 Days Qty: 238 0RF Rx Instructions: Take as directed by mouth the day before your procedure. Referrals: Cortes Leigh MD, PhD [Physician, Neuro Spine] - 3 days Referral Note: Chronic back pain Clinical Impression: UTI (urinary tract infection); Lumbar radiculopathy Delores Franco MD [Primary Care Provider, Internal Medicine] - 2 days Referral Note: Chronic back pain exacerbation. May need physical therapy and pain management Clinical Impression: UTI (urinary tract infection); Lumbar radiculopathy Interventions: ED Discharge Assessment Last Done: 03/11/25 12:00 Discharge Date/Time: 03/11/25 12:01 Print Language: Mongolian
[2025-03-11 10:22] VITALS: BP 130/60; PULSE 61; RESP 18; TEMP 36.8; O2SAT 98
[2025-03-11 12:00] VITALS: BP 128/69; PULSE 66; RESP 18; TEMP 36.8; O2SAT 96
== END 2025-03-11 12:01 | disposition home or self-care (01) ==
PROVIDERS: Emergency Provider Emergency Medicine Emergency Medical Services; PCP Internal Medicine
DX: N39.0 Urinary tract infection, site not specified (principal); M54.16 Radiculopathy, lumbar region; M54.50 Low back pain, unspecified; R07.89 Other chest pain; M79.605 Pain in left leg; M79.604 Pain in right leg; Z79.899 Other long term (current) drug therapy
CPT/HCPCS: 36415; 74176; 80048; 81001; 84484; 85025; 87086; 93005; 96372; 99284; J1885

== ENCOUNTER → 2025-03-11 06:55 | Outpatient (BNV) | payer OTHER, SELFPAY | PROVIDERS: Emergency Provider Emergency Medicine Emergency Medical Services; PCP Internal Medicine; Visit Provider Internal Medicine Cardiovascular Disease | DX: R07.9 Chest pain, unspecified (principal); M54.9 Dorsalgia, unspecified | CPT/HCPCS: 93010 ==

== ENCOUNTER → 2025-03-11 09:54 | Outpatient (BNV) | payer OTHER, SELFPAY | PROVIDERS: Emergency Provider Emergency Medicine Emergency Medical Services; PCP Internal Medicine; Visit Provider Radiology Diagnostic Radiology | DX: M54.50 Low back pain, unspecified (principal) | CPT/HCPCS: 74176 ==

== ENCOUNTER 2025-03-29 12:23 | Outpatient (AMB) | payer OTHER, SELFPAY ==
[2025-03-29 12:36] VITALS: BP 130/70; PULSE 61; RESP 18; O2SAT 98; BMI 32.9
--- NOTE | 2025-03-29 12:36 | A.OFFPC_ITS ---
Vital Signs 03/29/25 12:36 Height 5 ft 2 in Weight 180 lb 2 oz BMI 32.9 BP 130/70 Blood Pressure Location Lt brachial Position Sitting Respiration 18 Pulse 61 Pulse Source Pulse Oximeter Temp Source Temporal Artery Scan Pulse Oximetry (%) 98 Oxygen Delivery Method Room Air Intake Visit Reasons: annual exam Construction Helper Required: Yes Construction Helper Name: uzbek Accompanied by: Daughter Allergies atorvastatin Allergy (Mild, Verified 03/29/25 12:46) stomach upset Medication List - Last Reconciled 03/29/25 by Delores Mcgee MD acetaminophen (Tylenol Extra Strength) 500 mg PO Q6H PRN acetaminophen (Tylenol Extra Strength) 500 mg PO Q6H PRN bisacodyl (Dulcolax (bisacodyl)) 20 mg (4 x 5 mg) PO ONCE PRN 1 day cefuroxime axetil 250 mg PO Q12H cholecalciferol (vitamin D3) 125 mcg PO DAILY cyclobenzaprine 10 mg PO TID PRN cyclobenzaprine 5 mg PO TID PRN cyclobenzaprine 5 mg PO Q8H PRN 5 days cyclobenzaprine 5 mg PO Q8H PRN 5 days ezetimibe 10 mg PO DAILY 90 days glimepiride 2 mg PO DAILY 90 days Grab bar As directed ketorolac 10 mg PO QID lidocaine 5% (Lidoderm) 1 patch topical DAILY PRN MDD remove after 12 hours lidocaine 5% (Lidoderm) 1 patch topical DAILY PRN MDD remove after 12 hours metformin 1,000 mg PO BID 90 days naproxen 500 mg PO BID PRN 10 days naproxen 500 mg PO BID PRN 10 days nitrofurantoin macrocrystal 100 mg PO BID 5 days omeprazole 20 mg PO DAILY PRN 90 days oxycodone 5 mg PO Q6H PRN polyethylene glycol 3350 (Miralax) 238 grams PO ONCE PRN 1 day prednisone 20 mg PO DAILY 7 days trazodone 50 mg PO BEDTIME PRN 30 days Tobacco use date assessed: 03/29/25 Fall risk assessment: No Falls in past year Last assessed Fall Risk: 03/29/25 Dental Screening Dental Screen Date: 03/29/25 Did you have a dental visit in the last 12 months?: No Was dental information given to patient?: No HPI HPI Comments History of Present Illness Details The patient is a 64-year-old female presenting for an annual physical examination and management of chronic conditions. She has a history of Diabetes Mellitus, managed with glimepiride 2 mg daily. Her last hemoglobin A1c was 6.5% in August, indicating adequate control. The patient also has Hyperlipidemia, for which she takes ezetimibe 10 mg. Her cholesterol levels were elevated in December, and a repeat test is planned in four months. She experiences Gastroesophageal Reflux Disease, using omeprazole as needed for symptom relief. Insomnia is managed with trazodone for sleep. The patient has a diagnosis of Glaucoma, with a pending surgical intervention. She reports no current use of eye drops for this condition. Osteoarthritis affects her back, causing significant discomfort. She describes the pain as radiating across her back. Preventative care measures discussed include a colonoscopy, which she has not yet undergone. Her last tetanus vaccination was in 2012, and a booster was offered but declined during this visit. A bone density test is planned as she has not had one recently. - Colonoscopy recommended for colon [facility] screening - Tetanus booster offered, last received in 2012 the patient declined today - Bone density test planned [facility] Medical History Hypersomnia Snoring Vertigo Class 1 obesity with body mass index (BMI) of 33.0 to 33.9 in adult Insomnia Dyslipidemia Chronic cough Thoracic spine pain Hand numbness Left hand pain Rash and nonspecific skin eruption Diabetes Surgical History History of hysterectomy History of colonoscopy Family History Father No problems noted. Mother History of diabetes mellitus, type I Social History Household Members: None Housing: Apartment Do you presently have visiting nurse or other home services: Yes Alcohol intake: never Patient Tobacco Use Status: Never used Tobacco e-Cigarette/Vaping Use: Never Used Second Hand Smoke Exposure: No service: No Current occupational status: unemployed and disabled Current occupation: rt handed Cognitive needs: No Hearing needs: No Vision needs: Yes Questionnaire PHQ-9 Over the last 2 weeks, how often have you been bothered by any of the following problems? 1. Little interest or pleasure in doing things: not at all 2. Feeling down, depressed, or hopeless: not at all 3. Trouble falling or staying asleep, or sleeping too much: not at all 4. Feeling tired or having little energy: not at all 5. Poor appetite or overeating: not at all 6. Feeling bad about yourself - or that you are a failure or have let yourself or your family down: not at all 7. Trouble concentrating on things, such as reading the newspaper or watching television: not at all 8. Moving or speaking so slowly that other people could have noticed. Or the opposite - being so fidgety or restless that you have been moving around a lot more than usual: not at all 9. Thoughts that you would be better off or of hurting yourself in some way: not at all Total score: 0 Depression Screening Interpretation: Negative Depression Screening Done: Yes 21112 - PHQ-9 Billing: Yes Source: Developed by Drs. Jamie Zuniga, Kaylee Donahue, Chung Hirsch and colleagues, with an educational kavon from [employer]. Thrive Questionnaire Date Thrive assessed: 03/29/25 I am a: Patient What is your living situation today?: I have a steady place to live Within the past 12 months, did the food you bought not last and you didn't have the money to get more?: I choose not to answer this question Within the past 12 months, did you worry whether your food would run out before you got money to buy more?: Never true Do you have trouble paying for medicines?: No Do you have trouble getting transportation to medical appointments?: No Do you have trouble paying your heating and electricity bill?: No Do you have trouble taking care of your child, family member or friend?: No Do you have trouble with day-to-day activities such as bathing, preparing meals, shopping, managing finances, etc.?: Yes Are you currently unemployed and looking for a job?: No Are you interested in more education?: No Please select the resources that you would like help with: None Currently or been in a relationship where the following occur: No concerns reported THRIVE Score: 0 AUDIT C Alcohol Use Questionnaire (AUDIT-C) 1. How often do you have a drink containing alcohol?: Monthly or less 2. How many drinks containing alcohol do you have on a typical day when you are drinking?: 1 or 2 3. How often do you have six or more drinks on one occasion?: Never Total Score: 1 CHAVA-7 AMB Questionnaire CHAVA-7 Date CHVAA - 7 assessed: 03/29/25 Feeling nervous, anxious, or on edge: 0 = Not at all Not being able to stop or control worryin = Not at all Worrying too much about different things: 0 = Not at all Trouble relaxin = Not at all Being so restless that it is hard to sit still: 0 = Not at all Becoming easily annoyed or irritable: 0 = Not at all Feeling afraid as if something awful might happen: 0 = Not at all Total CHAVA-7 score (0-4 normal; 5-9 mild; 10-14 moderate; 15-21 severe): 0 Source: Developed by Drs. Jamie Zuniga, Kaylee Donahue, Chung Hirsch and colleagues, with an educational kavon from [employer]. CHAVA-7 Assessment Billing CHAVA-7 Assessment Tool: CHAVA-7 Assessment 71078 Review of Systems Const All systems reviewed & are unremarkable except as noted in HPI and below Card Denies chest pain at rest, Denies chest pain with activity, Denies edema, Denies irregular heart rhythm, Denies claudication, Denies dyspnea, Denies dyspnea on e xertion, Denies orthopnea, Denies paroxysmal nocturnal dyspnea and Denies slow heart rate Resp Denies cough, Denies dyspnea and Denies dyspnea on exertion GI Denies abdominal pain, Denies change in bowel habits, Denies excessive flatus, Denies nausea and Denies vomiting Physical exam (Primary Care) Vital Signs: Last Vital Signs Pulse 61 03/29/25 12:36 Resp 18 03/29/25 12:36 BP 130/70 03/29/25 12:36 Pulse Ox 98 03/29/25 12:36 Oxygen Delivery Method Room Air 03/29/25 12:36 BMI result Body Mass Index 32.9 BMI Assessment/Plan discussion: High BMI High, discussed plan: lifestyle, weight reduction, dietary and physical activity Tobacco/Smoking Status: Tobacco use Status Tobacco use date assessed 03/29/25 03/29/25 12:45 Patient Tobacco Use Status Never used Tobacco 03/29/25 12:45 e-Cigarette/Vaping Use Never Used 03/29/25 12:45 PHQ-9: PHQ-9 Score PHQ-9: Total score 0 03/29/25 13:02 Depression Screening Interpretation: Negative Thrive Assessment: Date of Thrive Assessment Date Thrive assessed 03/29/25 03/29/25 12:45 Currently or been in a relationship where the following occur: No concerns reported HENMT Head: Yes normal to inspection, Yes normocephalic and Yes atraumatic Ears: external ears normal Eyes General: appearance normal, both eyes and all related structures Eyelids: Yes eyelids normal Conjunctivae: conjunctivae normal Neck Neck: Yes normal visual inspection and Yes supple Resp Effort & Inspection: normal respiratory effort Auscultation: clear to auscultation bilaterally Cardio Jugular venous distension: no JVD Rate: regular rate Rhythm: regular rhythm Heart sounds: S1 normal heart sound present and S2 normal heart sound present GI Inspection: Yes normal to inspection Palpation (GI): Soft to palpation and nontender Auscultation: normal bowel sounds Skin General skin exam: no rashes or lesions noted Neuro General: no focal motor deficits Extrem General: Yes full ROM Psych Appearance: grossly normal Results AMB Hemoglobin A1c AMB Hemoglobin A1c 6.9 % Last Edit by SALLY Szymanski on 03/29/25 13 :02 Results Reviewed Results Reviewed: Laboratory Last Values Hgb A1c (Clinic) 6.9 % (4.0-6.0) H 03/29/25 13:01 Coding Level of Care Code Est Pt Level 3 (42721) Est Pt Prev Care 40-64y(03452) Diagnoses Physical exam Z00.00 Type 2 diabetes mellitus without complication, without long-term current use of insulin E11.9 Diabetes mellitus complication status: without complication Diabetes mellitus type: type 2 Back pain M54.9 Additional Codes CHAVA-7 Assessment Billing - CHAVA-7 Assessment Tool: CHAVA-7 Assessment 97981 ([id number]) PHQ-9 - 74590 - PHQ-9 Billing: Yes ([id number]) Time Spent (min) 33 Assessment & Plan Assessment & Plan (1) Physical exam: Code(s): Z00.00 - Encounter for general adult medical examination without abnormal f indings Category: Medical (2) Diabetes mellitus, without long-term current use of insulin: Code(s): E11.9 - Type 2 diabetes mellitus without complications Category: Medical Qualifiers: Diabetes mellitus complication status: without complication Diabetes mellitus type: type 2 Qualified Code(s): E11.9 - Type 2 diabetes mellitus without complications (3) Back pain: Code(s): M54.9 - Dorsalgia, unspecified Category: Medical Plan The patient will continue with glimepiride for diabetes management, with a follow-up A1c planned to monitor control. Ezetimibe will be continued for hyperlipidemia, and cholesterol levels will be reassessed in four months. For gastroesophageal reflux disease, the patient will use omeprazole as needed. Trazodone will continue to be used for insomnia management. The patient is advised to proceed with the planned glaucoma surgery and to follow up with ophthalmology for further management. A colonoscopy is recommended for colon cancer screening, and a bone density test is planned to assess bone health. The tetanus booster was offered but declined, with the option to receive it at a later date. Patient was informed and verbally consented to the use of an ambient scribe for clinic note documentation during this visit. Orders: Orders Lipid Panel 4 Months E78.5 - Hyperlipidemia, unspecified Microalbumin, Random (w Creat) 4 Months R80.9 - Proteinuria, unspecified Vitamin D 25-OH Total 4 Months E55.9 - Vitamin D deficiency, unspecified AMB Hemoglobin A1c Today Z13.9 - Encounter for screening, unspecified XR DEXA axial skeleton Today Z78.0 - Asymptomatic menopausal state Vitamin B12 and Folate 4 Months E53.8 - Deficiency of other specified B group vitamins Comprehensive [place]. Panel Fast 4 Months E11.9 - Type 2 diabetes mellitus without complications Referrals Open Access Screening Colonoscopy Referral Z12.12 - Encounter for screening for malignant neoplasm of rectum Medications: Refilled lidocaine 5% (Lidoderm) leave on most painful area for up to 12 hrs 1 patch topical DAILY PRN 30 ea 0RF pain MDD remove after 12 hours Patient Instructions: - Continue taking glimepiride and monitor blood sugar levels regularly. - Take ezetimibe as prescribed and follow up for cholesterol testing in four months. - Use omeprazole as needed for acid reflux symptoms. - Continue trazodone for sleep as needed. - Schedule and prepare for glaucoma surgery. - Plan for a colonoscopy and bone density test. - Consider receiving a tetanus booster at a future visit.
== END 2025-03-29 13:04 | disposition home or self-care (01) ==
LOC: HO.HMCH 12:23
PROVIDERS: PCP Internal Medicine; Visit Provider Internal Medicine
DX: Z00.00 Encounter for general adult medical examination without abnormal findings (principal); E11.9 Type 2 diabetes mellitus without complications; M54.9 Dorsalgia, unspecified

== ENCOUNTER → 2025-03-29 12:23 | Outpatient (BNVA) | payer OTHER, SELFPAY | PROVIDERS: PCP Internal Medicine; Visit Provider Internal Medicine | DX: Z00.00 Encounter for general adult medical examination without abnormal findings (principal); E11.9 Type 2 diabetes mellitus without complications; E78.5 Hyperlipidemia, unspecified; K21.9 Gastro-esophageal reflux disease without esophagitis; G47.00 Insomnia, unspecified; M54.9 Dorsalgia, unspecified; R80.9 Proteinuria, unspecified; E55.9 Vitamin D deficiency, unspecified; E53.8 Deficiency of other specified B group vitamins; Z78.0 Asymptomatic menopausal state; Z79.899 Other long term (current) drug therapy | CPT/HCPCS: 83036; 96127; 99212; 99396 ==

== ENCOUNTER 2025-05-13 08:48 | Outpatient (REF) | payer OTHER, SELFPAY ==
--- NOTE | ~2025-05-13 | MM_ITS ---
EXAMINATION: DXA BONE DENSITY AXIAL HISTORY: Z78.0 - Asymptomatic menopausal state TECHNIQUE: [employer] Dual energy absorptiometry (DEXA) of the lumbar spine, total left hip, and femoral neck was performed. COMPARISON: There are no prior studies for comparison. FINDINGS: The bone mineral density of the lumbar spine is 0.987 g/cm2, corresponding to a T-score of -1.6, and a Z-score of -0.7. This is indicative of osteopenia. The bone mineral density of the left total hip is 0.909 g/cm2, corresponding to a T-score of -0.8, and a Z-score of -0.1. This is indicative of normal bone mineral density. The bone mineral density of the left femoral neck is 0.859 g/cm2, corresponding to a T-score of -1.3, and a Z-score of -0.2. This is indicative of osteopenia. FRACTURE RISK: The FRAX index suggests a risk of major osteoporotic fracture of 4.4%, and of hip fracture 0.4%. MM/XR DEXA axial skeleton IMPRESSION: Based on bone mineral density, and according to World Health Organization (WHO) criteria, the diagnosis is consistent with osteopenia. Statistically, 68% of repeat scans fall within 1 SD (+/- 0.010 g/cm2 for AP spine L1-L4) and 1 SD (+/- 0.012 g/cm2 for femur total) FRAX is a trademark of the [employer]'s [place] [facility] Metabolic Bone Disease, a World Health Organization (WHO) Collaborating Center. Electronically signed by: Jamie Heredia MD 05/13/2025 10:07 AM EDT
== END 2025-05-13 08:49 | disposition home or self-care (01) ==
LOC: HO.MAMMO 08:48
PROVIDERS: PCP Internal Medicine; Visit Provider Internal Medicine
DX: Z13.820 Encounter for screening for osteoporosis (principal); Z78.0 Asymptomatic menopausal state
CPT/HCPCS: 77080

== ENCOUNTER → 2025-05-13 09:15 | Outpatient (BNV) | payer OTHER, SELFPAY | PROVIDERS: PCP Internal Medicine; Visit Provider Radiology Diagnostic Radiology | DX: E28.39 Other primary ovarian failure (principal) | CPT/HCPCS: 77080 ==

== ENCOUNTER 2025-08-08 09:45 | Outpatient (AMB) | payer OTHER, SELFPAY ==
[2025-08-08 09:48] VITALS: BP 130/62; PULSE 66; RESP 18; O2SAT 99; BMI 32.6
--- NOTE | 2025-08-08 09:48 | MHC.PC.OV ---
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 Accompanied by: Self / Same As Patient Allergies atorvastatin Allergy (Mild, Verified 08/08/25 10:06) stomach upset Medication List - Last Reconciled 08/08/25 by Delores Mcgee MD acetaminophen (Tylenol Extra Strength) 500 mg PO Q6H PRN acetaminophen (Tylenol Extra Strength) 1,000 mg (2 x 500 mg) PO Q6H PRN 30 days bisacodyl (Dulcolax (bisacodyl)) 20 mg (4 x 5 mg) PO ONCE PRN 1 day cefuroxime axetil 250 mg PO Q12H cholecalciferol (vitamin D3) 125 mcg PO DAILY cyclobenzaprine 10 mg PO TID PRN cyclobenzaprine 5 mg PO TID PRN cyclobenzaprine 5 mg PO Q8H PRN 5 days cyclobenzaprine 5 mg PO Q8H PRN 5 days ezetimibe 10 mg PO DAILY 90 days glimepiride 2 mg PO DAILY 90 days Grab bar As directed ketorolac 10 mg PO QID lidocaine 5% (Lidoderm) 1 patch topical DAILY PRN MDD remove after 12 hours lidocaine 5% (Lidoderm) 1 patch topical DAILY PRN MDD remove after 12 hours metformin 1,000 mg PO BID 90 days naproxen 500 mg PO BID PRN 10 days naproxen 500 mg PO BID PRN 10 days nitrofurantoin macrocrystal 100 mg PO BID 5 days omeprazole 20 mg PO DAILY PRN 90 days oxycodone 5 mg PO Q6H PRN polyethylene glycol 3350 (Miralax) 238 grams PO ONCE PRN 1 day prednisone 20 mg PO DAILY 7 days semaglutide (Ozempic) 0.25 mg (0.368 mL) subcut QWEEK 4 weeks trazodone 50 mg PO BEDTIME PRN 30 days Tobacco use date assessed: 08/08/25 Fall risk assessment: No Falls in past year Last assessed Fall Risk: 08/08/25 Dental Screening Dental Screen Date: 08/08/25 Did you have a dental visit in the last 12 months?: No Did you have a dental problem in the last 6 months where you did not have access to dental care?: No Was dental information given to patient?: No HPI HPI Comments History of Present Illness Details This is a 64-year-old female with diabetes mellitus type 2, osteopenia, hyperlipidemia and lumbar degenerative disc disease that comes today accompanied by daughter for follow-up on her conditions. A1c of 8 and I will add Rybelsus to the regimen. DEXA scan done this year shows osteopenia and I will add calcium to her vitamin-D. On Zetia for her hyperlipidemia and her LDL goal should be less than 70. A1c goal is equal or less than 7%. She complains of occasional back pain due to lumbar degenerative disc disease aggravated by activity. On NSAIDs as needed for this matter. She takes meclizine as needed for vertigo. [facility] Medical History (Updated 08/08/25 @ 10:53 by Delores Mcgee MD) Hypersomnia Snoring Vertigo Class 1 obesity with body mass index (BMI) of 33.0 to 33.9 in adult Insomnia Dyslipidemia Chronic cough Thoracic spine pain Hand numbness Left hand pain Rash and nonspecific skin eruption Surgical History History of hysterectomy History of colonoscopy Family History Father No problems noted. Mother History of diabetes mellitus, type I Social History Household Members: None Housing: Apartment Do you presently have visiting nurse or other home services: Yes Alcohol intake: never Patient Tobacco Use Status: Never used Tobacco e-Cigarette/Vaping Use: Never Used Second Hand Smoke Exposure: No service: No Current occupational status: unemployed and disabled Current occupation: rt handed Cognitive needs: No Hearing needs: No Vision needs: Yes Questionnaire Thrive Questionnaire Date Thrive assessed: 03/29/25 I am a: Patient What is your living situation today?: I have a steady place to live Within the past 12 months, did the food you bought not last and you didn't have the money to get more?: I choose not to answer this question Within the past 12 months, did you worry whether your food would run out before you got money to buy more?: Never true Do you have trouble paying for medicines?: No Do you have trouble getting transportation to medical appointments?: No Do you have trouble paying your heating and electricity bill?: No Do you have trouble taking care of your child, family member or friend?: No Do you have trouble with day-to-day activities such as bathing, preparing meals, shopping, managing finances, etc.?: Yes Are you currently unemployed and looking for a job?: No Are you interested in more education?: No Currently or been in a relationship where the following occur: No concerns reported THRIVE Score: 0 CHAVA-7 AMB Questionnaire CHAVA-7 Date CHAVA - 7 assessed: 03/29/25 Source: Developed by Drs. Jamie Zuniga, Kaylee Donahue, Chung Hirsch and colleagues, with an educational kavon from [employer]. Review of Systems Const All systems reviewed & are unremarkable except as noted in HPI and below Card Denies chest pain at rest, Denies chest pain with activity, Denies edema, Denies irregular heart rhythm, Denies claudication, Denies dyspnea, Denies dyspnea on exertion, Denies orthopnea, Denies paroxysmal nocturnal dyspnea and Denies slow heart rate Resp Denies cough, Denies dyspnea and Denies dyspnea on exertion Physical exam (Primary Care) Vital Signs: Last Vital Signs Pulse 66 08/08/25 09:48 Resp 18 08/08/25 09:48 BP 130/62 08/08/25 09:48 Pulse Ox 99 08/08/25 09:48 Oxygen Delivery Method Room Air 08/08/25 09:48 BMI result Body Mass Index 32.6 BMI Assessment/Plan discussion: High BMI High, discussed plan: lifestyle, weight reduction, dietary and physical activity Tobacco/Smoking Status: Tobacco use Status Tobacco use date assessed 08/08/25 08/08/25 09:49 Patient Tobacco Use Status Never used Tobacco 08/08/25 09:49 e-Cigarette/Vaping Use Never Used 08/08/25 09:49 Thrive Assessment: Date of Thrive Assessment Date Thrive assessed 03/29/25 08/08/25 09:49 Currently or been in a relationship where the following occur: No concerns reported Resp Effort & Inspection: normal respiratory effort Auscultation: clear to auscultation bilaterally Cardio Jugular venous distension: no JVD Rate: regular rate Rhythm: regular rhythm Heart sounds: S1 normal heart sound present and S2 normal heart sound present Extrem General: Yes full ROM Results AMB Hemoglobin A1c AMB Hemoglobin A1c 8.0 % Last Edit by Sun Mccray MA on 08/08/25 10:27 Coding Level of Care Code Add On Preventative Visit Only Diagnoses Type 2 diabetes mellitus without complication, without long-term current use of insulin E11.9 Diabetes mellitus type: type 2 Diabetes mellitus complication status: without complication Hyperlipidemia LDL goal <70 E78.5 Vertigo R42 Osteopenia M85.80 Lumbar degenerative disc disease M51.36 Time Spent (min) 22 Assessment & Plan Assessment & Plan (1) Diabetes mellitus, without long-term current use of insulin: Code(s): E11.9 - Type 2 diabetes mellitus without complications Category: Medical Qualifiers: Diabetes mellitus type: type 2 Diabetes mellitus complication status: without complication Qualified Code(s): E11.9 - Type 2 diabetes mellitus without complications (2) Hyperlipidemia LDL goal <70: Code(s): E78.5 - Hyperlipidemia, unspecified Category: Medical (3) Vertigo: Code(s): R42 - Dizziness and giddiness Category: Medical (4) Osteopenia: Code(s): M85.80 - Other specified disorders of bone density and structure, unspecified site Category: Medical (5) Lumbar degenerative disc disease: Code(s): M51.36 - Other intervertebral disc degeneration, lumbar region Category: Medical Plan Continue metformin and glimepiride for her diabetes. Start Rybelsus. A1c goal is equal or less than 7%. Do diabetic eye exam yearly. Continue Zetia. LDL goal less than 70. Start calcium for osteopenia and continue vitamin-D. DEXA scan should be repeated 2026. Take NSAIDs as needed for lumbar degenerative disc disease. Take meclizine as needed for vertigo. Orders: Orders Vitamin B12 and Folate 4 Months E53.8 - Deficiency of other specified B group vitamins Lipid Panel 4 Months E78.5 - Hyperlipidemia, unspecified Microalbumin, Random (w Creat) 4 Months R80.9 - Proteinuria, unspecified AMB Hemoglobin A1c Today Z13.9 - Encounter for screening, unspecified Vitamin D 25-OH Total 4 Months E55.9 - Vitamin D deficiency, unspecified Comprehensive [place]. Panel Fast 4 Months E11.9 - Type 2 diabetes mellitus without complications Medications: New semaglutide (Rybelsus) 3 mg PO DAILY 30 tabs 0RF 30 days meclizine 25 mg PO DAILY PRN 60 tabs 0RF motion sickness 30 days calcium carbonate 600 mg PO BID 180 tabs 1RF 90 days Refilled cholecalciferol (vitamin D3) 125 mcg PO DAILY 30 caps 1RF lidocaine 5% (Lidoderm) leave on most painful area for up to 12 hrs 1 patch topical DAILY PRN 30 ea 0RF pain MDD remove after 12 hours Discontinued cefuroxime axetil Discontinued Reason: Patient Completed Course 250 mg PO Q12H 14 tabs 0RF semaglutide (Ozempic) for 4 weeks Discontinued Reason: Patient Completed Course 0.25 mg (0.368 mL) subcut QWEEK 4 weeks 1.472 mL 0RF E11.9 - Type 2 diabetes mellitus without complications
== END 2025-08-08 10:21 | disposition home or self-care (01) ==
LOC: HO.HMCH 09:46
PROVIDERS: PCP Internal Medicine; Visit Provider Internal Medicine
DX: E11.9 Type 2 diabetes mellitus without complications (principal); E78.5 Hyperlipidemia, unspecified; R42 Dizziness and giddiness; M85.80 Other specified disorders of bone density and structure, unspecified site; M51.369 Other intervertebral disc degeneration, lumbar region without mention of lumbar back pain or lower extremity pain; Z13.9 Encounter for screening, unspecified

== ENCOUNTER → 2025-08-08 09:45 | Outpatient (BNVA) | payer OTHER, SELFPAY | PROVIDERS: PCP Internal Medicine; Visit Provider Internal Medicine | DX: E11.9 Type 2 diabetes mellitus without complications (principal); R42 Dizziness and giddiness; M85.80 Other specified disorders of bone density and structure, unspecified site; M51.360 Other intervertebral disc degeneration, lumbar region with discogenic back pain only; R80.9 Proteinuria, unspecified; E53.8 Deficiency of other specified B group vitamins; E55.9 Vitamin D deficiency, unspecified | CPT/HCPCS: 83036; 99212 ==

== ENCOUNTER 2025-08-09 07:40 | Emergency (ER) | payer OTHER, SELFPAY ==
--- NOTE | ~2025-08-09 | XR_ITS ---
EXAMINATION: XR CHEST 1 VIEW HISTORY: sob chest pain COMPARISON: Comparison is made with the prior examination dated 10/29/2020. FINDINGS: A single AP portable view of the chest performed at 8:32 AM is submitted. There are low lung volumes. The lungs are clear. There is no pleural effusion, pneumothorax, or pulmonary vascular congestion. The heart is normal in size. There is degenerative disc disease of the spine. XR/XR chest 1V IMPRESSION: Low lung volumes. No acute cardiopulmonary abnormality. Electronically signed by: Jamie Heredia MD 08/09/2025 08:41 AM [facility]
--- NOTE | 2025-08-09 07:42 | ECG_ITS ---
Test Reason : chest pain Blood Pressure : */* mmHG Vent. Rate : 72 BPM Atrial Rate : 72 BPM P-R Int : 120 ms QRS Dur : 80 ms QT Int : 384 ms P-R-T Axes : 52 27 31 degrees QTcB Int : 420 ms Normal sinus rhythm Normal ECG When compared with ECG of 11-Mar-2025 07:28, No significant change was found Referred By: Generic ED Physician Electronically Signed By: CEDRIC MOROCHO MD
[2025-08-09 07:49] VITALS: BP 154/66; PULSE 80; RESP 20; TEMP 36.5; O2SAT 99; BMI 32.1
[2025-08-09 08:20] LABS: MANUAL DIFF FLAG NO
[2025-08-09 08:21] LABS: Hematocrit 38.7 % (37.0-47.0); Hemoglobin 13.1 g/dl (12.0-16.0); Imm Gran Abs Auto 0.01 X10*3/uL (0.00-0.03); Imm Gran Pct Auto 0.2 % (0.0-0.4); Lymphocytes Absolute Auto 1.7 X10*3/uL (1.2-4.9); Mean Corpuscular HGB Conc 33.9 g/dl (31.0-35.0); Mean Corpuscular Hemoglobin 31.0 pg (27.0-33.0); Mean Corpuscular Volume 91.7 fL (80.0-98.0); NRBC Abs Auto 0.000 X10*3/uL (0.0-0.012); NRBC Pct Auto 0.0 /100WBC (0.0-0.2); Platelet Count 247 X10*3/uL (160-400); Red Blood Count 4.22 X10*6/uL (4.20-5.50); White Blood Count 6.6 X10*3/uL (4.8-10.8)
--- NOTE | 2025-08-09 08:31 | PC.NURSE ---
Patient presents to the ED with chest pain that started this morning at 0500. Pain woke patient up out of a sleep. States it is worse when takes a deep breath in and does not go away. Patient does not describe anything similar has happened in the past. Patient moaning in pain when breathing in. Denies any recent cold/ illness. Patient hooked up to tele monitor. Labs drawn, EKG done.
[2025-08-09 08:39] LABS: Alanine Aminotransferase 14 U/L (0-31); Albumin Level 4.4 g/dL (3.5-5.0); Alkaline Phosphatase 96 U/L (39-117); Anion Gap 12 (12-20); Aspartate Amino Transferase 17 U/L (5-31); Blood Urea Nitrogen 13 mg/dL (9-16); Calcium 9.3 mg/dL (8.4-10.2); Carbon Dioxide 25 mmol/L (22-29); Chloride 105 mmol/L (96-108); Creatinine Clr Calc Pharmacy 75.0; Estimated Glomerular Filt Rate > 60; Potassium 4.1 mmol/L (3.3-5.1); Sodium 138 mmol/L (135-145); Total Protein 7.2 g/dL (6.5-8.0)
[2025-08-09 08:46] LABS: Troponin-I High Sensitivity < 2.7 ng/L (<3.5-17.0)
[2025-08-09 08:56] LABS: Lipase 26 U/L (8-78); Magnesium 1.9 mg/dL (1.6-2.6); Resp Syncy Virus RNA Qual PCR NEGATIVE (Negative); SARS COV2 PCR INHOUSE NEGATIVE (Negative)
--- NOTE | 2025-08-09 09:13 | ED_ITS ---
HPI - Chest Pain General Chief Complaint: Chest Pain Stated Complaint: chest pain Time Seen by Provider: 08/09/25 08:35 Source: patient Mode of arrival: ambulatory Limitations: no limitations History of Present Illness ED Provider: RENÉ DENIS PA-C HPI narrative: 64 year old female presents to the emergency department today for evaluation of chest pain x0500 this morning. Patient reports the pain woke her from her sleep. Pain is localized to her left chest, does not radiate. Pain is worse with palpation of the left anterior chest wall, movement of the left arm, and with deep breathing. Denies any difficulty breathing. Denies any history of similar. Patient states that she was moving/lifting a heavy table full of crystal yesterday and is concerned she may have pulled a muscle. Denies significant cardiac history. She is not currently on a blood thinner. No history of VTE. No recent travel or long car rides. No hormone use. No tobacco use. Denies fever, chills, cough, hemoptysis, lower extremity pain/swelling, nausea/vomiting, jaw pain, dizziness, palpitations. Related Data Previous Rx's ?Medication ?Instructions ?Recorded Grab bar #1 ea 12/13/22 bisacodyl 5 mg tablet,delayed 20 mg (4 x 5 mg) PO ONCE PRN 10/08/23 release (Dulcolax (bisacodyl)) colonoscopy prep 1 day #4 tabs polyethylene glycol 3350 17 238 g PO ONCE PRN laxative effect 10/08/23 gram/dose oral powder (Miralax) 1 day #238 grams omeprazole 20 mg capsule,delayed 20 mg PO DAILY PRN he artburn 90 10/22/23 release days #90 caps cyclobenzaprine 5 mg tablet 5 mg PO TID PRN muscle spa sm #20 12/26/23 tabs trazodone 50 mg tablet 50 mg PO BEDTIME PRN sleep 3 0 days 01/06/24 #30 tabs nitrofurantoin macrocrystal 100 mg 100 mg PO BID 5 day s #10 caps 02/26/24 capsule ezetimibe 10 mg tablet 10 mg PO DAILY 90 days #90 t abs 06/05/24 oxycodone 5 mg tablet 5 mg PO Q6H PRN pain #20 tab s 07/06/24 cyclobenzaprine 5 mg tablet 5 mg PO Q8H PRN pain (scal e score 08/12/24 7-10) 5 days #14 tabs lidocaine 5 % topical patch 1 patch topical DAILY PRN pain #30 08/12/24 (Lidoderm) ea naproxen 500 mg tablet 500 mg PO BID PRN pain 10 da ys #20 08/12/24 tabs prednisone 20 mg tablet 20 mg PO DAILY 7 days #7 tab s 08/14/24 glimepiride 2 mg tablet 2 mg PO DAILY 90 days #90 ta bs 08/20/24 metformin 1,000 mg tablet 1,000 mg PO BID 90 days #180 tabs 08/20/24 acetaminophen 500 mg tablet 500 mg PO Q6H PRN fever or pain 12/10/24 (Tylenol Extra Strength) #14 tabs cyclobenzaprine 5 mg tablet 5 mg PO Q8H PRN pain (scal e score 12/10/24 7-10) 5 days #14 tabs naproxen 500 mg tablet 500 mg PO BID PRN pain 10 da ys #20 12/10/24 tabs cyclobenzaprine 10 mg tablet 10 mg PO TID PRN muscle s pasm #21 03/11/25 tabs ketorolac 10 mg tablet 10 mg PO QID #20 tabs acetaminophen 500 mg tablet 1,000 mg (2 x 500 mg) PO Q 6H PRN 04/27/25 (Tylenol Extra Strength) fever or pain 30 days #240 t abs calcium carbonate 600 mg PO BID 90 days #180 t abs 08/08/25 cholecalciferol (vitamin D3) 125 125 mcg PO DAILY #30 caps 08/08/25 mcg (5,000 unit) capsule lidocaine 5 % topical patch 1 patch topical DAILY PRN pain #30 08/08/25 (Lidoderm) ea meclizine 25 mg tablet 25 mg PO DAILY PRN motion si ckness 08/08/25 30 days #60 tabs semaglutide 3 mg tablet (Rybelsus) 3 mg PO DAILY 30 da ys #30 tabs 08/08/25 ibuprofen 600 mg tablet 600 mg PO Q6-8H PRN pain (sc gabino 08/09/25 score 4-6) #20 tabs Allergies Allergy/AdvReac Type Severity Reaction Status Date / Time atorvastatin Allergy Mild stomach Verified 08/09/25 07:49 upset Review of Systems 2 Review of Systems: Yes all other systems are reviewed and are negative [facility] Past Medical History Attestation statement: The following information was validated with the patient. Source: old records reviewed and nursing notes reviewed Medical History Hypersomnia Snoring Vertigo Class 1 obesity with body mass index (BMI) of 33.0 to 33.9 in adult Insomnia Dyslipidemia Chronic cough Thoracic spine pain Hand numbness Left hand pain Rash and nonspecific skin eruption Surgical History History of hysterectomy History of colonoscopy Family History Family History Father No problems noted. Mother History of diabetes mellitus, type I Social History Social History Household Members: None Housing: Apartment Do you presently have visiting nurse or other home services: Yes Alcohol intake: never Patient Tobacco Use Status: Never used Tobacco e-Cigarette/Vaping Use: Never Used Second Hand Smoke Exposure: No Advance Directives: No Advance Directives Information Provided: Yes service: No Current occupational status: unemployed and disabled Current occupation: rt handed Cognitive needs: No Hearing needs: No Vision needs: Yes Physical Exam 2 Vital Signs: Vital Signs: Last Vital Signs Temp 98 F 08/09/25 10:52 Pulse 69 08/09/25 10:52 Resp 20 08/09/25 10:52 BP 135/74 08/09/25 10:52 Pulse Ox 98 08/09/25 10:52 O2 Del Method Room Air 08/09/25 10:52 BMI result Body Mass Index 32.1 Vital signs stable. Not hypoxic or tachycardic. General: Well appearing, in no acute distress. Skin: Warm, dry, intact. No rashes or lesions. Head: Normocephalic, atraumatic. EENT: Hearing is intact b/l. Conjunctiva clear. PERRLA. EOM intact. Moist mucous membranes.? Neck: Supple without LAD Cardiac: Chest wall symmetric, reproducible tenderness to palpation over left anterior chest you will. No deformity, step-off, palpable crepitus. RRR. Lungs: Normal respiratory effort without accessory muscle use. CTA bilaterally. No rales, rhonchi, or wheezes.? Back: No midline spinous or paraspinal tenderness. No step off deformity. Ext: Upper and lower extremities atraumatic, without tenderness, deformity, swelling or erythema. No calf tenderness bilaterally. Neuro: AOx3. Normal speech. Ambulating with steady gait Course Course Course Narrative: 1050 -- CBC without leukocytosis or left shift. No anemia, H and H stable. Chemistry without acute electrolyte abnormality requiring intervention. No ERNESTINA. Random glucose 232, no anion gap. Liver function WNL. Troponin undetectable. Negative COVID, flu, RSV. Chest x-ray does not demonstrate pneumonia, effusion or pulmonary edema. EKG is nonischemic. > patient treated with Toradol with complete resolution and pain. Her exam is consistent with MSK pain, plan to discharge on an anti-inflammatory. Patient is agreeable with this. Patient has remained stable throughout ED visit today. Discussed worrisome signs and symptoms and when to return to the ED. All questions answered at this time. Patient is agreeable with disposition and stable for discharge. Medications Administered Discontinued Medications Generic Name Dose Route Start Last Admin Trade Name Freq PRN Reason Stop Dose Admin Ketorolac Tromethamine 30 mg 08/09/25 09:23 08/09/25 09:33 Ketorolac Tromethamine 30 Mg/Ml Vial IM 08/09/25 09:24 30 mg ONCE ONE Administration Medical Decision Making Medical Decision Making [facility] Narrative: 64 year old female presents to the emergency department today for evaluation of left-sided chest pain x0500 this morning. Vital stable, not hypoxic or tachycardic. She is well-appearing and in no acute distress. There is reproducible tenderness to palpation of left anterior chest wall. Exam otherwise unremarkable. History without high risk features (not substernal, no exertional component, not relieved with rest).? Exam without evidence of volume overload. EKG without signs of active ischemia Given the timing of pain to ED presentation, plan to send single troponin to evaluate for NSTEMI. Differential diagnosis also includes anemia, electrolyte abnormality, costochondritis, msk pain, pneumonia, pleurisy Unlikely acute PE (PERC antoinette positive for age >50), pneumothorax, thoracic aortic dissection, cardiac effusion or tamponade, myocarditis, pericarditis. Plan: labs, troponin, EKG, CXR, pain control, reassessment Differential Diagnosis Differential Diagnoses: The differential diagnosis associated with the presentation includes as above. Admission/Observation not indicated. Lab Data MDM Lab Attestation statement: I reviewed the patient's lab results. as above. 08/09/25 08:14 08/09/25 08:14 Labs: Lab Results 08/09/25 Range/Units 08:14 WBC 6.6 (4.8-10.8) X10*3/uL RBC 4.22 (4.20-5.50) X10*6/uL Hgb 13.1 (12.0-16.0) g/dl Hct 38.7 (37.0-47.0) % MCV 91.7 (80.0-98.0) fL MCH 31.0 (27.0-33.0) pg MCHC 33.9 (31.0-35.0) g/dl RDW 12.4 (11.0-16.0) % Plt Count 247 (160-400) X10*3/uL MPV 9.5 (9.4-12.3) fL Immature Gran % (Auto) 0.2 (0.0-0.4) % Neut % (Auto) 62.5 (45-73) % Lymph % (Auto) 25.4 (20-40) % [place] % (Auto) 9.4 (2-11) % Eos % (Auto) 2.0 (0-4) % Baso % (Auto) 0.5 (0-2) % Lymph # (Auto) 1.7 (1.2-4.9) X10*3/uL [place] # (Auto) 0.6 (0.1-1.2) X10*3/uL Eos # (Auto) 0.1 (0.0-0.4) X10*3/uL Baso # (Auto) 0.0 (0.0-0.2) X10*3/uL Abs Immat Gran (auto) 0.01 (0.00-0.03) X10*3/uL Absolute Neuts (auto) 4.1 (2.0-8.3) x10*3/uL Absolute Nucleated RBC 0.000 (0.0-0.012) X10*3/uL Nucleated RBC % (auto) 0.0 (0.0-0.2) /100WBC Sodium 138 (135-145) mmol/L Potassium 4.1 (3.3-5.1) mmol/L Chloride 105 (96-108) mmol/L Carbon Dioxide 25 (22-29) mmol/L Anion Gap 12 (12-20) BUN 13 (9-16) mg/dL Creatinine 0.74 (0.5-1.4) mg/dL Estim Creat Clear Calc 75.0 Estimated GFR > 60 Random Glucose 232 H (60-115) mg/dL Calcium 9.3 (8.4-10.2) mg/dL Magnesium 1.9 (1.6-2.6) mg/dL Total Bilirubin 0.7 (0.0-1.0) mg/dL AST 17 (5-31) U/L ALT 14 (0-31) U/L Alkaline Phosphatase 96 (39-117) U/L Troponin I High Sens < 2.7 (<3.5-17.0) ng/L Total Protein 7.2 (6.5-8.0) g/dL Albumin 4.4 (3.5-5.0) g/dL Lipase 26 (8-78) U/L Influenza Type A (PCR) NEGATIVE (Negative) Influenza Type B (PCR) NEGATIVE (Negative) RSV RNA Qual (PCR) NEGATIVE (Negative) SARS-CoV-2 RNA (RT-PCR) NEGATIVE (Negative) Independent Interpretation I performed an independent interpretation of an: EKG and Plain X-Ray Interpretation: ekg showing nsr without acute ischemic changes or st elevations cxr without infiltrate or consolidation Radiology Impression Discussion of test interpretation with radiology: I have reviewed the radiologist's reading. Radiologist Impression: Procedure(s): XR chest 1V Accession Number(s): [id number] cc: Amanda Aj MD; Delores Franco MD~ Reason for Exam: sob chest pain EXAMINATION: XR CHEST 1 VIEW HISTORY: sob chest pain COMPARISON: Comparison is made with the prior examination dated 10/29/2020. FINDINGS: A single AP portable view of the chest performed at 8:32 AM is submitted. There are low lung volumes. The lungs are clear. There is no pleural effusion, pneumothorax, or pulmonary vascular congestion. The heart is normal in size. There is degenerative disc disease of the spine. XR/XR chest 1V IMPRESSION: Low lung volumes. No acute cardiopulmonary abnormality. Electronically signed by: Jamie Heredia MD 08/09/2025 08:41 AM EST Critical Care Time Critical Care Time Critical Care Time: No Discharge Plan Discharge Clinical Impression: Atypical chest pain Patient Disposition: Home, Self-Care Instructions: Chest Wall Pain (ED) Additional Instructions: You were evaluated in the Emergency Department today for chest pain. Your evaluation has shown no signs of medical conditions requiring emergent intervention at this time. Your symptoms are consistent with musculoskeletal pain. Your pain improved with an anti-inflammatory pain medication today. I advise Motrin at home as needed for pain. I recommend that you follow up with your primary care provider or your nutrient management specialist as soon as possible for further testing as an outpatient. If you do not have one, a referral has been provided. Please call them to make an appointment, they will not call you. Return to the Emergency Department if you experience worsening or uncontrolled chest pain, shortness of breath, lightheadedness, feeling faint, nausea, vomiting, or any other concerning symptoms. Prescriptions: New ibuprofen 600 mg tablet 600 mg PO Q6-8H PRN (Reason: pain (scale score 4-6)) Qty: 20 0RF No Action (DME) [place]agan [place] [facility] [place] .Route Qty: 1 0RF Rx Instructions: As directed trazodone 50 mg tablet 50 mg PO BEDTIME PRN (Reason: sleep) 30 Days Qty: 30 0RF ezetimibe 10 mg tablet 10 mg PO DAILY 90 Days Qty: 90 0RF acetaminophen [Tylenol Extra Strength] 500 mg tablet 1,000 mg PO Q6H PRN (Reason: fever or pain) 30 Days Qty: 240 0RF cyclobenzaprine 5 mg tablet 5 mg PO TID PRN (Reason: muscle spasm) Qty: 20 0RF oxycodone 5 mg tablet 5 mg PO Q6H PRN (Reason: pain) Qty: 20 0RF Rx Instructions: Partial Fill upon patient request. lidocaine [Lidoderm] 5 % adhesive patch,medicated 1 patch topical DAILY MDD remove after 12 hours PRN (Reason: pain) Qty: 30 0RF Rx Instructions: leave on most painful area for up to 12 hrs naproxen 500 mg tablet 500 mg PO BID PRN (Reason: pain) 10 Days Qty: 20 0RF cyclobenzaprine 5 mg tablet 5 mg PO Q8H PRN (Reason: pain (scale score 7-10)) 5 Days Qty: 14 0RF prednisone 20 mg tablet 20 mg PO DAILY 7 Days Qty: 7 0RF acetaminophen [Tylenol Extra Strength] 500 mg tablet 500 mg PO Q6H PRN (Reason: fever or pain) Qty: 14 0RF naproxen 500 mg tablet 500 mg PO BID PRN (Reason: pain) 10 Days Qty: 20 0RF cyclobenzaprine 5 mg tablet 5 mg PO Q8H PRN (Reason: pain (scale score 7-10)) 5 Days Qty: 14 0RF cyclobenzaprine 10 mg tablet 10 mg PO TID PRN (Reason: muscle spasm) Qty: 21 0RF Rx Instructions: Side effects of drowsiness. Do not take at work or while driving ketorolac 10 mg tablet 10 mg PO QID Qty: 20 0RF Rx Instructions: Received Toradol 30 mg IM omeprazole 20 mg capsule,delayed release(DR/EC) 20 mg PO DAILY PRN (Reason: heartburn) 90 Days Qty: 90 1RF nitrofurantoin macrocrystal 100 mg capsule 100 mg PO BID 5 Days Qty: 10 0RF Rx Instructions: must administer with a meal/food metformin 1,000 mg tablet 1,000 mg PO BID 90 Days Qty: 180 1RF glimepiride 2 mg tablet 2 mg PO DAILY 90 Days Qty: 90 1RF Rybelsus 3 mg tablet 3 mg PO DAILY 30 Days Qty: 30 0RF meclizine 25 mg tablet 25 mg PO DAILY PRN (Reason: motion sickness) 30 Days Qty: 60 0RF lidocaine [Lidoderm] 5 % adhesive patch,medicated 1 patch topical DAILY MDD remove after 12 hours PRN (Reason: pain) Qty: 30 0RF Rx Instructions: leave on most painful area for up to 12 hrs calcium carbonate 600 mg calcium (1,500 mg) tablet 600 mg PO BID 90 Days Qty: 180 1RF cholecalciferol (vitamin D3) 125 mcg (5,000 unit) capsule 125 mcg PO DAILY Qty: 30 1RF bisacodyl [Dulcolax (bisacodyl)] 5 mg tablet,delayed release (DR/EC) 20 mg PO ONCE PRN (Reason: colonoscopy prep) 1 Days Qty: 4 0RF Rx Instructions: Day before procedure @ 12 noon Take 4 tablets by mouth followed by large glass of water polyethylene glycol 3350 [Miralax] 17 gram/dose powder 238 g PO ONCE PRN (Reason: laxative effect) 1 Days Qty: 238 0RF Rx Instructions: Take as directed by mouth the day before your procedure. Referrals: [facility] [place] [facility] [Provider Group] Delores Franco MD [Primary Care Provider, Internal Medicine] Interventions: ED Discharge Assessment Last Done: 08/09/25 11:00 Discharge Date/Time: 08/09/25 11:00 Print Language: Occitan
[2025-08-09 10:52] VITALS: BP 135/74; PULSE 69; RESP 20; TEMP 36.6; O2SAT 98
[2025-08-09 11:00] VITALS: BP 135/74; PULSE 69; RESP 20; TEMP 36.6; O2SAT 98
== END 2025-08-09 11:00 | disposition home or self-care (01) ==
PROVIDERS: Physician Assistant Medical; Emergency Provider Emergency Medicine; PCP Internal Medicine
DX: R07.89 Other chest pain (principal); Z03.818 Encounter for observation for suspected exposure to other biological agents ruled out; R06.02 Shortness of breath; E78.5 Hyperlipidemia, unspecified
CPT/HCPCS: 36415; 71045; 80053; 83690; 83735; 84484; 85025; 87637; 93005; 96372; 99284; J1885

== ENCOUNTER → 2025-08-09 07:42 | Outpatient (BNV) | payer OTHER, SELFPAY | PROVIDERS: Emergency Provider Emergency Medicine; PCP Internal Medicine; Visit Provider Internal Medicine Cardiovascular Disease | DX: R07.9 Chest pain, unspecified (principal) | CPT/HCPCS: 93010 ==

== ENCOUNTER → 2025-08-09 08:12 | Outpatient (BNV) | payer OTHER, SELFPAY | PROVIDERS: Emergency Provider Emergency Medicine; PCP Internal Medicine; Visit Provider Radiology Diagnostic Radiology | DX: J98.4 Other disorders of lung (principal) | CPT/HCPCS: 71045 ==